=== PATIENT | male | born 1955 | race Caucasian/White ===

== ENCOUNTER 2017-07-18 19:29 | Inpatient (IN) | payer MEDICAID, OTHER ==
[~2017-07-18] VITALS: Ht 175.3 cm; Wt 73.1 kg
--- NOTE | 2017-07-18 20:26 | ERD ---
ER Documentation Chief Complaint Date/Time DATE: 07/18/17 TIME: 20:23 Chief Complaint TIFF from [facility] Living for high WBC 17.6 HPI Patient is a 62-year-old male with quadriplegia and recurrent UTIs sent to the ER from his residential after a white blood cell count was found to be elevated at 17.6 yesterday. The patient denies any fever, weakness, sweating, nausea, abdominal pain, dyspnea or cough. He states that he feels well. He states he last received antibiotics for UTI 3 months ago. Notes from the residential document that the patient had a urine culture performed 1 week ago and resulted 4 days ago that showed evidence of sensitive UTI. There were no significant electrolyte abnormalities, but the patient did have a elevated BUN. ROS All systems reviewed and are negative except as per history of present illness. Medications Home Meds Reported Medications Lactulose* (Lactulose*) 20 Gm/30 Ml Solution, 20 GM GTB TID, ML 07/18/17 Zolpidem Tartrate* (Ambien*) 5 Mg Tablet, 5 MG GTB QHS Y for INSOMNIA, #30 TAB 07/18/17 Tramadol HCl (Tramadol HCl) 50 Mg Tablet, 50 MG GTB TID, #90 TAB 07/18/17 Hydrocodone/Acetaminophen ([place] 10-325 Tablet) 1 Each Tablet, 1 EACH GTB Q6H Y for PRN, TAB AND TAKE 20 MINUTES PRIOR TO WOUND CARE DAILY 07/18/17 Cran/Vitc/Mannose/Inulin/Brom (Uti-Stat Liquid) 3,875 Mg/30 Ml Liquid, 30 ML GTB DAILY 07/18/17 Ferrous Sulfate (Ferrous Sulfate) 300 Mg/5 Ml Liquid, 300 MG GTB BID 07/18/17 Baclofen* (Baclofen*) 10 Mg Tablet, 10 MG GTB TID, TAB 07/18/17 Fluconazole* (Fluconazole*) 200 Mg Tablet, 200 MG GTB DAILY, TAB 07/18/17 Famotidine* (Famotidine*) 20 Mg Tablet, 20 MG GTB Q12H, #60 TAB 07/18/17 Magaldrate/Simethicone* (Mag-Al Plus Suspension*) 30 Ml Oral.susp, 30 ML GTB Q4H Y for GASTROINTESTINAL UPSET, ML 07/18/17 Sucralfate* (Carafate*) 1 Gm Tab, 1 GM GTB Q6, TAB 07/18/17 Dextran/Hypromellose/Glycerin (Artificial Tears Drops) 15 Ml Drops, 1 DROP RIGHT EYE Q4H, EA 07/18/17 Docusate Sodium* (Docusate Sodium* Liq) 50 Mg/5 Ml Liquid, 100 MG GTB BID, ML 07/18/17 Metformin Hcl* (Metformin Hcl*) 500 Mg Tablet, 500 MG GTB WITH BREAKFAST, #30 TAB 07/18/17 Allergies Allergies: Coded Allergies: No Known Allergy (Unverified , 07/18/17) PMhx/Soc Past medical history: Quadriplegia, recurrent UTIs, diabetes mellitus, stage IV sacral decubitus ulcer Past surgical history: Tracheostomy, PEG tube Social history: Lives in residential History of Surgery: Yes Anesthesia Reaction: No Hx Neurological Disorder: No Hx Respiratory Disorders: No Hx Cardiac Disorders: No Hx Psychiatric Problems: No Hx Miscellaneous Medical Probl: Yes (QUADRIPLEGIC, TRACH DEPENDENT) Hx Alcohol Use: No Hx Substance Use: No Hx Tobacco Use: No Smoking Status: Unknown if ever smoked FmHx Family History: No coronary disease, No diabetes Physical Exam Vitals Vital Signs Date Time Temp Pulse Resp B/P Pulse Ox O2 Delivery O2 Flow Rate FiO2 07/18/17 19:40 97.6 63 18 101/57 99 Physical Exam Const: Alert, no acute distress Head: Atraumatic Eyes: Normal Conjunctiva, Mild pallor, no icterus ENT: Normal External Ears, Nose and Mouth.Moist mucous membranes Neck: Full range of motion..~ No meningismus.Tracheostomy Resp: Clear to auscultation bilaterally, No wheezes, no rales Cardio: Regular rate and rhythm, no murmurs Abd: Soft, non tender, non distended. PEG tube Skin: No petechiae or rashes Back: No midline or flank tenderness. Stage IV decubitus ulcer without surrounding erythema, foul smell, or purulent discharge. Ext: No cyanosis, Trace pitting edema bilateral shins.Necrotic, black, dry ulcer to left heel without surrounding erythema. Neur: Awake and alert, Unable to move limbs with contractures. Psych: Normal Mood and Affect Result Diagram: 07/18/17202407/18/172024 Results 24 hrs Laboratory Tests Test 07/18/17 20:25 07/18/17 20:26 White Blood Count 10.010^3/ul Red Blood Count 3.0910^6/ul Hemoglobin 8.2g/dl Hematocrit 26.5% Mean Corpuscular Volume 85.8fl Mean Corpuscular Hemoglobin 26.5pg Mean Corpuscular Hemoglobin Concent 30.9g/dl Red Cell Distribution Width 14.9% Platelet Count 31231^3/UL Mean Platelet Volume 8.9fl Neutrophils % 63.9% Lymphocytes % 21.0% Monocytes % 11.7% Eosinophils % 2.6% Basophils % 0.2% Nucleated Red Blood Cells % 0.0/100WBC Neutrophils # (Manual) 6.410^3/ul Lymphocytes # 2.110^3/ul Monocytes # 1.210^3/ul Eosinophils # 0.310^3/ul Basophils # 0.010^3/ul Nucleated Red Blood Cells # 0.010^3/ul Erythrocyte Sedimentation Rate 132mm/Hr Sodium Level 133mmol/L Potassium Level 4.2mmol/L Chloride Level 99mmol/L Carbon Dioxide Level 30mmol/L Anion Gap 8 Blood Urea Nitrogen 52mg/dl Creatinine 0.70mg/dl Glucose Level 112mg/dl Lactic Acid Level 1.4mmol/L Calcium Level 9.4mg/dl Total Bilirubin 0.1mg/dl Direct Bilirubin 0.00mg/dl Indirect Bilirubin 0.1mg/dl Aspartate Amino Transf (AST/SGOT) 20IU/L Alanine Aminotransferase (ALT/SGPT) 19IU/L Alkaline Phosphatase 105IU/L Total Protein 7.4g/dl Albumin 3.2g/dl Globulin 4.20g/dl Albumin/Globulin Ratio 0.76 Urine Color YELLOW Urine Clarity CLOUDY Urine pH 8.0 Urine Specific [place] 1.015 Urine Ketones NEGATIVEmg/dL Urine Nitrite NEGATIVEmg/dL Urine Bilirubin NEGATIVEmg/dL Urine Urobilinogen NEGATIVEmg/dL Urine Leukocyte Esterase 3+Meaghan/ul Urine Microscopic RBC 26/HPF Urine Microscopic WBC > 182/HPF Urine Amorphous Crystals FEW/HPF Urine Bacteria FEW/HPF Urine Hemoglobin 1+mg/dL Urine Glucose NEGATIVEmg/dL Urine Total Protein 2+mg/dl Procedures/MDM MDM: Patient is a 62-year-old male sent to the ER from a convalescent home for leukocytosis on routine lab test. The patient states that he has not had fever , does not feel weak or dizzy, does not have shortness of breath or chest pain. The patient does have history of recurrent urinary tract infections and has a indwelling urinary catheter. Culture from 1 week ago show sensitivity to ceftriaxone. The patient also has a stage IV decubitus ulcer over the sacrum and has an elevated ESR that is concerning for osteomyelitis. His x-ray shows a small area of airspace disease in the right medial lung. It is unclear I have low suspicion that this represents pneumonia, but cannot exclude that diagnosis. The patient is chronically trached with a trach cap. The patient has an elevated BUN, indicative of dehydration. The patient has chronic anemia with a stable hemoglobin. There is no report of dark stools. I discussed the case with the physician at the convalescent home, and he states that they do not have capacity to provide IV antibiotics or fluids, so I will admit the patient for further workup and treatment. Departure Diagnosis: Primary Impression: Complicated urinary tract infection Additional Impressions: Dehydration Chronic anemia Quadriplegia Stage IV decubitus ulcer Pressure ulcer location: sacral region Qualified Code: L89.154 - Decubitus ulcer of sacral region, stage 4 Condition: GIACOMO Rivas MD Jul 18, 2017 20:26
[2017-07-18 20:40] LABS: BASOPHILS % 0.2 % (0.0-2.0); EOSINOPHILS # 0.3 10^3/ul (0.0-0.5); EOSINOPHILS % 2.6 % (0.0-7.0); HEMATOCRIT 26.5 % (42.0-52.0); HEMOGLOBIN 8.2 g/dl (14.0-18.0); LYMPHOCYTES # 2.1 10^3/ul (0.8-2.9); MEAN CORPUSCULAR HEMOGLOBIN 26.5 pg (29.0-33.0); MEAN CORPUSCULAR HGB CONC 30.9 g/dl (32.0-37.0); MEAN CORPUSCULAR VOLUME 85.8 fl (82.0-101.0); MEAN PLATELET VOLUME 8.9 fl (7.4-10.4); MONOCYTE # 1.2 10^3/ul (0.3-0.9); MONOCYTES % 11.7 % (0.0-11.0); NEUTROPHILS % 63.9 % (39.0-77.0); PLATELET COUNT 391 10^3/UL (140-415); RED BLOOD COUNT 3.09 10^6/ul (4.70-6.10); RED CELL DISTRIBUTION WIDTH 14.9 % (11.5-14.5)
[2017-07-18] MEDS ORDERED: METF500T4 GTB (20:53)
[2017-07-18] MEDS ORDERED: UDCOL GTB (20:54)
[2017-07-18] MEDS ORDERED: SUCR1TAB56 GTB (20:56)
[2017-07-18] MEDS ORDERED: DEXT15DR2 RIGHT EYE (20:56)
[2017-07-18] MEDS ORDERED: UDMYL GTB (20:57)
[2017-07-18] MEDS ORDERED: FAMO20TA18 GTB (20:58)
[2017-07-18] MEDS ORDERED: FLUC200T52 GTB (20:58)
[2017-07-18] MEDS ORDERED: BACL10TA GTB (20:59)
[2017-07-18 21:00] LABS: ALBUMIN 3.2 g/dl (3.3-4.9); ALBUMIN/GLOBULIN RATIO 0.76; BILIRUBIN,INDIRECT 0.1 mg/dl (0-1.1); BILIRUBIN,TOTAL 0.1 mg/dl (0.2-1.3); CALCIUM 9.4 mg/dl (8.4-10.2); CREATININE 0.7 mg/dl (0.61-1.24); POTASSIUM 4.2 mmol/L (3.5-5.1); TOTAL PROTEIN 7.4 g/dl (6.1-8.1)
[2017-07-18] MEDS ORDERED: SOD CHLORIDE 0.9% 1,000 ML IV ONE (21:00)
[2017-07-18] MEDS ORDERED: ACETAMINOPHEN 325 MG TAB PO PRN ×2 (21:00→22:30)
[2017-07-18] MEDS ORDERED: UDFER GTB (21:00)
[2017-07-18] MEDS ORDERED: CEFTRIAXONE 2 GM/50 ML (PMX) 50 ML IVPB ONE (21:00)
[2017-07-18] MEDS ORDERED: ONDANSETRON 4 MG INJ IV PRN (21:00)
[2017-07-18] MEDS ORDERED: CRAN3875 GTB (21:01)
[2017-07-18 21:02] LABS: ADD UMIC YES; UR AMORPHOUS CRYSTAL FEW /HPF (NONE SEEN); UR ASCORBIC ACID 40 mg/dL (NEGATIVE); UR BACTERIA FEW /HPF (NONE SEEN); UR BILIRUBIN (Dip) NEGATIVE (NEGATIVE); UR BLOOD (Dip) 1+ mg/dL (NEGATIVE); UR CLARITY CLOUDY (CLEAR); UR COLOR YELLOW (YELLOW); UR GLUCOSE (Dip) NEGATIVE (NEGATIVE); UR KETONES (Dip) NEGATIVE (NEGATIVE); UR LEUKOCYTE ESTERASE (Dip) 3+ Leu/ul (NEGATIVE); UR NITRITE (Dip) NEGATIVE (NEGATIVE); UR RBC 26 /HPF (0-5); UR SPECIFIC GRAVITY (Dip) 1.015 (1.003-1.030); UR TOTAL PROTEIN (Dip) 2+ mg/dl (NEGATIVE); UR UROBILINOGEN (Dip) NEGATIVE (NEGATIVE)
[2017-07-18] MEDS ORDERED: TRAM50TA2 GTB (21:05)
[2017-07-18] MEDS ORDERED: HYDR-902 GTB (21:05)
[2017-07-18] MEDS ORDERED: ZOLP5TAB GTB (21:06)
[2017-07-18] MEDS ORDERED: LACT20SO2 GTB (21:07)
--- NOTE | 2017-07-18 21:12 | RADRPT ---
PROCEDURE: CHEST RADIOGRAPH CLINICAL INDICATION: Possible sepsis. TECHNIQUE: Single frontal view of the chest were obtained. COMPARISON: None. FINDINGS: Tracheostomy seen. The PICC line tip is in the distal SVC. There is medial right lower lobe air spac e disease. the right lung is clear. There is no pleural effusion or pneumothorax. The cardiomediast inal structures are unremarkable. Cervical spine fixation hardware is partially seen. IMPRESSION: Medial right lower lobe air space disease. PICC line tip in the distal SVC. RPTAT: HMZ .Ramone Downs MD, MD Date Time Electronically viewed and signed by .Ramone Downs MD, on 07/18/2017 21:12 .Z/
[2017-07-18] MEDS ORDERED: SOD CHLORIDE 0.9% 1,000 ML IV SCH (22:25)
[2017-07-18] MEDS ORDERED: morphine 4 MG/ML VIAL IV STA (22:26)
[2017-07-18] MEDS ORDERED: NACL 0.9% 3 ML SYG IV SCH (22:30)
[2017-07-18] MEDS ORDERED: BISACODYL (EC) 5 MG TAB PO PRN (22:30)
[2017-07-18] MEDS ORDERED: DOCUSATE SODIUM 100 MG CAP PO PRN (22:30)
[2017-07-18] MEDS ORDERED: FAMOTIDINE 20 MG TAB PO SCH (22:30)
[2017-07-18] MEDS ORDERED: ONDANSETRON 4 MG INJ IV ONE (22:30)
[2017-07-18 23:41] VITALS: Ht 175.3 cm; Wt 73.1 kg
[2017-07-18 23:42] VITALS: BP 122/59; RESP 18
[2017-07-19] MEDS ORDERED: HYDROCODONE/APAP (10/325) TAB PO PRN (00:30)
[2017-07-19 02:04] VITALS: BP 88/52; RESP 20
[2017-07-19] MEDS: SUCRALFATE 1 GM TAB GTB SCH ×4 (05:52→23:51)
[2017-07-19] MEDS: ARTIFICIAL TEARS 15 ML OPH RIGHT EYE SCH ×6 (05:52→23:51)
--- NOTE | 2017-07-19 05:59 | HP ---
Date/Time of Note Date/Time of Note DATE: 07/19/17 TIME: 05:37 Assessment/Plan VTE Prophylaxis VTE Prophylaxis Intervention: SCD's Lines/Catheters IV [facility]ter Type (from [facility]): PICC Line Central line still needed: No Urinary Cath still in place: Yes Reason Cath still needed: other (indicate) (neurogenic bladder) Assessment/Plan Chief Complaint/Hosp Course This is a 62-year-old male being admitted to the [facility] floor for: #1 catheter induced UTI: Patient has history of recurrent UTIs most recent culture showed sensitivities to ceftriaxone, please see lab work in chart for further details. At the current time we will continue ceftriaxone 2 g every 24 hours, await hospital drawn urine culture results. Patient recently had his catheter changed will consider re-changing the catheter if indicated. #2 tetraplegia status post neck injury from fall: To be supportive care, continue trach care, continue turning in the bed #3 chronic decubitus ulcers: Continue turning in the bed as scheduled, wound care #4 diabetes mellitus: Check hemoglobin A1c, patient is on metformin as an outpatient will hold it for a now. Insulin sliding scale. #5 anemia: Continue ferrous sulfate #6 hypertension: Continue home medications. #7 elevated BUN: No signs of any active bleeding at this time. Will check fecal occult blood. Monitor H&H. Monitor BMP. #8 DVT and GI prophylaxis: SCDs, acid hayede Further treatment strategy will be implemented as per the clinical course Problems: HPI/ROS Admit Date/Time Admit Date/Time Jul 18, 2017 at 20:55 Hx of Present Illness Chief complaint: Urinary tract infection Patient is a 62-year-old male with quadriplegia and recurrent UTIs sent to the ER from his shelter after a white blood cell count was found to be elevated at 17.6 yesterday. The patient denies any fever, weakness, sweating, nausea, abdominal pain, dyspnea or cough. He states that he feels well. He does report that he had noticed approximately 2 days ago that his Mondragon was with dirty urine and he was leaking his catheter was changed approximately 2 days ago. He states he last received antibiotics for UTI 3 months ago. Notes from the shelter document that the patient had a urine culture performed 1 week ago that showed a UTI though susceptible to ceftriaxone with species of Providencia enterococcus. Allergies: Levaquin Medications: See MAR ROS Const: Negative for fever, chills, weight gain or weight loss, fatigue, or diaphoresis Eyes : No pain discharge or redness or change in visual acuity ENT: No pain, sore throat, congestion, congestion, dysphagia or discharge Respiratory: No shortness of breath, cough, sputum, wheezing, or pleuritic pain Cardiovascular: No chest pain, palpitation, PND, or edema GI : no change in appetite, abdominal pain, nausea, vomiting, diarrhea, constipation, or change in the color his stool Genitourinary: As per HPI Musculoskeletal: As per HPI Skin: No rash, bruising or hives Neuro: No headache, dizziness, syncope, seizure, focal weakness Endocrine: No polyuria, polydipsia, temperature intolerance Psych: No hallucination, depression, anxiety or suicidal ideation PMH/Family/Social Past Medical History Neck injury resulting in tetraplegia, diabetes mellitus, hypertension, chronic decubitus ulcer, arthritis, chronic trach, chronic PEG tube Past Surgical History Tracheostomy, neck surgery, PEG tube placement, right knee surgery Family History Significant Family History: no pertinent family hx Social History Alcohol Use: sober Smoking Status: Never smoker Drug Use: none Exam/Review of Systems Vital Signs Vitals Vital Signs Date Time Temp Pulse Resp B/P Pulse Ox O2 Delivery O2 Flow Rate FiO2 07/19/17 02:04 99.0 69 20 88/52 99 07/18/17 21:42 21 Exam Exam General: This is a very pleasant male sitting in bed in no acute distress HEENT: Atraumatic, normocephalic. The pupils are equal, round and reactive. Extraocular motor are intact, trach in place Neck: Supple with full range of motion. No rigidity or meningismus Chest: Nontender Lungs: Clear to auscultation bilaterally no crackles rales or wheezing Heart: Normal S1-S2, Regular rhythm and rate. Abdomen: Soft , nontender, nondistended , bowel sounds are present. No guarding no rebound tenderness , No masses or organomegaly. No costovertebral temporal angle mass Extremities: Multiple inspection, tetraplegic Neurologic: Normal mental status, speech normal, patient is a tetraplegic secondary to traumatic fall resulting in neck injury Additional Comments PROCEDURE: CHEST RADIOGRAPH CLINICAL INDICATION: Possible sepsis. TECHNIQUE: Single frontal view of the chest were obtained. COMPARISON: None. FINDINGS: Tracheostomy seen. The PICC line tip is in the distal SVC. There is medial right lower lobe air space disease. the right lung is clear. There is no pleural effusion or pneumothorax. The cardiomediastinal structures are unremarkable. Cervical spine fixation hardware is partially seen. IMPRESSION: Medial right lower lobe air space disease. PICC line tip in the distal SVC. RPTAT: HMZ .Ramone Downs MD, MD Date Time Electronically viewed and signed by .Ramone Downs MD, MD on 07/18/2017 21:12 .Z/ CC: GIACOMO VIRGEN MD Outside laboratory lab work please see documentation in chart for further information, pertinent labs below; white blood cell count 17.6 hemoglobin 8.3 hematocrit 27.6 platelet count 466 Glucose 128 BUN 52 sodium 130 potassium 4.9 chloride 97 urinalysis leukoesterase 3+ blood 2+ nitrite negative white blood cell greater than 50 urine culture 100,000 colonies organism 1 Providencia rettgeri organism to enterococcus Labs Result Diagram: 07/18/17202407/18/172024 Medications Medications Current Medications Sodium Chloride (NS) 1,000 ml @ 70 mls/hr [id number] IV Last administered on 00:03; Admin Dose 70 MLS/HR; Start 07/18/17 at 22:25 Ondansetron HCl (Zofran Inj) 4 mg Q6H PRN IV NAUSEA AND/OR VOMITING; Start 07/18 at 22:30 Acetaminophen (Tylenol Tab) 650 mg Q6H PRN PO PAIN LEVEL 1-3 OR FEVER; Start at 22:30 Docusate Sodium (Colace) 100 mg Q12H PRN PO CONSTIPATION; Start 07/18/17 at 22: 30 Bisacodyl (Dulcolax) 5 mg DAILY PRN PO CONSTIPATION; Start 07/18/17 at 22:30 Famotidine 20 mg 20 mg Q12 PO Last administered on 07/19/17 01:12; Admin Dose 20 MG; Start 9/6/17 at 22:30 Ceftriaxone Sodium (Rocephin) 50 ml @ 100 mls/hr Q24H IVPB ; Start 07/19/17 at 22:00 Acetaminophen/ Hydrocodone Bitart ([place] (10)) 1 tab Q6H PRN PO PAIN Last administered on 07/19/17 01:13; Admin Dose 1 TAB; Start 07/19/17 at 00:30 ANIVAL GRAHAM Jul 19, 2017 05:47
[2017-07-19] MEDS ORDERED: ZOLPIDEM 5 MG TAB GTB PRN (06:00)
[2017-07-19] MEDS ORDERED: AL HYDROX/MG HYDROX/SIMETH 30 ML CUP GTB PRN (06:00)
[2017-07-19] MEDS ORDERED: OXYCODONE/ACETAMINOPHEN (10/325) TAB PO PRN (06:00)
[2017-07-19] MEDS ORDERED: ACETAMINOPHEN 650MG/20.3ML CUP GTB PRN (06:00)
[2017-07-19 06:43] LABS: ALBUMIN 3.1 g/dl (3.3-4.9); ALBUMIN/GLOBULIN RATIO 0.75; CALCIUM 8.9 mg/dl (8.4-10.2); CHOL/HDL RATIO 4.4 RATIO; CREATININE 0.64 mg/dl (0.61-1.24); MAGNESIUM 1.9 mg/dl (1.7-2.5); POTASSIUM 4.2 mmol/L (3.5-5.1); TOTAL PROTEIN 7.2 g/dl (6.1-8.1)
[2017-07-19 07:37] VITALS: BP 103/57; RESP 18
[2017-07-19 07:41] LABS: THYROID STIMULATING HORMONE 0.363 MIU/L (0.465-4.680)
[2017-07-19] MEDS: LACTULOSE 30ML CUP GTB SCH ×3 (09:00→20:31)
[2017-07-19] MEDS ORDERED: NON-FORMULARY/PATIENT OWN MED (Cran/Vitc/Mannose/Inulin/Brom (Uti-Stat Liquid) 30 ML) GTB SCH (09:00)
[2017-07-19] MEDS: DOCUSATE SODIUM 10 MG/ML (10ML CUP) GTB SCH ×2 (09:00→20:31)
[2017-07-19] MEDS: FERROUS SULFATE 60 MG/ML 5ML CUP GTB SCH ×2 (09:16→20:31)
[2017-07-19] MEDS: traMADol 50 MG TAB GTB SCH ×3 (09:17→20:31)
[2017-07-19] MEDS: BACLOFEN 10 MG TAB GTB SCH ×3 (09:18→20:32)
[2017-07-19 10:30] LABS: IRON 24 ug/dl (35-150)
[2017-07-19 10:40] LABS: TOTAL IRON BINDING CAPACITY 247 ug/dl (241-421)
[2017-07-19] MEDS: OXYCODONE/ACETAMINOPHEN (10/325) TAB GTB PRN ×2 (11:54→20:32)
[2017-07-19 13:19] VITALS: BP 86/48; RESP 20
[2017-07-19 13:27] VITALS: BP 96/54; PULSE 65; RESP 18
[2017-07-19] MEDS ORDERED: COLLAGENASE 30 GM TUBE TOP PRN (14:30)
[2017-07-19] MEDS ORDERED: PENDING SANTYL ORDER FOR WOUND CARE XX PRN (14:30)
[2017-07-19 19:30] VITALS: BP 110/62; RESP 18
[2017-07-19] MEDS ORDERED: CEFTRIAXONE 2 GM/50 ML (PMX) 50 ML IVPB SCH (22:00)
[2017-07-20 02:00] VITALS: BP 127/73; RESP 18
[2017-07-20] MEDS: SUCRALFATE 1 GM TAB GTB SCH ×3 (05:03→18:00)
[2017-07-20] MEDS: ARTIFICIAL TEARS 15 ML OPH RIGHT EYE SCH ×5 (05:03→21:13)
[2017-07-20] MEDS: OXYCODONE/ACETAMINOPHEN (10/325) TAB GTB PRN (05:46)
[2017-07-20 07:26] VITALS: BP 132/67; RESP 20
[2017-07-20] MEDS: DOCUSATE SODIUM 10 MG/ML (10ML CUP) GTB SCH ×2 (09:00→21:15)
[2017-07-20] MEDS: COLLAGENASE 30 GM TUBE TOP SCH (09:00)
[2017-07-20 09:15] VITALS: BP 162/73; RESP 18
[2017-07-20] MEDS: BACLOFEN 10 MG TAB GTB SCH ×3 (10:32→21:11)
[2017-07-20] MEDS: FERROUS SULFATE 60 MG/ML 5ML CUP GTB SCH ×2 (10:32→21:12)
[2017-07-20] MEDS: LACTULOSE 30ML CUP GTB SCH ×3 (10:32→21:13)
[2017-07-20] MEDS: traMADol 50 MG TAB GTB SCH ×3 (10:33→21:12)
[2017-07-20 11:03] LABS: BASOPHILS % 0.3 % (0.0-2.0); EOSINOPHILS # 0.4 10^3/ul (0.0-0.5); EOSINOPHILS % 3.7 % (0.0-7.0); HEMATOCRIT 25.2 % (42.0-52.0); HEMOGLOBIN 7.8 g/dl (14.0-18.0); LYMPHOCYTES # 2.2 10^3/ul (0.8-2.9); LYMPHOCYTES % 23.9 % (15.0-51.0); MEAN CORPUSCULAR HEMOGLOBIN 26.5 pg (29.0-33.0); MEAN CORPUSCULAR VOLUME 85.7 fl (82.0-101.0); MONOCYTE # 1.2 10^3/ul (0.3-0.9); MONOCYTES % 13.2 % (0.0-11.0); NEUTROPHILS % 58.3 % (39.0-77.0); PLATELET COUNT 389 10^3/UL (140-415); RED BLOOD COUNT 2.94 10^6/ul (4.70-6.10); RED CELL DISTRIBUTION WIDTH 14.9 % (11.5-14.5); WHITE BLOOD COUNT 9.4 10^3/ul (4.8-10.8)
[2017-07-20 11:11] LABS: ALBUMIN 2.9 g/dl (3.3-4.9); ALBUMIN/GLOBULIN RATIO 0.74; CALCIUM 8.9 mg/dl (8.4-10.2); CREATININE 0.6 mg/dl (0.61-1.24); POTASSIUM 3.9 mmol/L (3.5-5.1); TOTAL PROTEIN 6.8 g/dl (6.1-8.1)
[2017-07-20] MEDS: ONDANSETRON 4 MG INJ IV PRN ×2 (11:28→21:58)
[2017-07-20 14:00] VITALS: BP 119/56; RESP 20
--- NOTE | 2017-07-20 16:02 | PN ---
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 Repeat cultures - ID consult for guidance - Does have hardware in his spine Dispo to faciliyt Problems: Subjective 24 Hr Interval Summary Free Text/Dictation Patient very eager to go home, can't sleep here he says Agrees to stay another day BC growing bacteroides x 2 MDRO in urine Exam/Review of Systems Vital Signs Vitals Vital Signs Date Time Temp Pulse Resp B/P Pulse Ox O2 Delivery O2 Flow Rate FiO2 07/20/17 14:00 97.3 69 20 119/56 99 07/19/17 13:27 Room Air 07/19/17 10:37 21 Intake and Output 07/19/17 07/19/17 07/20/17 15:00 23:00 07:00 Intake Total 750 ml 290 ml 1170 ml Output Total 800 ml 1000 ml Balance 750 ml -510 ml 170 ml Exam Quadraplegic Trach PEG Appears very comfortable Nontoxic apperaing Pleasant, appropriate Results Result Diagram: 07/20/17 1017 07/20/17 1017 Results 24 hrs Laboratory Tests Test 07/20/17 10:17 White Blood Count 9.4 Red Blood Count 2.94 L Hemoglobin 7.8 L Hematocrit 25.2 L Mean Corpuscular Volume 85.7 Mean Corpuscular Hemoglobin 26.5 L Mean Corpuscular Hemoglobin Concent 31.0 L Red Cell Distribution Width 14.9 H Platelet Count 389 Mean Platelet Volume 9.0 Neutrophils % 58.3 Lymphocytes % 23.9 Monocytes % 13.2 H Eosinophils % 3.7 Basophils % 0.3 Nucleated Red Blood Cells % 0.0 Neutrophils # (Manual) 5.5 Lymphocytes # 2.2 Monocytes # 1.2 H Eosinophils # 0.4 Basophils # 0.0 Nucleated Red Blood Cells # 0.0 Sodium Level 133 L Potassium Level 3.9 Chloride Level 100 Carbon Dioxide Level 28 Anion Gap 9 Blood Urea Nitrogen 23 #H Creatinine 0.60 L Glucose Level 131 Calcium Level 8.9 Total Bilirubin 0.0 L Direct Bilirubin 0.00 Indirect Bilirubin 0.0 Aspartate Amino Transf (AST/SGOT) 22 Alanine Aminotransferase (ALT/SGPT) 31 Alkaline Phosphatase 109 Total Protein 6.8 Albumin 2.9 L Globulin 3.90 H Albumin/Globulin Ratio 0.74 Medications Medications Current Medications Ondansetron HCl (Zofran Inj) 4 mg Q6H PRN IV NAUSEA AND/OR VOMITING Last administered on 07/20/17 11:28; Admin Dose 4 MG; Start 07/18/17 at 22:30 Baclofen (Lioresal) 10 mg TID GTB Last administered on 07/20/17 10:32; Admin Dose 10 MG; Start 07/19/17 at 09:00 Eye Lubricant (Artificial Tears Oph) 1 drop Q4H RIGHT EYE Last administered on 07/20/17 10:34; Admin Dose 1 DROP; Start 07/19/17 at 06:00 Docusate Sodium (Colace Liquid Cup) 100 mg BID GTB Last administered on 20:31; Admin Dose 100 MG; Start 07/19/17 at 09:00 Ferrous Sulfate (Feosol Liquid Cup) 300 mg BID GTB Last administered on 10:32; Admin Dose 300 MG; Start 07/19/17 at 09:00 Lactulose (Enulose) 20 gm TID GTB Last administered on 07/20/17 10:32; Admin Dose 20 GM; Start 07/19/17 at 09:00 Al Hydrox/Mg Hydrox/Simethicone (Mag-Al Plus) 30 ml Q4H PRN GTB GASTROINTESTINAL UPSET; Start 07/19/17 at 06:00 Sucralfate (Carafate) 1 gm Q6 GTB Last administered on 07/19/17 23:51; Admin Dose 1 GM; Start 07/19/17 at 06:00 Tramadol HCl (Ultram) 50 mg TID GTB Last administered on 07/20/17 10:33; Admin Dose 50 MG; Start 07/19/17 at 09:00 Zolpidem Tartrate (Ambien) 5 mg QHS PRN GTB INSOMNIA; Start 07/19/17 at 06:00 Oxycodone/ Acetaminophen (Endocet (10/ 325)) 1 tab Q6H PRN PO PAIN; Start at 06:00 Acetaminophen (Tylenol Liquid) 650 mg Q4H PRN GTB PAIN AND OR ELEVATED TEMP; Start 07/19/17 at 06:00 Oxycodone/ Acetaminophen (Endocet (10/ 325)) 1 tab Q6H PRN GTB PAIN Last administered on 07/20/17t 05:46; Admin Dose 1 TAB; Start 07/19/17 at 06:00 Miscellaneous Information (Pending Santyl Order For Wound Care) This patient martinez... PRN PRN XX WOUND CARE; Start 07/19/17 at 14:30 Collagenase (Santyl) 1 applic DAILY TOP ; Start 07/20/17 at 09:00 Collagenase 1 applic 1 applic PRN PRN TOP PRN; Start 07/19/17 at 14:30 Cefepime HCl (Maxipime 1gm/50 ml (Pmx)) 50 ml @ 100 mls/hr Q12H IVPB ; Start at 17:00 GIACOMO VELIZ MD Jul 20, 2017 16:02
[2017-07-20] MEDS: CEFEPIME 1GM/50 ML (PMX) 50 ML IVPB SCH (16:45)
--- NOTE | 2017-07-20 18:35 | CONS ---
DATE OF ADMISSION: 07/18/2017 DATE OF CONSULTATION: 07/20/2017 REQUESTING PHYSICIAN: Mihir Larose MD Thank you, Mihir, for this consultation. HISTORY OF PRESENT ILLNESS: This is a chronically ill 62-year- old man with a history of quadriplegia, chronic Mondragon catheter, diabetes, hypertension, multiple chronic wounds, arthritis, tracheostomy pack, history of right knee surgery. The patient was admitted from snf facility with elevated white blood cell count and further workup. VITAL SIGNS: He came with vital signs as follows, temperature 97.6, pulse 63, respirations 18, blood pressure 101/57, saturation 99 on room air. LABORATORY DATA: WBC 10, H and H 8.2 and 26.5, platelet count 391, no shift, no bands. Sodium 133, BUN 52, creatinine 0.70, normal LFT, total bili 0.1, alk phos 105. Urine culture growing Proteus mirabilis susceptible to cefotaxime, gentamicin, and tobramycin. A blood culture grew diphtheroids. INDWELLINGS: Patient has trach pack, Mondragon, and right upper extremity PICC line placed approximately a year ago. He was started on ceftriaxone. PAST MEDICAL HISTORY: As per history. REVIEW OF SYSTEMS: The patient feels good and wants to go home. DIAGNOSTICS: Chest x-ray revealed medial right lower lobe airspace disease. ALLERGIES: LEVAQUIN. PHYSICAL EXAMINATION: GENERAL: This is a chronically ill-appearing, quadriplegic, elderly man, who is alert, responsive and in no distress. HEENT: Head atraumatic, normocephalic. Sclerae anicteric. Buccal mucosa dry. NECK: Supple. Tracheostomy present. CHEST: Rise symmetrical. Breath sounds diminished at the bases. HEART: S1, S2. ABDOMEN: Soft, bowel sounds present. EXTREMITIES: Without cyanosis, wasted, and contractured. SKIN: No jaundice. No cyanosis. NEUROMUSCULAR: Patient is quadriplegic. DIAGNOSTIC IMPRESSION: This is a 62-year-old quadriplegic man with numerous medical problems. Admitted with elevated white blood cell count per report from snf facility, however, white blood cell counts while he is here were within normal limits. He does not have any shift to the left. No bandemia. ASR 132 though. Urine culture growing multidrug resistant Proteus mirabilis, which could be colonized given presence of chronic Mondragon catheter. Blood culture growing diphtheroids consistent with contaminant. Chest x-ray showed right medial lower lobe airspace disease, which could be a developing pneumonia. The patient is clinically and hemodynamically stable and had been afebrile with white blood cell count remained 9.4 today and no shift. We are going to change Rocephin to cefepime. We will repeat blood cultures from PICC line, 2 sets, and order chest x-ray in a.m. Further recommendations per patient's clinical course. Discussed with Dr. Casas, who is covering Dr. Fernandez. Dictated By: Ji Oropeza NP /mohinder/fan /Document#: [id number]
[2017-07-20 20:43] VITALS: BP 139/71; RESP 18
[2017-07-21] MEDS: ARTIFICIAL TEARS 15 ML OPH RIGHT EYE SCH ×6 (01:17→21:25)
[2017-07-21] MEDS: CEFEPIME 1GM/50 ML (PMX) 50 ML IVPB SCH ×2 (04:32→19:27)
[2017-07-21] MEDS: OXYCODONE/ACETAMINOPHEN (10/325) TAB GTB PRN (06:28)
[2017-07-21] MEDS: SUCRALFATE 1 GM TAB GTB SCH ×5 (06:29→23:46)
[2017-07-21 07:21] LABS: BASOPHILS % 0.3 % (0.0-2.0); EOSINOPHILS # 0.3 10^3/ul (0.0-0.5); EOSINOPHILS % 2.8 % (0.0-7.0); HEMATOCRIT 25.6 % (42.0-52.0); HEMOGLOBIN 7.7 g/dl (14.0-18.0); LYMPHOCYTES # 2.6 10^3/ul (0.8-2.9); LYMPHOCYTES % 25.1 % (15.0-51.0); MEAN CORPUSCULAR HEMOGLOBIN 25.6 pg (29.0-33.0); MEAN CORPUSCULAR HGB CONC 30.1 g/dl (32.0-37.0); MEAN PLATELET VOLUME 9.1 fl (7.4-10.4); MONOCYTE # 1.3 10^3/ul (0.3-0.9); MONOCYTES % 12.7 % (0.0-11.0); NEUTROPHILS % 58.5 % (39.0-77.0); PLATELET COUNT 390 10^3/UL (140-415); RED BLOOD COUNT 3.01 10^6/ul (4.70-6.10); RED CELL DISTRIBUTION WIDTH 14.7 % (11.5-14.5); WHITE BLOOD COUNT 10.2 10^3/ul (4.8-10.8)
[2017-07-21 07:41] LABS: ALBUMIN 3.2 g/dl (3.3-4.9); ALBUMIN/GLOBULIN RATIO 0.74; CREATININE 0.58 mg/dl (0.61-1.24); TOTAL PROTEIN 7.5 g/dl (6.1-8.1)
[2017-07-21 08:02] VITALS: BP 121/72
[2017-07-21] MEDS: DOCUSATE SODIUM 10 MG/ML (10ML CUP) GTB SCH ×2 (09:00→21:00)
[2017-07-21] MEDS: LACTULOSE 30ML CUP GTB SCH ×3 (09:00→21:00)
[2017-07-21] MEDS: FERROUS SULFATE 60 MG/ML 5ML CUP GTB SCH ×2 (09:27→21:24)
[2017-07-21] MEDS: BACLOFEN 10 MG TAB GTB SCH ×3 (09:27→21:24)
[2017-07-21] MEDS: traMADol 50 MG TAB GTB SCH ×3 (09:28→21:24)
[2017-07-21] MEDS: COLLAGENASE 30 GM TUBE TOP SCH (09:29)
[2017-07-21] MEDS ORDERED: VANCOMYCIN IV PER PHARMACY XX SCH (12:30)
[2017-07-21] MEDS ORDERED: VANCOMYCIN 1.5 GM in SOD CHLORIDE 0.9% 250 ML IVPB SCH (14:00)
[2017-07-21 14:49] VITALS: BP 143/72; RESP 18
--- NOTE | 2017-07-21 17:35 | PN ---
DATE: 07/21/2017 SUBJECTIVE DATA: No acute changes overnight. The patient is alert, wants to go home. Denies pain. No fevers. LABORATORY AND DIAGNOSTIC DATA: WBC 10.2, no shift, no bands. BUN 18, creatinine 0.58. MICROBIOLOGY: Blood culture on admission grew Corynebacterium species. Repeat blood cultures growing gram-positive rods. Urine culture grew Proteus mirabilis. Id Proteus mirabilis, multidrug resistant. ANTIMICROBIALS: 1. Vancomycin. 2. Cefepime. INDWELLINGS: Trach, PEG, Mondragon, right upper extremity PICC line. PHYSICAL EXAMINATION: GENERAL: This is a chronically ill-appearing, elderly man, who is awake, in no distress. HEENT: Head atraumatic, normocephalic. Sclerae anicteric. Buccal mucosa dry. NECK: Supple. CHEST: Rise symmetrical. Breath sounds clear. Diminished at the bases. HEART: S1, S2. ABDOMEN: Soft, bowel sounds present. EXTREMITIES: With right upper extremity. A edema PICC line present. SKIN: No jaundice. No cyanosis. ASSESSMENT: 1. Persistent bacteremia, possibly line sepsis. 2. Multidrug resistant, presence of bacteria in the urine. Possibly colonized given chronic Mondragon catheter. 3. Quadriplegia. 4. Obesity. 5. Dysphagia. PLAN: The patient remains stable. We are going to continue him on current antibiotics. We will order right upper extremity ultrasound to rule out DVT. The patient needs to have PICC line removed and line holiday between new central line placement given persistent bacteremia. Await for chest x-ray. discussed with patient at length. Dictated By: Ji Oropeza NP /mohinder/skylar /Document#: [id number] SHALOM
--- NOTE | 2017-07-21 19:02 | PN ---
Date/Time of Note Date/Time of Note DATE: 07/21/17 TIME: 19:00 Assessment/Plan VTE Prophylaxis VTE Prophylaxis Intervention: LMWH Lines/Catheters IV Catheter Type (from Nrsg): PICC Line Central line still needed: No Urinary Cath still in place: Yes Reason Cath still needed: urinary retention Assessment/Plan Chief Complaint/Hosp Course 62 yo male with paraplegia from cervical spine injury, neurogenic bladder with chronic indwelling shankar presenting with UTI and bacteremia, likely from PICC line infection Bacteroides bacteremia persistent - Clearly real infection given persistence - dc PICC line now then replace when cultures are clear - Abx per ID UTI: - MDRO organisms - May be colonizer - Abx per ID H/o Quadraplegia Neurogenic bladder Dispo to faciliyt Problems: Subjective 24 Hr Interval Summary Free Text/Dictation Very much wants to return home because can't sleep here Feels well otherwise BC still positive Removing PICC today Exam/Review of Systems Vital Signs Vitals Vital Signs Date Time Temp Pulse Resp B/P Pulse Ox O2 Delivery O2 Flow Rate FiO2 07/21/17 14:49 98.1 61 18 143/72 100 07/20/17 21:00 Nasal Cannula 2.0 07/19/17 10:37 21 Intake and Output 07/20/17 07/20/17 07/21/17 15:00 23:00 07:00 Intake Total 800 ml 1030 ml Output Total 1300 ml Balance 800 ml -270 ml Exam Quadraplegia PICC in RUE Appears well, no disterss, nonotoxic Constitutional: alert, oriented, well developed Psych: nl mood/affect, no complaints Head: atraumatic, normocephalic Eyes: EOMI, PERRL, nl conjunctiva, nl lids, nl sclera ENMT: nl external ears & nose, nl lips & teeth, nl nasal mucosa & septum Neck: non-tender, supple Respiratory: clear to auscultation, normal air movement Cardiovascular: nl pulses, regular rate and rhythm Gastrointestinal: nl liver, spleen, non-tender, soft Musculoskeletal: nl extremities to inspection, nl gait and stance Extremities: normal pulses Neurological: [employer] II-XII intact, nl mental status, nl speech, nl strength Skin: nl turgor, No rash or lesions Lymph: nl lymph nodes Results Result Diagram: 9/9/17 0625 9/9/17 0625 Results 24 hrs Laboratory Tests Test 07/21/17 06:25 07/21/17 09:00 White Blood Count 10.2 Red Blood Count 3.01 L Hemoglobin 7.7 L Hematocrit 25.6 L Mean Corpuscular Volume 85.0 Mean Corpuscular Hemoglobin 25.6 L Mean Corpuscular Hemoglobin Concent 30.1 L Red Cell Distribution Width 14.7 H Platelet Count 390 Mean Platelet Volume 9.1 Neutrophils % 58.5 Lymphocytes % 25.1 Monocytes % 12.7 H Eosinophils % 2.8 Basophils % 0.3 Nucleated Red Blood Cells % 0.0 Neutrophils # (Manual) 6.0 Lymphocytes # 2.6 Monocytes # 1.3 H Eosinophils # 0.3 Basophils # 0.0 Nucleated Red Blood Cells # 0.0 Sodium Level 135 Potassium Level 4.0 Chloride Level 101 Carbon Dioxide Level 27 Anion Gap 11 Blood Urea Nitrogen 18 Creatinine 0.58 L Glucose Level 125 Calcium Level 9.0 Total Bilirubin 0.0 L Direct Bilirubin 0.00 Indirect Bilirubin 0.0 Aspartate Amino Transf (AST/SGOT) 21 Alanine Aminotransferase (ALT/SGPT) 32 Alkaline Phosphatase 107 Total Protein 7.5 Albumin 3.2 L Globulin 4.30 H Albumin/Globulin Ratio 0.74 Stool Occult Blood NEGATIVE Medications Medications Current Medications Ondansetron HCl (Zofran Inj) 4 mg Q6H PRN IV NAUSEA AND/OR VOMITING Last administered on 07/20/17 21:58; Admin Dose 4 MG; Start 07/18/17 at 22:30 Baclofen (Lioresal) 10 mg TID GTB Last administered on 07/21/17 13:24; Admin Dose 10 MG; Start 07/19/17 at 09:00 Eye Lubricant (Artificial Tears Oph) 1 drop Q4H RIGHT EYE Last administered on 07/20/17 21:13; Admin Dose 1 DROP; Start 07/19/17 at 06:00 Docusate Sodium (Colace Liquid Cup) 100 mg BID GTB Last administered on 21:15; Admin Dose 100 MG; Start 07/19/17 at 09:00 Ferrous Sulfate (Feosol Liquid Cup) 300 mg BID GTB Last administered on 09:27; Admin Dose 300 MG; Start 07/19/17 at 09:00 Lactulose (Enulose) 20 gm TID GTB Last administered on 07/20/17 21:13; Admin Dose 20 GM; Start 07/19/17 at 09:00 Al Hydrox/Mg Hydrox/Simethicone (Mag-Al Plus) 30 ml Q4H PRN GTB GASTROINTESTINAL UPSET; Start 07/19/17 at 06:00 Sucralfate (Carafate) 1 gm Q6 GTB Last administered on 07/21/17 12:41; Admin Dose 1 GM; Start 07/19/17 at 06:00 Tramadol HCl (Ultram) 50 mg TID GTB Last administered on 07/21/17 13:24; Admin Dose 50 MG; Start 07/19/17 at 09:00 Zolpidem Tartrate (Ambien) 5 mg QHS PRN GTB INSOMNIA; Start 07/19/17 at 06:00 Oxycodone/ Acetaminophen (Endocet (10/ 325)) 1 tab Q6H PRN PO PAIN; Start at 06:00 Acetaminophen (Tylenol Liquid) 650 mg Q4H PRN GTB PAIN AND OR ELEVATED TEMP; Start 07/19/17 at 06:00 Oxycodone/ Acetaminophen (Endocet (10/ 325)) 1 tab Q6H PRN GTB PAIN Last administered on 07/21/17 06:28; Admin Dose 1 TAB; Start 07/19/17 at 06:00 Miscellaneous Information (Pending Santyl Order For Wound Care) This patient martinez... PRN PRN XX WOUND CARE; Start 07/19/17 at 14:30 Collagenase (Santyl) 1 applic DAILY TOP Last administered on 07/21/17 09:29; Admin Dose 1 APPLIC; Start 07/20/17 at 09:00 Collagenase 1 applic 1 applic PRN PRN TOP PRN; Start 07/19/17 at 14:30 Cefepime HCl 50 ml @ 100 mls/hr Q12H IVPB Last administered on 07/21/17 04:32 ; Admin Dose 100 MLS/HR; Start 07/20/17 at 17:00 Vancomycin HCl 1.5 gm/Sodium Chloride 250 ml @ 83.333 mls/ hr ONCE IVPB Last administered on 07/21/17 14:35; Admin Dose 83.333 MLS/HR; Start 07/21/17 at 14:00 ; Stop 07/21/17 at 23:33 Vancomycin HCl (Vancocin) 250 ml @ 125 mls/hr Q12H IVPB ; Start 07/22/17 at 04: 00 GIACOMO VELIZ MD Jul 21, 2017 19:02
--- NOTE | 2017-07-21 19:14 | RADRPT ---
PROCEDURE: XR Chest. CLINICAL INDICATION: Shortness of breath. TECHNIQUE: Single frontal view. COMPARISON: 07/18/2017. FINDINGS: The right arm PICC line, tracheostomy tube, and prior cervical spine surgery with hardware is once a gain noted. There is air space disease at the right lung base medially, slightly improved. The lungs are otherwise clear. The heart size is normal. There is no pleural effusion. There is no pneumothorax. IMPRESSION: 1. Slightly improved appearance of right basilar pneumonia. 2. Otherwise no change from 07/18/2017. RPTAT: QQ .Hung Abel MD, MD Date Time Electronically viewed and signed by .Hung Abel MD, MD on 07/21/2017 19:13 .R/
[2017-07-21 19:17] VITALS: BP 154/76; RESP 20
[2017-07-21] MEDS ORDERED: LORAZEPAM 1 MG TAB PO PRN (19:30)
[2017-07-22] MEDS: ARTIFICIAL TEARS 15 ML OPH RIGHT EYE SCH ×6 (02:00→21:15)
[2017-07-22] MEDS: VANCOMYCIN 1 GM in NS 250 ML IVPB SCH ×2 (03:19→15:17)
[2017-07-22] MEDS: CEFEPIME 1GM/50 ML (PMX) 50 ML IVPB SCH ×2 (05:46→17:43)
[2017-07-22] MEDS: SUCRALFATE 1 GM TAB GTB SCH ×3 (05:47→17:42)
[2017-07-22 07:31] VITALS: BP 165/80; RESP 18
[2017-07-22] MEDS: DOCUSATE SODIUM 10 MG/ML (10ML CUP) GTB SCH ×2 (09:00→21:00)
[2017-07-22] MEDS: LACTULOSE 30ML CUP GTB SCH ×3 (09:00→21:00)
[2017-07-22] MEDS: ZINC SULFATE 220 MG CAP GTB SCH (09:14)
[2017-07-22] MEDS: ASCORBIC ACID 500 MG TAB GTB SCH (09:14)
[2017-07-22] MEDS: FERROUS SULFATE 60 MG/ML 5ML CUP GTB SCH ×2 (09:14→21:15)
[2017-07-22] MEDS: traMADol 50 MG TAB GTB SCH ×3 (09:14→21:15)
[2017-07-22] MEDS: BACLOFEN 10 MG TAB GTB SCH ×3 (09:15→21:15)
[2017-07-22] MEDS: COLLAGENASE 30 GM TUBE TOP SCH (09:16)
--- NOTE | 2017-07-22 11:17 | RADRPT ---
Echocardiogram Report Patient Name: RAJ CORTEZ Gender: Male Date: 1955 Study Date: 22-Jul-2017 Test Manager: Ricco [facility] Location: Formerly named [facility] Ref. Physician: ADI ENNIS Quality: Adequate Procedures: Transthoracic echocardiogram with complete 2D, M-Mode, and doppler examination. Indications: R/O Vegetations. 2D/M Mode Doppler Measurement Value Normal Ranges Measurement Value Normal Ranges LVIDd 2D 4.1 3.5 - 5.6 cm AV Peak Juan 1.4 m/sec LVIDs 2D 3.2 2.1 - 4.1 cm AV Peak PG 8.0 mmHg FS 2D 22.6 % LVOT Peak Juan 1.0 m/sec LVPWd 2D 1.5 0.6 - 1.1 cm LVOT Peak PG 4.0 mmHg IVSd 2D 1.6 0.6 - 1.1 cm MV E Peak Juan 0.8 m/sec IVS/LVPW 2D 1.1 MV A Peak Juan 0.9 m/sec AoR Diam 2D 3.3 2.0 - 3.7 cm MV E/A 0.8 LA/Ao 2D 1 0 - 1 MV Decel Time 194 msec EDV 2D 69.9 cm3 MV E/A 0.8 ESV 2D 32.5 cm3 TR Peak Juan 2.3 m/sec LA Dimen 2D 3.2 2.3 - 4.0 cm TR Peak PG 21.0 mmHg RVSP 24.0 mmHg Findings Left Ventricle: Normal left ventricular systolic function. Normal left ventricular cavity size. Moderate concentric left ventricular hypertrophy. Ejection fraction is visually estimated at 65 %. Tissue Doppler/Mitral Doppler indices are consistent with impaired relaxation (Stage I diastolic dysfunction). Right Ventricle: Normal right ventricular size. Normal right ventricular systolic function. Left Atrium: The left atrium is normal in size. Right Atrium: The right atrium is normal in size. Mitral Valve: Mild mitral leaflet calcification. Mild mitral annular calcification. Aortic Valve: Normal appearance of the aortic valve. No significant aortic stenosis or insufficiency. Tricuspid Valve: Normal appearance of the tricuspid valve. Estimated peak PA systolic pressure 24 mmHg. There is trace tricuspid regurgitation. Pulmonic Valve: Pulmonic valve not well visualized. There is trace pulmonic regurgitation. Pericardium: Normal pericardium with no significant pericardial effusion. Aorta: Normal aortic root. IVC: Normal size and normal respiratory collapse consistent with normal right atrial pressure. Conclusions 1.Normal left ventricular systolic function. Normal left ventricular cavity size. Moderate concentric left ventricular hypertrophy. Ejection fraction is visually estimated at 65 %. Tissue Doppler/Mitral Doppler indices are consistent with impaired relaxation (Stage I diastolic dysfunction). Electronically Signed By: Javon Restrepo 22-Jul-2017 11:17:27 -0700 Patient Name: RAJ CORTEZ Study Date: 22-Jul-2017 [id number]
[2017-07-22 14:39] LABS: BASOPHILS % 0.3 % (0.0-2.0); EOSINOPHILS # 0.4 10^3/ul (0.0-0.5); EOSINOPHILS % 3.3 % (0.0-7.0); HEMATOCRIT 26.3 % (42.0-52.0); HEMOGLOBIN 8.1 g/dl (14.0-18.0); LYMPHOCYTES % 19.1 % (15.0-51.0); MEAN CORPUSCULAR HEMOGLOBIN 25.7 pg (29.0-33.0); MEAN CORPUSCULAR HGB CONC 30.8 g/dl (32.0-37.0); MEAN CORPUSCULAR VOLUME 83.5 fl (82.0-101.0); MEAN PLATELET VOLUME 8.7 fl (7.4-10.4); MONOCYTE # 1.1 10^3/ul (0.3-0.9); MONOCYTES % 10.2 % (0.0-11.0); NEUTROPHILS % 66.3 % (39.0-77.0); PLATELET COUNT 359 10^3/UL (140-415); RED BLOOD COUNT 3.15 10^6/ul (4.70-6.10); RED CELL DISTRIBUTION WIDTH 14.6 % (11.5-14.5); WHITE BLOOD COUNT 10.6 10^3/ul (4.8-10.8)
[2017-07-22 14:57] LABS: ALBUMIN 3.2 g/dl (3.3-4.9); ALBUMIN/GLOBULIN RATIO 0.76; CREATININE 0.54 mg/dl (0.61-1.24); POTASSIUM 4.2 mmol/L (3.5-5.1); TOTAL PROTEIN 7.4 g/dl (6.1-8.1)
[2017-07-22] MEDS: OXYCODONE/ACETAMINOPHEN (10/325) TAB GTB PRN (15:18)
[2017-07-22 15:39] VITALS: BP 142/70; RESP 18
--- NOTE | 2017-07-22 16:28 | CONS ---
Date/Time of Note Date/Time of Note DATE: 07/22/17 TIME: 16:21 Assessment/Plan Assessment/Plan Chief Complaint/Hosp Course SUBJECTIVE DATA: No acute changes overnight. Denies pain. No fevers. MICROBIOLOGY: Blood culture on admission grew Corynebacterium species. Repeat blood cultures growing gram-positive rods. Urine culture grew Proteus mirabilis. Id Proteus mirabilis, multidrug resistant. ANTIMICROBIALS: 1. Vancomycin. 2. Cefepime. INDWELLINGS: Trach, PEG, Mondragon, right upper extremity PICC line. PHYSICAL EXAMINATION: GENERAL: This is a chronically ill-appearing, elderly man, who is awake, in no distress. HEENT: Head atraumatic, normocephalic. Sclerae anicteric. Buccal mucosa dry. NECK: Supple. CHEST: Rise symmetrical. Breath sounds clear. Diminished at the bases. HEART: S1, S2. ABDOMEN: Soft, bowel sounds present. EXTREMITIES: With right upper extremity. A edema PICC line present. SKIN: No jaundice. No cyanosis. ASSESSMENT: 1. Persistent bacteremia, possibly line sepsis. 2. Multidrug resistant, presence of bacteria in the urine. Possibly colonized given chronic Mondragon catheter. 3. Quadriplegia. 4. Obesity. 5. Dysphagia. PLAN: 1. The patient remains stable. 2. We are going to continue him on current antibiotics. 3. Right upper extremity ultrasound to rule out DVT. The patient needs to have PICC line removed and line holiday between new central line placement given persistent bacteremia. 4. Monitor Labs. Problems: Consultation Date/Type/Reason Admit Date/Time Jul 18, 2017 at 20:55 Initial Consult Date Type of Consultation: id Exam/Review of Systems Vital Signs Vitals Vital Signs Date Time Temp Pulse Resp B/P Pulse Ox O2 Delivery O2 Flow Rate FiO2 07/22/17 15:39 98.4 65 18 142/70 100 07/22/17 08:45 Nasal Cannula 2.0 07/19/17 10:37 21 Intake and Output 07/21/17 07/21/17 07/22/17 15:00 23:00 07:00 Intake Total 840 ml 1420 ml Output Total 800 ml Balance 40 ml 1420 ml Results Result Diagram: 07/22/17 1426 07/22/17 1426 Results 24 hrs Laboratory Tests Test 07/22/17 14:26 White Blood Count 10.6 Red Blood Count 3.15 L Hemoglobin 8.1 L Hematocrit 26.3 L Mean Corpuscular Volume 83.5 Mean Corpuscular Hemoglobin 25.7 L Mean Corpuscular Hemoglobin Concent 30.8 L Red Cell Distribution Width 14.6 H Platelet Count 359 Mean Platelet Volume 8.7 Neutrophils % 66.3 Lymphocytes % 19.1 Monocytes % 10.2 Eosinophils % 3.3 Basophils % 0.3 Nucleated Red Blood Cells % 0.0 Neutrophils # (Manual) 7.1 Lymphocytes # 2.0 Monocytes # 1.1 H Eosinophils # 0.4 Basophils # 0.0 Nucleated Red Blood Cells # 0.0 Sodium Level 132 L Potassium Level 4.2 Chloride Level 100 Carbon Dioxide Level 28 Anion Gap 8 Blood Urea Nitrogen 17 Creatinine 0.54 L Glucose Level 135 Calcium Level 9.0 Total Bilirubin 0.0 L Direct Bilirubin 0.00 Indirect Bilirubin 0.0 Aspartate Amino Transf (AST/SGOT) 23 Alanine Aminotransferase (ALT/SGPT) 32 Alkaline Phosphatase 120 Total Protein 7.4 Albumin 3.2 L Globulin 4.20 H Albumin/Globulin Ratio 0.76 Medications Medications Current Medications Ondansetron HCl (Zofran Inj) 4 mg Q6H PRN IV NAUSEA AND/OR VOMITING Last administered on 07/20/17 21:58; Admin Dose 4 MG; Start 07/18/17 at 22:30 Baclofen (Lioresal) 10 mg TID GTB Last administered on 07/22/17 12:37; Admin Dose 10 MG; Start 07/19/17 at 09:00 Eye Lubricant (Artificial Tears Oph) 1 drop Q4H RIGHT EYE Last administered on 07/20/17 21:13; Admin Dose 1 DROP; Start 07/19/17 at 06:00 Docusate Sodium (Colace Liquid Cup) 100 mg BID GTB Last administered on 21:15; Admin Dose 100 MG; Start 07/19/17 at 09:00 Ferrous Sulfate (Feosol Liquid Cup) 300 mg BID GTB Last administered on 09:14; Admin Dose 300 MG; Start 07/19/17 at 09:00 Lactulose (Enulose) 20 gm TID GTB Last administered on 07/20/17 21:13; Admin Dose 20 GM; Start 07/19/17 at 09:00 Al Hydrox/Mg Hydrox/Simethicone (Mag-Al Plus) 30 ml Q4H PRN GTB GASTROINTESTINAL UPSET; Start 07/19/17 at 06:00 Sucralfate (Carafate) 1 gm Q6 GTB Last administered on 07/22/17 12:37; Admin Dose 1 GM; Start 07/19/17 at 06:00 Tramadol HCl (Ultram) 50 mg TID GTB Last administered on 07/22/17 12:37; Admin Dose 50 MG; Start 07/19/17 at 09:00 Zolpidem Tartrate (Ambien) 5 mg QHS PRN GTB INSOMNIA; Start 07/19/17 at 06:00 Oxycodone/ Acetaminophen (Endocet (10/ 325)) 1 tab Q6H PRN PO PAIN; Start at 06:00 Acetaminophen (Tylenol Liquid) 650 mg Q4H PRN GTB PAIN AND OR ELEVATED TEMP; Start 07/19/17 at 06:00 Oxycodone/ Acetaminophen (Endocet (10/ 325)) 1 tab Q6H PRN GTB PAIN Last administered on 07/22/17 15:18; Admin Dose 1 TAB; Start 07/19/17 at 06:00 Miscellaneous Information (Pending Santyl Order For Wound Care) This patient martinez... PRN PRN XX WOUND CARE; Start 07/19/17 at 14:30 Collagenase (Santyl) 1 applic DAILY TOP Last administered on 07/22/17 09:16; Admin Dose 1 APPLIC; Start 07/20/17 at 09:00 Collagenase 1 applic 1 applic PRN PRN TOP PRN; Start 07/19/17 at 14:30 Cefepime HCl 50 ml @ 100 mls/hr Q12H IVPB Last administered on 07/22/17 05:46 ; Admin Dose 100 MLS/HR; Start 07/20/17 at 17:00 Vancomycin HCl (Vancocin) 250 ml @ 125 mls/hr Q12H IVPB Last administered on 15:17; Admin Dose 125 MLS/HR; Start 07/22/17 at 04:00 Lorazepam (Ativan) 1 mg Q6H PRN PO ANXIETY; Start 07/21/17 at 19:30 Ascorbic Acid (Vitamin C) 500 mg DAILY GTB Last administered on 07/22/17 09:14 ; Admin Dose 500 MG; Start 07/22/17 at 09:00 Zinc Sulfate (Zinc Sulfate) 220 mg DAILY GTB Last administered on 07/22/17 09: 14; Admin Dose 220 MG; Start 07/22/17 at 09:00 Miscellaneous Information (*Rx Drug Level Order Reminder*) VANCOMYCIN TROUGH AT 0300 ONCE ONCE XX ; Start 07/23/17 at 03:00; Stop 07/23/17 at 03:01 ADAM GALARZA NP Jul 22, 2017 16:28
[2017-07-22 20:51] VITALS: BP 171/80; RESP 18
[2017-07-22] MEDS ORDERED: morphine 2 MG INJ IV ONE ×2 (22:00→22:31)
[2017-07-22] MEDS ORDERED: hydrALAzine 20 MG INJ IV PRN (22:00)
[2017-07-22 22:03] VITALS: BP 189/82; PULSE 63
[2017-07-22 22:33] VITALS: BP 142/75; PULSE 65; RESP 17
[2017-07-23] MEDS: SUCRALFATE 1 GM TAB GTB SCH ×4 (00:22→18:29)
[2017-07-23] MEDS: ARTIFICIAL TEARS 15 ML OPH RIGHT EYE SCH ×6 (01:56→21:05)
[2017-07-23 03:22] VITALS: BP 157/76; RESP 16
[2017-07-23] MEDS: VANCOMYCIN 1 GM in NS 250 ML IVPB SCH (04:08)
[2017-07-23] MEDS: CEFEPIME 1GM/50 ML (PMX) 50 ML IVPB SCH ×2 (06:06→16:35)
--- NOTE | 2017-07-23 06:53 | RADRPT ---
PROCEDURE: US upper extremity Venous. CLINICAL INDICATION: Right arm edema TECHNIQUE: Multiple sonographic images of the right upper extremity venous system was obtained uti lizing grayscale, color-flow, compressive sonography and doppler imaging with augmentation. The mayra ges were reviewed on a PACS workstation. COMPARISON: None. FINDINGS: There is normal compressibility and flow within the right internal jugular vein, subclavian vein, ax illary vein, brachial, basilic, cephalic, radial and ulnar veins. RPTAT: AA IMPRESSION: No sonographic evidence for venous thrombosis. .Fran Giles MD, MD Date Time Electronically viewed and signed by .Fran Giles MD, MD on 07/23/2017 06:52 .S/
[2017-07-23 08:24] VITALS: BP 126/67; RESP 20
[2017-07-23] MEDS: LACTULOSE 30ML CUP GTB SCH ×3 (09:00→20:44)
[2017-07-23] MEDS: DOCUSATE SODIUM 10 MG/ML (10ML CUP) GTB SCH ×2 (09:00→20:43)
[2017-07-23] MEDS: ASCORBIC ACID 500 MG TAB GTB SCH (09:03)
[2017-07-23] MEDS: BACLOFEN 10 MG TAB GTB SCH ×3 (09:03→20:43)
[2017-07-23] MEDS: FERROUS SULFATE 60 MG/ML 5ML CUP GTB SCH ×2 (09:03→20:43)
[2017-07-23] MEDS: ZINC SULFATE 220 MG CAP GTB SCH (09:03)
[2017-07-23] MEDS: COLLAGENASE 30 GM TUBE TOP SCH (09:05)
[2017-07-23] MEDS: traMADol 50 MG TAB GTB SCH ×3 (09:05→20:43)
[2017-07-23 10:04] LABS: BASOPHILS % 0.2 % (0.0-2.0); EOSINOPHILS # 0.4 10^3/ul (0.0-0.5); EOSINOPHILS % 3.7 % (0.0-7.0); HEMOGLOBIN 7.8 g/dl (14.0-18.0); LYMPHOCYTES # 2.2 10^3/ul (0.8-2.9); MEAN CORPUSCULAR HEMOGLOBIN 25.5 pg (29.0-33.0); MEAN PLATELET VOLUME 9.4 fl (7.4-10.4); MONOCYTE # 1.2 10^3/ul (0.3-0.9); NEUTROPHILS % 64.3 % (39.0-77.0); PLATELET COUNT 344 10^3/UL (140-415); RED BLOOD COUNT 3.06 10^6/ul (4.70-6.10); RED CELL DISTRIBUTION WIDTH 14.8 % (11.5-14.5); WHITE BLOOD COUNT 10.9 10^3/ul (4.8-10.8)
[2017-07-23 10:21] LABS: ALBUMIN 3.2 g/dl (3.3-4.9); ALBUMIN/GLOBULIN RATIO 0.78; CALCIUM 9.1 mg/dl (8.4-10.2); CREATININE 0.53 mg/dl (0.61-1.24); POTASSIUM 4.2 mmol/L (3.5-5.1); TOTAL PROTEIN 7.3 g/dl (6.1-8.1)
[2017-07-23] MEDS: OXYCODONE/ACETAMINOPHEN (10/325) TAB GTB PRN (11:04)
[2017-07-23 15:13] VITALS: BP 137/63; RESP 18
--- NOTE | 2017-07-23 16:46 | PN ---
Date/Time of Note Date/Time of Note DATE: 07/23/17 TIME: 16:42 Assessment/Plan VTE Prophylaxis VTE Prophylaxis Intervention: SCD's Assessment/Plan Chief Complaint/Hosp Course Acute Metabolic Encephalopathy with Resp Failure-now extubated - Improving daily - Continue thiamine for possible Wernicke/Korsoakoff - Supportive care - PT/OT Enterococcus bacteremia: F/U on most recent Cx's, last Cx was positive - TTE w/o vegetation - s/p abx course Debility - PT/OT Etoh use d/o: - Thiamine, folate Dysphagia - failed swallow eval but did ok today with applesauce, ST to advance as able PPx- SCD's Problems: Subjective 24 Hr Interval Summary Constitutional: no complaints Exam/Review of Systems Vital Signs Vitals Vital Signs Date Time Temp Pulse Resp B/P Pulse Ox O2 Delivery O2 Flow Rate FiO2 07/23/17 15:13 97.9 68 18 137/63 100 07/23/17 10:38 Nasal Cannula 2.0 07/19/17 10:37 21 Intake and Output 07/22/17 07/22/17 07/23/17 15:00 23:00 07:00 Intake Total 400 ml 1000 ml 780 ml Output Total 900 ml 1000 ml 1400 ml Balance -500 ml 0 ml -620 ml Exam Constitutional: alert Respiratory: clear to auscultation Cardiovascular: regular rate and rhythm Gastrointestinal: soft, No distended Musculoskeletal: nl extremities to inspection Results Result Diagram: 07/23/17 0934 07/23/17 0929 Results 24 hrs Laboratory Tests Test 07/23/17 09:29 07/23/17 09:34 07/23/17 15:00 Sodium Level 133 L Potassium Level 4.2 Chloride Level 100 Carbon Dioxide Level 27 Anion Gap 10 Blood Urea Nitrogen 18 Creatinine 0.53 L Glucose Level 152 Calcium Level 9.1 Total Bilirubin 0.0 L Direct Bilirubin 0.00 Indirect Bilirubin 0.0 Aspartate Amino Transf (AST/SGOT) 24 Alanine Aminotransferase (ALT/SGPT) 25 Alkaline Phosphatase 132 H Total Protein 7.3 Albumin 3.2 L Globulin 4.10 H Albumin/Globulin Ratio 0.78 White Blood Count 10.9 H Red Blood Count 3.06 L Hemoglobin 7.8 L Hematocrit 26.0 L Mean Corpuscular Volume 85.0 Mean Corpuscular Hemoglobin 25.5 L Mean Corpuscular Hemoglobin Concent 30.0 L Red Cell Distribution Width 14.8 H Platelet Count 344 Mean Platelet Volume 9.4 Neutrophils % 64.3 Lymphocytes % 20.0 Monocytes % 11.0 Eosinophils % 3.7 Basophils % 0.2 Nucleated Red Blood Cells % 0.0 Neutrophils # (Manual) 7.0 Lymphocytes # 2.2 Monocytes # 1.2 H Eosinophils # 0.4 Basophils # 0.0 Nucleated Red Blood Cells # 0.0 Vancomycin Level Trough 21.7 *H Medications Medications Current Medications Ondansetron HCl (Zofran Inj) 4 mg Q6H PRN IV NAUSEA AND/OR VOMITING Last administered on 07/20/17 21:58; Admin Dose 4 MG; Start 07/18/17 at 22:30 Baclofen (Lioresal) 10 mg TID GTB Last administered on 07/23/17 12:59; Admin Dose 10 MG; Start 07/19/17 at 09:00 Eye Lubricant (Artificial Tears Oph) 1 drop Q4H RIGHT EYE Last administered on 07/20/17 21:13; Admin Dose 1 DROP; Start 07/19/17 at 06:00 Docusate Sodium (Colace Liquid Cup) 100 mg BID GTB Last administered on 21:15; Admin Dose 100 MG; Start 07/19/17 at 09:00 Ferrous Sulfate (Feosol Liquid Cup) 300 mg BID GTB Last administered on 09:03; Admin Dose 300 MG; Start 07/19/17 at 09:00 Lactulose (Enulose) 20 gm TID GTB Last administered on 07/20/17 21:13; Admin Dose 20 GM; Start 07/19/17 at 09:00 Al Hydrox/Mg Hydrox/Simethicone (Mag-Al Plus) 30 ml Q4H PRN GTB GASTROINTESTINAL UPSET; Start 07/19/17 at 06:00 Sucralfate (Carafate) 1 gm Q6 GTB Last administered on 07/23/17 13:00; Admin Dose 1 GM; Start 07/19/17 at 06:00 Tramadol HCl (Ultram) 50 mg TID GTB Last administered on 07/23/17 12:59; Admin Dose 50 MG; Start 07/19/17 at 09:00 Zolpidem Tartrate (Ambien) 5 mg QHS PRN GTB INSOMNIA; Start 07/19/17 at 06:00 Oxycodone/ Acetaminophen (Endocet (10/ 325)) 1 tab Q6H PRN PO PAIN; Start at 06:00 Acetaminophen (Tylenol Liquid) 650 mg Q4H PRN GTB PAIN AND OR ELEVATED TEMP; Start 07/19/17 at 06:00 Oxycodone/ Acetaminophen (Endocet (10/ 325)) 1 tab Q6H PRN GTB PAIN Last administered on 07/23/17 11:04; Admin Dose 1 TAB; Start 07/19/17 at 06:00 Miscellaneous Information (Pending Santyl Order For Wound Care) This patient martinez... PRN PRN XX WOUND CARE; Start 07/19/17 at 14:30 Collagenase (Santyl) 1 applic DAILY TOP Last administered on 07/23/17 09:05; Admin Dose 1 APPLIC; Start 07/20/17 at 09:00 Collagenase 1 applic 1 applic PRN PRN TOP PRN; Start 07/19/17 at 14:30 Cefepime HCl (Maxipime 1gm/50 ml (Pmx)) 50 ml @ 100 mls/hr Q12H IVPB Last administered on 07/23/17 16:35; Admin Dose 100 MLS/HR; Start 07/20/17 at 17:00 Lorazepam (Ativan) 1 mg Q6H PRN PO ANXIETY; Start 07/21/17 at 19:30 Ascorbic Acid (Vitamin C) 500 mg DAILY GTB Last administered on 07/23/17 09:03 ; Admin Dose 500 MG; Start 07/22/17 at 09:00 Zinc Sulfate (Zinc Sulfate) 220 mg DAILY GTB Last administered on 07/23/17 09: 03; Admin Dose 220 MG; Start 07/22/17 at 09:00 Hydralazine HCl 10 mg 10 mg Q4H PRN IV ELEVATED BLOOD PRESSURE; Start 07/22/17 at 22:00 Vancomycin HCl/ Sodium Chloride (Vancocin/NS) 250 ml @ 83.333 mls/ hr Q24H IVPB ; Start 07/24/17 at 09:00 VANCE JOHNSON Jul 23, 2017 16:46
[2017-07-23 20:04] VITALS: BP 168/81; RESP 18
--- NOTE | 2017-07-23 21:03 | PN ---
DATE: 07/23/2017 SUBJECTIVE DATA: No acute events. Patient is alert, feels better, looks comfortable. PICC line was discontinued. He has now peripheral IV. VITAL SIGNS: Temperature 98.5, pulse 72, respirations 20, blood pressure 126/67, saturation 100 on 2 L. LABORATORY AND DIAGNOSTIC DATA: WBC 10.9. H and H 7.8 and 26, platelets 344. BUN 18, creatinine 0.53. MICROBIOLOGY: Blood cultures since admission grew Corynebacterium species. Urine culture grew Proteus mirabilis. ANTIMICROBIALS: Patient is on IV vancomycin and cefepime. DIAGNOSTICS: Chest x-ray revealed slightly improved appearance of right basilar pneumonia. Ultrasound of right upper extremity revealed no DVT. OBJECTIVE DATA: GENERAL: Chronically ill-appearing, elderly man, who is alert, in no distress. HEENT: Head atraumatic, normocephalic. Sclerae anicteric. NECK: Supple. CHEST: Rise symmetrical. Breath sounds diminished at the bases. HEART: S1, S2. ABDOMEN: Soft, bowel sounds present. EXTREMITIES: Without cyanosis. Right upper extremity edema. SKIN: With unstageable wounds. Patient has unstageable sacral wound. ASSESSMENT: 1. Persistent Corynebacterium bacteremia, possibly secondary to peripherally inserted central catheter line that was placed 8 months ago. Peripherally inserted central catheter line was discontinued. 2. Unstageable sacral decub. 3. Healthcare-associated pneumonia. 4. Quadriplegia. 5. Dysphagia. 6. Urinary tract infection, possibly colonized, given chronic Mondragon catheter. PLAN: Patient remains clinically stable. We are going to repeat blood cultures today. Continue him on current antimicrobials. Continue local wound care. Consider Surgical evaluation for possible debridement. Dictated By: Ji Oropeza NP /mohinder/humza /Document#: [id number]
[2017-07-24] MEDS: SUCRALFATE 1 GM TAB GTB SCH ×4 (00:38→18:01)
[2017-07-24] MEDS: OXYCODONE/ACETAMINOPHEN (10/325) TAB GTB PRN ×3 (00:43→22:24)
[2017-07-24] MEDS: ARTIFICIAL TEARS 15 ML OPH RIGHT EYE SCH ×6 (02:00→20:54)
[2017-07-24] MEDS: CEFEPIME 1GM/50 ML (PMX) 50 ML IVPB SCH ×2 (06:24→16:10)
[2017-07-24 08:07] VITALS: BP 178/84; RESP 22
[2017-07-24] MEDS: FERROUS SULFATE 60 MG/ML 5ML CUP GTB SCH ×2 (08:58→20:53)
[2017-07-24] MEDS: VANCOMYCIN 1.25 GM in SOD CHLORIDE 0.9% 250 ML IVPB SCH (08:58)
[2017-07-24] MEDS: ZINC SULFATE 220 MG CAP GTB SCH (08:58)
[2017-07-24] MEDS: BACLOFEN 10 MG TAB GTB SCH ×3 (08:58→20:52)
[2017-07-24] MEDS: ASCORBIC ACID 500 MG TAB GTB SCH (08:58)
[2017-07-24] MEDS: traMADol 50 MG TAB GTB SCH ×3 (08:59→20:52)
[2017-07-24] MEDS: COLLAGENASE 30 GM TUBE TOP SCH (08:59)
[2017-07-24] MEDS: DOCUSATE SODIUM 10 MG/ML (10ML CUP) GTB SCH ×2 (09:00→20:53)
[2017-07-24] MEDS ORDERED: VANCOMYCIN 1 GM in NS 250 ML IVPB SCH (09:00)
[2017-07-24] MEDS: LACTULOSE 30ML CUP GTB SCH ×3 (09:00→20:53)
--- NOTE | 2017-07-24 10:33 | CONS ---
Date/Time of Note Date/Time of Note DATE: 07/24/17 TIME: 10:28 Assessment/Plan Assessment/Plan Chief Complaint/Hosp Course 1. Multiple wounds: sacral ulcer: offered patient debridement-patient refused as he states that a wound nurse does weekly debridement for the wound at home -local care -frequent turning and offloading -low air loss mattress -nutrition optimization -vitamin c/short term zinc 2. UTI: -continue abx per sensitivity -shankar cath care 3. Bacteremia: cultures noted -abx per sensitivity 4. Respiratory failure s/p trach; PNA: capped -pulmonary toilet -supportive 5. Quadriplegia: -supportive -frequent turning and repositioning to prevent further wounds 6. Dysphagia with peg -cont tf with aspiration precautions Patient seen and examined in collaboration with Dr. Anton Lancaster. Thank you. Problems: Consultation Date/Type/Reason Admit Date/Time Jul 18, 2017 at 20:55 Date of Consultation: Jul 24, 2017 Type of Consultation: Surgical Reason for Consultation wounds Referring Provider: ADI ENNIS NP Hx of Present Illness Bernardo Urias is a 62 yo man with multiple comorbidities, most notably quadriplegia and recurrent UTI. He was sent to the ED from his assisted after a white blood cell count was found to be elevated and with reports of confusion. He denie fever, weakness, sweating, nausea, abdominal pain, dyspnea or cough. Reportedly his catheter was changed approximately 2 days piror. He was also noted to have a sacral ulcer. General surgery consult was obtained for further evaluation. Constitutional: no complaints, No chills, No febrile Eyes: No visual change ENT: No congestion Respiratory: No cough, No shortness of breath Cardiovascular: No chest pain, No edema Gastrointestinal: No diarrhea, No nausea, No vomiting Genitourinary: other (as above), No dysuria, No hematuria Musculoskeletal: No back pain Skin: No bruising, No erythema Neurologic: confusion Psychological: nl mood/affect, no complaints Past Medical History Neck injury with tetraplegia diabetes mellitus hypertension decubitus ulcer arthritis trach PEG tube Past Surgical History tracheostomy neck surgery PEG tube placement right knee surgery Family History Significant Family History: no pertinent family hx Social History Alcohol Use: sober Smoking Status: Never smoker Drug Use: none Exam/Review of Systems Vital Signs Vitals Vital Signs Date Time Temp Pulse Resp B/P Pulse Ox O2 Delivery O2 Flow Rate FiO2 07/24/17 08:07 98.5 68 22 178/84 100 07/23/17 20:00 Nasal Cannula 2.0 Intake and Output 07/23/17 07/23/17 07/24/17 15:00 23:00 07:00 Intake Total 50 ml 1255 ml Output Total 3300 ml Balance 50 ml -2045 ml Exam Constitutional: alert, oriented Psych: other (irritable) Head: atraumatic, normocephalic Eyes: nl lids, nl sclera ENMT: mucosa pink and moist, nl nasal mucosa & septum, other (trach-capped) Neck: non-tender, supple Cardiovascular: nl pulses, regular rate and rhythm Gastrointestinal: non-tender, soft Musculoskeletal: other (tetraplegia) Extremities: edema, normal pulses Neurological: nl mental status, nl speech, No nl strength Skin: other (multiple wounds: sacral wound packed with min drainage) Results Result Diagram: 07/23/17 0934 07/23/17 0929 Results 24 hrs Laboratory Tests Test 07/23/17 15:00 Vancomycin Level Trough 21.7 *H Medications Medications Current Medications Ondansetron HCl (Zofran Inj) 4 mg Q6H PRN IV NAUSEA AND/OR VOMITING Last administered on 07/20/17 21:58; Admin Dose 4 MG; Start 07/18/17 at 22:30 Baclofen (Lioresal) 10 mg TID GTB Last administered on 07/24/17 08:58; Admin Dose 10 MG; Start 07/19/17 at 09:00 Eye Lubricant (Artificial Tears Oph) 1 drop Q4H RIGHT EYE Last administered on 07/20/17 21:13; Admin Dose 1 DROP; Start 07/19/17 at 06:00 Docusate Sodium (Colace Liquid Cup) 100 mg BID GTB Last administered on 21:15; Admin Dose 100 MG; Start 07/19/17 at 09:00 Ferrous Sulfate (Feosol Liquid Cup) 300 mg BID GTB Last administered on 08:58; Admin Dose 300 MG; Start 07/19/17 at 09:00 Lactulose (Enulose) 20 gm TID GTB Last administered on 07/20/17 21:13; Admin Dose 20 GM; Start 07/19/17 at 09:00 Al Hydrox/Mg Hydrox/Simethicone (Mag-Al Plus) 30 ml Q4H PRN GTB GASTROINTESTINAL UPSET Last administered on 07/24/17 10:04; Admin Dose 30 ML; Start 07/19/17 at 06:00 Sucralfate (Carafate) 1 gm Q6 GTB Last administered on 07/24/17 06:24; Admin Dose 1 GM; Start 07/19/17 at 06:00 Tramadol HCl (Ultram) 50 mg TID GTB Last administered on 07/24/17 08:59; Admin Dose 50 MG; Start 07/19/17 at 09:00 Zolpidem Tartrate (Ambien) 5 mg QHS PRN GTB INSOMNIA; Start 07/19/17 at 06:00 Oxycodone/ Acetaminophen (Endocet (10/ 325)) 1 tab Q6H PRN PO PAIN; Start at 06:00 Acetaminophen (Tylenol Liquid) 650 mg Q4H PRN GTB PAIN AND OR ELEVATED TEMP; Start 07/19/17 at 06:00 Oxycodone/ Acetaminophen (Endocet (10/ 325)) 1 tab Q6H PRN GTB PAIN Last administered on 07/24/17 00:43; Admin Dose 1 TAB; Start 07/19/17 at 06:00 Miscellaneous Information (Pending Santyl Order For Wound Care) This patient martinez... PRN PRN XX WOUND CARE; Start 07/19/17 at 14:30 Collagenase (Santyl) 1 applic DAILY TOP Last administered on 07/24/17 08:59; Admin Dose 1 APPLIC; Start 07/20/17 at 09:00 Collagenase 1 applic 1 applic PRN PRN TOP PRN; Start 07/19/17 at 14:30 Cefepime HCl (Maxipime 1gm/50 ml (Pmx)) 50 ml @ 100 mls/hr Q12H IVPB Last administered on 07/24/17 06:24; Admin Dose 100 MLS/HR; Start 07/20/17 at 17:00 Lorazepam (Ativan) 1 mg Q6H PRN PO ANXIETY; Start 07/21/17 at 19:30 Ascorbic Acid (Vitamin C) 500 mg DAILY GTB Last administered on 07/24/17 08:58 ; Admin Dose 500 MG; Start 07/22/17 at 09:00 Zinc Sulfate (Zinc Sulfate) 220 mg DAILY GTB Last administered on 07/24/17 08: 58; Admin Dose 220 MG; Start 07/22/17 at 09:00 Hydralazine HCl 10 mg 10 mg Q4H PRN IV ELEVATED BLOOD PRESSURE; Start 07/22/17 at 22:00 Vancomycin HCl/ Sodium Chloride (Vancocin/NS) 250 ml @ 83.333 mls/ hr Q24H IVPB Last administered on 07/24/17 08:58; Admin Dose 83.333 MLS/HR; Start 10/28 at 09:00 CANDELARIA GEE NP Jul 24, 2017 10:33
[2017-07-24 10:56] LABS: BASOPHILS % 0.3 % (0.0-2.0); EOSINOPHILS # 0.5 10^3/ul (0.0-0.5); HEMATOCRIT 26.9 % (42.0-52.0); HEMOGLOBIN 8.1 g/dl (14.0-18.0); LYMPHOCYTES # 2.5 10^3/ul (0.8-2.9); MEAN CORPUSCULAR HEMOGLOBIN 25.2 pg (29.0-33.0); MEAN CORPUSCULAR HGB CONC 30.1 g/dl (32.0-37.0); MEAN CORPUSCULAR VOLUME 83.8 fl (82.0-101.0); MEAN PLATELET VOLUME 9.2 fl (7.4-10.4); MONOCYTE # 1.3 10^3/ul (0.3-0.9); MONOCYTES % 11.2 % (0.0-11.0); NEUTROPHILS % 61.8 % (39.0-77.0); PLATELET COUNT 368 10^3/UL (140-415); RED BLOOD COUNT 3.21 10^6/ul (4.70-6.10); RED CELL DISTRIBUTION WIDTH 14.8 % (11.5-14.5); WHITE BLOOD COUNT 11.6 10^3/ul (4.8-10.8)
[2017-07-24 11:20] LABS: BILIRUBIN,INDIRECT 0.1 mg/dl (0-1.1); BILIRUBIN,TOTAL 0.1 mg/dl (0.2-1.3); CREATININE 0.54 mg/dl (0.61-1.24); POTASSIUM 4.2 mmol/L (3.5-5.1); TOTAL PROTEIN 6.9 g/dl (6.1-8.1)
[2017-07-24 11:21] LABS: ALBUMIN/GLOBULIN RATIO 0.76
[2017-07-24 13:45] VITALS: BP 116/64; RESP 22
--- NOTE | 2017-07-24 15:11 | DS ---
Date/Time of Note Date/Time of Note DATE: 07/24/17 TIME: 14:58 Discharge Summary Admission/Discharge Info Admit Date/Time Jul 18, 2017 at 20:55 Discharge Date/Time July 24, 2017 Discharge Diagnosis Acute Metabolic Encephalopathy secondary to bacteremia-resolved Bacteremia secondary to Corynebacterium: Most recent cultures now negative - TTE w/o vegetation -DC back to skilled nursing with 2 weeks of vancomycin and 1 week of cefepime Debility with multiple wounds -Surgical evaluation appreciated, patient does not want any debridement at this time and would like to continue with wound care at the nursing facility UTI secondary to Proteus Status post antibiotics in-house, patient will be continued on cefepime for one more week for the bacteremia Etoh use d/o: - Thiamine, folate Dysphagia -improved, continue diet Patient Condition: Good Hospital Course Patient is a 62-year-old male with quadriplegia and recurrent UTIs sent to the ER from his skilled nursing for leukocytosis. Patient did have evidence of a UTI and urine culture did show Proteus. Patient did have multiple blood cultures positive for Corynebacterium patient was seen by ID who started patient on vancomycin and cefepime. Patient's last blood culture was negative and patient' s mentation did stabilize. Patient was noted to have multiple decubitus ulcers and a surgical evaluation was placed, patient did not want any surgical debridement and wanted to just continue wound care at the skilled nursing. Patient 's PICC line was removed as it was thought that it had become infected and may have caused the bacteremia, patient did not want another PICC line placed. It was felt that patient was stable to return back to nursing facility plan to continue vancomycin for 2 weeks and cefepime for 1 more week. On the day of discharge patient's vitals, labs and physical exam stable in no acute complaints and questions are answered. Home Meds Reported Medications Lactulose* (Lactulose*) 20 Gm/30 Ml Solution, 20 GM GTB TID, ML 07/18/17 Zolpidem Tartrate* (Ambien*) 5 Mg Tablet, 5 MG GTB QHS Y for INSOMNIA, #30 TAB 07/18/17 Tramadol HCl (Tramadol HCl) 50 Mg Tablet, 50 MG GTB TID, #90 TAB 07/18/17 Hydrocodone/Acetaminophen ([place] 10-325 Tablet) 1 Each Tablet, 1 EACH GTB Q6H Y for PRN, TAB AND TAKE 20 MINUTES PRIOR TO WOUND CARE DAILY 07/18/17 Cran/Vitc/Mannose/Inulin/Brom (Uti-Stat Liquid) 3,875 Mg/30 Ml Liquid, 30 ML GTB DAILY 07/18/17 Ferrous Sulfate (Ferrous Sulfate) 300 Mg/5 Ml Liquid, 300 MG GTB BID 07/18/17 Baclofen* (Baclofen*) 10 Mg Tablet, 10 MG GTB TID, TAB 07/18/17 Fluconazole* (Fluconazole*) 200 Mg Tablet, 200 MG GTB DAILY, TAB 07/18/17 Famotidine* (Famotidine*) 20 Mg Tablet, 20 MG GTB Q12H, #60 TAB 07/18/17 Magaldrate/Simethicone* (Mag-Al Plus Suspension*) 30 Ml Oral.susp, 30 ML GTB Q4H Y for GASTROINTESTINAL UPSET, ML 07/18/17 Sucralfate* (Carafate*) 1 Gm Tab, 1 GM GTB Q6, TAB 07/18/17 Dextran/Hypromellose/Glycerin (Artificial Tears Drops) 15 Ml Drops, 1 DROP RIGHT EYE Q4H, EA 07/18/17 Docusate Sodium* (Docusate Sodium* Liq) 50 Mg/5 Ml Liquid, 100 MG GTB BID, ML 07/18/17 Metformin Hcl* (Metformin Hcl*) 500 Mg Tablet, 500 MG GTB WITH BREAKFAST, #30 TAB 07/18/17 Follow-up Plan Follow-up with physicians at the senior care facility Primary Care Provider Nathan Saxena MD Time spent on discharge: > 30 minutes VANCE JOHNSON Jul 24, 2017 15:09
--- NOTE | 2017-07-24 18:36 | CONS ---
Date/Time of Note Date/Time of Note DATE: 07/24/17 TIME: 18:34 Assessment/Plan Assessment/Plan Chief Complaint/Hosp Course SUBJECTIVE DATA: No acute events. Patient is alert, feels good, asking to be dc, refused wound debridement, no fevers PICC line was discontinued. He has now peripheral IV. MICROBIOLOGY: Blood cultures since admission grew Corynebacterium species. Urine culture grew Proteus mirabilis. Repeat bld cx negative ANTIMICROBIALS: Patient is on IV vancomycin and cefepime. DIAGNOSTICS: Chest x-ray revealed slightly improved appearance of right basilar pneumonia. Ultrasound of right upper extremity revealed no DVT. OBJECTIVE DATA: GENERAL: Chronically ill-appearing, elderly man, who is alert, in no distress. HEENT: Head atraumatic, normocephalic. Sclerae anicteric. NECK: Supple. CHEST: Rise symmetrical. Breath sounds diminished at the bases. HEART: S1, S2. ABDOMEN: Soft, bowel sounds present. EXTREMITIES: Without cyanosis. Right upper extremity edema. SKIN: With unstageable wounds. Patient has unstageable sacral wound. ASSESSMENT: 1. Persistent Corynebacterium bacteremia, possibly secondary to peripherally inserted central catheter line that was placed 8 months ago. Peripherally inserted central catheter line was discontinued. 2. Unstageable sacral decub. 3. Healthcare-associated pneumonia. 4. Quadriplegia. 5. Dysphagia. 6. Urinary tract infection, possibly colonized, given chronic Mondragon catheter. PLAN: Patient remains clinically stable, repeat bld cx negative, anticipate complete 2 weeks IV Vanco, Cefepime for 7 more days. Local wound care per surgical and podiatry rec-s [facility] staff/pt Problems: Consultation Date/Type/Reason Admit Date/Time Jul 18, 2017 at 20:55 Initial Consult Date 07/24/17 Type of Consultation: ID Referring Provider: ADI ENNIS TYRE BUILDER Exam/Review of Systems Vital Signs Vitals Vital Signs Date Time Temp Pulse Resp B/P Pulse Ox O2 Delivery O2 Flow Rate FiO2 07/24/17 13:45 97.8 68 22 116/64 99 07/24/17 08:30 Nasal Cannula 2.0 Intake and Output 07/23/17 07/23/17 07/24/17 15:00 23:00 07:00 Intake Total 50 ml 1255 ml Output Total 3300 ml Balance 50 ml -2045 ml Results Result Diagram: 07/24/17 1027 07/24/17 1027 Results 24 hrs Laboratory Tests Test 07/24/17 10:27 White Blood Count 11.6 H Red Blood Count 3.21 L Hemoglobin 8.1 L Hematocrit 26.9 L Mean Corpuscular Volume 83.8 Mean Corpuscular Hemoglobin 25.2 L Mean Corpuscular Hemoglobin Concent 30.1 L Red Cell Distribution Width 14.8 H Platelet Count 368 Mean Platelet Volume 9.2 Neutrophils % 61.8 Lymphocytes % 22.0 Monocytes % 11.2 H Eosinophils % 4.0 Basophils % 0.3 Nucleated Red Blood Cells % 0.0 Neutrophils # (Manual) 7.2 Lymphocytes # 2.5 Monocytes # 1.3 H Eosinophils # 0.5 Basophils # 0.0 Nucleated Red Blood Cells # 0.0 Sodium Level 132 L Potassium Level 4.2 Chloride Level 98 Carbon Dioxide Level 30 Anion Gap 8 Blood Urea Nitrogen 19 Creatinine 0.54 L Glucose Level 140 Calcium Level 9.0 Total Bilirubin 0.1 L Direct Bilirubin 0.00 Indirect Bilirubin 0.1 Aspartate Amino Transf (AST/SGOT) 22 Alanine Aminotransferase (ALT/SGPT) 31 Alkaline Phosphatase 124 H Total Protein 6.9 Albumin 3.0 L Globulin 3.90 H Albumin/Globulin Ratio 0.76 Medications Medications Current Medications Ondansetron HCl (Zofran Inj) 4 mg Q6H PRN IV NAUSEA AND/OR VOMITING Last administered on 07/20/17 21:58; Admin Dose 4 MG; Start 07/18/17 at 22:30 Baclofen (Lioresal) 10 mg TID GTB Last administered on 07/24/17 12:34; Admin Dose 10 MG; Start 07/19/17 at 09:00 Eye Lubricant (Artificial Tears Oph) 1 drop Q4H RIGHT EYE Last administered on 07/20/17 21:13; Admin Dose 1 DROP; Start 07/19/17 at 06:00 Docusate Sodium (Colace Liquid Cup) 100 mg BID GTB Last administered on 21:15; Admin Dose 100 MG; Start 07/19/17 at 09:00 Ferrous Sulfate (Feosol Liquid Cup) 300 mg BID GTB Last administered on 08:58; Admin Dose 300 MG; Start 07/19/17 at 09:00 Lactulose (Enulose) 20 gm TID GTB Last administered on 07/20/17 21:13; Admin Dose 20 GM; Start 07/19/17 at 09:00 Al Hydrox/Mg Hydrox/Simethicone (Mag-Al Plus) 30 ml Q4H PRN GTB GASTROINTESTINAL UPSET Last administered on 07/24/17 10:04; Admin Dose 30 ML; Start 07/19/17 at 06:00 Sucralfate (Carafate) 1 gm Q6 GTB Last administered on 07/24/17 18:01; Admin Dose 1 GM; Start 07/19/17 at 06:00 Tramadol HCl (Ultram) 50 mg TID GTB Last administered on 07/24/17 12:34; Admin Dose 50 MG; Start 07/19/17 at 09:00 Zolpidem Tartrate (Ambien) 5 mg QHS PRN GTB INSOMNIA; Start 07/19/17 at 06:00 Oxycodone/ Acetaminophen (Endocet (10/ 325)) 1 tab Q6H PRN PO PAIN; Start at 06:00 Acetaminophen (Tylenol Liquid) 650 mg Q4H PRN GTB PAIN AND OR ELEVATED TEMP; Start 07/19/17 at 06:00 Oxycodone/ Acetaminophen (Endocet (10/ 325)) 1 tab Q6H PRN GTB PAIN Last administered on 07/24/17 14:00; Admin Dose 1 TAB; Start 07/19/17 at 06:00 Miscellaneous Information (Pending Santyl Order For Wound Care) This patient martinez... PRN PRN XX WOUND CARE; Start 07/19/17 at 14:30 Collagenase (Santyl) 1 applic DAILY TOP Last administered on 07/24/17 08:59; Admin Dose 1 APPLIC; Start 07/20/17 at 09:00 Collagenase 1 applic 1 applic PRN PRN TOP PRN; Start 07/19/17 at 14:30 Cefepime HCl (Maxipime 1gm/50 ml (Pmx)) 50 ml @ 100 mls/hr Q12H IVPB Last administered on 07/24/17 16:10; Admin Dose 100 MLS/HR; Start 07/20/17 at 17:00 Lorazepam (Ativan) 1 mg Q6H PRN PO ANXIETY; Start 07/21/17 at 19:30 Ascorbic Acid (Vitamin C) 500 mg DAILY GTB Last administered on 07/24/17 08:58 ; Admin Dose 500 MG; Start 07/22/17 at 09:00 Zinc Sulfate (Zinc Sulfate) 220 mg DAILY GTB Last administered on 07/24/17 08: 58; Admin Dose 220 MG; Start 07/22/17 at 09:00 Hydralazine HCl 10 mg 10 mg Q4H PRN IV ELEVATED BLOOD PRESSURE Last administered on 07/24/17 14:00; Admin Dose 10 MG; Start 07/22/17 at 22:00 Vancomycin HCl/ Sodium Chloride (Vancocin/NS) 250 ml @ 83.333 mls/ hr Q24H IVPB Last administered on 07/24/17 08:58; Admin Dose 83.333 MLS/HR; Start 10/28 at 09:00 ADI ENNIS NP Jul 24, 2017 18:36
[2017-07-24 19:32] VITALS: BP 131/56; RESP 18
[2017-07-25] MEDS: SUCRALFATE 1 GM TAB GTB SCH ×3 (00:11→12:34)
[2017-07-25] MEDS: ARTIFICIAL TEARS 15 ML OPH RIGHT EYE SCH ×4 (02:00→14:00)
[2017-07-25] MEDS: CEFEPIME 1GM/50 ML (PMX) 50 ML IVPB SCH ×2 (05:25→17:31)
[2017-07-25 07:33] VITALS: BP 121/66; RESP 18
[2017-07-25 08:32] LABS: CREATININE 0.55 mg/dl (0.61-1.24)
[2017-07-25] MEDS: FERROUS SULFATE 60 MG/ML 5ML CUP GTB SCH (08:43)
[2017-07-25] MEDS: ZINC SULFATE 220 MG CAP GTB SCH (08:43)
[2017-07-25] MEDS: ASCORBIC ACID 500 MG TAB GTB SCH (08:43)
[2017-07-25] MEDS: BACLOFEN 10 MG TAB GTB SCH ×2 (08:43→12:34)
[2017-07-25] MEDS: OXYCODONE/ACETAMINOPHEN (10/325) TAB GTB PRN ×2 (08:48→17:22)
[2017-07-25] MEDS: traMADol 50 MG TAB GTB SCH ×2 (09:00→12:35)
[2017-07-25] MEDS: COLLAGENASE 30 GM TUBE TOP SCH (09:00)
[2017-07-25] MEDS: DOCUSATE SODIUM 10 MG/ML (10ML CUP) GTB SCH (09:00)
[2017-07-25] MEDS: LACTULOSE 30ML CUP GTB SCH ×2 (09:00→13:00)
[2017-07-25] MEDS: VANCOMYCIN 1.25 GM in SOD CHLORIDE 0.9% 250 ML IVPB SCH (09:15)
--- NOTE | 2017-07-25 13:31 | CONS ---
Date/Time of Note Date/Time of Note DATE: 07/25/17 TIME: 13:31 Assessment/Plan Assessment/Plan Chief Complaint/Hosp Course SUBJECTIVE DATA: No acute events. Patient is alert, feels good, asking to be dc, refused wound debridement, no fevers PICC line was discontinued. He has now peripheral IV. MICROBIOLOGY: Blood cultures since admission grew Corynebacterium species. Urine culture grew Proteus mirabilis. Repeat bld cx negative ANTIMICROBIALS: Patient is on IV vancomycin and cefepime. DIAGNOSTICS: Chest x-ray revealed slightly improved appearance of right basilar pneumonia. Ultrasound of right upper extremity revealed no DVT. OBJECTIVE DATA: GENERAL: Chronically ill-appearing, elderly man, who is alert, in no distress. HEENT: Head atraumatic, normocephalic. Sclerae anicteric. NECK: Supple. CHEST: Rise symmetrical. Breath sounds diminished at the bases. HEART: S1, S2. ABDOMEN: Soft, bowel sounds present. EXTREMITIES: Without cyanosis. Right upper extremity edema. SKIN: With unstageable wounds. Patient has unstageable sacral wound. ASSESSMENT: 1. Persistent Corynebacterium bacteremia, possibly secondary to peripherally inserted central catheter line that was placed 8 months ago. Peripherally inserted central catheter line was discontinued. 2. Unstageable sacral decub. 3. Healthcare-associated pneumonia. 4. Quadriplegia. 5. Dysphagia. 6. Urinary tract infection, possibly colonized, given chronic Mondragon catheter. PLAN: Patient remains clinically stable, repeat bld cx negative, anticipate complete 2 weeks IV Vanco, Cefepime for 6 more days. Local wound care per surgical and podiatry rec-s, pending dc [facility] staff/pt Problems: Consultation Date/Type/Reason Admit Date/Time Jul 18, 2017 at 20:55 Initial Consult Date 07/24/17 Type of Consultation: ID Referring Provider: ADI ENNIS CHILD WELFARE COUNSELOR Exam/Review of Systems Vital Signs Vitals Vital Signs Date Time Temp Pulse Resp B/P Pulse Ox O2 Delivery O2 Flow Rate FiO2 07/25/17 08:00 Nasal Cannula 2.0 07/25/17 07:33 98.2 70 18 121/66 98 Intake and Output 07/24/17 07/24/17 07/25/17 15:00 23:00 07:00 Intake Total 1760 ml 50 ml Output Total 1000 ml 1300 ml Balance 760 ml -1250 ml Results Result Diagram: 07/24/17 1027 07/25/17 0756 Results 24 hrs Laboratory Tests Test 07/25/17 07:56 Blood Urea Nitrogen 21 H Creatinine 0.55 L Medications Medications Current Medications Ondansetron HCl (Zofran Inj) 4 mg Q6H PRN IV NAUSEA AND/OR VOMITING Last administered on 07/20/17 21:58; Admin Dose 4 MG; Start 07/18/17 at 22:30 Baclofen (Lioresal) 10 mg TID GTB Last administered on 07/25/17 12:34; Admin Dose 10 MG; Start 07/19/17 at 09:00 Eye Lubricant (Artificial Tears Oph) 1 drop Q4H RIGHT EYE Last administered on 07/20/17 21:13; Admin Dose 1 DROP; Start 07/19/17 at 06:00 Docusate Sodium (Colace Liquid Cup) 100 mg BID GTB Last administered on 21:15; Admin Dose 100 MG; Start 07/19/17 at 09:00 Ferrous Sulfate (Feosol Liquid Cup) 300 mg BID GTB Last administered on 08:43; Admin Dose 300 MG; Start 07/19/17 at 09:00 Lactulose (Enulose) 20 gm TID GTB Last administered on 07/20/17 21:13; Admin Dose 20 GM; Start 07/19/17 at 09:00 Al Hydrox/Mg Hydrox/Simethicone (Mag-Al Plus) 30 ml Q4H PRN GTB GASTROINTESTINAL UPSET Last administered on 07/24/17 10:04; Admin Dose 30 ML; Start 07/19/17 at 06:00 Sucralfate (Carafate) 1 gm Q6 GTB Last administered on 07/25/17 12:34; Admin Dose 1 GM; Start 07/19/17 at 06:00 Tramadol HCl (Ultram) 50 mg TID GTB Last administered on 07/25/17 12:35; Admin Dose 50 MG; Start 07/19/17 at 09:00 Zolpidem Tartrate (Ambien) 5 mg QHS PRN GTB INSOMNIA; Start 07/19/17 at 06:00 Oxycodone/ Acetaminophen (Endocet (10/ 325)) 1 tab Q6H PRN PO PAIN; Start at 06:00 Acetaminophen (Tylenol Liquid) 650 mg Q4H PRN GTB PAIN AND OR ELEVATED TEMP; Start 07/19/17 at 06:00 Oxycodone/ Acetaminophen (Endocet (10/ 325)) 1 tab Q6H PRN GTB PAIN Last administered on 07/25/17 08:48; Admin Dose 1 TAB; Start 07/19/17 at 06:00 Miscellaneous Information (Pending Santyl Order For Wound Care) This patient martinez... PRN PRN XX WOUND CARE; Start 07/19/17 at 14:30 Collagenase (Santyl) 1 applic DAILY TOP Last administered on 07/24/17 08:59; Admin Dose 1 APPLIC; Start 07/20/17 at 09:00 Collagenase 1 applic 1 applic PRN PRN TOP PRN; Start 07/19/17 at 14:30 Cefepime HCl (Maxipime 1gm/50 ml (Pmx)) 50 ml @ 100 mls/hr Q12H IVPB Last administered on 07/25/17 05:25; Admin Dose 100 MLS/HR; Start 07/20/17 at 17:00 Lorazepam (Ativan) 1 mg Q6H PRN PO ANXIETY; Start 07/21/17 at 19:30 Ascorbic Acid (Vitamin C) 500 mg DAILY GTB Last administered on 07/25/17 08:43 ; Admin Dose 500 MG; Start 07/22/17 at 09:00 Zinc Sulfate (Zinc Sulfate) 220 mg DAILY GTB Last administered on 07/25/17 08: 43; Admin Dose 220 MG; Start 07/22/17 at 09:00 Hydralazine HCl 10 mg 10 mg Q4H PRN IV ELEVATED BLOOD PRESSURE Last administered on 07/24/17 14:00; Admin Dose 10 MG; Start 07/22/17 at 22:00 Vancomycin HCl/ Sodium Chloride (Vancocin/NS) 250 ml @ 83.333 mls/ hr Q24H IVPB Last administered on 07/25/17 09:15; Admin Dose 83.333 MLS/HR; Start 10/28 at 09:00 ADI ENNIS NP Jul 25, 2017 13:31
[2017-07-25 13:50] VITALS: BP 130/73; RESP 16
--- NOTE | 2017-07-25 16:28 | PN ---
Date/Time of Note Date/Time of Note DATE: 07/25/17 TIME: 16:25 Assessment/Plan Lines/Catheters IV Catheter Type (from [facility]): Saline Lock Shankar in Place (from [facility]): Yes Assessment/Plan Chief Complaint/Hosp Course 1. Multiple wounds: sacral ulcer: offered patient debridement-patient refused as he states that a wound nurse does weekly debridement for the wound at home -local care -frequent turning and offloading -low air loss mattress -nutrition optimization -vitamin c/short term zinc 2. UTI: -continue abx per sensitivity -shankar cath care 3. Bacteremia: cultures noted -abx per sensitivity 4. Respiratory failure s/p trach; PNA: capped -pulmonary toilet -supportive 5. Quadriplegia: -supportive -frequent turning and repositioning to prevent further wounds 6. Dysphagia with peg -cont tf with aspiration precautions Patient seen and examined in collaboration with Dr. Anton Lancaster. Thank you. Problems: Subjective 24 Hr Interval Summary Feels well. Wounds without drainage/discomfort. No fevers, chills, sob, congested cough, n/v/d/dsyuria, new wounds, sz, rash. Exam/Review of Systems Vital Signs Vitals Vital Signs Date Time Temp Pulse Resp B/P Pulse Ox O2 Delivery O2 Flow Rate FiO2 07/25/17 13:50 98.6 67 16 130/73 99 07/25/17 08:00 Nasal Cannula 2.0 Intake and Output 07/24/17 07/24/17 07/25/17 15:00 23:00 07:00 Intake Total 1760 ml 50 ml Output Total 1000 ml 1300 ml Balance 760 ml -1250 ml Exam Free Text/Dictation Constitutional: alert, oriented Psych: pleasant Head: atraumatic, normocephalic Eyes: nl lids, nl sclera ENMT: mucosa pink and moist, nl nasal mucosa & septum, other (trach-capped) Neck: non-tender, supple Cardiovascular: nl pulses, regular rate and rhythm Gastrointestinal: non-tender, soft Musculoskeletal: other (quadriplegia) Extremities: edema, normal pulses Neurological: nl mental status, nl speech, No nl strength Skin: other (multiple wounds: sacral wound packed with min drainage) Results Result Diagram: 07/24/17 1027 07/25/17 0756 CANDELARIA GEE NP Jul 25, 2017 16:28
== END 2017-07-25 18:20 | DRG 314 ==
LOC: E/R 19:29 → MS2 20:55
PROVIDERS: ADMIT Family Medicine; ATTEND Family Medicine
DX: T80.211A Bloodstream infection due to central venous catheter, initial encounter (principal); G82.50 Quadriplegia, unspecified; G93.41 Metabolic encephalopathy; L89.154 Pressure ulcer of sacral region, stage 4; J18.9 Pneumonia, unspecified organism; L89.013 Pressure ulcer of right elbow, stage 3; T83.511A Infection and inflammatory reaction due to indwelling urethral catheter, initial encounter; N39.0 Urinary tract infection, site not specified; Z93.0 Tracheostomy status; E86.0 Dehydration; B96.89 Other specified bacterial agents as the cause of diseases classified elsewhere; Z66 Do not resuscitate; D64.9 Anemia, unspecified; E11.9 Type 2 diabetes mellitus without complications; I10 Essential (primary) hypertension; L89.620 Pressure ulcer of left heel, unstageable; Z93.1 Gastrostomy status; N31.9 Neuromuscular dysfunction of bladder, unspecified; B96.4 Proteus (mirabilis) (morganii) as the cause of diseases classified elsewhere; Z16.24 Resistance to multiple antibiotics; R13.10 Dysphagia, unspecified
CPT/HCPCS: 36415; 71010; 80053; 80061; 80202; 81001; 82270; 82565; 82728; 83036; 83540; 83605; 83735; 84443; 84520; 85025; 85651; 87040; 87081; 87086; 93306; 93971; 96374; 96375; J0360; J0692; J2270; J2405; J3370; J7030; J7050

== ENCOUNTER 2017-10-15 14:16 | Inpatient (IN) | payer MEDICAID, OTHER ==
[~2017-10-15] VITALS: Ht 177.8 cm; Wt 76.6 kg
[2017-10-15] VITALS (8 sets, daily range): BP systolic 85–107; BP diastolic 59–67; PULSE 90–101; RESP 18–24; TEMP 97.8
[~2017-10-15 14:16] MED LIST: BACL10TA GTB; CRAN3875 GTB; DEXT15DR2 RIGHT EYE; DOCU50LI23 GTB; FAMO20TA18 GTB; FLUC200T52 GTB; HYDR-902 GTB; LACT20SO2 GTB; METF500T4 GTB; SUCR1TAB56 GTB; TRAM50TA2 GTB; UDFER GTB; UDMYL GTB; ZOLP5TAB GTB
--- NOTE | 2017-10-15 14:43 | ERD ---
ER Documentation Chief Complaint Chief Complaint Abnormal lab HPI The patient is a 62-year-old male, was sent to the ER because of abnormal lab of high WBC 14.46 days ago. He complains of vomiting for 1 day, denies fever, cough, neck pain, chest pain, abdominal pain, dysuria, diarrhea. He does not smoke nor drink, bedbound. Past medical history: Debility, diabetes mellitus, chronic respiratory failure and dysphagia Surgical History: Tracheostomy, gastrostomy tube ROS All systems reviewed and are negative except as per history of present illness. Medications Home Meds Reported Medications Lactulose* (Lactulose*) 20 Gm/30 Ml Solution, 20 GM GTB TID, ML 07/18/17 Zolpidem Tartrate* (Ambien*) 5 Mg Tablet, 5 MG GTB QHS Y for INSOMNIA, #30 TAB 07/18/17 Tramadol HCl (Tramadol HCl) 50 Mg Tablet, 50 MG GTB TID, #90 TAB 07/18/17 Hydrocodone/Acetaminophen ([place] 10-325 Tablet) 1 Each Tablet, 1 EACH GTB Q6H Y for PRN, TAB AND TAKE 20 MINUTES PRIOR TO WOUND CARE DAILY 07/18/17 Cran/Vitc/Mannose/Inulin/Brom (Uti-Stat Liquid) 3,875 Mg/30 Ml Liquid, 30 ML GTB DAILY 07/18/17 Ferrous Sulfate (Ferrous Sulfate) 300 Mg/5 Ml Liquid, 300 MG GTB BID 07/18/17 Baclofen* (Baclofen*) 10 Mg Tablet, 10 MG GTB TID, TAB 07/18/17 Fluconazole* (Fluconazole*) 200 Mg Tablet, 200 MG GTB DAILY, TAB 07/18/17 Famotidine* (Famotidine*) 20 Mg Tablet, 20 MG GTB Q12H, #60 TAB 07/18/17 Magaldrate/Simethicone* (Mag-Al Plus Suspension*) 30 Ml Oral.susp, 30 ML GTB Q4H Y for GASTROINTESTINAL UPSET, ML 07/18/17 Sucralfate* (Carafate*) 1 Gm Tab, 1 GM GTB Q6, TAB 07/18/17 Dextran/Hypromellose/Glycerin (Artificial Tears Drops) 15 Ml Drops, 1 DROP RIGHT EYE Q4H, EA 07/18/17 Docusate Sodium* (Docusate Sodium* Liq) 50 Mg/5 Ml Liquid, 100 MG GTB BID, ML 07/18/17 Metformin Hcl* (Metformin Hcl*) 500 Mg Tablet, 500 MG GTB WITH BREAKFAST, #30 TAB 07/18/17 Allergies Allergies: Coded Allergies: levofloxacin (Verified Allergy, Unknown, 10/15/17) PMhx/Soc History of Surgery: Yes Anesthesia Reaction: No Hx Neurological Disorder: No Hx Respiratory Disorders: Yes (TRACH) Hx Cardiac Disorders: No Hx Psychiatric Problems: No Hx Miscellaneous Medical Probl: Yes (QUADRIPLEGIC/TRACH DEPENDENT) Hx Alcohol Use: No Hx Substance Use: No Hx Tobacco Use: No Physical Exam Vitals Vital Signs Date Time Temp Pulse Resp B/P Pulse Ox O2 Delivery O2 Flow Rate FiO2 10/15/17 19:31 89 22 96 21 10/15/17 17:19 90 20 76/48 99 Room Air 10/15/17 15:18 97.8 103 22 105/60 97 Physical Exam Const: No acute distress. Dehydrated Head: Atraumatic. Eyes: Normal Conjunctiva. ENT: Normal External Ears, Nose and Mouth. Neck: Full range of motion. No meningismus.Trach Resp: Clear to auscultation bilaterally. Cardio: Regular rate and rhythm. Abd: Soft, distended, normal bowel sounds, non tender. Skin: No petechiae or rashes. Back: No midline or flank tenderness. Ext: No cyanosis, or edema. Neur: Awake and alert. No focal deficit. Limited due to his condition Psych: Depressed. Result Diagram: 10/15/17 1547 10/15/17 1547 Results 24 hrs Laboratory Tests Test 10/15/17 15:47 10/15/17 15:56 10/15/17 18:00 10/15/17 19:40 White Blood Count 24.210^3/ul Red Blood Count 3.8710^6/ul Hemoglobin 9.2g/dl Hematocrit 28.8% Mean Corpuscular Volume 74.4fl Mean Corpuscular Hemoglobin 23.8pg Mean Corpuscular Hemoglobin Concent 31.9g/dl Red Cell Distribution Width 18.2% Platelet Count 21560^3/UL Mean Platelet Volume 9.3fl Neutrophils % 86.3% Lymphocytes % 9.1% Monocytes % 3.9% Eosinophils % 0.0% Basophils % 0.1% Nucleated Red Blood Cells % 0.0/100WBC Neutrophils # 20.910^3/ul Lymphocytes # 2.210^3/ul Monocytes # 0.910^3/ul Eosinophils # 0.010^3/ul Basophils # 0.010^3/ul Nucleated Red Blood Cells # 0.010^3/ul Sodium Level 121mmol/L Potassium Level 6.0mmol/L Chloride Level 84mmol/L Carbon Dioxide Level 24mmol/L Anion Gap 19 Blood Urea Nitrogen 82mg/dl Creatinine 1.85mg/dl Glucose Level 436mg/dl Lactic Acid Level 4.4mmol/L 4.6mmol/L Calcium Level 8.3mg/dl Total Bilirubin 0.2mg/dl Direct Bilirubin 0.00mg/dl Indirect Bilirubin 0.2mg/dl Aspartate Amino Transf (AST/SGOT) 28IU/L Alanine Aminotransferase (ALT/SGPT) 23IU/L Alkaline Phosphatase 110IU/L Troponin I < 0.012ng/ml Total Protein 7.8g/dl Albumin 3.4g/dl Globulin 4.40g/dl Albumin/Globulin Ratio 0.77 Prothrombin Time 14.4Sec Prothrombin Time Ratio 1.1 INR International Normalized Ratio 1.10 Activated Partial Thromboplast Time 47.0Sec Bedside Glucose 359mg/dL Current Medications Medications (Trade) Dose Ordered Sig/Sandra Route PRN Reason Start Time Stop Time Status Last Admin Dose Admin Sodium Chloride 2,510 ml @ 2,510 mls/hr BOLUS X1 ONCE IV 10/15/17 15:30 10/15/17 16:29 DC 10/15/17 17:25 Vancomycin HCl 250 ml @ 125 mls/hr ONCE IVPB 10/15/17 16:00 10/15/17 17:59 Cancel Cefepime HCl (Maxipime 1gm/50 ml (Pmx)) 50 ml @ 100 mls/hr ONCE ONCE IVPB 10/15/17 16:00 10/15/17 16:29 DC 10/15/17 17:00 Ondansetron HCl (Zofran Inj) 4 mg STK-MED ONCE .ROUTE 10/15/17 18:18 10/15/17 18:19 DC Sodium Polystyrene Sulfonate (Kayexalate) 30 gm ONCE STAT GTB 10/15/17 19:13 10/15/17 19:21 DC Albuterol (Proventil 0.5% (Neb)) 15 mg ONCE STAT INH 10/15/17 19:13 10/15/17 19:21 DC 10/15/17 19:31 Insulin Human Regular (Humulin R) 10 unit ONCE STAT IV 10/15/17 19:13 10/15/17 19:21 DC Albuterol 15 mg 15 mg ONCE INH 10/15/17 19:30 10/15/17 22:00 Sodium Chloride (NS) 1,000 ml @ 125 mls/hr Q8H IV 10/15/17 19:38 IV Flush (NS 3 ml) 3 ml PER PROTOCOL IV 10/15/17 20:00 Ondansetron HCl (Zofran Inj) 4 mg Q6H PRN IV NAUSEA AND/OR VOMITING 10/15/17 20:00 10/15/17 19:52 Morphine Sulfate (morphine) 2 mg Q4H PRN IV SEVERE PAIN LEVEL 7-10 10/15/17 20:00 Pantoprazole (Protonix Iv) 40 mg DAILY@06 IV 10/16/17 06:00 Miscellaneous Information (* Miscellaneous Pharmacy Order) Discontinue all previ... PROTOCOL ONCE XX 10/15/17 20:00 10/15/17 20:00 DC Diagnostic Test (Pha) 1 ea 1 ea Q1H XX 10/15/17 20:00 Insulin Human Regular/Sodium Chloride (Novolin-R/NS) 100 ml @ 0 mls/hr PER PROTOCOL IV 10/15/17 20:00 Miscellaneous Information (* Miscellaneous Pharmacy Order) Treatment of Hypoglycemia: 1.BG 51... Per protocol XX 10/15/17 20:00 Dextrose (D50w Syringe) 25 ml Q15M PRN IV Till BS 80 mg/dL or above x2 10/15/17 20:00 Dextrose (D50w Syringe) 50 ml Q15M PRN IV Till BS 80 mg/dL or above x2 10/15/17 20:00 Vancomycin HCl (Vanco Iv Per Pharmacy) VANCOMYCIN PER PHARMACY PER PROTOCOL XX 10/15/17 20:00 Ondansetron HCl 4 mg 4 mg STK-MED ONCE .ROUTE 10/15/17 19:43 10/15/17 19:44 DC Piperacillin Sod/ Tazobactam Sod 50 ml @ 100 mls/hr Q6 IVPB 10/16/17 00:00 Vancomycin HCl/ Sodium Chloride (Vancocin/NS) 250 ml @ 83.333 mls/ hr NOW IVPB 10/15/17 20:30 10/15/17 23:59 Procedures/MDM UA pending [place] [id number] Radiology Main Line: [phone] DIAGNOSTIC IMAGING REPORT Patient: RAJ CORTEZ : 1955 Age: 62 Sex: M MR #: [id number] DOS: 10/15/17 1504 Ordering MD: YAMILETH VELA MD Location: E/R Room/Bed: PROCEDURE: XR Chest. CLINICAL INDICATION: Dyspnea. TECHNIQUE: XR CHEST AP PORTABLE COMPARISON: 07/21/2017 FINDINGS: The right arm PICC line has been removed. The tracheostomy tube, and prior cervical spine surgery with hardware is once again noted. There is air space disease at the right lung base medially, slightly improved. The lungs are otherwise clear. The heart size is normal. There is no pleural effusion. There is no pneumothorax. IMPRESSION: 1. Continued slightimproved appearance of right basilar pneumonia. 2. Interval removal of right PICC Otherwise no change from 07/18/2017. RPTAT: JJ .Jimmie Owen MD, MD Date Time Electronically viewed and signed by .Jimmie Owen MD, MD on 10/15/2017 15:30 .A/ CC: YAMILETH VELA MD EKG: Read by emergency physician Rate/Rhythm: Normal Sinus Rhythm 93 beats/min QRS, ST, T-waves: No ST elevation, no T inversion Impression: Normal EKG MEDICAL MAKING DECISION: The patient is a 62-year-old male, resenting with acute septic shock, acute pneumonia, acute hyperkalemia, acute hyponatremia, acute diabetic hyperglycemia, acute kidney injury. He was treated with normosaline 30 mL/kg IV, vancomycin IV, cefepime IV for acute septic shock, 10 units of regular insulin IV, Kayexalate 30 g via G-tube and albuterol milligrams nebulizer over one hour for acute hyperkalemia. The differential diagnoses considered include but are not limited to pneumonia, empyema, UTI, pyelonephritis Admit MDM: Patient's infectious symptoms have not stabilized and the patient is at risk of rapid decompensation. The patient will be admitted for careful hydration, antibiotic therapy, and infectious source control. Severe Sepsis criteria: Infectious source: pna End organ damage indicated by: Lactate > 2.0 mmol/L Sepsis Management: Time of recognition of severe sepsis/septic shock:17:00 Within 3 hours of recognition: Blood cultures x 2 before broad-spectrum antibiotics: Yes 30 ml/kg NS bolus completed Initial lactate 4.4 Repeat lactate pending Septic Shock Assessment: Any lactic acid > 4.0 yes Persistent hypotension (SBP < 90 or 40 mmHg drop, MAP < 65) despite 30 mL/kg IV fluid bolusno Volume Re-assessment for Septic Shock (post 30 ml/kg bolus): Temp97.8, BP76/48, HR89, RR22, Pox96% Heart regular rate & rhythm Lungs no crackles Skin Warm & dry Cap Refill less than 2 seconds Peripheral pulses radially present Persistent Hypotension Treatment: Comfort care no Central line Left femoral vein Vasopressor started Norepinehrine I considered further perfusion assessment with CVP measurement, SCVO2, bedside ultrasound volume assessment, passive leg raise, trial of further fluid bolus. And proceeded withivf Critical Care: Critical care time 35 minutes excluding billable procedures Emergent fluid management while maintaining close respiratory support. Provision of immediate and broad-spectrum antibiotic therapy. Simultaneous assessment for possible sources in order to direct targeted therapy. Consideration for invasive and chemical support to prevent cardiopulmonary collapse. Central Line Placement by me: Patient consented, sterilely draped, full prep, gown, glove, mask, time out performed. Anesthesia: 1% lidocaine locally Location: Left femoral vein Device: Multiple lumen Technique: Seldinger technique. Secured with suture. Results: Venous return from all ports with easy saline flush. No complications. Guide wire retrieved and disposed of. [ED Ultrasound: Central line placed by me using concurrent ultrasound guidance. Real time image archived in the medical record confirms vascular anatomy. Departure Diagnosis: Primary Impression: Septic shock Additional Impressions: Pneumonia Hyperkalemia Hyponatremia Hyperglycemia due to type 2 diabetes mellitus Acute kidney injury Condition: Critical Comments I discussed the findings with the patient. I discussed the patient with on-call hospitalist Dr. Banks at 705pm Who was made aware of the lab, the treatment, the patient condition. The patient is admitted to ICU Disclaimer: Inadvertent spelling and grammatical errors are likely due to EHR/ dictation software use and do not reflect on the overall quality of patient care. Also, please note that the electronic time recorded on this note does not necessarily reflect the actual time of the patient encounter. YAMILETH VELA MD Oct 15, 2017 14:43
[2017-10-15] MEDS ORDERED: SOD CHLORIDE 0.9% IV ONE (15:30)
--- NOTE | 2017-10-15 15:31 | RADRPT ---
PROCEDURE: XR Chest. CLINICAL INDICATION: Dyspnea. TECHNIQUE: XR CHEST AP PORTABLE COMPARISON: 07/21/2017 FINDINGS: The right arm PICC line has been removed. The tracheostomy tube, and prior cervical spine surgery w ith hardware is once again noted. There is air space disease at the right lung base medially, slight ly improved. The lungs are otherwise clear. The heart size is normal. There is no pleural effusion . There is no pneumothorax. IMPRESSION: 1. Continued slightimproved appearance of right basilar pneumonia. 2. Interval removal of right PICC Otherwise no change from 07/18/2017. RPTAT: JJ .Jimmie Owen MD, MD Date Time Electronically viewed and signed by .Jimmie Owen MD, on 10/15/2017 15:30 .A/
[2017-10-15] MEDS ORDERED: VANCOMYCIN 1 GM (PMX) 250 ML IVPB SCH (16:00)
[2017-10-15] MEDS ORDERED: CEFEPIME 1GM/50 ML (PMX) 50 ML IVPB ONE (16:00)
[2017-10-15 16:05] LABS: ABNORMAL IP MESSAGE 1; BASOPHILS % 0.1 % (0.0-2.0); HEMATOCRIT 28.8 % (42.0-52.0); HEMOGLOBIN 9.2 g/dl (14.0-18.0); LYMPHOCYTES # 2.2 10^3/ul (0.8-2.9); LYMPHOCYTES % 9.1 % (15.0-51.0); MEAN CORPUSCULAR HEMOGLOBIN 23.8 pg (29.0-33.0); MEAN CORPUSCULAR HGB CONC 31.9 g/dl (32.0-37.0); MEAN CORPUSCULAR VOLUME 74.4 fl (82.0-101.0); MEAN PLATELET VOLUME 9.3 fl (7.4-10.4); MONOCYTE # 0.9 10^3/ul (0.3-0.9); MONOCYTES % 3.9 % (0.0-11.0); NEUTROPHIL # 20.9 10^3/ul (1.6-7.5); NEUTROPHILS % 86.3 % (39.0-77.0); PLATELET COUNT 409 10^3/UL (140-415); POSITIVE DIFF @See below; RED BLOOD COUNT 3.87 10^6/ul (4.70-6.10); RED CELL DISTRIBUTION WIDTH 18.2 % (11.5-14.5); WHITE BLOOD COUNT 24.2 10^3/ul (4.8-10.8)
[2017-10-15 16:25] LABS: INR 1.1; PROTIME 14.4 Sec (11.9-14.9); PT RATIO 1.1
[2017-10-15 16:39] LABS: ALANINE AMINOTRANSFERASE 23 IU/L (13-69); ALBUMIN 3.4 g/dl (3.3-4.9); ALBUMIN/GLOBULIN RATIO 0.77; ALKALINE PHOSPHATASE 110 IU/L (42-121); ANION GAP 19 (8-16); ASPARTATE AMINO TRANSFERASE 28 IU/L (15-46); BILIRUBIN,INDIRECT 0.2 mg/dl (0-1.1); BILIRUBIN,TOTAL 0.2 mg/dl (0.2-1.3); BLOOD UREA NITROGEN 82 mg/dl (7-20); CALCIUM 8.3 mg/dl (8.4-10.2); CARBON DIOXIDE 24 mmol/L (21-31); CHLORIDE 84 mmol/L (97-110); CREATININE 1.85 mg/dl (0.61-1.24); SODIUM 121 mmol/L (135-144); TOTAL PROTEIN 7.8 g/dl (6.1-8.1)
[2017-10-15 16:53] LABS: TROPONIN-I < 0.012 ng/ml (0.00-0.12)
[2017-10-15 16:55] LABS: GLUCOSE 436 mg/dl (70-220)
[2017-10-15] MEDS ORDERED: ONDANSETRON 4 MG INJ ONE ×2 (18:18→19:43)
[2017-10-15] MEDS ORDERED: NA POLYST SULFON 15 GM/60 ML BTL GTB STA (19:13)
[2017-10-15] MEDS ORDERED: ALBUTEROL 0.5% (NEB) 2.5 MG/0.5 ML AMP INH STA (19:13)
[2017-10-15] MEDS ORDERED: INSULIN REGULAR, HUMAN 100 UNIT/1 ML 3ML VIAL IV STA (19:13)
[2017-10-15] MEDS ORDERED: ALBUTEROL 0.5% (NEB) 2.5 MG/0.5 ML AMP INH SCH (19:30)
[2017-10-15] MEDS: SOD CHLORIDE 0.9% 1,000 ML IV SCH (19:38)
[2017-10-15] MEDS: ONDANSETRON 4 MG INJ IV PRN (19:52)
[2017-10-15] MEDS ORDERED: INSULIN HUMAN REGULAR 100 UNIT in SOD CHLORIDE 0.9% 99 ML IV SCH (20:00)
[2017-10-15] MEDS ORDERED: VANCOMYCIN IV PER PHARMACY XX SCH (20:00)
[2017-10-15] MEDS ORDERED: DEXTROSE 50% 50 ML SYRINGE IV PRN ×2 (20:00)
[2017-10-15] MEDS ORDERED: NACL 0.9% 3 ML SYG IV SCH (20:00)
[2017-10-15] MEDS ORDERED: VANCOMYCIN 1.5 GM in SOD CHLORIDE 0.9% 250 ML IVPB SCH (20:30)
[2017-10-15] MEDS: ACCU-CHEK XX SCH ×4 (20:32→23:00)
[2017-10-15 21:32] LABS: ADD UMIC YES; UR ASCORBIC ACID NEGATIVE (NEGATIVE); UR BACTERIA MANY /HPF (NONE SEEN); UR BILIRUBIN (Dip) NEGATIVE (NEGATIVE); UR BLOOD (Dip) 2+ mg/dL (NEGATIVE); UR CLARITY CLOUDY (CLEAR); UR COLOR YELLOW (YELLOW); UR GLUCOSE (Dip) 1+ mg/dL (NEGATIVE); UR KETONES (Dip) NEGATIVE (NEGATIVE); UR LEUKOCYTE ESTERASE (Dip) 3+ Leu/ul (NEGATIVE); UR NITRITE (Dip) NEGATIVE (NEGATIVE); UR RBC 45 /HPF (0-5); UR SPECIFIC GRAVITY (Dip) 1.012 (1.003-1.030); UR TOTAL PROTEIN (Dip) 2+ mg/dl (NEGATIVE); UR UROBILINOGEN (Dip) NEGATIVE (NEGATIVE)
[2017-10-16] VITALS (37 sets, daily range): BP systolic 87–120; BP diastolic 47–85; PULSE 61–120; RESP 12–26
[2017-10-16] MEDS ORDERED: AL HYDROX/MG HYDROX/SIMETH 30 ML CUP GTB PRN
[2017-10-16] MEDS: ACCU-CHEK XX SCH ×21 (01:00→22:12)
[2017-10-16] MEDS: PIPER-TAZO 3.375 GM IV (PMX) 50 ML IVPB SCH ×4 (01:40→17:05)
[2017-10-16] MEDS: SUCRALFATE 1 GM TAB GTB SCH ×4 (01:40→17:05)
[2017-10-16 05:13] LABS: BASOPHILS % 0.1 % (0.0-2.0); HEMATOCRIT 22.8 % (42.0-52.0); HEMOGLOBIN 7.4 g/dl (14.0-18.0); LYMPHOCYTES # 1.5 10^3/ul (0.8-2.9); LYMPHOCYTES % 9.5 % (15.0-51.0); MEAN CORPUSCULAR HGB CONC 32.5 g/dl (32.0-37.0); MEAN PLATELET VOLUME 9.5 fl (7.4-10.4); MONOCYTE # 0.8 10^3/ul (0.3-0.9); MONOCYTES % 5.1 % (0.0-11.0); NEUTROPHIL # 13.3 10^3/ul (1.6-7.5); NEUTROPHILS % 84.7 % (39.0-77.0); PLATELET COUNT 368 10^3/UL (140-415); POSITIVE DIFF @See below; RED BLOOD COUNT 3.08 10^6/ul (4.70-6.10); RED CELL DISTRIBUTION WIDTH 17.9 % (11.5-14.5); WHITE BLOOD COUNT 15.7 10^3/ul (4.8-10.8)
[2017-10-16 05:54] LABS: ALBUMIN 2.7 g/dl (3.3-4.9); ALBUMIN/GLOBULIN RATIO 0.64; BILIRUBIN,INDIRECT 0.3 mg/dl (0-1.1); BILIRUBIN,TOTAL 0.3 mg/dl (0.2-1.3); CALCIUM 8.3 mg/dl (8.4-10.2); CREATININE 1.93 mg/dl (0.61-1.24); MAGNESIUM 2.7 mg/dl (1.7-2.5); PHOSPHORUS 3.7 mg/dl (2.5-4.9); POTASSIUM 4.8 mmol/L (3.5-5.1); TOTAL PROTEIN 6.9 g/dl (6.1-8.1)
[2017-10-16] MEDS ORDERED: PANTOPRAZOLE 40 MG INJ IV SCH (06:00)
--- NOTE | 2017-10-16 06:45 | HP ---
Date/Time of Note Date/Time of Note DATE: 10/16/17 TIME: 06:31 Assessment/Plan VTE Prophylaxis VTE Prophylaxis Intervention: heparin Lines/Catheters IV Catheter Type (from Nrs): Peripheral IV Urinary Cath still in place: Yes Reason Cath still needed: terminal illness/intractable pain Assessment/Plan Assessment/Plan 1. Septic shock, secondary to UTI. -Patient also has chronic multiple decubitus ulcers which can be a contributing factor to sepsis. Chest x-ray with improved right basilar pneumonia. -Continue ICU monitoring -Broad-spectrum antibiotics -Follow-up culture results -ID consult 2. Acute kidney injury, caused by hypovolemic/septic shock -Continue IV fluid -Nephrology consult in a.m. 3. Hyperkalemia, secondary to above: Resolved 4. Hyponatremia -Improving with NS IVF 5. Chronic trach dependent respiratory failure -Continue supportive care -Pulmonary consult 6. Dysphagia, status post PEG tube -We will start tube feeding in a.m. 7. Quadriplegia -Continue supportive care 8. Type 2 diabetes, with hyperglycemia -Insulin gtt HPI/ROS Admit Date/Time Admit Date/Time Oct 15, 2017 at 19:43 Hx of Present Illness This is a 62-year-old male with a history of quadriplegia, respiratory failure status post trach, dysphagia with PEG for feeding, multiple decubitus ulcers, recurrent UTIs, diabetes, pneumonia who was sent for nausea/vomiting as well as elevated white count. A few days ago he was noted to have a WBC of 14,000 and was started on antibiotic. Because of nausea and vomiting patient was since to hospital for evaluation. Patient was sent from alf facility in July for leukocytosis. At that time he was treated for UTI secondary to Proteus and was bacteremic with corynebacterium. He is PICC line was also removed at that time. Patient will also noted to have multiple decubitus ulcers but declined debridement [facility] When he presented to the ER this time, his white count was 24,000, he has elevated creatinine of 1.8, which is new. Initial potassium was 6 and also was hyponatremic with a sodium of 121. Also presented with blood glucose of around 450. UA consistent with UTI and a chest x-ray showed improved right basilar pneumonia. His blood pressure was as low as 76/48 when he was in the ER but improved with IV fluids. PMH/Family/Social Social History Smoking Status: Never smoker Exam/Review of Systems Vital Signs Vitals Vital Signs Date Time Temp Pulse Resp B/P Pulse Ox O2 Delivery O2 Flow Rate FiO2 10/16/17 04:00 87 10/15/17 23:15 20 99/66 10/15/17 22:00 99.0 10/15/17 21:37 96 Room Air 10/15/17 19:31 21 Intake and Output 10/15/17 10/15/17 10/16/17 14:59 22:59 06:59 Intake Total 125 ml 985 ml Balance 125 ml 985 ml Exam Constitutional: other (Quadriplegic, trached. Sleepy but arousable) Head: atraumatic, normocephalic Eyes: PERRL Respiratory: diminished breath sounds Cardiovascular: nl pulses, regular rate and rhythm Gastrointestinal: other (PEG tube in place), soft Extremities: normal pulses Labs Result Diagram: 10/16/1743610/16/177 Medications Medications Current Medications Sodium Chloride (NS) 1,000 ml @ 125 mls/hr Q8H IV Last administered on 19:38; Admin Dose 125 MLS/HR; Start 10/15/17 at 19:38 Ondansetron HCl (Zofran Inj) 4 mg Q6H PRN IV NAUSEA AND/OR VOMITING Last administered on 10/15/17 19:52; Admin Dose 4 MG; Start 10/15/17 at 20:00 Morphine Sulfate (morphine) 2 mg Q4H PRN IV SEVERE PAIN LEVEL 7-10; Start 10/15 at 20:00 Pantoprazole (Protonix Iv) 40 mg DAILY@06 IV Last administered on 10/16/17 05: 34; Admin Dose 40 MG; Start 10/16/17 at 06:00 Diagnostic Test (Pha) (Accu-Chek) 1 ea Q1H XX Last administered on 10/15/17 20 :32; Admin Dose 1 EA; Start 10/15/17 at 20:00 Dextrose (D50w Syringe) 25 ml Q15M PRN IV Till BS 80 mg/dL or above x2; Start 10/15/17 at 20:00 Dextrose 50 ml 50 ml Q15M PRN IV Till BS 80 mg/dL or above x2; Start 10/15/17 at 20:00 Piperacillin Sod/ Tazobactam Sod 50 ml @ 100 mls/hr Q6 IVPB Last administered on 10/16/17 05:34; Admin Dose 100 MLS/HR; Start 10/16/17 at 00:00 Vancomycin HCl/ Sodium Chloride (Vancocin/NS) 250 ml @ 83.333 mls/ hr Q24H IVPB ; Start 10/16/17 at 21:00 Baclofen (Lioresal) 10 mg TID GTB ; Start 10/16/17 at 09:00 Ferrous Sulfate (Feosol Liquid Cup) 300 mg BID GTB ; Start 10/16/17 at 09:00 Al Hydrox/Mg Hydrox/Simethicone (Mag-Al Plus) 30 ml Q4H PRN GTB GASTROINTESTINAL UPSET; Start 10/16/17 at 00:00 Sucralfate (Carafate) 1 gm Q6 GTB Last administered on 10/16/17 05:34; Admin Dose 1 GM; Start 10/16/17 at 00:00 Tramadol HCl (Ultram) 50 mg TID GTB ; Start 10/16/17 at 09:00 Zolpidem Tartrate (Ambien) 5 mg QHS PRN GTB INSOMNIA; Start 10/16/17 at 00:00 MAR VARNER MD Oct 16, 2017 06:44
[2017-10-16] MEDS: BACLOFEN 10 MG TAB GTB SCH ×3 (08:45→20:28)
[2017-10-16] MEDS: traMADol 50 MG TAB GTB SCH ×4 (08:45→22:20)
[2017-10-16] MEDS: FERROUS SULFATE 60 MG/ML 5ML CUP GTB SCH ×2 (08:45→20:28)
--- NOTE | 2017-10-16 10:22 | CONS ---
Date/Time of Note Date/Time of Note DATE: 10/16/17 TIME: :17 Assessment/Plan Assessment/Plan Additional Assessment/Plan Chest x-ray was reviewed from yesterday which is showing minimal right lower lobe infiltrative changes. Urine analysis is grossly positive for UTI. Assessment and recommendations; 1. Patient admitted with UTI with sepsis with clinical improvement. Currently on appropriate antibiotic regimen. 2. History of quadriplegia, patient doing well on [place] valve via tracheostomy. 3. Improving right lower lobe infiltrate. 4. Mild hyponatremia. 5. Hyperglycemia on admission possibly contributing to low sodium level. 6. Chronic renal insufficiency. 7. Anemia and thrombocytopenia. 8. Sacral decubitus ulcer. Patient however has recently refused any wound debridement. Continue current supportive care. Consultation Date/Type/Reason Admit Date/Time Oct 15, 2017 at 19:43 Date of Consultation: Oct 16, 2017 Type of Consultation: Pulmonary/critical care Reason for Consultation Pulmonary consultation requested for evaluation of sepsis and right lower lobe pneumonia. History of presenting illness; patient is a pleasant 62-year-old male who was admitted yesterday transferred from intermediate with persistent leukocytosis as well as episode of nausea and vomiting. Upon evaluation further workup was done including a UA which is grossly positive for UTI also chest x-ray was done which is showing right lower lobe infiltrate however improved from prior imaging study. By the time I saw the patient the patient is completely awake and alert and did not appear to be in any distress whatsoever. The patient was able to talk through [place] valve. Past medical history; 1. Patient with history of quadriplegia. 2. Status post tracheostomy and PEG tube placement. 3. Diabetes. 4. History of decubitus ulcers. Medications; reviewed. Allergies; quinolone antibiotics. Family history; noncontributory. Occupational history; patient is on disability. Review systems; denies any headache, seizures, chest pain, shortness of breath. Any nausea or vomiting. Any abdominal pain. Any fever or chills. General exam; elderly male, on [place] valve via tracheostomy, awake and alert. Currently in no distress. Social History Smoking Status: Never smoker Exam/Review of Systems Vital Signs Vitals Vital Signs Date Time Temp Pulse Resp B/P Pulse Ox O2 Delivery O2 Flow Rate FiO2 10/16/17 08:00 98.6 85 26 114/65 95 Trach Collar 10/15/17 19:31 21 Intake and Output 10/15/17 10/15/17 10/16/17 14:59 22:59 06:59 Intake Total 125 ml 1110 ml Balance 125 ml 1110 ml Exam HEENT exam; supple neck, no JVD. No lymphadenopathy. Midline trachea. No thyromegaly. Pupils are midsize and reactive to light. Patient has a multiple carious teeth. Tracheostomy placed with clean insertion site. Chest exam; clear to auscultation. S1-S2 audible, no murmurs. Regular rhythm. Abdomen exam; soft, nontender. G-tube in place. Bowel sounds audible. Back examination; dressing applied over sacrum. Extremity exam; no peripheral edema. There is severe muscle loss involving all 4 extremities. PROSTHETIC LAB TECHNICIAN exam; patient has intact cranial nerves and has stable quadriplegia. Results Result Diagram: 10/16/17 0437 10/16/17 0437 Results 24 hrs Laboratory Tests Test 10/15/17 15:47 10/15/17 15:56 10/15/17 18:00 10/15/17 19:40 White Blood Count 24.2 #H Red Blood Count 3.87 #L Hemoglobin 9.2 L Hematocrit 28.8 L Mean Corpuscular Volume 74.4 L Mean Corpuscular Hemoglobin 23.8 L Mean Corpuscular Hemoglobin Concent 31.9 L Red Cell Distribution Width 18.2 #H Platelet Count 409 Mean Platelet Volume 9.3 Neutrophils % 86.3 H Lymphocytes % 9.1 L Monocytes % 3.9 Eosinophils % 0.0 Basophils % 0.1 Nucleated Red Blood Cells % 0.0 Neutrophils # 20.9 H Lymphocytes # 2.2 Monocytes # 0.9 Eosinophils # 0.0 Basophils # 0.0 Nucleated Red Blood Cells # 0.0 Sodium Level 121 L Potassium Level 6.0 H Chloride Level 84 L Carbon Dioxide Level 24 Anion Gap 19 H Blood Urea Nitrogen 82 H Creatinine 1.85 H Glucose Level 436 *H Lactic Acid Level 4.4 *H 4.6 *H Calcium Level 8.3 L Total Bilirubin 0.2 Direct Bilirubin 0.00 Indirect Bilirubin 0.2 Aspartate Amino Transf (AST/SGOT) 28 Alanine Aminotransferase (ALT/SGPT) 23 Alkaline Phosphatase 110 Troponin I < 0.012 Total Protein 7.8 Albumin 3.4 Globulin 4.40 H Albumin/Globulin Ratio 0.77 Prothrombin Time 14.4 Prothrombin Time Ratio 1.1 INR International Normalized Ratio 1.10 Activated Partial Thromboplast Time 47.0 H Bedside Glucose 359 H Test 10/15/17 21:15 10/15/17 21:57 10/15/17 23:33 10/16/17 01:11 Urine Color YELLOW Urine Clarity CLOUDY A Urine pH 9.0 Urine Specific [place] 1.012 Urine Ketones NEGATIVE Urine Nitrite NEGATIVE Urine Bilirubin NEGATIVE Urine Urobilinogen NEGATIVE Urine Leukocyte Esterase 3+ H Urine Microscopic RBC 45 H Urine Microscopic WBC 130 H Urine Bacteria MANY A Urine Hemoglobin 2+ H Urine Glucose 1+ H Urine Total Protein 2+ H Lactic Acid Level 5.5 *H Bedside Glucose 293 H 263 H 230 H Test 10/16/17 02:09 10/16/17 03:15 10/16/17 04:25 10/16/17 04:37 Bedside Glucose 179 153 129 White Blood Count 15.7 #H Red Blood Count 3.08 #L Hemoglobin 7.4 L Hematocrit 22.8 #L Mean Corpuscular Volume 74.0 L Mean Corpuscular Hemoglobin 24.0 L Mean Corpuscular Hemoglobin Concent 32.5 Red Cell Distribution Width 17.9 H Platelet Count 368 Mean Platelet Volume 9.5 Neutrophils % 84.7 H Lymphocytes % 9.5 L Monocytes % 5.1 Eosinophils % 0.0 Basophils % 0.1 Nucleated Red Blood Cells % 0.0 Neutrophils # 13.3 H Lymphocytes # 1.5 Monocytes # 0.8 Eosinophils # 0.0 Basophils # 0.0 Nucleated Red Blood Cells # 0.0 Sodium Level 128 L Potassium Level 4.8 Chloride Level 92 L Carbon Dioxide Level 26 Anion Gap 15 Blood Urea Nitrogen 75 H Creatinine 1.93 H Glucose Level 104 # Hemoglobin A1c 6.6 H Calcium Level 8.3 L Phosphorus Level 3.7 Magnesium Level 2.7 H Total Bilirubin 0.3 Direct Bilirubin 0.00 Indirect Bilirubin 0.3 Aspartate Amino Transf (AST/SGOT) 23 Alanine Aminotransferase (ALT/SGPT) 24 Alkaline Phosphatase 70 Total Protein 6.9 Albumin 2.7 L Globulin 4.20 H Albumin/Globulin Ratio 0.64 Test 10/16/17 05:45 10/16/17 07:51 10/16/17 09:16 10/16/17 10:04 Bedside Glucose 104 94 124 119 Medications Medications Current Medications Sodium Chloride (NS) 1,000 ml @ 125 mls/hr Q8H IV Last administered on 19:38; Admin Dose 125 MLS/HR; Start 10/15/17 at 19:38 Ondansetron HCl (Zofran Inj) 4 mg Q6H PRN IV NAUSEA AND/OR VOMITING Last administered on 10/15/17 19:52; Admin Dose 4 MG; Start 10/15/17 at 20:00 Morphine Sulfate (morphine) 2 mg Q4H PRN IV SEVERE PAIN LEVEL 7-10; Start 10/15 at 20:00 Pantoprazole (Protonix Iv) 40 mg DAILY@06 IV Last administered on 10/16/17 05: 34; Admin Dose 40 MG; Start 10/16/17 at 06:00 Diagnostic Test (Pha) (Accu-Chek) 1 ea Q1H XX Last administered on 10/16/17 07 :55; Admin Dose 1 EA; Start 10/15/17 at 20:00 Dextrose (D50w Syringe) 25 ml Q15M PRN IV Till BS 80 mg/dL or above x2; Start 10/15/17 at 20:00 Dextrose 50 ml 50 ml Q15M PRN IV Till BS 80 mg/dL or above x2; Start 10/15/17 at 20:00 Piperacillin Sod/ Tazobactam Sod (Zosyn 3.375gm/ 50 ml (Pmx)) 50 ml @ 100 mls/ hr Q6 IVPB Last administered on 10/16/17 05:34; Admin Dose 100 MLS/HR; Start 10/16/17 at 00:00 Baclofen (Lioresal) 10 mg TID GTB Last administered on 10/16/17 08:45; Admin Dose 10 MG; Start 10/16/17 at 09:00 Ferrous Sulfate (Feosol Liquid Cup) 300 mg BID GTB Last administered on 08:45; Admin Dose 300 MG; Start 10/16/17 at 09:00 Al Hydrox/Mg Hydrox/Simethicone (Mag-Al Plus) 30 ml Q4H PRN GTB GASTROINTESTINAL UPSET; Start 10/16/17 at 00:00 Sucralfate (Carafate) 1 gm Q6 GTB Last administered on 10/16/17 05:34; Admin Dose 1 GM; Start 10/16/17 at 00:00 Tramadol HCl (Ultram) 50 mg TID GTB Last administered on 10/16/17 08:45; Admin Dose 50 MG; Start 10/16/17 at 09:00 Zolpidem Tartrate 5 mg 5 mg QHS PRN GTB INSOMNIA; Start 10/16/17 at 00:00 Vancomycin HCl (Vancocin) 250 ml @ 125 mls/hr Q24H IVPB ; Start 10/16/17 at 22: 00 ANYA FLOREZ Oct 16, 2017 10:22
[2017-10-16] MEDS: SOD CHLORIDE 0.9% 1,000 ML IV SCH ×3 (11:41→20:00)
--- NOTE | 2017-10-16 13:49 | CONS ---
DATE OF ADMISSION: 10/15/2017 DATE OF CONSULTATION: 10/16/2017 INFECTIOUS DISEASE CONSULTATION REASON FOR CONSULTATION: Antibiotic management. HISTORY OF PRESENT ILLNESS: Bernardo Urias is a 62-year-old male with numerous problems who comes in in septic shock and is being seen for antibiotic management. Past problems include: 1. Quadriplegia. 2. Respiratory failure, status post tracheostomy. 3. Dysphagia, status post G-tube for feeding. 4. Multiple decubitus ulcers. 5. Recurrent urinary tract infections. 6. Diabetes. 7. Pneumonia. The patient was sent to the ER because of nausea, vomiting and an elevated white count. On admissio n, his white count was 15.7, H and H of 7.4 and 22.8, platelet count 368,000. BUN and creatinine 75 /1.93. The patient was started on vancomycin and Zosyn. The patient was also sent from [facility] in July for leukocytosis. At that time, he had a UTI and bacteremia. He also martinez d a PICC line that was removed. Initially, the patient had a white count of 24,000 on admission, no w 15.7. His potassium was 6, now it is 4.8. PAST MEDICAL HISTORY: Operations as outlined. FAMILY HISTORY: Noncontributory. SOCIAL HISTORY: He does not smoke, drink or abuse drugs. ALLERGIES: NONE TO PENICILLIN, SULFA OR FOODS. MEDICATIONS: Per chart. REVIEW OF SYSTEMS: As per HPI. PHYSICAL EXAMINATION: GENERAL: The patient is a chronically ill-appearing male who is sleepy, but arousable. VITAL SIGNS: Stable. He is afebrile. His blood pressure is borderline. He is currently not on pr essors. SKIN: Without generalized rash. HEENT: Within normal limits. NECK: He has a tracheostomy, which is clean. CHEST: Decreased breath sounds at the bases. HEART: Without murmur or gallop. ABDOMEN: Soft, nontender without organosplenomegaly or masses. G-tube in place. EXTREMITIES: Without cyanosis, clubbing, or edema. RECTAL AND GENITAL: Deferred. NEUROLOGIC: The patient is quadriplegic. IMPRESSION AND PLAN: The patient comes in now with sepsis. He has improvement in the appearance of right basilar pneumonia that he had previously and his urine shows 3+ leukocyte esterase, 130 white cells per high powered field. The patient comes in now with urinary tract infection with sepsis an d shock when he initially presented. We will continue him on vancomycin and Zosyn and await further cultures. I will dictate my findings to the hospitalist. Dictated By: DAVID KEMP MD, JD/LILY Conf#: [id number] DID#: [id number] CC: VANCE JOHNSON MD;*EndCC*
[2017-10-16 15:42] LABS: CALCIUM 8.1 mg/dl (8.4-10.2); CREATININE 1.56 mg/dl (0.61-1.24); POTASSIUM 3.6 mmol/L (3.5-5.1)
[2017-10-16 16:52] LABS: ADD UMIC YES; UR ASCORBIC ACID NEGATIVE (NEGATIVE); UR BACTERIA MANY /HPF (NONE SEEN); UR BILIRUBIN (Dip) NEGATIVE (NEGATIVE); UR BLOOD (Dip) 1+ mg/dL (NEGATIVE); UR CLARITY TURBID (CLEAR); UR COLOR AMBER (YELLOW); UR GLUCOSE (Dip) NEGATIVE (NEGATIVE); UR KETONES (Dip) NEGATIVE (NEGATIVE); UR LEUKOCYTE ESTERASE (Dip) 3+ Leu/ul (NEGATIVE); UR NITRITE (Dip) NEGATIVE (NEGATIVE); UR RBC 137 /HPF (0-5); UR SPECIFIC GRAVITY (Dip) 1.014 (1.003-1.030); UR SQUAMOUS EPITHELIAL CELL FEW /HPF (FEW); UR TOTAL PROTEIN (Dip) 3+ mg/dl (NEGATIVE); UR UROBILINOGEN (Dip) NEGATIVE (NEGATIVE)
--- NOTE | 2017-10-16 20:32 | CONS ---
DATE OF ADMISSION: 10/15/2017 DATE OF CONSULTATION: 10/16/2017 TYPE OF CONSULTATION: Nephrology. REASON FOR CONSULTATION: Acute kidney injury, hyponatremia. PHYSICIAN REQUESTING CONSULT: Dr. Banks. HISTORY OF PRESENT ILLNESS: This is a 62-year-old male with a past medical history of chronic respi ratory failure status post tracheostomy, history of dysphagia status post PEG, history of quadripleg ia, history of multiple decubitus wounds, history of recurrent UTI, history of diabetes and pneumoni a who presented to [facility] from a assisted facility due to elevated whit e count. The patient, at the assisted facility, was noted to have nausea and vomiting. He c melvin to the emergency room. Upon arrival, the patient had a white count of 14,000. He had a urinaly sis that showed bacteria. The patient, in the emergency room, was noted to be hypotensive. He was started on IV fluids and on antibiotics and admitted to the intensive care unit for evaluation. Whi le in the ICU, the patient has been stable. There have been no reports of hemoptysis, hematemesis o r hematochezia. In terms of the patient's renal history, the patient's previous baseline creatinine was 0.5 mg/dL; h owever, on admission, the patient had a creatinine of 1.85 mg/dL. The patient also on admission not ed to be hyponatremic with a sodium of 121 mEq per liter, that has increased to 131 mEq in a 24-hour period. PAST MEDICAL HISTORY: As stated above, history of chronic respiratory failure, history of dysphagia , history of quadriplegia, history of diabetes, pneumonia, history of decubitus ulcer, history of UT I. PAST SURGICAL HISTORY: Status post trach, status post PEG. FAMILY HISTORY: Noncontributory. SOCIAL HISTORY: Lives at a skilled nurse facility. MEDICATIONS: The patient's medications have been reviewed. REVIEW OF SYSTEMS: Unable to do an adequate review of systems as the patient is altered. Pertinent positives as obtained by reviewing medical records and speaking to hospital staff stated in HPI, ot herwise negative. PHYSICAL EXAMINATION: VITAL SIGNS: Blood pressure is 106/60, respirations 24, pulse 85, temperature 98.3. HEENT: Head is normocephalic. NECK: Supple. HEART: Regular rate. LUNGS: Show diminished breath sounds at the base. ABDOMEN: Soft, nontender to palpation without rebound or guarding. EXTREMITIES: Negative for clubbing, cyanosis, edema. DERMATOLOGIC: No rashes. MUSCULOSKELETAL: Positive decubitus wound. NEUROLOGIC: The patient is quadriplegic. LABORATORY DATA: Shows urinalysis with pyuria, hematuria, proteinuria. The patient has a sodium of 131, BUN 67, creatinine 1.56. White count 15.7, hemoglobin 7.4, hematocrit 22.2, platelet count 36 8. IMAGING STUDIES: As stated in HPI and reviewed. ASSESSMENT AND PLAN: This is a 62-year-old male who presents with: 1. Nonoliguric acute kidney injury with previous baseline creatinine of 0.5 mg/dL. Etiology of acu te kidney injury is secondary to hemodynamics, septic acute kidney injury, questionable tubular inju ry. The patient's urinalysis does show evidence of pyuria, hematuria likely due to underlying urina ry tract infection and possible [place] trauma. Lower suspicion for acute glomerulonephritis vasculit is given the patient's clinical presentation. Interstitial nephritis is a consideration. Plan at t his point is to continue current treatment plan, continue intravenous fluids, continue intravenous a ntibiotics, maintain mean arterial pressure above 65. Would otherwise continue supportive care, karlene ally dose all medications, avoid nephrotoxins. 2. Hyponatremia, etiology secondary to acute kidney injury causing decreased free water urinary exc retion. The patient is currently receiving intravenous fluids with improvement in sodium level. Th e patient's sodium level appropriately corrected approximately 10 mEq in 24-hour period. At this po int, continue to monitor. 3. Anemia. Monitor hemoglobin and hematocrit levels. Transfuse as needed. 4. Mineral bone disorder. Monitor calcium and phosphorus levels. 5. Septic shock secondary to urinary tract infection. Continue current antibiotic regimen. Contin ue pressor support, intravenous fluids and antibiotics. 6. Chronic respiratory failure, status post tracheostomy. Continue current treatment plan. Follow up with pulmonary. 7. Dysphagia. Status post percutaneous endoscopic gastrostomy. Continue tube feeding. 8. Quadriplegia. Continue supportive care. 9. Diabetes. Continue Accu-Cheks, insulin sliding scale. Thank you, Dr. Banks, for this interesting consult. It will be a pleasure to follow the patient w ith you throughout the hospital course. Please note I spent over 35 minutes of critical care time with this patient. Dictated By: REY SALDANA/LILY Conf#: [id number] DID#: [id number] CC: VANCE BANKS MD;*EndCC*
[2017-10-16] MEDS ORDERED: VANCOMYCIN 1.25 GM in SOD CHLORIDE 0.9% 250 ML IVPB SCH (21:00)
[2017-10-16] MEDS ORDERED: VANCOMYCIN 1 GM in NS 250 ML IVPB SCH (22:00)
[2017-10-16] MEDS: ZOLPIDEM 5 MG TAB GTB PRN (22:21)
[2017-10-17] VITALS (23 sets, daily range): BP systolic 92–143; BP diastolic 53–86; PULSE 57–68; RESP 11–31
[2017-10-17] MEDS: ACCU-CHEK XX SCH ×8 (00:02→10:00)
[2017-10-17] MEDS: SUCRALFATE 1 GM TAB GTB SCH ×4 (00:03→17:55)
[2017-10-17] MEDS: PIPER-TAZO 3.375 GM IV (PMX) 50 ML IVPB SCH ×4 (00:03→17:56)
[2017-10-17] MEDS: SOD CHLORIDE 0.9% 1,000 ML IV SCH ×2 (04:16→13:42)
[2017-10-17 06:33] LABS: CALCIUM 8.1 mg/dl (8.4-10.2); CREATININE 1.16 mg/dl (0.61-1.24); MAGNESIUM 2.6 mg/dl (1.7-2.5); PHOSPHORUS 3.3 mg/dl (2.5-4.9)
[2017-10-17 06:40] LABS: POTASSIUM 2.9 mmol/L (3.5-5.1)
[2017-10-17 07:17] LABS: ABNORMAL IP MESSAGE 1; HEMATOCRIT 20.7 % (42.0-52.0); MEAN CORPUSCULAR HEMOGLOBIN 23.6 pg (29.0-33.0); MEAN CORPUSCULAR HGB CONC 31.4 g/dl (32.0-37.0); MEAN CORPUSCULAR VOLUME 75.3 fl (82.0-101.0); MEAN PLATELET VOLUME 9.2 fl (7.4-10.4); PLATELET COUNT 320 10^3/UL (140-415); POSITIVE DIFF @See below; RED BLOOD COUNT 2.75 10^6/ul (4.70-6.10); RED CELL DISTRIBUTION WIDTH 18.3 % (11.5-14.5); WHITE BLOOD COUNT 14.8 10^3/ul (4.8-10.8)
[2017-10-17 07:27] LABS: HEMOGLOBIN 6.5 g/dl (14.0-18.0)
[2017-10-17] MEDS: POTASSIUM CHLORIDE 50 ML IVPB SCH ×3 (07:57→12:51)
[2017-10-17] MEDS: FERROUS SULFATE 60 MG/ML 5ML CUP GTB SCH ×2 (09:07→21:04)
[2017-10-17] MEDS: FAMOTIDINE 20 MG INJ IV SCH ×2 (09:07→21:04)
[2017-10-17] MEDS: BACLOFEN 10 MG TAB GTB SCH ×3 (09:07→21:05)
[2017-10-17] MEDS ORDERED: SOD CHLORIDE 0.9% 250 ML IV* ONE (09:21)
[2017-10-17 09:55] LABS: IRON 15 ug/dl (35-150)
[2017-10-17 10:00] LABS: ANISOCYTOSIS 1+ (0-0); HYPOCHROMASIA 1+ (0-0); MICROCYTOSIS 1+ (0-0); MONOCYTES % (M) 4 % (0-11); PLATELET ESTIMATE NORMAL; POIKILOCYTOSIS 1+ (0-0); POLYCHROMASIA 3+ (0-0)
[2017-10-17 10:05] LABS: PATH REVIEW? YES
[2017-10-17 10:05] LABS: TOTAL IRON BINDING CAPACITY 222 ug/dl (241-421)
[2017-10-17] MEDS: VANCOMYCIN 750 MG in DEXTROSE 5% 150 ML IVPB SCH ×2 (10:17→21:51)
--- NOTE | 2017-10-17 10:50 | PN ---
DATE: 10/17/2017 SUBJECTIVE: The patient remains in serious but stable condition. No other events noted. OBJECTIVE: VITAL SIGNS: Blood pressure is 94/53, respirations 12, pulse 63, temperature 98.6. HEENT: Head is normocephalic. NECK: Supple. HEART: Regular rate. LUNGS: Show diminished breath sounds at base. ABDOMEN: Soft, nontender to palpation without rebound or guarding. EXTREMITIES: Negative for clubbing, cyanosis, no edema. DERMATOLOGIC: No rashes. MUSCULOSKELETAL: Positive decubitus wound. NEUROLOGIC: No change in exam. MEDICATIONS: The patient's medications have been reviewed. LABORATORY DATA: Shows white count 14.8, hemoglobin 6.5, hematocrit 20.7, platelet count is 320. S odium 135, potassium 2.9, chloride 103, BUN 53, creatinine 1.6, magnesium 2.6. ASSESSMENT AND PLAN: 1. Nonoliguric acute kidney injury with a previous baseline creatinine of 0.5 mg/dL. Etiology of a cute kidney injury is secondary to hemodynamics, sepsis. The patient's renal function has improved with IV fluids. At this point, continue current treatment plan. Continue IV hydration. Will decre ase rate of normal saline to 75 mL an hour. Will continue supportive care, renally dose all meds, a void nephrotoxins. 2. Hyponatremia, etiology secondary to acute kidney injury, resolved. The patient's sodium levels have normalized with an appropriate grade of correction. Will continue to monitor. 3. Hypokalemia. Replete potassium chloride. 4. Anemia. Continue to monitor hemoglobin and hematocrit levels. Recommend blood transfusion. 5. Mineral bone disorder. Monitor calcium and phosphorus levels. 6. Sepsis, etiology secondary to urinary tract infection. Continue current antibiotic regimen on I V fluids. 7. Chronic respiratory failure, status post trach. Continue current treatment plan. 8. Dysphagia status post percutaneous endoscopic gastrostomy. Continue tube feeding. 9. Quadriplegia. Continue supportive care. 10. Diabetes. Continue Accu-Cheks, insulin sliding scale. Dictated By: REY SALDANA/NTS Conf#: [id number] DID#: [id number] CC: VANCE JOHNSON MD;*End*
--- NOTE | 2017-10-17 11:35 | CONS ---
Date/Time of Note Date/Time of Note DATE: 10/17/17 TIME: 11:33 Assessment/Plan Assessment/Plan Additional Assessment/Plan Assessment and recommendations; 1. Patient admitted with sepsis from UTI as well as sacral decubitus ulcers with a small right lower lobe infiltrate. Clinically improving. 2. History of quadriplegia. 3. Anemia. 4. Diabetes. 5. Acute renal insufficiency with normalization of renal function. Continue current supportive care. Consider transfer to medical floor. Consultation Date/Type/Reason Admit Date/Time Oct 15, 2017 at 19:43 Initial Consult Date 10/16/17 Type of Consultation: Pulmonary/critical care 24 HR Interval Summary Free Text/Dictation Patient's condition is stable. Has remained hemodynamically stable. No untoward events reported. General exam; elderly male, on [place] valve via tracheostomy. Awake and alert. Currently in no distress. Exam/Review of Systems Vital Signs Vitals Vital Signs Date Time Temp Pulse Resp B/P Pulse Ox O2 Delivery O2 Flow Rate FiO2 10/17/17 09:00 59 12 101/58 100 Trach Collar 10/17/17 07:30 21 10/17/17 00:00 98.0 Intake and Output 10/16/17 10/16/17 10/17/17 15:00 23:00 07:00 Intake Total 1069 ml 431 ml 1250 ml Output Total 925 ml 950 ml 460 ml Balance 144 ml -519 ml 790 ml Exam HEENT exam; supple neck, no JVD. No lymphadenopathy. Midline trachea. No thyromegaly. Tracheostomy placed with clean insertion site. Chest exam; clear to auscultation. S1-S2 audible, no murmurs. Regular rhythm. Abdomen exam; soft, no organomegaly. G-tube in place. Bowel sounds audible. Extremity exam; no edema. Patient does have severe muscle loss involving all 4 extremities. With flexion contractions. INJECTION MOLDING TECHNICIAN exam; patient is stable quadriplegia. Results Result Diagram: 10/17/17 0707 10/17/17 0707 Results 24 hrs Laboratory Tests Test 10/16/17 11:45 10/16/17 14:05 10/16/17 15:10 10/16/17 16:01 Bedside Glucose 143 146 131 Sodium Level 131 L Potassium Level 3.6 Chloride Level 97 Carbon Dioxide Level 26 Anion Gap 12 Blood Urea Nitrogen 67 H Creatinine 1.56 H Glucose Level 119 Calcium Level 8.1 L Test 10/16/17 18:24 10/16/17 20:20 10/16/17 22:12 10/17/17 00:02 Bedside Glucose 86 94 111 100 Test 10/17/17 02:04 10/17/17 04:15 10/17/17 05:30 10/17/17 05:33 Bedside Glucose 109 130 127 Iron Level 15 L Total Iron Binding Capacity 222 L Percent Iron Saturation 7 L Test 10/17/17 07:07 10/17/17 08:00 White Blood Count 14.8 H Red Blood Count 2.75 L Hemoglobin 6.5 *L Hematocrit 20.7 L Mean Corpuscular Volume 75.3 L Mean Corpuscular Hemoglobin 23.6 L Mean Corpuscular Hemoglobin Concent 31.4 L Red Cell Distribution Width 18.3 H Platelet Count 320 Mean Platelet Volume 9.2 Neutrophils % Segmented Neutrophils % (Manual) 83 H Band Neutrophils % (Manual) 4 Lymphocytes % Lymphocytes % (Manual) 9 L Monocytes % Monocytes % (Manual) 4 Eosinophils % Basophils % Nucleated Red Blood Cells % 0.0 Neutrophils # Neutrophils # (Manual) 12.4 H Band Neutrophils # 0.5 Absolute Lymphocytes (Manual) 1.3 Lymphocytes # Monocytes # Absolute Monocytes (Manual) 0.5 Eosinophils # Basophils # Nucleated Red Blood Cells # Pathologist Review (Hematology) YES Platelet Estimate NORMAL Polychromasia 3+ Hypochromasia 1+ Poikilocytosis 1+ Anisocytosis 1+ Microcytosis 1+ Sodium Level 135 Potassium Level 2.9 *L Chloride Level 103 Carbon Dioxide Level 24 Anion Gap 11 Blood Urea Nitrogen 53 H Creatinine 1.16 Glucose Level 106 Calcium Level 8.1 L Phosphorus Level 3.3 Magnesium Level 2.6 H Bedside Glucose 107 Medications Medications Current Medications Sodium Chloride (NS) 1,000 ml @ 75 mls/hr [id number] IV Last administered on 10/17 04:16; Admin Dose 125 MLS/HR; Start 10/15/17 at 19:38 Ondansetron HCl (Zofran Inj) 4 mg Q6H PRN IV NAUSEA AND/OR VOMITING Last administered on 10/15/17 19:52; Admin Dose 4 MG; Start 10/15/17 at 20:00 Morphine Sulfate 2 mg 2 mg Q4H PRN IV SEVERE PAIN LEVEL 7-10; Start 12/4/17 at 20:00 Piperacillin Sod/ Tazobactam Sod (Zosyn 3.375gm/ 50 ml (Pmx)) 50 ml @ 100 mls/ hr Q6 IVPB Last administered on 10/17/17 05:27; Admin Dose 100 MLS/HR; Start 10/16/17 at 00:00 Baclofen (Lioresal) 10 mg TID GTB Last administered on 10/17/17 09:07; Admin Dose 10 MG; Start 10/16/17 at 09:00 Ferrous Sulfate (Feosol Liquid Cup) 300 mg BID GTB Last administered on 09:07; Admin Dose 300 MG; Start 10/16/17 at 09:00 Al Hydrox/Mg Hydrox/Simethicone (Mag-Al Plus) 30 ml Q4H PRN GTB GASTROINTESTINAL UPSET; Start 10/16/17 at 00:00 Sucralfate (Carafate) 1 gm Q6 GTB Last administered on 10/17/17 05:27; Admin Dose 1 GM; Start 10/16/17 at 00:00 Tramadol HCl (Ultram) 50 mg TID GTB Last administered on 10/16/17 20:28; Admin Dose 50 MG; Start 10/16/17 at 09:00 Zolpidem Tartrate (Ambien) 5 mg QHS PRN GTB INSOMNIA Last administered on 22:21; Admin Dose 5 MG; Start 10/16/17 at 00:00 Famotidine 20 mg 20 mg Q12 IV Last administered on 10/17/17 09:07; Admin Dose 20 MG; Start 10/17/17 at 09:00 Potassium Chloride 50 ml @ 25 mls/hr Q2H IVPB Last administered on 10/17/17 10 :17; Admin Dose 25 MLS/HR; Start 10/17/17 at 07:00; Stop 10/17/17 at 12:59 Vancomycin HCl/ Dextrose/Water (Vancocin/D5W) 150 ml @ 75 mls/hr Q12H IVPB Last administered on 10/17/17 10:17; Admin Dose 75 MLS/HR; Start 10/17/17 at 10 :00 Diagnostic Test (Pha) (Accu-Chek) 1 ea 02 XX ; Start 10/18/17 at 02:00 Insulin Glargine (Lantus) 15 unit DAILY@20 SC ; Start 10/17/17 at 20:00 Insulin Aspart (Novolog Insulin Pen) NOVOLOG *MILD* ALGORITHM Q4 SC ; Start 10/17/17 at 13:00 ANYA FLOREZ Oct 17, 2017 11:35
[2017-10-17] MEDS ORDERED: INSULIN ASPART [NOVOLOG] 3 ML PEN SC SCH ×2 (12:00→13:00)
--- NOTE | 2017-10-17 12:44 | PN ---
DATE: 10/17/2017 INFECTIOUS DISEASE PROGRESS NOTE SUBJECTIVE: Patient is awake, looks comfortable, asking for ice chips. He is not on pressors. He is in no distress. VITAL SIGNS: Temperature 98, pulse 60, respirations 12, blood pressure 107/63, saturation 100 on tr ach collar. WBC 14.8, H and H 6.5 and 20.7, platelets 320, neutrophils 83, bands 4, lymphs 9. BUN 53, creatinin e 1.16. MICROBIOLOGY: Blood cultures negative. Urine culture growing gram-negative rods. INDWELLINGS: Trach, PEG, Mondragon, right femoral triple-lumen catheter. DIAGNOSTICS: Chest x-ray on admission revealed slight improvement in the right basilar pneumonia. ANTIMICROBIALS: The patient is on: 1. Vancomycin. 2. Zosyn. ALLERGIES: LEVAQUIN, reaction unknown. PHYSICAL EXAMINATION: GENERAL: Chronically ill-appearing, elderly man who is in no distress. HEENT: Head atraumatic, normocephalic. Sclerae anicteric. Buccal mucosa dry. NECK: Supple. CHEST: Rise symmetrical. Breath sounds diminished to bases. HEART: S1, S2. ABDOMEN: Soft, bowel tones present. EXTREMITIES: Contractured without cyanosis. ASSESSMENT: 1. Sepsis, status post shock. 2. Urinary tract infection with urine culture growing gram-negative rods. 3. Unstageable sacral decubitus. 4. Quadriplegia. 5. Chronic respiratory failure and dysphagia. 6. Diabetes. 7. Acute on chronic anemia. PLAN: Remains hemodynamically stable, covered with broad-spectrum antibiotics. Final cultures pend ing. Continue present care. Follow recommendations of specialists. Dictated By: ADI ENNIS IT ACCOUNT MANAGER for DAVID BARRAZA/LILY Conf#: [id number] DID#: [id number]
[2017-10-17] MEDS: traMADol 50 MG TAB GTB SCH ×2 (12:51→21:05)
[2017-10-17] MEDS ORDERED: GLUCAGON 1 MG INJ IM PRN (14:00)
[2017-10-17] MEDS ORDERED: DEXTROSE 50% 50 ML SYRINGE IV PRN ×2 (14:00)
[2017-10-17] MEDS ORDERED: GLUCOSE GEL 15 GRAM TUBE BUCCAL PRN (14:00)
[2017-10-17] MEDS ORDERED: GLUCOSE GEL 15 GRAM TUBE PO PRN ×2 (14:00)
[2017-10-17] MEDS: INSULIN ASPART [NOVOLOG] 3 ML PEN SC SCH ×3 (14:00→21:04)
--- NOTE | 2017-10-17 14:16 | PN ---
Date/Time of Note Date/Time of Note DATE: 10/17/17 TIME: 14:16 Assessment/Plan VTE Prophylaxis VTE Prophylaxis Intervention: SCD's Lines/Catheters IV Catheter Type (from Nrsg): Central Line Central line still needed: Yes Urinary Cath still in place: Yes Reason Cath still needed: urinary retention Assessment/Plan Chief Complaint/Hosp Course Subjective 12.6 patient alert and complains of wanting ice chips. Objective Physical exam General: Patient is laying in bed and answers questions appropriately. quadraplegic, peg/trach(passy imani valve) Mentation: Patient is alert and oriented 4, Head: Normocephalic atraumatic Eyes: EOMI, pupils reactive to light Neck: Supple, nontender, midline Respiratory: diminished to auscultation bilaterally Cardiovascular: regular rate, no obvious murmurs Gastrointestinal: non-tender to palpation, bowel sounds heard. peg tube Neurological: no sensation or motor in extremities Skin: No new skin lesions, chronic sacral decubitus Assessment and plan Severe sepsis versus septic shock -Patient's blood pressure stable -Pneumonia and UTI source -Broad-spectrum antibiotics, ID recommendations appreciated -Fluids Anemia, microcytic -Likely component of volume resuscitation, and partially secondary to anemia of chronic disease -No signs of bleed -Iron levels extremely low -Blood transfusion for now, start iron after Acute kidney injury -Resolved -Nephrology consult appreciated Electrolyte derangement -Replete as needed Chronic trach dependent respiratory failure -Secondary to quadriplegic nature status post fall -[place] valve, pulmonary Anthony appreciated Dysphasia -Has peg tube -Speech therapy says okay for pure, will order video swallow Quadriplegia -Status post fall Sacral decubitus ulcer -Chronic, infectious disease recommended is appreciated -Wound care Type 2 diabetes -Insulin sliding scale and Lantus Problems: Exam/Review of Systems Vital Signs Vitals Vital Signs Date Time Temp Pulse Resp B/P Pulse Ox O2 Delivery O2 Flow Rate FiO2 10/17/17 13:00 65 14 116/70 100 Trach Collar 10/17/17 12:00 97.0 10/17/17 07:30 21 Intake and Output 10/16/17 10/16/17 10/17/17 15:00 23:00 07:00 Intake Total 1069 ml 431 ml 1250 ml Output Total 925 ml 950 ml 460 ml Balance 144 ml -519 ml 790 ml Results Result Diagram: 10/17/17 0707 10/17/17 0707 Results 24 hrs Laboratory Tests Test 10/16/17 15:10 10/16/17 16:01 10/16/17 18:24 10/16/17 20:20 Sodium Level 131 L Potassium Level 3.6 Chloride Level 97 Carbon Dioxide Level 26 Anion Gap 12 Blood Urea Nitrogen 67 H Creatinine 1.56 H Glucose Level 119 Calcium Level 8.1 L Bedside Glucose 131 86 94 Test 10/16/17 22:12 10/17/17 00:02 10/17/17 02:04 10/17/17 04:15 Bedside Glucose 111 100 109 130 Test 10/17/17 05:30 10/17/17 05:33 10/17/17 07:07 10/17/17 08:00 Iron Level 15 L Total Iron Binding Capacity 222 L Percent Iron Saturation 7 L Bedside Glucose 127 107 White Blood Count 14.8 H Red Blood Count 2.75 L Hemoglobin 6.5 *L Hematocrit 20.7 L Mean Corpuscular Volume 75.3 L Mean Corpuscular Hemoglobin 23.6 L Mean Corpuscular Hemoglobin Concent 31.4 L Red Cell Distribution Width 18.3 H Platelet Count 320 Mean Platelet Volume 9.2 Neutrophils % Segmented Neutrophils % (Manual) 83 H Band Neutrophils % (Manual) 4 Lymphocytes % Lymphocytes % (Manual) 9 L Monocytes % Monocytes % (Manual) 4 Eosinophils % Basophils % Nucleated Red Blood Cells % 0.0 Neutrophils # Neutrophils # (Manual) 12.4 H Band Neutrophils # 0.5 Absolute Lymphocytes (Manual) 1.3 Lymphocytes # Monocytes # Absolute Monocytes (Manual) 0.5 Eosinophils # Basophils # Nucleated Red Blood Cells # Pathologist Review (Hematology) YES Platelet Estimate NORMAL Polychromasia 3+ Hypochromasia 1+ Poikilocytosis 1+ Anisocytosis 1+ Microcytosis 1+ Sodium Level 135 Potassium Level 2.9 *L Chloride Level 103 Carbon Dioxide Level 24 Anion Gap 11 Blood Urea Nitrogen 53 H Creatinine 1.16 Glucose Level 106 Calcium Level 8.1 L Phosphorus Level 3.3 Magnesium Level 2.6 H Test 10/17/17 13:56 Bedside Glucose 163 Medications Medications Current Medications Sodium Chloride (NS) 1,000 ml @ 75 mls/hr [id number] IV Last administered on 10/17t 04:16; Admin Dose 125 MLS/HR; Start 10/15/17 at 19:38 Ondansetron HCl (Zofran Inj) 4 mg Q6H PRN IV NAUSEA AND/OR VOMITING Last administered on 10/15/17 19:52; Admin Dose 4 MG; Start 10/15/17 at 20:00 Morphine Sulfate 2 mg 2 mg Q4H PRN IV SEVERE PAIN LEVEL 7-10; Start 10/15/17 at 20:00 Piperacillin Sod/ Tazobactam Sod (Zosyn 3.375gm/ 50 ml (Pmx)) 50 ml @ 100 mls/ hr Q6 IVPB Last administered on 10/17/17 12:51; Admin Dose 100 MLS/HR; Start 10/16/17 at 00:00 Baclofen (Lioresal) 10 mg TID GTB Last administered on 10/17/17 12:50; Admin Dose 10 MG; Start 10/16/17 at 09:00 Ferrous Sulfate (Feosol Liquid Cup) 300 mg BID GTB Last administered on 09:07; Admin Dose 300 MG; Start 10/16/17 at 09:00 Al Hydrox/Mg Hydrox/Simethicone (Mag-Al Plus) 30 ml Q4H PRN GTB GASTROINTESTINAL UPSET; Start 10/16/17 at 00:00 Sucralfate (Carafate) 1 gm Q6 GTB Last administered on 10/17/17 12:50; Admin Dose 1 GM; Start 10/16/17 at 00:00 Tramadol HCl (Ultram) 50 mg TID GTB Last administered on 10/17/17 12:51; Admin Dose 50 MG; Start 10/16/17 at 09:00 Zolpidem Tartrate (Ambien) 5 mg QHS PRN GTB INSOMNIA Last administered on 22:21; Admin Dose 5 MG; Start 10/16/17 at 00:00 Famotidine 20 mg 20 mg Q12 IV Last administered on 10/17/17 09:07; Admin Dose 20 MG; Start 10/17/17 at 09:00 Vancomycin HCl/ Dextrose/Water (Vancocin/D5W) 150 ml @ 75 mls/hr Q12H IVPB Last administered on 10/17/17 10:17; Admin Dose 75 MLS/HR; Start 10/17/17 at 10 :00 Diagnostic Test (Pha) (Accu-Chek) 1 ea 02 XX ; Start 10/18/17 at 02:00 Insulin Glargine (Lantus) 15 unit DAILY@20 SC ; Start 10/17/17 at 20:00 Insulin Aspart (Novolog Insulin Pen) NOVOLOG *MILD* ALGORI... Q4 SC Last administered on 10/17/17t 14:00; Admin Dose 1 UNIT; Start 10/17/17 at 13:00 Miscellaneous Information 1 ea NOTE XX ; Start 10/17/17 at 14:00 Glucose (Glutose) 15 gm Q15M PRN PO DECREASED GLUCOSE; Start 10/17/17 at 14:00 Glucose (Glutose) 22.5 gm Q15M PRN PO DECREASED GLUCOSE; Start 10/17/17 at 14: 00 Dextrose (D50w Syringe) 25 ml Q15M PRN IV DECREASED GLUCOSE; Start 10/17/17 at 14:00 Dextrose (D50w Syringe) 50 ml Q15M PRN IV DECREASED GLUCOSE; Start 10/17/17 at 14:00 Glucagon (Glucagen) 1 mg Q15M PRN IM DECREASED GLUCOSE; Start 10/17/17 at 14:00 Glucose (Glutose) 15 gm Q15M PRN BUCCAL DECREASED GLUCOSE; Start 10/17/17 at 14 :00 Miscellaneous Information (*Rx Drug Level Order Reminder*) VANCO TROUGH @ 0, 900 ON ... ONCE ONCE XX ; Start 10/18/17 at 09:00; Stop 10/18/17 at 09:01 SRAA WILEY Oct 17, 2017 14:16
[2017-10-17 17:12] LABS: PATH REVIEW CH
[2017-10-17 18:54] LABS: BASOPHILS % 0.2 % (0.0-2.0); HEMATOCRIT 27.9 % (42.0-52.0); HEMOGLOBIN 9.1 g/dl (14.0-18.0); LYMPHOCYTES # 1.3 10^3/ul (0.8-2.9); LYMPHOCYTES % 8.1 % (15.0-51.0); MEAN CORPUSCULAR HEMOGLOBIN 25.3 pg (29.0-33.0); MEAN CORPUSCULAR HGB CONC 32.6 g/dl (32.0-37.0); MEAN CORPUSCULAR VOLUME 77.7 fl (82.0-101.0); MEAN PLATELET VOLUME 9.4 fl (7.4-10.4); MONOCYTES % 5.8 % (0.0-11.0); NEUTROPHIL # 14.1 10^3/ul (1.6-7.5); NEUTROPHILS % 84.9 % (39.0-77.0); PLATELET COUNT 312 10^3/UL (140-415); RED BLOOD COUNT 3.59 10^6/ul (4.70-6.10); RED CELL DISTRIBUTION WIDTH 17.2 % (11.5-14.5); WHITE BLOOD COUNT 16.6 10^3/ul (4.8-10.8)
[2017-10-17] MEDS: INSULIN GLARGINE [LANtus] 3 ML PEN SC SCH (21:03)
[2017-10-18] VITALS (19 sets, daily range): BP systolic 113–160; BP diastolic 64–86; PULSE 54–68; RESP 13–33
[2017-10-18] MEDS: SUCRALFATE 1 GM TAB GTB SCH ×5 (00:15→23:55)
[2017-10-18] MEDS: PIPER-TAZO 3.375 GM IV (PMX) 50 ML IVPB SCH ×5 (00:15→23:55)
[2017-10-18] MEDS: INSULIN ASPART [NOVOLOG] 3 ML PEN SC SCH ×6 (00:26→21:50)
[2017-10-18] MEDS: ACCU-CHEK XX SCH ×2 (01:38→07:28)
[2017-10-18] MEDS ORDERED: ACCU-CHEK XX SCH (02:00)
[2017-10-18] MEDS: SOD CHLORIDE 0.9% 1,000 ML IV SCH ×2 (02:00→03:02)
[2017-10-18 05:13] LABS: BASOPHILS % 0.2 % (0.0-2.0); EOSINOPHILS % 0.2 % (0.0-7.0); HEMATOCRIT 27.3 % (42.0-52.0); HEMOGLOBIN 8.8 g/dl (14.0-18.0); LYMPHOCYTES # 1.6 10^3/ul (0.8-2.9); MEAN CORPUSCULAR HEMOGLOBIN 24.9 pg (29.0-33.0); MEAN CORPUSCULAR HGB CONC 32.2 g/dl (32.0-37.0); MEAN CORPUSCULAR VOLUME 77.1 fl (82.0-101.0); MEAN PLATELET VOLUME 9.5 fl (7.4-10.4); MONOCYTES % 7.5 % (0.0-11.0); NEUTROPHIL # 10.5 10^3/ul (1.6-7.5); PLATELET COUNT 342 10^3/UL (140-415); RED BLOOD COUNT 3.54 10^6/ul (4.70-6.10); RED CELL DISTRIBUTION WIDTH 17.4 % (11.5-14.5); WHITE BLOOD COUNT 13.2 10^3/ul (4.8-10.8)
[2017-10-18 05:31] LABS: CALCIUM 8.3 mg/dl (8.4-10.2); CREATININE 0.77 mg/dl (0.61-1.24); MAGNESIUM 2.3 mg/dl (1.7-2.5); PHOSPHORUS 2.2 mg/dl (2.5-4.9); POTASSIUM 3.2 mmol/L (3.5-5.1)
[2017-10-18] MEDS ORDERED: POTASSIUM CHLORIDE 250 ML IVPB ONE (07:00)
[2017-10-18] MEDS: traMADol 50 MG TAB GTB SCH ×3 (09:45→21:49)
[2017-10-18] MEDS: FERROUS SULFATE 60 MG/ML 5ML CUP GTB SCH ×2 (09:45→21:48)
[2017-10-18] MEDS: BACLOFEN 10 MG TAB GTB SCH ×3 (09:45→21:49)
[2017-10-18] MEDS: ASCORBIC ACID 500 MG TAB NGT SCH (09:45)
[2017-10-18] MEDS: ZINC SULFATE 220 MG CAP NGT SCH (09:45)
[2017-10-18] MEDS: FAMOTIDINE 20 MG INJ IV SCH (09:46)
--- NOTE | 2017-10-18 09:52 | CONS ---
Date/Time of Note Date/Time of Note DATE: 10/18/17 TIME: 09:50 Consult Date/Type/Reason Admit Date/Time Oct 15, 2017 at 19:43 Initial Consult Date 10/16/17 Type of Consultation: Pulmonary/critical care Subjective Patient comfortable this morning. No acute distress. Objective Vital Signs Date Time Temp Pulse Resp B/P Pulse Ox O2 Delivery O2 Flow Rate FiO2 10/18/17 08:00 96.9 63 25 119/73 100 Room Air 10/17/17 07:30 21 Intake and Output 10/17/17 10/17/17 10/18/17 15:00 23:00 07:00 Intake Total 325 ml 445 ml 1440 ml Output Total 800 ml 700 ml 350 ml Balance -475 ml -255 ml 1090 ml Exam GENERAL: Chronically ill-appearing gentleman comfortable at rest tracheostomy in place. VITAL SIGNS: per chart NECK: Supple. No JVD or lymphadenopathy. CARDIAC EXAM: S1, S2. No added sounds or murmurs. CHEST: clear bilaterally, No added sounds, rales or wheezes ABDOMEN: Soft, nontender. No guarding or rebound. EXTREMITIES: No cyanosis, clubbing or edema. NEUROLOGIC: Ge generalized weakness Results/Medications Result Diagram: 10/18/17 0400 10/18/17 0400 Results 24 hrs Laboratory Tests Test 10/17/17 13:56 10/17/17 17:42 10/17/17 18:32 10/17/17 21:00 Bedside Glucose 163 171 191 White Blood Count 16.6 H Red Blood Count 3.59 #L Hemoglobin 9.1 #L Hematocrit 27.9 #L Mean Corpuscular Volume 77.7 L Mean Corpuscular Hemoglobin 25.3 L Mean Corpuscular Hemoglobin Concent 32.6 Red Cell Distribution Width 17.2 H Platelet Count 312 Mean Platelet Volume 9.4 Neutrophils % 84.9 H Lymphocytes % 8.1 L Monocytes % 5.8 Eosinophils % 0.0 Basophils % 0.2 Nucleated Red Blood Cells % 0.0 Neutrophils # 14.1 H Lymphocytes # 1.3 Monocytes # 1.0 H Eosinophils # 0.0 Basophils # 0.0 Nucleated Red Blood Cells # 0.0 Test 10/18/17 00:20 10/18/17 04:00 10/18/17 05:04 10/18/17 05:12 Bedside Glucose 212 161 White Blood Count 13.2 #H Red Blood Count 3.54 L Hemoglobin 8.8 L Hematocrit 27.3 L Mean Corpuscular Volume 77.1 L Mean Corpuscular Hemoglobin 24.9 L Mean Corpuscular Hemoglobin Concent 32.2 Red Cell Distribution Width 17.4 H Platelet Count 342 Mean Platelet Volume 9.5 Neutrophils % 79.0 H Lymphocytes % 12.0 L Monocytes % 7.5 Eosinophils % 0.2 Basophils % 0.2 Nucleated Red Blood Cells % 0.0 Neutrophils # 10.5 H Lymphocytes # 1.6 Monocytes # 1.0 H Eosinophils # 0.0 Basophils # 0.0 Nucleated Red Blood Cells # 0.0 Sodium Level 140 Potassium Level 3.2 L Chloride Level 108 Carbon Dioxide Level 24 Anion Gap 11 Blood Urea Nitrogen 34 #H Creatinine 0.77 Glucose Level 144 Calcium Level 8.3 L Phosphorus Level 2.2 #L Magnesium Level 2.3 Lab Scanned Report BLOOD TRANSFUSION Test 10/18/17 09:03 10/18/17 09:44 Vancomycin Level Trough 22.6 *H Bedside Glucose 213 Medications Current Medications Ondansetron HCl (Zofran Inj) 4 mg Q6H PRN IV NAUSEA AND/OR VOMITING Last administered on 10/15/17 19:52; Admin Dose 4 MG; Start 10/15/17 at 20:00 Morphine Sulfate 2 mg 2 mg Q4H PRN IV SEVERE PAIN LEVEL 7-10; Start 10/15/17 at 20:00 Piperacillin Sod/ Tazobactam Sod (Zosyn 3.375gm/ 50 ml (Pmx)) 50 ml @ 100 mls/ hr Q6 IVPB Last administered on 10/18/17 05:16; Admin Dose 100 MLS/HR; Start 10/16/17 at 00:00 Baclofen (Lioresal) 10 mg TID GTB Last administered on 10/17/17 21:05; Admin Dose 10 MG; Start 10/16/17 at 09:00 Ferrous Sulfate (Feosol Liquid Cup) 300 mg BID GTB Last administered on 21:04; Admin Dose 300 MG; Start 10/16/17 at 09:00 Al Hydrox/Mg Hydrox/Simethicone (Mag-Al Plus) 30 ml Q4H PRN GTB GASTROINTESTINAL UPSET; Start 10/16/17 at 00:00 Sucralfate (Carafate) 1 gm Q6 GTB Last administered on 10/18/17 05:16; Admin Dose 1 GM; Start 10/16/17 at 00:00 Tramadol HCl (Ultram) 50 mg TID GTB Last administered on 10/17/17 21:05; Admin Dose 50 MG; Start 10/16/17 at 09:00 Zolpidem Tartrate (Ambien) 5 mg QHS PRN GTB INSOMNIA Last administered on 22:21; Admin Dose 5 MG; Start 10/16/17 at 00:00 Famotidine (Pepcid Iv) 20 mg Q12 IV Last administered on 10/17/17 21:04; Admin Dose 20 MG; Start 10/17/17 at 09:00 Diagnostic Test (Pha) (Accu-Chek) 1 ea 02 XX ; Start 10/18/17 at 02:00 Insulin Glargine (Lantus) 15 unit DAILY@20 SC Last administered on 10/17/17 21 :03; Admin Dose 15 UNIT; Start 10/17/17 at 20:00 Insulin Aspart (Novolog Insulin Pen) NOVOLOG *MILD* ALGORI... Q4 SC Last administered on 10/18/17 05:15; Admin Dose 1 UNIT; Start 10/17/17 at 13:00 Miscellaneous Information 1 ea NOTE XX ; Start 10/17/17 at 14:00 Glucose (Glutose) 15 gm Q15M PRN PO DECREASED GLUCOSE; Start 10/17/17 at 14:00 Glucose (Glutose) 22.5 gm Q15M PRN PO DECREASED GLUCOSE; Start 10/17/17 at 14: 00 Dextrose (D50w Syringe) 25 ml Q15M PRN IV DECREASED GLUCOSE; Start 10/17/17 at 14:00 Dextrose (D50w Syringe) 50 ml Q15M PRN IV DECREASED GLUCOSE; Start 10/17/17 at 14:00 Glucagon (Glucagen) 1 mg Q15M PRN IM DECREASED GLUCOSE; Start 10/17/17 at 14:00 Glucose 15 gm 15 gm Q15M PRN BUCCAL DECREASED GLUCOSE; Start 10/17/17 at 14:00 Potassium Chloride 250 ml @ 62.5 mls/hr ONCE ONCE IVPB ; Start 10/18/17 at 07: 00; Stop 10/18/17 at 10:59 Potassium Phosphate/Sodium Chloride (K Phos (Meq)/NS) 254.5455 ml @ 63.636 m... ONCE ONCE IVPB ; Start 10/18/17 at 11:00; Stop 10/18/17 at 14:59 Zinc Sulfate (Zinc Sulfate) 220 mg DAILY NGT ; Start 10/18/17 at 09:30 Ascorbic Acid (Vitamin C) 500 mg DAILY NGT ; Start 10/18/17 at 09:30 Assessment/Plan Chief Complaint/Hosp Course Assessment 1. Patient admitted with sepsis from UTI as well as sacral decubitus ulcers with a small right lower lobe infiltrate. Clinically improving. 2. History of quadriplegia. 3. Anemia. 4. Diabetes. 5. Acute renal insufficiency with normalization of renal function. Plan 1. Transfer back to long term facility or telemetry. 2. Complete antibiotics 3. Replace potassium Problems: RUSSEL DE LA CRUZ [facility] Oct 18, 2017 09:52
--- NOTE | 2017-10-18 10:25 | PN ---
DATE: 10/18/2017 SUBJECTIVE: The patient is in serious been stable condition. No other acute events noted. OBJECTIVE: VITAL SIGNS: Blood pressure 117/69, respirations 23, pulse 56, temperature 98.1. HEENT: Head is normocephalic. NECK: Supple. HEART: Regular rate. LUNGS: Show diminished breath sounds at the base. ABDOMEN: Soft, nontender to palpation. No rebound or guarding. EXTREMITIES: Negative for clubbing, cyanosis, no edema. DERMATOLOGIC: No rashes. MUSCULOSKELETAL: No joint effusions. NEUROLOGIC: No change in exam. MEDICATIONS: The patient's medications have been reviewed. LABORATORY DATA: Showed sodium 140, potassium 3.2, BUN 34, creatinine 0.77, calcium 8.3, phosphorus 2.2. White count is 13.2, hemoglobin 8.8, hematocrit 27.3, platelet count is 342. ASSESSMENT AND PLAN: 1. Nonoliguric acute kidney injury with previous baseline creatinine of 0.5 mg/dL. Etiology of acu te kidney injury is secondary to hemodynamics, sepsis. The patient's renal function has improved wi th IV fluids. At this point, continue current treatment plan. We will discontinue IV fluids, peg nue supportive care, renally dose all medications, avoid nephrotoxins. 2. Hyponatremia, resolved. 3. Hyperkalemia. We will continue to monitor and replete with potassium chloride. 4. Anemia. Monitor hemoglobin and hematocrit levels. Transfuse blood as needed. 5. Mineral bone disorder. The patient is hypophosphatemic. We will replace with potassium phospha te. 6. Sepsis secondary to urinary tract infection. Continue current antibiotic regimen. 7. Chronic respiratory failure, status post tracheostomy. Continue current treatment plan. 8. Dysphagia, status post percutaneous endoscopic gastrostomy. Continue tube feeds. 9. Quadriplegia. Continue supportive care. 10. Diabetes. Continue Accu-Cheks and insulin sliding scale. Dictated By: REY HOFFMANN DO NR/NTS Conf#: [id number] DID#: [id number] CC: VANCE JOHNSON MD;*EndCC*
[2017-10-18] MEDS ORDERED: POTASSIUM PHOSPHATE 20 MEQ in SOD CHLORIDE 0.9% 250 ML IVPB ONE (11:00)
--- NOTE | 2017-10-18 13:30 | CONS ---
Date/Time of Note Date/Time of Note DATE: 10/18/17 TIME: 13:26 Assessment/Plan Assessment/Plan Chief Complaint/Hosp Course SUBJECTIVE: Tx to tele, copious secretions per report, awake, looks comfortable MICROBIOLOGY: Blood cultures negative. Urine culture growing MDR Proteus INDWELLINGS: Trach, PEG, Mondragon, right femoral triple-lumen catheter. DIAGNOSTICS: Chest x-ray on admission revealed slight improvement in the right basilar pneumonia. ANTIMICROBIALS: 1. Vancomycin. 2. Zosyn. ALLERGIES: LEVAQUIN, reaction unknown. PHYSICAL EXAMINATION: GENERAL: Chronically ill-appearing, elderly man who is in no distress. HEENT: Head atraumatic, normocephalic. Sclerae anicteric. Buccal mucosa dry. NECK: Supple. CHEST: Rise symmetrical. Breath sounds diminished to bases. HEART: S1, S2. ABDOMEN: Soft, bowel tones present. EXTREMITIES: Contractured without cyanosis. ASSESSMENT: 1. Sepsis, status post shock. 2. Urinary tract infection with urine culture growing gram-negative rods. 3. Unstageable sacral decubitus. 4. Quadriplegia. 5. Chronic respiratory failure and dysphagia. 6. Diabetes. 7. Acute on chronic anemia. PLAN: Remains hemodynamically stable, wbc decreasing, continue antibiotics, pulmonary toilet, will check with micro if Proteus sensitive to Zosyn or Cefepime. Follow recommendations of specialists. [facility] staff Problems: Consultation Date/Type/Reason Admit Date/Time Oct 15, 2017 at 19:43 Initial Consult Date 10/16/17 Type of Consultation: ID Exam/Review of Systems Vital Signs Vitals Vital Signs Date Time Temp Pulse Resp B/P Pulse Ox O2 Delivery O2 Flow Rate FiO2 10/18/17 11:30 98.2 66 24 144/80 90 10/18/17 11:00 Room Air 10/17/17 07:30 21 Intake and Output 10/17/17 10/17/17 10/18/17 15:00 23:00 07:00 Intake Total 325 ml 445 ml 1595 ml Output Total 800 ml 700 ml 350 ml Balance -475 ml -255 ml 1245 ml Results Result Diagram: 10/18/17 0400 10/18/17 0400 Results 24 hrs Laboratory Tests Test 10/17/17 13:56 10/17/17 17:42 10/17/17 18:32 10/17/17 21:00 Bedside Glucose 163 171 191 White Blood Count 16.6 H Red Blood Count 3.59 #L Hemoglobin 9.1 #L Hematocrit 27.9 #L Mean Corpuscular Volume 77.7 L Mean Corpuscular Hemoglobin 25.3 L Mean Corpuscular Hemoglobin Concent 32.6 Red Cell Distribution Width 17.2 H Platelet Count 312 Mean Platelet Volume 9.4 Neutrophils % 84.9 H Lymphocytes % 8.1 L Monocytes % 5.8 Eosinophils % 0.0 Basophils % 0.2 Nucleated Red Blood Cells % 0.0 Neutrophils # 14.1 H Lymphocytes # 1.3 Monocytes # 1.0 H Eosinophils # 0.0 Basophils # 0.0 Nucleated Red Blood Cells # 0.0 Test 10/18/17 00:20 10/18/17 04:00 10/18/17 05:04 10/18/17 05:12 Bedside Glucose 212 161 White Blood Count 13.2 #H Red Blood Count 3.54 L Hemoglobin 8.8 L Hematocrit 27.3 L Mean Corpuscular Volume 77.1 L Mean Corpuscular Hemoglobin 24.9 L Mean Corpuscular Hemoglobin Concent 32.2 Red Cell Distribution Width 17.4 H Platelet Count 342 Mean Platelet Volume 9.5 Neutrophils % 79.0 H Lymphocytes % 12.0 L Monocytes % 7.5 Eosinophils % 0.2 Basophils % 0.2 Nucleated Red Blood Cells % 0.0 Neutrophils # 10.5 H Lymphocytes # 1.6 Monocytes # 1.0 H Eosinophils # 0.0 Basophils # 0.0 Nucleated Red Blood Cells # 0.0 Sodium Level 140 Potassium Level 3.2 L Chloride Level 108 Carbon Dioxide Level 24 Anion Gap 11 Blood Urea Nitrogen 34 #H Creatinine 0.77 Glucose Level 144 Calcium Level 8.3 L Phosphorus Level 2.2 #L Magnesium Level 2.3 Lab Scanned Report BLOOD TRANSFUSION Test 10/18/17 09:03 10/18/17 09:44 Vancomycin Level Trough 22.6 *H Bedside Glucose 213 Medications Medications Current Medications Ondansetron HCl (Zofran Inj) 4 mg Q6H PRN IV NAUSEA AND/OR VOMITING Last administered on 10/15/17t 19:52; Admin Dose 4 MG; Start 10/15/17 at 20:00 Morphine Sulfate 2 mg 2 mg Q4H PRN IV SEVERE PAIN LEVEL 7-10; Start 10/15/17 at 20:00 Piperacillin Sod/ Tazobactam Sod (Zosyn 3.375gm/ 50 ml (Pmx)) 50 ml @ 100 mls/ hr Q6 IVPB Last administered on 10/18/17 05:16; Admin Dose 100 MLS/HR; Start 10/16/17 at 00:00 Baclofen (Lioresal) 10 mg TID GTB Last administered on 10/18/17 13:22; Admin Dose 10 MG; Start 10/16/17 at 09:00 Ferrous Sulfate (Feosol Liquid Cup) 300 mg BID GTB Last administered on 09:45; Admin Dose 300 MG; Start 10/16/17 at 09:00 Al Hydrox/Mg Hydrox/Simethicone (Mag-Al Plus) 30 ml Q4H PRN GTB GASTROINTESTINAL UPSET; Start 10/16/17 at 00:00 Sucralfate (Carafate) 1 gm Q6 GTB Last administered on 10/18/17 13:23; Admin Dose 1 GM; Start 10/16/17 at 00:00 Tramadol HCl (Ultram) 50 mg TID GTB Last administered on 10/18/17 13:23; Admin Dose 50 MG; Start 10/16/17 at 09:00 Zolpidem Tartrate (Ambien) 5 mg QHS PRN GTB INSOMNIA Last administered on 22:21; Admin Dose 5 MG; Start 10/16/17 at 00:00 Diagnostic Test (Pha) (Accu-Chek) 1 ea 02 XX ; Start 10/18/17 at 02:00 Insulin Glargine (Lantus) 15 unit DAILY@20 SC Last administered on 10/17/17 21 :03; Admin Dose 15 UNIT; Start 10/17/17 at 20:00 Insulin Aspart (Novolog Insulin Pen) NOVOLOG *MILD* ALGORI... Q4 SC Last administered on 10/18/17 09:56; Admin Dose 2 UNIT; Start 10/17/17 at 13:00 Miscellaneous Information 1 ea NOTE XX ; Start 10/17/17 at 14:00 Glucose (Glutose) 15 gm Q15M PRN PO DECREASED GLUCOSE; Start 10/17/17 at 14:00 Glucose (Glutose) 22.5 gm Q15M PRN PO DECREASED GLUCOSE; Start 10/17/17 at 14: 00 Dextrose (D50w Syringe) 25 ml Q15M PRN IV DECREASED GLUCOSE; Start 10/17/17 at 14:00 Dextrose (D50w Syringe) 50 ml Q15M PRN IV DECREASED GLUCOSE; Start 10/17/17 at 14:00 Glucagon (Glucagen) 1 mg Q15M PRN IM DECREASED GLUCOSE; Start 10/17/17 at 14:00 Glucose 15 gm 15 gm Q15M PRN BUCCAL DECREASED GLUCOSE; Start 10/17/17 at 14:00 Potassium Phosphate/Sodium Chloride (K Phos (Meq)/NS) 254.5455 ml @ 63.636 m... ONCE ONCE IVPB Last administered on 10/18/17 10:54; Admin Dose 63.636 MLS/HR; Start 10/18/17 at 11:00; Stop 10/18/17 at 14:59 Zinc Sulfate (Zinc Sulfate) 220 mg DAILY NGT Last administered on 10/18/17 09: 45; Admin Dose 220 MG; Start 10/18/17 at 09:30 Ascorbic Acid 500 mg 500 mg DAILY NGT Last administered on 10/18/17 09:45; Admin Dose 500 MG; Start 10/18/17 at 09:30 Vancomycin HCl (Vancocin) 250 ml @ 125 mls/hr Q24H IVPB ; Start 10/19/17 at 01: 00 Lansoprazole (Prevacid) 30 mg DAILY@06 GTB ; Start 10/19/17 at 06:00 ADI ENNIS NP Oct 18, 2017 13:30
--- NOTE | 2017-10-18 14:20 | PN ---
Date/Time of Note Date/Time of Note DATE: 10/18/17 TIME: 14:18 Assessment/Plan VTE Prophylaxis VTE Prophylaxis Intervention: ambulation, SCD's Lines/Catheters IV Catheter Type (from Nrsg): Central Line Central line still needed: Yes Urinary Cath still in place: Yes Reason Cath still needed: terminal illness/intractable pain Assessment/Plan Chief Complaint/Hosp Course Subjective 12.6 patient alert and complains of wanting ice chips. 12.7 patient feeling much better today Objective Physical exam General: Patient is laying in bed and answers questions appropriately. quadraplegic, peg/trach(passy yuni valve) Mentation: Patient is alert and oriented 4, Head: Normocephalic atraumatic Eyes: EOMI, pupils reactive to light Neck: Supple, nontender, midline Respiratory: diminished to auscultation bilaterally Cardiovascular: regular rate, no obvious murmurs Gastrointestinal: non-tender to palpation, bowel sounds heard. peg tube Neurological: no sensation or motor in extremities Skin: No new skin lesions, chronic sacral decubitus Assessment and plan Severe sepsis versus septic shock -Patient's blood pressure stable -Pneumonia and UTI source -Broad-spectrum antibiotics, ID recommendations appreciated -Fluids Anemia, microcytic -Likely component of volume resuscitation, and partially secondary to anemia of chronic disease -No signs of bleed -Iron levels extremely low -Blood transfusion for now, start iron after Acute kidney injury -Resolved -Nephrology consult appreciated Electrolyte derangement -Replete as needed Chronic trach dependent respiratory failure -Secondary to quadriplegic nature status post fall -Passy-Yuni valve, pulmonary Anthony appreciated Dysphasia -Has peg tube -Speech therapy says okay for pure, will order video swallow Quadriplegia -Status post fall Sacral decubitus ulcer -Chronic, infectious disease recommended is appreciated -Wound care -patient refused wound care per wound nurse on sacral decubitus -other wound bandaged and cleaned Type 2 diabetes -Insulin sliding scale and Lantus DISPO -patient awaiting ID input on abx length -hopeful transfer back to SNF tomorrow Problems: Exam/Review of Systems Vital Signs Vitals Vital Signs Date Time Temp Pulse Resp B/P Pulse Ox O2 Delivery O2 Flow Rate FiO2 10/18/17 12:00 68 10/18/17 11:30 98.2 24 144/80 90 10/18/17 11:00 Room Air 10/17/17 07:30 21 Intake and Output 10/17/17 10/17/17 10/18/17 15:00 23:00 07:00 Intake Total 325 ml 445 ml 1595 ml Output Total 800 ml 700 ml 350 ml Balance -475 ml -255 ml 1245 ml Results Result Diagram: 10/18/17 0400 10/18/17 0400 Results 24 hrs Laboratory Tests Test 10/17/17 17:42 10/17/17 18:32 10/17/17 21:00 10/18/17 00:20 Bedside Glucose 171 191 212 White Blood Count 16.6 H Red Blood Count 3.59 #L Hemoglobin 9.1 #L Hematocrit 27.9 #L Mean Corpuscular Volume 77.7 L Mean Corpuscular Hemoglobin 25.3 L Mean Corpuscular Hemoglobin Concent 32.6 Red Cell Distribution Width 17.2 H Platelet Count 312 Mean Platelet Volume 9.4 Neutrophils % 84.9 H Lymphocytes % 8.1 L Monocytes % 5.8 Eosinophils % 0.0 Basophils % 0.2 Nucleated Red Blood Cells % 0.0 Neutrophils # 14.1 H Lymphocytes # 1.3 Monocytes # 1.0 H Eosinophils # 0.0 Basophils # 0.0 Nucleated Red Blood Cells # 0.0 Test 10/18/17 04:00 10/18/17 05:04 10/18/17 05:12 10/18/17 09:03 White Blood Count 13.2 #H Red Blood Count 3.54 L Hemoglobin 8.8 L Hematocrit 27.3 L Mean Corpuscular Volume 77.1 L Mean Corpuscular Hemoglobin 24.9 L Mean Corpuscular Hemoglobin Concent 32.2 Red Cell Distribution Width 17.4 H Platelet Count 342 Mean Platelet Volume 9.5 Neutrophils % 79.0 H Lymphocytes % 12.0 L Monocytes % 7.5 Eosinophils % 0.2 Basophils % 0.2 Nucleated Red Blood Cells % 0.0 Neutrophils # 10.5 H Lymphocytes # 1.6 Monocytes # 1.0 H Eosinophils # 0.0 Basophils # 0.0 Nucleated Red Blood Cells # 0.0 Sodium Level 140 Potassium Level 3.2 L Chloride Level 108 Carbon Dioxide Level 24 Anion Gap 11 Blood Urea Nitrogen 34 #H Creatinine 0.77 Glucose Level 144 Calcium Level 8.3 L Phosphorus Level 2.2 #L Magnesium Level 2.3 Lab Scanned Report BLOOD TRANSFUSION Bedside Glucose 161 Vancomycin Level Trough 22.6 *H Test 10/18/17 09:44 10/18/17 13:50 Bedside Glucose 213 255 H Medications Medications Current Medications Ondansetron HCl (Zofran Inj) 4 mg Q6H PRN IV NAUSEA AND/OR VOMITING Last administered on 10/15/17 19:52; Admin Dose 4 MG; Start 10/15/17 at 20:00 Morphine Sulfate 2 mg 2 mg Q4H PRN IV SEVERE PAIN LEVEL 7-10; Start 10/15/17 at 20:00 Piperacillin Sod/ Tazobactam Sod (Zosyn 3.375gm/ 50 ml (Pmx)) 50 ml @ 100 mls/ hr Q6 IVPB Last administered on 10/18/17 05:16; Admin Dose 100 MLS/HR; Start 10/16/17 at 00:00 Baclofen (Lioresal) 10 mg TID GTB Last administered on 10/18/17 13:22; Admin Dose 10 MG; Start 10/16/17 at 09:00 Ferrous Sulfate (Feosol Liquid Cup) 300 mg BID GTB Last administered on 09:45; Admin Dose 300 MG; Start 10/16/17 at 09:00 Al Hydrox/Mg Hydrox/Simethicone (Mag-Al Plus) 30 ml Q4H PRN GTB GASTROINTESTINAL UPSET; Start 10/16/17 at 00:00 Sucralfate (Carafate) 1 gm Q6 GTB Last administered on 10/18/17 13:23; Admin Dose 1 GM; Start 10/16/17 at 00:00 Tramadol HCl (Ultram) 50 mg TID GTB Last administered on 10/18/17 13:23; Admin Dose 50 MG; Start 10/16/17 at 09:00 Zolpidem Tartrate (Ambien) 5 mg QHS PRN GTB INSOMNIA Last administered on 22:21; Admin Dose 5 MG; Start 10/16/17 at 00:00 Diagnostic Test (Pha) (Accu-Chek) 1 ea 02 XX ; Start 10/18/17 at 02:00 Insulin Glargine (Lantus) 15 unit DAILY@20 SC Last administered on 10/17/17 21 :03; Admin Dose 15 UNIT; Start 10/17/17 at 20:00 Insulin Aspart (Novolog Insulin Pen) NOVOLOG *MILD* ALGORI... Q4 SC Last administered on 10/18/17 13:53; Admin Dose 3 UNIT; Start 10/17/17 at 13:00 Miscellaneous Information 1 ea NOTE XX ; Start 10/17/17 at 14:00 Glucose (Glutose) 15 gm Q15M PRN PO DECREASED GLUCOSE; Start 10/17/17 at 14:00 Glucose (Glutose) 22.5 gm Q15M PRN PO DECREASED GLUCOSE; Start 10/17/17 at 14: 00 Dextrose (D50w Syringe) 25 ml Q15M PRN IV DECREASED GLUCOSE; Start 10/17/17 at 14:00 Dextrose (D50w Syringe) 50 ml Q15M PRN IV DECREASED GLUCOSE; Start 10/17/17 at 14:00 Glucagon (Glucagen) 1 mg Q15M PRN IM DECREASED GLUCOSE; Start 10/17/17 at 14:00 Glucose 15 gm 15 gm Q15M PRN BUCCAL DECREASED GLUCOSE; Start 10/17/17 at 14:00 Potassium Phosphate/Sodium Chloride (K Phos (Meq)/NS) 254.5455 ml @ 63.636 m... ONCE ONCE IVPB Last administered on 10/18/17 10:54; Admin Dose 63.636 MLS/HR; Start 10/18/17 at 11:00; Stop 10/18/17 at 14:59 Zinc Sulfate (Zinc Sulfate) 220 mg DAILY NGT Last administered on 10/18/17 09: 45; Admin Dose 220 MG; Start 10/18/17 at 09:30 Ascorbic Acid 500 mg 500 mg DAILY NGT Last administered on 10/18/17 09:45; Admin Dose 500 MG; Start 10/18/17 at 09:30 Vancomycin HCl (Vancocin) 250 ml @ 125 mls/hr Q24H IVPB ; Start 10/19/17 at 01: 00 Lansoprazole (Prevacid) 30 mg DAILY@06 GTB ; Start 10/19/17 at 06:00 SARA WILEY Oct 18, 2017 14:20
[2017-10-18 15:36] LABS: MICROALBUMIN 50.9 mg/dL
[2017-10-18] MEDS: INSULIN GLARGINE [LANtus] 3 ML PEN SC SCH (21:51)
[2017-10-19] VITALS (12 sets, daily range): BP systolic 141–161; BP diastolic 77–104; PULSE 59–94; RESP 18–20
[2017-10-19] MEDS: INSULIN ASPART [NOVOLOG] 3 ML PEN SC SCH ×6 (00:31→21:44)
[2017-10-19] MEDS: VANCOMYCIN 1 GM in NS 250 ML IVPB SCH (00:37)
[2017-10-19] MEDS: ACCU-CHEK XX SCH (02:00)
[2017-10-19] MEDS: SUCRALFATE 1 GM TAB GTB SCH ×3 (05:03→19:15)
[2017-10-19] MEDS: PIPER-TAZO 3.375 GM IV (PMX) 50 ML IVPB SCH ×4 (05:03→23:52)
[2017-10-19] MEDS: LANSOPRAZOLE 30 MG CAP GTB SCH (05:34)
[2017-10-19] MEDS: morphine 2 MG INJ IV PRN (05:35)
[2017-10-19 07:51] LABS: CALCIUM 8.3 mg/dl (8.4-10.2); CREATININE 0.61 mg/dl (0.61-1.24); MAGNESIUM 2.1 mg/dl (1.7-2.5); PHOSPHORUS 1.9 mg/dl (2.5-4.9); POTASSIUM 3.4 mmol/L (3.5-5.1)
[2017-10-19] MEDS ORDERED: POTASSIUM CHLORIDE 20 MEQ POWDER FOR ORAL SOLN GTB ONE (08:30)
[2017-10-19] MEDS: BACLOFEN 10 MG TAB GTB SCH ×3 (09:04→21:42)
[2017-10-19] MEDS: ASCORBIC ACID 500 MG TAB NGT SCH (09:04)
[2017-10-19] MEDS: traMADol 50 MG TAB GTB SCH ×3 (09:04→21:42)
[2017-10-19] MEDS: ZINC SULFATE 220 MG CAP NGT SCH (09:04)
[2017-10-19] MEDS: FERROUS SULFATE 60 MG/ML 5ML CUP GTB SCH ×2 (09:04→21:42)
--- NOTE | 2017-10-19 09:34 | PN ---
DATE: 10/19/2017 SUBJECTIVE: The patient is stable. No events overnight. The patient was transferred from intensiv e care unit to telemetry. OBJECTIVE: VITAL SIGNS: Blood pressure is 159/79, respiratory rate 20, pulse 68, temperature 98.3. HEENT: Head is normocephalic. NECK: Supple. HEART: Regular rate. LUNGS: Show diminished breath sounds at base. ABDOMEN: Soft, nontender to palpation. No rebound or guarding. EXTREMITIES: Negative for clubbing, cyanosis. Trace edema. DERMATOLOGIC: No rashes. MUSCULOSKELETAL: Positive decubitus wound. NEUROLOGIC: No change in exam. MEDICATIONS: Have been reviewed. LABORATORY DATA: From 10/19 shows sodium 143, potassium 3.4, BUN 23, creatinine 0.61, phosphorus 1.9 . ASSESSMENT AND PLAN: 1. Nonoliguric acute kidney injury. Previous baseline creatinine of 0.5 mg/dL. Etiology of acute kidney injury was secondary to hemodynamics and sepsis. The patient's renal function is returning b ack to baseline. Continue current treatment plan, supportive care, renally dose all meds. 2. Hyponatremia, resolved. 3. Hypokalemia. Will replete with potassium chloride. 4. Mineral bone disorder. The patient remains hypophosphatemic. We will replete potassium phospha te. 5. Anemia. Monitor hemoglobin and hematocrit levels. 6. Sepsis secondary to urinary tract infection. Continue current antibiotic regimen. 7. Chronic respiratory failure, status post trach. Continue current treatment plan. 8. Dysphagia status post PEG, continue tube feeding. 9. Quadriplegia. Continue supportive care. 10. Decubitus wound. Continue wound care. 11. Diabetes. Continue current insulin regimen. Dictated By: REY SALDANA/LILY Conf#: [id number] DID#: [id number]
[2017-10-19] MEDS ORDERED: POTASSIUM PHOSPHATE 20 MEQ in SOD CHLORIDE 0.9% 250 ML IVPB ONE (10:00)
--- NOTE | 2017-10-19 14:16 | CONS ---
Date/Time of Note Date/Time of Note DATE: 10/19/17 TIME: 14:14 Assessment/Plan Assessment/Plan Chief Complaint/Hosp Course SUBJECTIVE: No acute changes, awake, looks comfortable, afebrile MICROBIOLOGY: Blood cultures negative. Urine culture growing MDR Proteus INDWELLINGS: Trach, PEG, Mondragon, right femoral triple-lumen catheter. DIAGNOSTICS: Chest x-ray on admission revealed slight improvement in the right basilar pneumonia. ANTIMICROBIALS: 1. Vancomycin. 2. Zosyn. ALLERGIES: LEVAQUIN, reaction unknown. PHYSICAL EXAMINATION: GENERAL: Chronically ill-appearing, elderly man who is in no distress. HEENT: Head atraumatic, normocephalic. Sclerae anicteric. Buccal mucosa dry. NECK: Supple. CHEST: Rise symmetrical. Breath sounds diminished to bases. HEART: S1, S2. ABDOMEN: Soft, bowel tones present. EXTREMITIES: Contractured without cyanosis. ASSESSMENT: 1. Resolving sepsis, status post shock. 2. Urinary tract infection. 3. Unstageable sacral decubitus. 4. Quadriplegia. 5. Chronic respiratory failure and dysphagia. 6. Diabetes. 7. Acute on chronic anemia. PLAN: Remains stable, wbc decreasing, continue antibiotics for 7 more days, continue pulmonary toilet and local wound care. Follow recommendations of specialists. [facility] staff Problems: Consultation Date/Type/Reason Admit Date/Time Oct 15, 2017 at 19:43 Initial Consult Date 10/16/17 Type of Consultation: ID Exam/Review of Systems Vital Signs Vitals Vital Signs Date Time Temp Pulse Resp B/P Pulse Ox O2 Delivery O2 Flow Rate FiO2 10/19/17 13:18 93 10/19/17 13:00 96 5.0 28 10/19/17 12:00 100.4 18 155/85 10/18/17 11:00 Room Air Intake and Output 10/18/17 10/18/17 10/19/17 14:59 22:59 06:59 Intake Total 855 ml 770 ml 1570 ml Output Total 500 ml 500 ml 1200 ml Balance 355 ml 270 ml 370 ml Results Result Diagram: 10/18/17 0400 10/19/17 0639 Results 24 hrs Laboratory Tests Test 10/18/17 17:44 10/18/17 21:46 10/19/17 00:27 10/19/17 05:01 Bedside Glucose 226 H 222 H 242 H 221 H Test 10/19/17 06:39 10/19/17 09:16 Sodium Level 143 Potassium Level 3.4 L Chloride Level 109 Carbon Dioxide Level 26 Anion Gap 11 Blood Urea Nitrogen 23 #H Creatinine 0.61 Glucose Level 209 Calcium Level 8.3 L Phosphorus Level 1.9 L Magnesium Level 2.1 Bedside Glucose 263 H Medications Medications Current Medications Ondansetron HCl (Zofran Inj) 4 mg Q6H PRN IV NAUSEA AND/OR VOMITING Last administered on 10/15/17 19:52; Admin Dose 4 MG; Start 10/15/17 at 20:00 Morphine Sulfate 2 mg 2 mg Q4H PRN IV SEVERE PAIN LEVEL 7-10 Last administered on 10/19/17 05:35; Admin Dose 2 MG; Start 10/15/17 at 20:00 Piperacillin Sod/ Tazobactam Sod (Zosyn 3.375gm/ 50 ml (Pmx)) 50 ml @ 100 mls/ hr Q6 IVPB Last administered on 10/19/17 05:03; Admin Dose 100 MLS/HR; Start 10/16/17 at 00:00 Baclofen (Lioresal) 10 mg TID GTB Last administered on 10/19/17 09:04; Admin Dose 10 MG; Start 10/16/17 at 09:00 Ferrous Sulfate (Feosol Liquid Cup) 300 mg BID GTB Last administered on 09:04; Admin Dose 300 MG; Start 10/16/17 at 09:00 Al Hydrox/Mg Hydrox/Simethicone (Mag-Al Plus) 30 ml Q4H PRN GTB GASTROINTESTINAL UPSET; Start 10/16/17 at 00:00 Sucralfate (Carafate) 1 gm Q6 GTB Last administered on 10/19/17 05:03; Admin Dose 1 GM; Start 10/16/17 at 00:00 Tramadol HCl (Ultram) 50 mg TID GTB Last administered on 10/19/17 09:04; Admin Dose 50 MG; Start 10/16/17 at 09:00 Zolpidem Tartrate (Ambien) 5 mg QHS PRN GTB INSOMNIA Last administered on 22:21; Admin Dose 5 MG; Start 10/16/17 at 00:00 Diagnostic Test (Pha) (Accu-Chek) 1 ea 02 XX ; Start 10/18/17 at 02:00 Insulin Aspart (Novolog Insulin Pen) NOVOLOG *MILD* ALGORI... Q4 SC Last administered on 10/19/17 09:19; Admin Dose 4 UNIT; Start 10/17/17 at 13:00 Miscellaneous Information 1 ea NOTE XX ; Start 10/17/17 at 14:00 Glucose (Glutose) 15 gm Q15M PRN PO DECREASED GLUCOSE; Start 10/17/17 at 14:00 Glucose (Glutose) 22.5 gm Q15M PRN PO DECREASED GLUCOSE; Start 10/17/17 at 14: 00 Dextrose (D50w Syringe) 25 ml Q15M PRN IV DECREASED GLUCOSE; Start 10/17/17 at 14:00 Dextrose (D50w Syringe) 50 ml Q15M PRN IV DECREASED GLUCOSE; Start 10/17/17 at 14:00 Glucagon (Glucagen) 1 mg Q15M PRN IM DECREASED GLUCOSE; Start 10/17/17 at 14:00 Glucose (Glutose) 15 gm Q15M PRN BUCCAL DECREASED GLUCOSE; Start 10/17/17 at 14 :00 Zinc Sulfate (Zinc Sulfate) 220 mg DAILY NGT Last administered on 10/19/17 09: 04; Admin Dose 220 MG; Start 10/18/17 at 09:30 Ascorbic Acid 500 mg 500 mg DAILY NGT Last administered on 10/19/17 09:04; Admin Dose 500 MG; Start 10/18/17 at 09:30 Vancomycin HCl (Vancocin) 250 ml @ 125 mls/hr Q24H IVPB Last administered on 10/19/17 00:37; Admin Dose 125 MLS/HR; Start 10/19/17 at 01:00 Lansoprazole (Prevacid) 30 mg DAILY@06 GTB Last administered on 10/19/17 05:34 ; Admin Dose 30 MG; Start 10/19/17 at 06:00 Insulin Glargine (Lantus) 20 unit DAILY@20 SC ; Start 10/19/17 at 20:00 ADI ENNIS NP Oct 19, 2017 14:16
--- NOTE | 2017-10-19 15:11 | CONS ---
Date/Time of Note Date/Time of Note DATE: 10/19/17 TIME: 15:10 Consult Date/Type/Reason Admit Date/Time Oct 15, 2017 at 19:43 Initial Consult Date 10/16/17 Type of Consultation: Pulmonary Subjective Status post video swallow. Remains stable. Objective Vital Signs Date Time Temp Pulse Resp B/P Pulse Ox O2 Delivery O2 Flow Rate FiO2 10/19/17 13:18 93 10/19/17 13:00 96 5.0 28 10/19/17 12:00 100.4 18 155/85 10/18/17 11:00 Room Air Intake and Output 10/18/17 10/18/17 10/19/17 14:59 22:59 06:59 Intake Total 855 ml 770 ml 1570 ml Output Total 500 ml 500 ml 1200 ml Balance 355 ml 270 ml 370 ml Exam GENERAL: Chronically ill-appearing gentleman comfortable at rest continues supplemental oxygen and tracheostomy. VITAL SIGNS: per chart NECK: Supple. No JVD or lymphadenopathy. CARDIAC EXAM: S1, S2. No added sounds or murmurs. CHEST: clear bilaterally, No added sounds, rales or wheezes ABDOMEN: Soft, nontender. No guarding or rebound. EXTREMITIES: No cyanosis, clubbing or edema. NEUROLOGIC: Generalized weakness. No focal deficits. Results/Medications Result Diagram: 10/18/17 0400 10/19/17 0639 Results 24 hrs Laboratory Tests Test 10/18/17 17:44 10/18/17 21:46 10/19/17 00:27 10/19/17 05:01 Bedside Glucose 226 H 222 H 242 H 221 H Test 10/19/17 06:39 10/19/17 09:16 10/19/17 14:34 Sodium Level 143 Potassium Level 3.4 L Chloride Level 109 Carbon Dioxide Level 26 Anion Gap 11 Blood Urea Nitrogen 23 #H Creatinine 0.61 Glucose Level 209 Calcium Level 8.3 L Phosphorus Level 1.9 L Magnesium Level 2.1 Bedside Glucose 263 H 246 H Medications Current Medications Ondansetron HCl (Zofran Inj) 4 mg Q6H PRN IV NAUSEA AND/OR VOMITING Last administered on 10/15/17 19:52; Admin Dose 4 MG; Start 10/15/17 at 20:00 Morphine Sulfate 2 mg 2 mg Q4H PRN IV SEVERE PAIN LEVEL 7-10 Last administered on 10/19/17 05:35; Admin Dose 2 MG; Start 10/15/17 at 20:00 Piperacillin Sod/ Tazobactam Sod (Zosyn 3.375gm/ 50 ml (Pmx)) 50 ml @ 100 mls/ hr Q6 IVPB Last administered on 10/19/17 14:19; Admin Dose 100 MLS/HR; Start 10/16/17 at 00:00 Baclofen (Lioresal) 10 mg TID GTB Last administered on 10/19/17 14:24; Admin Dose 10 MG; Start 10/16/17 at 09:00 Ferrous Sulfate (Feosol Liquid Cup) 300 mg BID GTB Last administered on 09:04; Admin Dose 300 MG; Start 10/16/17 at 09:00 Al Hydrox/Mg Hydrox/Simethicone (Mag-Al Plus) 30 ml Q4H PRN GTB GASTROINTESTINAL UPSET; Start 10/16/17 at 00:00 Sucralfate (Carafate) 1 gm Q6 GTB Last administered on 10/19/17 14:19; Admin Dose 1 GM; Start 10/16/17 at 00:00 Tramadol HCl (Ultram) 50 mg TID GTB Last administered on 10/19/17 09:04; Admin Dose 50 MG; Start 10/16/17 at 09:00 Zolpidem Tartrate (Ambien) 5 mg QHS PRN GTB INSOMNIA Last administered on 22:21; Admin Dose 5 MG; Start 10/16/17 at 00:00 Diagnostic Test (Pha) (Accu-Chek) 1 ea 02 XX ; Start 10/18/17 at 02:00 Insulin Aspart (Novolog Insulin Pen) NOVOLOG *MILD* ALGORI... Q4 SC Last administered on 10/19/17 14:37; Admin Dose 3 UNIT; Start 10/17/17 at 13:00 Miscellaneous Information 1 ea NOTE XX ; Start 10/17/17 at 14:00 Glucose (Glutose) 15 gm Q15M PRN PO DECREASED GLUCOSE; Start 10/17/17 at 14:00 Glucose (Glutose) 22.5 gm Q15M PRN PO DECREASED GLUCOSE; Start 10/17/17 at 14: 00 Dextrose (D50w Syringe) 25 ml Q15M PRN IV DECREASED GLUCOSE; Start 10/17/17 at 14:00 Dextrose (D50w Syringe) 50 ml Q15M PRN IV DECREASED GLUCOSE; Start 10/17/17 at 14:00 Glucagon (Glucagen) 1 mg Q15M PRN IM DECREASED GLUCOSE; Start 10/17/17 at 14:00 Glucose (Glutose) 15 gm Q15M PRN BUCCAL DECREASED GLUCOSE; Start 10/17/17 at 14 :00 Zinc Sulfate (Zinc Sulfate) 220 mg DAILY NGT Last administered on 10/19/17 09: 04; Admin Dose 220 MG; Start 10/18/17 at 09:30 Ascorbic Acid 500 mg 500 mg DAILY NGT Last administered on 10/19/17 09:04; Admin Dose 500 MG; Start 10/18/17 at 09:30 Vancomycin HCl (Vancocin) 250 ml @ 125 mls/hr Q24H IVPB Last administered on 10/19/17 00:37; Admin Dose 125 MLS/HR; Start 10/19/17 at 01:00 Lansoprazole (Prevacid) 30 mg DAILY@06 GTB Last administered on 10/19/17 05:34 ; Admin Dose 30 MG; Start 10/19/17 at 06:00 Insulin Glargine (Lantus) 20 unit DAILY@20 SC ; Start 10/19/17 at 20:00 Assessment/Plan Chief Complaint/Hosp Course Assessment 1. Patient admitted with sepsis from UTI as well as sacral decubitus ulcers with a small right lower lobe infiltrate. Clinically improving. 2. History of quadriplegia. 3. Anemia. 4. Diabetes. 5. Acute renal insufficiency with normalization of renal function. 6. Dysphagia status post video swallow evaluation. Plan 1. Consider Roa evaluation as patient may be candidate for decannulation 2. Complete antibiotics 3. Replace potassium Problems: RUSSEL DE LA CRUZ MD, [facility] Oct 19, 2017 15:11
--- NOTE | 2017-10-19 15:18 | PN ---
Date/Time of Note Date/Time of Note DATE: 10/19/17 TIME: 15:16 Assessment/Plan VTE Prophylaxis VTE Prophylaxis Intervention: SCD's Lines/Catheters IV Catheter Type (from Nrs): Saline Lock Urinary Cath still in place: Yes Reason Cath still needed: urinary retention Assessment/Plan Chief Complaint/Hosp Course Subjective 12.6 patient alert and complains of wanting ice chips. 12.7 patient feeling much better today 12.8 no acute complaints Objective Physical exam General: Patient is laying in bed and answers questions appropriately. quadraplegic, peg/trach(passy yuni valve) Mentation: Patient is alert and oriented 4, Head: Normocephalic atraumatic Eyes: EOMI, pupils reactive to light Neck: Supple, nontender, midline Respiratory: diminished to auscultation bilaterally Cardiovascular: regular rate, no obvious murmurs Gastrointestinal: non-tender to palpation, bowel sounds heard. peg tube Neurological: no sensation or motor in extremities Skin: No new skin lesions, chronic sacral decubitus Assessment and plan Severe sepsis versus septic shock -Patient's blood pressure stable -Pneumonia and UTI source -Broad-spectrum antibiotics, ID recommendations appreciated, zosyn 7 more days -Fluids Anemia, microcytic -Likely component of volume resuscitation, and partially secondary to anemia of chronic disease -No signs of bleed -Iron levels extremely low -Blood transfusion for now, start iron after Acute kidney injury -Resolved -Nephrology consult appreciated Electrolyte derangement -Replete as needed Chronic trach dependent respiratory failure -Secondary to quadriplegic nature status post fall -Passy-Yuni valve, pulmonary Anthony appreciated Dysphasia -Has peg tube -Speech therapy performed video swallow today, ice chips okay Quadriplegia -Status post fall Sacral decubitus ulcer -Chronic, infectious disease recommended is appreciated -Wound care -patient refused wound care per wound nurse on sacral decubitus -other wound bandaged and cleaned Type 2 diabetes -Insulin sliding scale and Lantus DISPO -7 days more zosyn -fitzgerald eval Problems: Exam/Review of Systems Vital Signs Vitals Vital Signs Date Time Temp Pulse Resp B/P Pulse Ox O2 Delivery O2 Flow Rate FiO2 10/19/17 13:18 93 10/19/17 13:00 96 5.0 28 10/19/17 12:00 100.4 18 155/85 10/18/17 11:00 Room Air Intake and Output 10/18/17 10/18/17 10/19/17 15:00 23:00 07:00 Intake Total 700 ml 770 ml 1570 ml Output Total 500 ml 500 ml 1200 ml Balance 200 ml 270 ml 370 ml Results Result Diagram: 10/18/17 0400 10/19/17 0639 Results 24 hrs Laboratory Tests Test 10/18/17 17:44 10/18/17 21:46 10/19/17 00:27 10/19/17 05:01 Bedside Glucose 226 H 222 H 242 H 221 H Test 10/19/17 06:39 10/19/17 09:16 10/19/17 14:34 Sodium Level 143 Potassium Level 3.4 L Chloride Level 109 Carbon Dioxide Level 26 Anion Gap 11 Blood Urea Nitrogen 23 #H Creatinine 0.61 Glucose Level 209 Calcium Level 8.3 L Phosphorus Level 1.9 L Magnesium Level 2.1 Bedside Glucose 263 H 246 H Medications Medications Current Medications Ondansetron HCl (Zofran Inj) 4 mg Q6H PRN IV NAUSEA AND/OR VOMITING Last administered on 10/15/17 19:52; Admin Dose 4 MG; Start 10/15/17 at 20:00 Morphine Sulfate 2 mg 2 mg Q4H PRN IV SEVERE PAIN LEVEL 7-10 Last administered on 10/19/17 05:35; Admin Dose 2 MG; Start 10/15/17 at 20:00 Piperacillin Sod/ Tazobactam Sod (Zosyn 3.375gm/ 50 ml (Pmx)) 50 ml @ 100 mls/ hr Q6 IVPB Last administered on 10/19/17 14:19; Admin Dose 100 MLS/HR; Start 10/16/17 at 00:00 Baclofen (Lioresal) 10 mg TID GTB Last administered on 10/19/17 14:24; Admin Dose 10 MG; Start 10/16/17 at 09:00 Ferrous Sulfate (Feosol Liquid Cup) 300 mg BID GTB Last administered on 09:04; Admin Dose 300 MG; Start 10/16/17 at 09:00 Al Hydrox/Mg Hydrox/Simethicone (Mag-Al Plus) 30 ml Q4H PRN GTB GASTROINTESTINAL UPSET; Start 10/16/17 at 00:00 Sucralfate (Carafate) 1 gm Q6 GTB Last administered on 10/19/17 14:19; Admin Dose 1 GM; Start 10/16/17 at 00:00 Tramadol HCl (Ultram) 50 mg TID GTB Last administered on 10/19/17 15:09; Admin Dose 50 MG; Start 10/16/17 at 09:00 Zolpidem Tartrate (Ambien) 5 mg QHS PRN GTB INSOMNIA Last administered on 22:21; Admin Dose 5 MG; Start 10/16/17 at 00:00 Diagnostic Test (Pha) (Accu-Chek) 1 ea 02 XX ; Start 10/18/17 at 02:00 Insulin Aspart (Novolog Insulin Pen) NOVOLOG *MILD* ALGORI... Q4 SC Last administered on 10/19/17 14:37; Admin Dose 3 UNIT; Start 10/17/17 at 13:00 Miscellaneous Information 1 ea NOTE XX ; Start 10/17/17 at 14:00 Glucose (Glutose) 15 gm Q15M PRN PO DECREASED GLUCOSE; Start 10/17/17 at 14:00 Glucose (Glutose) 22.5 gm Q15M PRN PO DECREASED GLUCOSE; Start 10/17/17 at 14: 00 Dextrose (D50w Syringe) 25 ml Q15M PRN IV DECREASED GLUCOSE; Start 10/17/17 at 14:00 Dextrose (D50w Syringe) 50 ml Q15M PRN IV DECREASED GLUCOSE; Start 10/17/17 at 14:00 Glucagon (Glucagen) 1 mg Q15M PRN IM DECREASED GLUCOSE; Start 10/17/17 at 14:00 Glucose (Glutose) 15 gm Q15M PRN BUCCAL DECREASED GLUCOSE; Start 10/17/17 at 14 :00 Zinc Sulfate (Zinc Sulfate) 220 mg DAILY NGT Last administered on 10/19/17 09: 04; Admin Dose 220 MG; Start 10/18/17 at 09:30 Ascorbic Acid 500 mg 500 mg DAILY NGT Last administered on 10/19/17 09:04; Admin Dose 500 MG; Start 10/18/17 at 09:30 Vancomycin HCl (Vancocin) 250 ml @ 125 mls/hr Q24H IVPB Last administered on 10/19/17 00:37; Admin Dose 125 MLS/HR; Start 10/19/17 at 01:00 Lansoprazole (Prevacid) 30 mg DAILY@06 GTB Last administered on 10/19/17t 05:34 ; Admin Dose 30 MG; Start 10/19/17 at 06:00 Insulin Glargine (Lantus) 20 unit DAILY@20 SC ; Start 10/19/17 at 20:00 SARA WILEY Oct 19, 2017 15:18
--- NOTE | 2017-10-19 15:48 | RADRPT ---
PROCEDURE: Video-fluoroscopy swallowing study. CLINICAL INDICATION: Dysphagia. TECHNIQUE: Fluoroscopic guided video swallowing study was done in conjunction with the speech ther apist. The study was confined to the oral, pharyngeal, and cervical phases of the swallowing mechani sm. 1.4 minutes of fluoroscopy time was used. 7 series of images were obtained. COMPARISON: No prior study is available for comparison. FINDINGS: There is silent aspiration during swallowing. IMPRESSION: 1. Abnormal study with silent aspiration during swallowing. 2. Please refer to the speech therapist's recommendations for future feedings. RPTAT: QQ .Hung Abel MD, MD Date Time Electronically viewed and signed by .Hung Abel MD, on 10/19/2017 15:48 .R/
[2017-10-19] MEDS ORDERED: INSULIN GLARGINE [LANtus] 3 ML PEN SC SCH (20:00)
[2017-10-19] MEDS: ALBUTEROL/IPRATROPIUM (NEB) 3 ML AMP HHN PRN (23:25)
[2017-10-20] VITALS (13 sets, daily range): BP systolic 132–154; BP diastolic 75–95; PULSE 75–85; RESP 19–20
[2017-10-20] MEDS: INSULIN ASPART [NOVOLOG] 3 ML PEN SC SCH ×6 (00:43→20:58)
[2017-10-20] MEDS: VANCOMYCIN 1 GM in NS 250 ML IVPB SCH (00:47)
[2017-10-20] MEDS: ACCU-CHEK XX SCH (02:00)
[2017-10-20] MEDS: SUCRALFATE 1 GM TAB GTB SCH ×4 (05:40→17:08)
[2017-10-20] MEDS: LANSOPRAZOLE 30 MG CAP GTB SCH (05:40)
[2017-10-20] MEDS: PIPER-TAZO 3.375 GM IV (PMX) 50 ML IVPB SCH ×3 (05:40→17:08)
[2017-10-20 07:29] LABS: CALCIUM 8.2 mg/dl (8.4-10.2); CREATININE 0.55 mg/dl (0.61-1.24); PHOSPHORUS 2.1 mg/dl (2.5-4.9); POTASSIUM 3.4 mmol/L (3.5-5.1)
[2017-10-20] MEDS: FERROUS SULFATE 60 MG/ML 5ML CUP GTB SCH ×2 (08:19→20:49)
[2017-10-20] MEDS: BACLOFEN 10 MG TAB GTB SCH ×3 (08:20→20:50)
[2017-10-20] MEDS: traMADol 50 MG TAB GTB SCH ×3 (08:20→20:50)
[2017-10-20] MEDS: ZINC SULFATE 220 MG CAP NGT SCH (08:20)
[2017-10-20] MEDS: ASCORBIC ACID 500 MG TAB NGT SCH (08:20)
--- NOTE | 2017-10-20 09:35 | CONS ---
Date/Time of Note Date/Time of Note DATE: 10/20/17 TIME: 09:34 Consult Date/Type/Reason Admit Date/Time Oct 15, 2017 at 19:43 Initial Consult Date 10/16/17 Type of Consultation: nephrology Subjective pt. seen and examined pe: HEENT: Head is normocephalic. NECK: Supple. HEART: Regular rate. LUNGS: Show diminished breath sounds at base. ABDOMEN: Soft, nontender to palpation. No rebound or guarding. EXTREMITIES: Negative for clubbing, cyanosis. Trace edema. DERMATOLOGIC: No rashes. MUSCULOSKELETAL: Positive decubitus wound. NEUROLOGIC: No change in exam. Objective Vital Signs Date Time Temp Pulse Resp B/P Pulse Ox O2 Delivery O2 Flow Rate FiO2 10/20/17 08:32 75 10/20/17 07:40 20 97 28 10/20/17 07:39 5.0 10/20/17 07:05 97.9 150/84 10/18/17 11:00 Room Air Intake and Output 10/19/17 10/19/17 10/20/17 15:00 23:00 07:00 Intake Total 50 ml 1240 ml 1490 ml Output Total 3000 ml 1100 ml Balance 50 ml -1760 ml 390 ml Results/Medications Result Diagram: 10/18/17 0400 10/20/17 0622 Results 24 hrs Laboratory Tests Test 10/19/17 14:34 10/19/17 19:11 10/19/17 21:40 10/20/17 00:39 Bedside Glucose 246 H 213 237 H 273 H Test 10/20/17 05:38 10/20/17 06:22 10/20/17 08:30 Bedside Glucose 245 H 244 H Sodium Level 141 Potassium Level 3.4 L Chloride Level 107 Carbon Dioxide Level 26 Anion Gap 11 Blood Urea Nitrogen 18 Creatinine 0.55 L Glucose Level 237 H Calcium Level 8.2 L Phosphorus Level 2.1 L Magnesium Level 2.0 Medications Current Medications Ondansetron HCl (Zofran Inj) 4 mg Q6H PRN IV NAUSEA AND/OR VOMITING Last administered on 10/15/17 19:52; Admin Dose 4 MG; Start 10/15/17 at 20:00 Morphine Sulfate 2 mg 2 mg Q4H PRN IV SEVERE PAIN LEVEL 7-10 Last administered on 10/19/17 05:35; Admin Dose 2 MG; Start 10/15/17 at 20:00 Piperacillin Sod/ Tazobactam Sod (Zosyn 3.375gm/ 50 ml (Pmx)) 50 ml @ 100 mls/ hr Q6 IVPB Last administered on 10/20/17 05:40; Admin Dose 100 MLS/HR; Start 10/16/17 at 00:00 Baclofen (Lioresal) 10 mg TID GTB Last administered on 10/20/17 08:20; Admin Dose 10 MG; Start 10/16/17 at 09:00 Ferrous Sulfate (Feosol Liquid Cup) 300 mg BID GTB Last administered on 08:19; Admin Dose 300 MG; Start 10/16/17 at 09:00 Al Hydrox/Mg Hydrox/Simethicone (Mag-Al Plus) 30 ml Q4H PRN GTB GASTROINTESTINAL UPSET; Start 10/16/17 at 00:00 Sucralfate (Carafate) 1 gm Q6 GTB Last administered on 10/20/17 05:40; Admin Dose 1 GM; Start 10/16/17 at 00:00 Tramadol HCl (Ultram) 50 mg TID GTB Last administered on 10/20/17 08:20; Admin Dose 50 MG; Start 10/16/17 at 09:00 Zolpidem Tartrate (Ambien) 5 mg QHS PRN GTB INSOMNIA Last administered on 22:21; Admin Dose 5 MG; Start 10/16/17 at 00:00 Diagnostic Test (Pha) (Accu-Chek) 1 ea 02 XX ; Start 10/18/17 at 02:00 Insulin Aspart (Novolog Insulin Pen) NOVOLOG *MILD* ALGORI... Q4 SC Last administered on 10/20/17 08:33; Admin Dose 3 UNIT; Start 10/17/17 at 13:00 Miscellaneous Information 1 ea NOTE XX ; Start 10/17/17 at 14:00 Glucose (Glutose) 15 gm Q15M PRN PO DECREASED GLUCOSE; Start 10/17/17 at 14:00 Glucose (Glutose) 22.5 gm Q15M PRN PO DECREASED GLUCOSE; Start 10/17/17 at 14: 00 Dextrose (D50w Syringe) 25 ml Q15M PRN IV DECREASED GLUCOSE; Start 10/17/17 at 14:00 Dextrose (D50w Syringe) 50 ml Q15M PRN IV DECREASED GLUCOSE; Start 10/17/17 at 14:00 Glucagon (Glucagen) 1 mg Q15M PRN IM DECREASED GLUCOSE; Start 10/17/17 at 14:00 Glucose (Glutose) 15 gm Q15M PRN BUCCAL DECREASED GLUCOSE; Start 10/17/17 at 14 :00 Zinc Sulfate (Zinc Sulfate) 220 mg DAILY NGT Last administered on 10/20/17 08: 20; Admin Dose 220 MG; Start 10/18/17 at 09:30 Ascorbic Acid 500 mg 500 mg DAILY NGT Last administered on 10/20/17 08:20; Admin Dose 500 MG; Start 10/18/17 at 09:30 Vancomycin HCl (Vancocin) 250 ml @ 125 mls/hr Q24H IVPB Last administered on 10/20/17 00:47; Admin Dose 125 MLS/HR; Start 10/19/17 at 01:00 Lansoprazole (Prevacid) 30 mg DAILY@06 GTB Last administered on 10/20/17 05:40 ; Admin Dose 30 MG; Start 10/19/17 at 06:00 Insulin Glargine 20 unit 20 unit DAILY@20 SC Last administered on 10/19/17 21: 45; Admin Dose 20 UNIT; Start 10/19/17 at 20:00 Potassium Phosphate/Sodium Chloride (K Phos (Meq)/NS) 254.5455 ml @ 63.636 m... ONCE ONCE IVPB ; Start 10/20/17 at 10:00; Stop 10/20/17 at 13:59; Status UNV Assessment/Plan Chief Complaint/Hosp Course 1. Nonoliguric acute kidney injury. Previous baseline creatinine of 0.5 mg/ dL. Etiology of acute kidney injury was secondary to hemodynamics and sepsis. The patient's renal function is returning back to baseline. Continue current treatment plan, supportive care, renally dose all meds. 2. Hyponatremia, resolved. 3. Hypokalemia. Will replete with potassium chloride. 4. Mineral bone disorder. The patient remains hypophosphatemic. We will replete potassium phosphate. 5. Anemia. Monitor hemoglobin and hematocrit levels. 6. Sepsis secondary to urinary tract infection. Continue current antibiotic regimen. 7. Chronic respiratory failure, status post trach. Continue current treatment plan. 8. Dysphagia status post PEG, continue tube feeding. 9. Quadriplegia. Continue supportive care. 10. Decubitus wound. Continue wound care. 11. Diabetes. Continue current insulin regimen. Problems: MARYCRUZ STEVEN MD Oct 20, 2017 09:35
[2017-10-20] MEDS ORDERED: POTASSIUM PHOSPHATE IVPB ONE (11:00)
[2017-10-20] MEDS ORDERED: SOD CHLORIDE 0.9% IVPB ONE (11:00)
--- NOTE | 2017-10-20 14:41 | PN ---
Date/Time of Note Date/Time of Note DATE: 10/20/17 TIME: 14:40 Assessment/Plan VTE Prophylaxis VTE Prophylaxis Intervention: SCD's Lines/Catheters IV Catheter Type (from Nrsg): Central Line Central line still needed: Yes Urinary Cath still in place: Yes Reason Cath still needed: urinary retention Assessment/Plan Chief Complaint/Hosp Course Subjective 12.6 patient alert and complains of wanting ice chips. 12.7 patient feeling much better today 12.8 no acute complaints 12.9 no acute complaints Objective Physical exam General: Patient is laying in bed and answers questions appropriately. quadraplegic, peg/trach(passy yuni valve) Mentation: Patient is alert and oriented 4, Head: Normocephalic atraumatic Eyes: EOMI, pupils reactive to light Neck: Supple, nontender, midline Respiratory: diminished to auscultation bilaterally Cardiovascular: regular rate, no obvious murmurs Gastrointestinal: non-tender to palpation, bowel sounds heard. peg tube Neurological: no sensation or motor in extremities Skin: No new skin lesions, chronic sacral decubitus Assessment and plan Severe sepsis versus septic shock -Patient's blood pressure stable -Pneumonia and UTI source -Broad-spectrum antibiotics, ID recommendations appreciated, zosyn 7 more days -Fluids Anemia, microcytic -Likely component of volume resuscitation, and partially secondary to anemia of chronic disease -No signs of bleed -Iron levels extremely low -Blood transfusion for now, start iron after Acute kidney injury -Resolved -Nephrology consult appreciated Electrolyte derangement -Replete as needed Chronic trach dependent respiratory failure -Secondary to quadriplegic nature status post fall -Passy-Yuni valve, pulmonary Anthony appreciated Dysphasia -Has peg tube -Speech therapy performed video swallow today, ice chips okay Quadriplegia -Status post fall Sacral decubitus ulcer -Chronic, infectious disease recommended is appreciated -Wound care -patient refused wound care per wound nurse on sacral decubitus -other wound bandaged and cleaned Type 2 diabetes -Insulin sliding scale and Lantus DISPO -6 days more zosyn -fitzgerald eval Problems: Exam/Review of Systems Vital Signs Vitals Vital Signs Date Time Temp Pulse Resp B/P Pulse Ox O2 Delivery O2 Flow Rate FiO2 10/20/17 12:22 78 10/20/17 11:25 99.2 20 151/86 98 10/20/17 07:40 28 10/20/17 07:39 5.0 10/18/17 11:00 Room Air Intake and Output 10/19/17 10/19/17 10/20/17 14:59 22:59 06:59 Intake Total 1290 ml 1490 ml Output Total 3000 ml 1100 ml Balance -1710 ml 390 ml Results Result Diagram: 10/18/17 0400 10/20/17 0622 Results 24 hrs Laboratory Tests Test 10/19/17 19:11 10/19/17 21:40 10/20/17 00:39 10/20/17 05:38 Bedside Glucose 213 237 H 273 H 245 H Test 10/20/17 06:22 10/20/17 08:30 10/20/17 12:45 Sodium Level 141 Potassium Level 3.4 L Chloride Level 107 Carbon Dioxide Level 26 Anion Gap 11 Blood Urea Nitrogen 18 Creatinine 0.55 L Glucose Level 237 H Calcium Level 8.2 L Phosphorus Level 2.1 L Magnesium Level 2.0 Bedside Glucose 244 H 257 H Medications Medications Current Medications Ondansetron HCl (Zofran Inj) 4 mg Q6H PRN IV NAUSEA AND/OR VOMITING Last administered on 10/15/17 19:52; Admin Dose 4 MG; Start 10/15/17 at 20:00 Morphine Sulfate 2 mg 2 mg Q4H PRN IV SEVERE PAIN LEVEL 7-10 Last administered on 10/19/17 05:35; Admin Dose 2 MG; Start 10/15/17 at 20:00 Piperacillin Sod/ Tazobactam Sod (Zosyn 3.375gm/ 50 ml (Pmx)) 50 ml @ 100 mls/ hr Q6 IVPB Last administered on 10/20/17 12:19; Admin Dose 100 MLS/HR; Start 10/16/17 at 00:00 Baclofen (Lioresal) 10 mg TID GTB Last administered on 10/20/17 12:19; Admin Dose 10 MG; Start 10/16/17 at 09:00 Ferrous Sulfate (Feosol Liquid Cup) 300 mg BID GTB Last administered on 08:19; Admin Dose 300 MG; Start 10/16/17 at 09:00 Al Hydrox/Mg Hydrox/Simethicone (Mag-Al Plus) 30 ml Q4H PRN GTB GASTROINTESTINAL UPSET; Start 10/16/17 at 00:00 Sucralfate (Carafate) 1 gm Q6 GTB Last administered on 10/20/17 12:19; Admin Dose 1 GM; Start 10/16/17 at 00:00 Tramadol HCl (Ultram) 50 mg TID GTB Last administered on 10/20/17 12:19; Admin Dose 50 MG; Start 10/16/17 at 09:00 Zolpidem Tartrate (Ambien) 5 mg QHS PRN GTB INSOMNIA Last administered on 22:21; Admin Dose 5 MG; Start 10/16/17 at 00:00 Diagnostic Test (Pha) (Accu-Chek) 1 ea 02 XX ; Start 10/18/17 at 02:00 Insulin Aspart (Novolog Insulin Pen) NOVOLOG *MILD* ALGORI... Q4 SC Last administered on 10/20/17 12:52; Admin Dose 3 UNIT; Start 10/17/17 at 13:00 Miscellaneous Information 1 ea NOTE XX ; Start 10/17/17 at 14:00 Glucose (Glutose) 15 gm Q15M PRN PO DECREASED GLUCOSE; Start 10/17/17 at 14:00 Glucose (Glutose) 22.5 gm Q15M PRN PO DECREASED GLUCOSE; Start 10/17/17 at 14: 00 Dextrose (D50w Syringe) 25 ml Q15M PRN IV DECREASED GLUCOSE; Start 10/17/17 at 14:00 Dextrose (D50w Syringe) 50 ml Q15M PRN IV DECREASED GLUCOSE; Start 10/17/17 at 14:00 Glucagon (Glucagen) 1 mg Q15M PRN IM DECREASED GLUCOSE; Start 10/17/17 at 14:00 Glucose (Glutose) 15 gm Q15M PRN BUCCAL DECREASED GLUCOSE; Start 10/17/17 at 14 :00 Zinc Sulfate (Zinc Sulfate) 220 mg DAILY NGT Last administered on 10/20/17 08: 20; Admin Dose 220 MG; Start 10/18/17 at 09:30 Ascorbic Acid 500 mg 500 mg DAILY NGT Last administered on 10/20/17 08:20; Admin Dose 500 MG; Start 10/18/17 at 09:30 Vancomycin HCl (Vancocin) 250 ml @ 125 mls/hr Q24H IVPB Last administered on 10/20/17 00:47; Admin Dose 125 MLS/HR; Start 10/19/17 at 01:00 Lansoprazole (Prevacid) 30 mg DAILY@06 GTB Last administered on 10/20/17 05:40 ; Admin Dose 30 MG; Start 10/19/17 at 06:00 Insulin Glargine 20 unit 20 unit DAILY@20 SC Last administered on 10/19/17 21: 45; Admin Dose 20 UNIT; Start 10/19/17 at 20:00 Potassium Phosphate/Sodium Chloride (K Phos (Meq)/NS) 250 ml @ 63.636 mls/ hr ONCE ONCE IVPB Last administered on 10/20/17 11:09; Admin Dose 63.636 MLS/HR ; Start 10/20/17 at 11:00; Stop 10/20/17 at 14:55 SARA WILEY Oct 20, 2017 14:41
--- NOTE | 2017-10-20 16:38 | CONS ---
Date/Time of Note Date/Time of Note DATE: 10/20/17 TIME: 16:34 Consultation Date/Type/Reason Admit Date/Time Oct 15, 2017 at 19:43 Initial Consult Date SUBJECTIVE: 62 y/o male being treated for sepsis, UTI. No acute events over night. Feeling better.Awake, looks comfortable, afebrile. VS: 145/87 P:84 R:20 T: 99.7 SO2: 96% Low-grade fever yesterday at 100.7 LABS: reviewed. BMP-WNL MICROBIOLOGY: Blood cultures negative. Urine culture growing MDR Proteus INDWELLINGS: Trach, PEG, Mondragon, right femoral triple-lumen catheter. DIAGNOSTICS: Chest x-ray on admission revealed slight improvement in the right basilar pneumonia. ANTIMICROBIALS: 1. Vancomycin. 2. Zosyn. ALLERGIES: LEVAQUIN, reaction unknown. PHYSICAL EXAMINATION: GENERAL: Chronically ill-appearing, elderly man who is in no distress. HEENT: Head atraumatic, normocephalic. Sclerae anicteric. Buccal mucosa dry. NECK: Supple. CHEST: Rise symmetrical. Breath sounds diminished to bases. HEART: S1, S2. ABDOMEN: Soft, bowel tones present. EXTREMITIES: Contractured without cyanosis. ASSESSMENT: 1. Resolving sepsis, status post shock. 2. Urinary tract infection. 3. Unstageable sacral decubitus. 4. Quadriplegia. 5. Chronic respiratory failure and dysphagia. 6. Diabetes. 7. Acute on chronic anemia. PLAN: Pt is stable. Continue current antibiotics. Local wound care. Follow recommendations of specialists. Type of Consultation: ID Exam/Review of Systems Vital Signs Vitals Vital Signs Date Time Temp Pulse Resp B/P Pulse Ox O2 Delivery O2 Flow Rate FiO2 10/20/17 16:17 84 10/20/17 15:27 99.1 20 145/87 96 10/20/17 07:40 28 10/20/17 07:39 5.0 10/18/17 11:00 Room Air Intake and Output 10/19/17 10/19/17 10/20/17 15:00 23:00 07:00 Intake Total 50 ml 1240 ml 1490 ml Output Total 3000 ml 1100 ml Balance 50 ml -1760 ml 390 ml Results Result Diagram: 10/18/17 0400 10/20/17 0622 Results 24 hrs Laboratory Tests Test 10/19/17 19:11 10/19/17 21:40 10/20/17 00:39 10/20/17 05:38 Bedside Glucose 213 237 H 273 H 245 H Test 10/20/17 06:22 10/20/17 08:30 10/20/17 12:45 Sodium Level 141 Potassium Level 3.4 L Chloride Level 107 Carbon Dioxide Level 26 Anion Gap 11 Blood Urea Nitrogen 18 Creatinine 0.55 L Glucose Level 237 H Calcium Level 8.2 L Phosphorus Level 2.1 L Magnesium Level 2.0 Bedside Glucose 244 H 257 H Medications Medications Current Medications Ondansetron HCl (Zofran Inj) 4 mg Q6H PRN IV NAUSEA AND/OR VOMITING Last administered on 10/15/17 19:52; Admin Dose 4 MG; Start 10/15/17 at 20:00 Morphine Sulfate 2 mg 2 mg Q4H PRN IV SEVERE PAIN LEVEL 7-10 Last administered on 10/19/17 05:35; Admin Dose 2 MG; Start 10/15/17 at 20:00 Piperacillin Sod/ Tazobactam Sod (Zosyn 3.375gm/ 50 ml (Pmx)) 50 ml @ 100 mls/ hr Q6 IVPB Last administered on 10/20/17 12:19; Admin Dose 100 MLS/HR; Start 10/16/17 at 00:00 Baclofen (Lioresal) 10 mg TID GTB Last administered on 10/20/17 12:19; Admin Dose 10 MG; Start 10/16/17 at 09:00 Ferrous Sulfate (Feosol Liquid Cup) 300 mg BID GTB Last administered on 08:19; Admin Dose 300 MG; Start 10/16/17 at 09:00 Al Hydrox/Mg Hydrox/Simethicone (Mag-Al Plus) 30 ml Q4H PRN GTB GASTROINTESTINAL UPSET; Start 10/16/17 at 00:00 Sucralfate (Carafate) 1 gm Q6 GTB Last administered on 10/20/17 12:19; Admin Dose 1 GM; Start 10/16/17 at 00:00 Tramadol HCl (Ultram) 50 mg TID GTB Last administered on 10/20/17 12:19; Admin Dose 50 MG; Start 10/16/17 at 09:00 Zolpidem Tartrate (Ambien) 5 mg QHS PRN GTB INSOMNIA Last administered on 22:21; Admin Dose 5 MG; Start 10/16/17 at 00:00 Diagnostic Test (Pha) (Accu-Chek) 1 ea 02 XX ; Start 10/18/17 at 02:00 Insulin Aspart (Novolog Insulin Pen) NOVOLOG *MILD* ALGORI... Q4 SC Last administered on 10/20/17 12:52; Admin Dose 3 UNIT; Start 10/17/17 at 13:00 Miscellaneous Information 1 ea NOTE XX ; Start 10/17/17 at 14:00 Glucose (Glutose) 15 gm Q15M PRN PO DECREASED GLUCOSE; Start 10/17/17 at 14:00 Glucose (Glutose) 22.5 gm Q15M PRN PO DECREASED GLUCOSE; Start 10/17/17 at 14: 00 Dextrose (D50w Syringe) 25 ml Q15M PRN IV DECREASED GLUCOSE; Start 10/17/17 at 14:00 Dextrose (D50w Syringe) 50 ml Q15M PRN IV DECREASED GLUCOSE; Start 10/17/17 at 14:00 Glucagon (Glucagen) 1 mg Q15M PRN IM DECREASED GLUCOSE; Start 10/17/17 at 14:00 Glucose (Glutose) 15 gm Q15M PRN BUCCAL DECREASED GLUCOSE; Start 10/17/17 at 14 :00 Zinc Sulfate (Zinc Sulfate) 220 mg DAILY NGT Last administered on 10/20/17 08: 20; Admin Dose 220 MG; Start 10/18/17 at 09:30 Ascorbic Acid 500 mg 500 mg DAILY NGT Last administered on 10/20/17 08:20; Admin Dose 500 MG; Start 10/18/17 at 09:30 Vancomycin HCl (Vancocin) 250 ml @ 125 mls/hr Q24H IVPB Last administered on 10/20/17 00:47; Admin Dose 125 MLS/HR; Start 10/19/17 at 01:00 Lansoprazole (Prevacid) 30 mg DAILY@06 GTB Last administered on 10/20/17 05:40 ; Admin Dose 30 MG; Start 10/19/17 at 06:00 Insulin Glargine (Lantus) 25 unit DAILY@20 SC ; Start 10/20/17 at 20:00 TODD RUEDA Oct 20, 2017 16:38
[2017-10-20] MEDS: metFORMIN 500 MG TAB GTB SCH (17:08)
--- NOTE | 2017-10-20 17:12 | CONS ---
Date/Time of Note Date/Time of Note DATE: 10/20/17 TIME: 17:11 Consult Date/Type/Reason Admit Date/Time Oct 15, 2017 at 19:43 Initial Consult Date 10/16/17 Type of Consultation: Pulm Subjective No events overnight. Objective Vital Signs Date Time Temp Pulse Resp B/P Pulse Ox O2 Delivery O2 Flow Rate FiO2 10/20/17 16:49 85 20 93 28 10/20/17 15:27 99.1 145/87 10/20/17 07:39 5.0 10/18/17 11:00 Room Air Intake and Output 10/19/17 10/19/17 10/20/17 15:00 23:00 07:00 Intake Total 50 ml 1240 ml 1490 ml Output Total 3000 ml 1100 ml Balance 50 ml -1760 ml 390 ml Exam HEENT: Neck supple; no JVD; no LAD; + trach CVS: RRR, S1 and S2 CHEST: Clear ABD: Soft, NT, + BS EXT: No c/c/e Results/Medications Result Diagram: 10/18/17 0400 10/20/17 0622 Results 24 hrs Laboratory Tests Test 10/19/17 19:11 10/19/17 21:40 10/20/17 00:39 10/20/17 05:38 Bedside Glucose 213 237 H 273 H 245 H Test 10/20/17 06:22 10/20/17 08:30 10/20/17 12:45 10/20/17 16:39 Sodium Level 141 Potassium Level 3.4 L Chloride Level 107 Carbon Dioxide Level 26 Anion Gap 11 Blood Urea Nitrogen 18 Creatinine 0.55 L Glucose Level 237 H Calcium Level 8.2 L Phosphorus Level 2.1 L Magnesium Level 2.0 Bedside Glucose 244 H 257 H 242 H Medications Current Medications Ondansetron HCl (Zofran Inj) 4 mg Q6H PRN IV NAUSEA AND/OR VOMITING Last administered on 10/15/17 19:52; Admin Dose 4 MG; Start 10/15/17 at 20:00 Morphine Sulfate 2 mg 2 mg Q4H PRN IV SEVERE PAIN LEVEL 7-10 Last administered on 10/19/17 05:35; Admin Dose 2 MG; Start 10/15/17 at 20:00 Piperacillin Sod/ Tazobactam Sod (Zosyn 3.375gm/ 50 ml (Pmx)) 50 ml @ 100 mls/ hr Q6 IVPB Last administered on 10/20/17 12:19; Admin Dose 100 MLS/HR; Start 10/16/17 at 00:00 Baclofen (Lioresal) 10 mg TID GTB Last administered on 10/20/17 12:19; Admin Dose 10 MG; Start 10/16/17 at 09:00 Ferrous Sulfate (Feosol Liquid Cup) 300 mg BID GTB Last administered on 08:19; Admin Dose 300 MG; Start 10/16/17 at 09:00 Al Hydrox/Mg Hydrox/Simethicone (Mag-Al Plus) 30 ml Q4H PRN GTB GASTROINTESTINAL UPSET; Start 10/16/17 at 00:00 Sucralfate (Carafate) 1 gm Q6 GTB Last administered on 10/20/17 12:19; Admin Dose 1 GM; Start 10/16/17 at 00:00 Tramadol HCl (Ultram) 50 mg TID GTB Last administered on 10/20/17 12:19; Admin Dose 50 MG; Start 10/16/17 at 09:00 Zolpidem Tartrate (Ambien) 5 mg QHS PRN GTB INSOMNIA Last administered on 22:21; Admin Dose 5 MG; Start 10/16/17 at 00:00 Diagnostic Test (Pha) (Accu-Chek) 1 ea 02 XX ; Start 10/18/17 at 02:00 Insulin Aspart (Novolog Insulin Pen) NOVOLOG *MILD* ALGORI... Q4 SC Last administered on 10/20/17 12:52; Admin Dose 3 UNIT; Start 10/17/17 at 13:00 Miscellaneous Information 1 ea NOTE XX ; Start 10/17/17 at 14:00 Glucose (Glutose) 15 gm Q15M PRN PO DECREASED GLUCOSE; Start 10/17/17 at 14:00 Glucose (Glutose) 22.5 gm Q15M PRN PO DECREASED GLUCOSE; Start 10/17/17 at 14: 00 Dextrose (D50w Syringe) 25 ml Q15M PRN IV DECREASED GLUCOSE; Start 10/17/17 at 14:00 Dextrose (D50w Syringe) 50 ml Q15M PRN IV DECREASED GLUCOSE; Start 10/17/17 at 14:00 Glucagon (Glucagen) 1 mg Q15M PRN IM DECREASED GLUCOSE; Start 10/17/17 at 14:00 Glucose (Glutose) 15 gm Q15M PRN BUCCAL DECREASED GLUCOSE; Start 10/17/17 at 14 :00 Zinc Sulfate (Zinc Sulfate) 220 mg DAILY NGT Last administered on 10/20/17 08: 20; Admin Dose 220 MG; Start 10/18/17 at 09:30 Ascorbic Acid 500 mg 500 mg DAILY NGT Last administered on 10/20/17 08:20; Admin Dose 500 MG; Start 10/18/17 at 09:30 Vancomycin HCl (Vancocin) 250 ml @ 125 mls/hr Q24H IVPB Last administered on 10/20/17 00:47; Admin Dose 125 MLS/HR; Start 10/19/17 at 01:00 Lansoprazole (Prevacid) 30 mg DAILY@06 GTB Last administered on 10/20/17 05:40 ; Admin Dose 30 MG; Start 10/19/17 at 06:00 Insulin Glargine (Lantus) 25 unit DAILY@20 SC ; Start 10/20/17 at 20:00 Assessment/Plan Additional Assessment/Plan IMP: 1. Sepsis from UTI 2. History of quadriplegia. 3. Anemia. 4. Diabetes. 5. Acute renal insufficiency with normalization of renal function. 6. Dysphagia status post video swallow evaluation. RECS: 1. Consider Roa evaluation as patient may be candidate for decannulation 2. Complete antibiotics 3. Replace potassium ZELDA ORR MD Oct 20, 2017 17:12
[2017-10-20] MEDS ORDERED: INSULIN GLARGINE [LANtus] 3 ML PEN SC SCH (20:00)
[2017-10-21] VITALS (11 sets, daily range): BP systolic 145–161; BP diastolic 75–96; PULSE 75–88; RESP 18–20
[2017-10-21] MEDS: PIPER-TAZO 3.375 GM IV (PMX) 50 ML IVPB SCH ×4 (01:15→17:36)
[2017-10-21] MEDS: SUCRALFATE 1 GM TAB GTB SCH ×4 (01:15→17:35)
[2017-10-21] MEDS: VANCOMYCIN 1 GM in NS 250 ML IVPB SCH (01:16)
[2017-10-21] MEDS: INSULIN ASPART [NOVOLOG] 3 ML PEN SC SCH ×6 (01:58→20:49)
[2017-10-21] MEDS: ACCU-CHEK XX SCH (01:59)
[2017-10-21] MEDS: LANSOPRAZOLE 30 MG CAP GTB SCH (05:21)
[2017-10-21 06:41] LABS: BASOPHILS % 0.1 % (0.0-2.0); EOSINOPHILS # 0.1 10^3/ul (0.0-0.5); EOSINOPHILS % 0.6 % (0.0-7.0); HEMATOCRIT 26.6 % (42.0-52.0); HEMOGLOBIN 8.2 g/dl (14.0-18.0); LYMPHOCYTES # 2.4 10^3/ul (0.8-2.9); LYMPHOCYTES % 17.2 % (15.0-51.0); MEAN CORPUSCULAR HEMOGLOBIN 24.8 pg (29.0-33.0); MEAN CORPUSCULAR HGB CONC 30.8 g/dl (32.0-37.0); MEAN CORPUSCULAR VOLUME 80.6 fl (82.0-101.0); MEAN PLATELET VOLUME 9.3 fl (7.4-10.4); MONOCYTE # 1.4 10^3/ul (0.3-0.9); MONOCYTES % 10.2 % (0.0-11.0); NEUTROPHIL # 9.8 10^3/ul (1.6-7.5); NEUTROPHILS % 69.8 % (39.0-77.0); PLATELET COUNT 362 10^3/UL (140-415); RED CELL DISTRIBUTION WIDTH 19.2 % (11.5-14.5); WHITE BLOOD COUNT 14.1 10^3/ul (4.8-10.8)
[2017-10-21 07:12] LABS: CALCIUM 7.9 mg/dl (8.4-10.2); CREATININE 0.55 mg/dl (0.61-1.24); MAGNESIUM 1.9 mg/dl (1.7-2.5); PHOSPHORUS 2.4 mg/dl (2.5-4.9); POTASSIUM 3.5 mmol/L (3.5-5.1)
[2017-10-21] MEDS: ALBUTEROL/IPRATROPIUM (NEB) 3 ML AMP HHN PRN (08:42)
[2017-10-21] MEDS ORDERED: VITAMIN A & D 5 GM OINT PACKET TOP ONE (09:07)
--- NOTE | 2017-10-21 09:09 | CONS ---
Date/Time of Note Date/Time of Note DATE: 10/21/17 TIME: 09:09 Consult Date/Type/Reason Admit Date/Time Oct 15, 2017 at 19:43 Initial Consult Date 10/16/17 Type of Consultation: nephrology Subjective no new c/o good uop Objective Vital Signs Date Time Temp Pulse Resp B/P Pulse Ox O2 Delivery O2 Flow Rate FiO2 10/21/17 08:45 6.0 35 10/21/17 08:43 85 22 96 10/21/17 08:18 98.6 149/94 10/18/17 11:00 Room Air Intake and Output 10/20/17 10/20/17 10/21/17 15:00 23:00 07:00 Intake Total 1490 ml 1800 ml Output Total 1500 ml 850 ml Balance -10 ml 950 ml Exam General: Patient is laying in bed and answers questions appropriately Mentation: Patient is alert and oriented 4, Head: Normocephalic atraumatic Eyes: EOMI, pupils reactive to light Neck: Supple, nontender, midline Respiratory: Clear to auscultation bilaterally Cardiovascular: regular rate, no obvious murmurs Gastrointestinal: non-tender to palpation, bowel sounds heard. Neurological: Moves all extremities spontaneously Skin: No new skin lesions Results/Medications Result Diagram: 10/21/17 0601 10/21/17 0601 Results 24 hrs Laboratory Tests Test 10/20/17 12:45 10/20/17 16:39 10/20/17 20:53 10/21/17 01:13 Bedside Glucose 257 H 242 H 256 H 213 Test 10/21/17 05:12 10/21/17 06:01 10/21/17 06:29 Bedside Glucose 156 White Blood Count 14.1 H Red Blood Count 3.30 L Hemoglobin 8.2 L Hematocrit 26.6 L Mean Corpuscular Volume 80.6 L Mean Corpuscular Hemoglobin 24.8 L Mean Corpuscular Hemoglobin Concent 30.8 L Red Cell Distribution Width 19.2 H Platelet Count 362 Mean Platelet Volume 9.3 Neutrophils % 69.8 Lymphocytes % 17.2 Monocytes % 10.2 Eosinophils % 0.6 Basophils % 0.1 Nucleated Red Blood Cells % 0.0 Neutrophils # 9.8 H Lymphocytes # 2.4 Monocytes # 1.4 H Eosinophils # 0.1 Basophils # 0.0 Nucleated Red Blood Cells # 0.0 Sodium Level 142 Potassium Level 3.5 Chloride Level 109 Carbon Dioxide Level 26 Anion Gap 11 Blood Urea Nitrogen 17 Creatinine 0.55 L Glucose Level 166 Calcium Level 7.9 L Phosphorus Level 2.4 L Magnesium Level 1.9 Lab Scanned Report BLOOD TRANSFUSION Medications Current Medications Ondansetron HCl (Zofran Inj) 4 mg Q6H PRN IV NAUSEA AND/OR VOMITING Last administered on 10/15/17 19:52; Admin Dose 4 MG; Start 10/15/17 at 20:00 Morphine Sulfate 2 mg 2 mg Q4H PRN IV SEVERE PAIN LEVEL 7-10 Last administered on 10/19/17 05:35; Admin Dose 2 MG; Start 10/15/17 at 20:00 Piperacillin Sod/ Tazobactam Sod (Zosyn 3.375gm/ 50 ml (Pmx)) 50 ml @ 100 mls/ hr Q6 IVPB Last administered on 10/21/17 05:21; Admin Dose 100 MLS/HR; Start 10/16/17 at 00:00 Baclofen (Lioresal) 10 mg TID GTB Last administered on 10/20/17 20:50; Admin Dose 10 MG; Start 10/16/17 at 09:00 Ferrous Sulfate (Feosol Liquid Cup) 300 mg BID GTB Last administered on 20:49; Admin Dose 300 MG; Start 10/16/17 at 09:00 Al Hydrox/Mg Hydrox/Simethicone (Mag-Al Plus) 30 ml Q4H PRN GTB GASTROINTESTINAL UPSET; Start 10/16/17 at 00:00 Sucralfate (Carafate) 1 gm Q6 GTB Last administered on 10/21/17 05:21; Admin Dose 1 GM; Start 10/16/17 at 00:00 Tramadol HCl (Ultram) 50 mg TID GTB Last administered on 10/20/17 20:50; Admin Dose 50 MG; Start 10/16/17 at 09:00 Zolpidem Tartrate (Ambien) 5 mg QHS PRN GTB INSOMNIA Last administered on 22:21; Admin Dose 5 MG; Start 10/16/17 at 00:00 Diagnostic Test (Pha) (Accu-Chek) 1 ea 02 XX ; Start 10/18/17 at 02:00 Insulin Aspart (Novolog Insulin Pen) NOVOLOG *MILD* ALGORI... Q4 SC Last administered on 10/21/17 05:33; Admin Dose 1 UNIT; Start 10/17/17 at 13:00 Miscellaneous Information 1 ea NOTE XX ; Start 10/17/17 at 14:00 Glucose (Glutose) 15 gm Q15M PRN PO DECREASED GLUCOSE; Start 10/17/17 at 14:00 Glucose (Glutose) 22.5 gm Q15M PRN PO DECREASED GLUCOSE; Start 10/17/17 at 14: 00 Dextrose (D50w Syringe) 25 ml Q15M PRN IV DECREASED GLUCOSE; Start 10/17/17 at 14:00 Dextrose (D50w Syringe) 50 ml Q15M PRN IV DECREASED GLUCOSE; Start 10/17/17 at 14:00 Glucagon (Glucagen) 1 mg Q15M PRN IM DECREASED GLUCOSE; Start 10/17/17 at 14:00 Glucose (Glutose) 15 gm Q15M PRN BUCCAL DECREASED GLUCOSE; Start 10/17/17 at 14 :00 Zinc Sulfate (Zinc Sulfate) 220 mg DAILY NGT Last administered on 10/20/17 08: 20; Admin Dose 220 MG; Start 10/18/17 at 09:30 Ascorbic Acid 500 mg 500 mg DAILY NGT Last administered on 10/20/17 08:20; Admin Dose 500 MG; Start 10/18/17 at 09:30 Vancomycin HCl (Vancocin) 250 ml @ 125 mls/hr Q24H IVPB Last administered on 10/21/17 01:16; Admin Dose 125 MLS/HR; Start 10/19/17 at 01:00 Lansoprazole (Prevacid) 30 mg DAILY@06 GTB Last administered on 10/21/17 05: 21; Admin Dose 30 MG; Start 10/19/17 at 06:00 Insulin Glargine (Lantus) 25 unit DAILY@20 SC Last administered on 10/20/17 20 :56; Admin Dose 25 UNIT; Start 10/20/17 at 20:00 Assessment/Plan Chief Complaint/Hosp Course 1. Nonoliguric acute kidney injury. Previous baseline creatinine of 0.5 mg/ dL. Etiology of acute kidney injury was secondary to hemodynamics and sepsis. The patient's renal function is returning back to baseline. Continue current treatment plan, supportive care, renally dose all meds. 2. Hyponatremia, resolved. 3. Hypokalemia. Will replete with potassium chloride. 4. Mineral bone disorder. The patient remains hypophosphatemic. We will replete potassium phosphate. 5. Anemia. Monitor hemoglobin and hematocrit levels. 6. Sepsis secondary to urinary tract infection. Continue current antibiotic regimen. 7. Chronic respiratory failure, status post trach. Continue current treatment plan. 8. Dysphagia status post PEG, continue tube feeding. 9. Quadriplegia. Continue supportive care. 10. Decubitus wound. Continue wound care. 11. Diabetes. Continue current insulin regimen. Problems: MARYCRUZ STEVEN MD Oct 21, 2017 09:09
[2017-10-21] MEDS: FERROUS SULFATE 60 MG/ML 5ML CUP GTB SCH ×2 (09:15→20:42)
[2017-10-21] MEDS: traMADol 50 MG TAB GTB SCH ×3 (09:16→20:43)
[2017-10-21] MEDS: BACLOFEN 10 MG TAB GTB SCH ×3 (09:16→20:42)
[2017-10-21] MEDS: ASCORBIC ACID 500 MG TAB NGT SCH (09:16)
[2017-10-21] MEDS: ZINC SULFATE 220 MG CAP NGT SCH (09:16)
--- NOTE | 2017-10-21 12:49 | PN ---
Date/Time of Note Date/Time of Note DATE: 10/21/17 TIME: 12:48 Assessment/Plan VTE Prophylaxis VTE Prophylaxis Intervention: SCD's Lines/Catheters IV Catheter Type (from Nrsg): Central Line Central line still needed: Yes Urinary Cath still in place: Yes Reason Cath still needed: urinary retention Assessment/Plan Chief Complaint/Hosp Course Subjective 12.6 patient alert and complains of wanting ice chips. 12.7 patient feeling much better today 12.8 no acute complaints 12.9 no acute complaints 12.10 no acute complaints Objective Physical exam General: Patient is laying in bed and answers questions appropriately. quadraplegic, peg/trach([place] valve) Mentation: Patient is alert and oriented 4, Head: Normocephalic atraumatic Eyes: EOMI, pupils reactive to light Neck: Supple, nontender, midline Respiratory: diminished to auscultation bilaterally Cardiovascular: regular rate, no obvious murmurs Gastrointestinal: non-tender to palpation, bowel sounds heard. peg tube Neurological: no sensation or motor in extremities Skin: No new skin lesions, chronic sacral decubitus Assessment and plan Severe sepsis versus septic shock -Patient's blood pressure stable -Pneumonia and UTI source -Broad-spectrum antibiotics, ID recommendations appreciated, zosyn 7 more days -Fluids Anemia, microcytic -Likely component of volume resuscitation, and partially secondary to anemia of chronic disease -No signs of bleed -Iron levels extremely low -Blood transfusion for now, start iron after Acute kidney injury -Resolved -Nephrology consult appreciated Electrolyte derangement -Replete as needed Chronic trach dependent respiratory failure -Secondary to quadriplegic nature status post fall -Pass[place] valve, pulmonary Anthony appreciated Dysphasia -Has peg tube -Speech therapy performed video swallow today, ice chips okay Quadriplegia -Status post fall Sacral decubitus ulcer -Chronic, infectious disease recommended is appreciated -Wound care -patient refused wound care per wound nurse on sacral decubitus -other wound bandaged and cleaned Type 2 diabetes -Insulin sliding scale and Lantus, adjust as needed, increased today DISPO -5 days more zosyn -fitzgerald eval as quality of life is likely the most important thing for this patient. If decannulation could be done, it should be pursued. Problems: Exam/Review of Systems Vital Signs Vitals Vital Signs Date Time Temp Pulse Resp B/P Pulse Ox O2 Delivery O2 Flow Rate FiO2 10/21/17 12:27 83 10/21/17 11:56 99.6 20 158/96 98 10/21/17 08:45 6.0 35 10/18/17 11:00 Room Air Intake and Output 10/20/17 10/20/17 10/21/17 14:59 22:59 06:59 Intake Total 1490 ml 350 ml Output Total 1500 ml Balance -10 ml 350 ml Results Result Diagram: 10/21/17 0601 10/21/17 06 Results 24 hrs Laboratory Tests Test 10/20/17 16:39 10/20/17 20:53 10/21/17 01:13 10/21/17 05:12 Bedside Glucose 242 H 256 H 213 156 Test 10/21/17 06:01 10/21/17 06:29 10/21/17 09:14 10/21/17 12:26 White Blood Count 14.1 H Red Blood Count 3.30 L Hemoglobin 8.2 L Hematocrit 26.6 L Mean Corpuscular Volume 80.6 L Mean Corpuscular Hemoglobin 24.8 L Mean Corpuscular Hemoglobin Concent 30.8 L Red Cell Distribution Width 19.2 H Platelet Count 362 Mean Platelet Volume 9.3 Neutrophils % 69.8 Lymphocytes % 17.2 Monocytes % 10.2 Eosinophils % 0.6 Basophils % 0.1 Nucleated Red Blood Cells % 0.0 Neutrophils # 9.8 H Lymphocytes # 2.4 Monocytes # 1.4 H Eosinophils # 0.1 Basophils # 0.0 Nucleated Red Blood Cells # 0.0 Sodium Level 142 Potassium Level 3.5 Chloride Level 109 Carbon Dioxide Level 26 Anion Gap 11 Blood Urea Nitrogen 17 Creatinine 0.55 L Glucose Level 166 Calcium Level 7.9 L Phosphorus Level 2.4 L Magnesium Level 1.9 Lab Scanned Report BLOOD TRANSFUSION Bedside Glucose 228 H 225 H Medications Medications Current Medications Ondansetron HCl (Zofran Inj) 4 mg Q6H PRN IV NAUSEA AND/OR VOMITING Last administered on 10/15/17 19:52; Admin Dose 4 MG; Start 10/15/17 at 20:00 Morphine Sulfate 2 mg 2 mg Q4H PRN IV SEVERE PAIN LEVEL 7-10 Last administered on 10/19/17 05:35; Admin Dose 2 MG; Start 10/15/17 at 20:00 Piperacillin Sod/ Tazobactam Sod (Zosyn 3.375gm/ 50 ml (Pmx)) 50 ml @ 100 mls/ hr Q6 IVPB Last administered on 10/21/17 12:41; Admin Dose 100 MLS/HR; Start 10/16/17 at 00:00 Baclofen (Lioresal) 10 mg TID GTB Last administered on 10/21/17 12:42; Admin Dose 10 MG; Start 10/16/17 at 09:00 Ferrous Sulfate (Feosol Liquid Cup) 300 mg BID GTB Last administered on 09:15; Admin Dose 300 MG; Start 10/16/17 at 09:00 Al Hydrox/Mg Hydrox/Simethicone (Mag-Al Plus) 30 ml Q4H PRN GTB GASTROINTESTINAL UPSET; Start 10/16/17 at 00:00 Sucralfate (Carafate) 1 gm Q6 GTB Last administered on 10/21/17 12:41; Admin Dose 1 GM; Start 10/16/17 at 00:00 Tramadol HCl (Ultram) 50 mg TID GTB Last administered on 10/21/17 12:41; Admin Dose 50 MG; Start 10/16/17 at 09:00 Zolpidem Tartrate (Ambien) 5 mg QHS PRN GTB INSOMNIA Last administered on 22:21; Admin Dose 5 MG; Start 10/16/17 at 00:00 Diagnostic Test (Pha) (Accu-Chek) 1 ea 02 XX ; Start 10/18/17 at 02:00 Insulin Aspart (Novolog Insulin Pen) NOVOLOG *MILD* ALGORI... Q4 SC Last administered on 10/21/17 12:41; Admin Dose 3 UNIT; Start 10/17/17 at 13:00 Miscellaneous Information 1 ea NOTE XX ; Start 10/17/17 at 14:00 Glucose (Glutose) 15 gm Q15M PRN PO DECREASED GLUCOSE; Start 10/17/17 at 14:00 Glucose (Glutose) 22.5 gm Q15M PRN PO DECREASED GLUCOSE; Start 10/17/17 at 14: 00 Dextrose (D50w Syringe) 25 ml Q15M PRN IV DECREASED GLUCOSE; Start 10/17/17 at 14:00 Dextrose (D50w Syringe) 50 ml Q15M PRN IV DECREASED GLUCOSE; Start 10/17/17 at 14:00 Glucagon (Glucagen) 1 mg Q15M PRN IM DECREASED GLUCOSE; Start 10/17/17 at 14:00 Glucose (Glutose) 15 gm Q15M PRN BUCCAL DECREASED GLUCOSE; Start 10/17/17 at 14 :00 Zinc Sulfate (Zinc Sulfate) 220 mg DAILY NGT Last administered on 10/21/17 09 :16; Admin Dose 220 MG; Start 10/18/17 at 09:30 Ascorbic Acid 500 mg 500 mg DAILY NGT Last administered on 10/21/17 09:16; Admin Dose 500 MG; Start 10/18/17 at 09:30 Vancomycin HCl (Vancocin) 250 ml @ 125 mls/hr Q24H IVPB Last administered on 10/21/17 01:16; Admin Dose 125 MLS/HR; Start 10/19/17 at 01:00 Lansoprazole (Prevacid) 30 mg DAILY@06 GTB Last administered on 10/21/17 05: 21; Admin Dose 30 MG; Start 10/19/17 at 06:00 Insulin Glargine (Lantus) 28 unit DAILY@20 SC ; Start 10/21/17 at 20:00 Miscellaneous Information (*Rx Drug Level Order Reminder*) VANCO TROUGH @ 0, 000 ON ... ONCE ONCE XX ; Start 10/22/17 at 00:00; Stop 10/22/17 at 00:01 SARA WILEY Oct 21, 2017 12:49
--- NOTE | 2017-10-21 15:35 | CONS ---
Date/Time of Note Date/Time of Note DATE: 10/21/17 TIME: 15:18 Assessment/Plan Assessment/Plan Chief Complaint/Hosp Course ID PROGRESS NOTE CURRENT ABX=>Vanco IV + Zosyn TOTAL ABX DAY # 6.5 S/P CEFEPIME 10/21/17 0601 10/21/17 0601 24H INTERVAL SUMMARY * Awake, alert, taking ice chips, vss, NAD, Trach w/[place] Valve, feels better * Tmax 99.6, WBC down from high of 24.+ on admission * 10/17/17 URINE CULTURE Final Organism 1 PROTEUS MIRABILIS COLONY COUNT >100,000 CFU/ml P. MIRAB M.I.C. RX --------- --- AMPICILLIN >=32 R CEFOTAXIME S CIPROFLOXACIN >=4 R GENTAMICIN <=1 S LEVOFLOXACIN 4 I NITROFURANTOIN 128 R TOBRAMYCIN <=1 S TRIMETHOPRIM/SULFAMETHOXAZOLE >=320 R PIPERACILLIN/TAZOBACTAM <=4 S EXAM GENERAL: Awake, alert, taking po ice chips, VSS, NAD HEENT: Unremarkable NECK: Supple, Trach w/[place] valve CHEST: Rise symmetrical, without dyspnea on observation ABDOMEN: Soft, peg EXTREMITIES: Warm, SKIN: No diaphoresis, no rash ->stage IV decub sacral, multiple decubs ID ASSESSMENT: 62 yo M w/Quadriplegia 2/2 SCI from traumatic fall + autonomic dysreflexia admit with: 1. Resolving sepsis, status post shock. 2. Complicated Urinary tract infection. 3. Chronic indwelling FC 2/2 neurogenic bladder w/retention 4. Unstageable sacral decubitus-> Looks like STG IV * Multiple smaller decubs unstable w/eschar 5. Chronic respiratory failure w/Trach - Passy-Yuni valve 6. Dysphagia 7. HCAP @ [facility] on admission CXR 10/17/17 => Continued slightimproved appearance of right basilar pneumonia. 8. Diabetes. 9. Acute renal insufficiency with normalization of renal function. 10. Acute on chronic anemia. INVASIVES: PIV, R-FEMORAL ABX ALLERGY: LEVAQUIN CURRENT ABX=>Vanco IV + Zosyn TOTAL ABX DAY # 6.5 S/P CEFEPIME ID PLAN 1. Continue ABX x 5 more days 2. MCGOVERN EVAL 3. Wound care topical . . Problems: Consultation Date/Type/Reason Admit Date/Time Oct 15, 2017 at 19:43 Initial Consult Date 10/16/17 Type of Consultation: ID Exam/Review of Systems Vital Signs Vitals Vital Signs Date Time Temp Pulse Resp B/P Pulse Ox O2 Delivery O2 Flow Rate FiO2 10/21/17 12:27 83 10/21/17 11:56 99.6 20 158/96 98 10/21/17 08:45 6.0 35 10/18/17 11:00 Room Air Intake and Output 10/20/17 10/20/17 10/21/17 15:00 23:00 07:00 Intake Total 1490 ml 1800 ml Output Total 1500 ml 850 ml Balance -10 ml 950 ml Results Result Diagram: 10/21/17 0601 10/21/17 0601 Results 24 hrs Laboratory Tests Test 10/20/17 16:39 10/20/17 20:53 10/21/17 01:13 10/21/17 05:12 Bedside Glucose 242 H 256 H 213 156 Test 10/21/17 06:01 10/21/17 06:29 10/21/17 09:14 10/21/17 12:26 White Blood Count 14.1 H Red Blood Count 3.30 L Hemoglobin 8.2 L Hematocrit 26.6 L Mean Corpuscular Volume 80.6 L Mean Corpuscular Hemoglobin 24.8 L Mean Corpuscular Hemoglobin Concent 30.8 L Red Cell Distribution Width 19.2 H Platelet Count 362 Mean Platelet Volume 9.3 Neutrophils % 69.8 Lymphocytes % 17.2 Monocytes % 10.2 Eosinophils % 0.6 Basophils % 0.1 Nucleated Red Blood Cells % 0.0 Neutrophils # 9.8 H Lymphocytes # 2.4 Monocytes # 1.4 H Eosinophils # 0.1 Basophils # 0.0 Nucleated Red Blood Cells # 0.0 Sodium Level 142 Potassium Level 3.5 Chloride Level 109 Carbon Dioxide Level 26 Anion Gap 11 Blood Urea Nitrogen 17 Creatinine 0.55 L Glucose Level 166 Calcium Level 7.9 L Phosphorus Level 2.4 L Magnesium Level 1.9 Lab Scanned Report BLOOD TRANSFUSION Bedside Glucose 228 H 225 H Medications Medications Current Medications Ondansetron HCl (Zofran Inj) 4 mg Q6H PRN IV NAUSEA AND/OR VOMITING Last administered on 10/15/17 19:52; Admin Dose 4 MG; Start 10/15/17 at 20:00 Morphine Sulfate 2 mg 2 mg Q4H PRN IV SEVERE PAIN LEVEL 7-10 Last administered on 10/19/17 05:35; Admin Dose 2 MG; Start 10/15/17 at 20:00 Piperacillin Sod/ Tazobactam Sod (Zosyn 3.375gm/ 50 ml (Pmx)) 50 ml @ 100 mls/ hr Q6 IVPB Last administered on 10/21/17 12:41; Admin Dose 100 MLS/HR; Start 10/16/17 at 00:00 Baclofen (Lioresal) 10 mg TID GTB Last administered on 10/21/17 12:42; Admin Dose 10 MG; Start 10/16/17 at 09:00 Ferrous Sulfate (Feosol Liquid Cup) 300 mg BID GTB Last administered on 09:15; Admin Dose 300 MG; Start 10/16/17 at 09:00 Al Hydrox/Mg Hydrox/Simethicone (Mag-Al Plus) 30 ml Q4H PRN GTB GASTROINTESTINAL UPSET; Start 10/16/17 at 00:00 Sucralfate (Carafate) 1 gm Q6 GTB Last administered on 10/21/17 12:41; Admin Dose 1 GM; Start 10/16/17 at 00:00 Tramadol HCl (Ultram) 50 mg TID GTB Last administered on 10/21/17 12:41; Admin Dose 50 MG; Start 10/16/17 at 09:00 Zolpidem Tartrate (Ambien) 5 mg QHS PRN GTB INSOMNIA Last administered on 22:21; Admin Dose 5 MG; Start 10/16/17 at 00:00 Diagnostic Test (Pha) (Accu-Chek) 1 ea 02 XX ; Start 10/18/17 at 02:00 Insulin Aspart (Novolog Insulin Pen) NOVOLOG *MILD* ALGORI... Q4 SC Last administered on 10/21/17 12:41; Admin Dose 3 UNIT; Start 10/17/17 at 13:00 Miscellaneous Information 1 ea NOTE XX ; Start 10/17/17 at 14:00 Glucose (Glutose) 15 gm Q15M PRN PO DECREASED GLUCOSE; Start 10/17/17 at 14:00 Glucose (Glutose) 22.5 gm Q15M PRN PO DECREASED GLUCOSE; Start 10/17/17 at 14: 00 Dextrose (D50w Syringe) 25 ml Q15M PRN IV DECREASED GLUCOSE; Start 10/17/17 at 14:00 Dextrose (D50w Syringe) 50 ml Q15M PRN IV DECREASED GLUCOSE; Start 10/17/17 at 14:00 Glucagon (Glucagen) 1 mg Q15M PRN IM DECREASED GLUCOSE; Start 10/17/17 at 14:00 Glucose (Glutose) 15 gm Q15M PRN BUCCAL DECREASED GLUCOSE; Start 10/17/17 at 14 :00 Zinc Sulfate (Zinc Sulfate) 220 mg DAILY NGT Last administered on 10/21/17 09 :16; Admin Dose 220 MG; Start 10/18/17 at 09:30 Ascorbic Acid 500 mg 500 mg DAILY NGT Last administered on 10/21/17 09:16; Admin Dose 500 MG; Start 10/18/17 at 09:30 Vancomycin HCl (Vancocin) 250 ml @ 125 mls/hr Q24H IVPB Last administered on 10/21/17 01:16; Admin Dose 125 MLS/HR; Start 10/19/17 at 01:00 Lansoprazole (Prevacid) 30 mg DAILY@06 GTB Last administered on 10/21/17 05: 21; Admin Dose 30 MG; Start 10/19/17 at 06:00 Insulin Glargine (Lantus) 28 unit DAILY@20 SC ; Start 10/21/17 at 20:00 Miscellaneous Information (*Rx Drug Level Order Reminder*) VANCO TROUGH @ 0, 000 ON ... ONCE ONCE XX ; Start 10/22/17 at 00:00; Stop 10/22/17 at 00:01 NEHEMIAH HURST NP Oct 21, 2017 15:32
[2017-10-21] MEDS: metFORMIN 500 MG TAB GTB SCH (17:35)
--- NOTE | 2017-10-21 18:01 | CONS ---
Date/Time of Note Date/Time of Note DATE: 10/21/17 TIME: 17:59 Consult Date/Type/Reason Admit Date/Time Oct 15, 2017 at 19:43 Initial Consult Date 10/16/17 Type of Consultation: Pulm Subjective No overnight events. Objective Vital Signs Date Time Temp Pulse Resp B/P Pulse Ox O2 Delivery O2 Flow Rate FiO2 10/21/17 15:33 99.6 92 20 147/81 99 10/21/17 08:45 6.0 35 10/18/17 11:00 Room Air Intake and Output 10/20/17 10/20/17 10/21/17 15:00 23:00 07:00 Intake Total 1490 ml 1800 ml Output Total 1500 ml 850 ml Balance -10 ml 950 ml Exam HEENT: Neck supple; no JVD; no LAD; + trach CVS: RRR, S1 and S2 CHEST: Clear ABD: Soft, NT, + BS EXT: No c/c/e Results/Medications Result Diagram: 10/21/17 0610/21/17 06 Results 24 hrs Laboratory Tests Test 10/20/17 20:53 10/21/17 01:13 10/21/17 05:12 10/21/17 06:01 Bedside Glucose 256 H 213 156 White Blood Count 14.1 H Red Blood Count 3.30 L Hemoglobin 8.2 L Hematocrit 26.6 L Mean Corpuscular Volume 80.6 L Mean Corpuscular Hemoglobin 24.8 L Mean Corpuscular Hemoglobin Concent 30.8 L Red Cell Distribution Width 19.2 H Platelet Count 362 Mean Platelet Volume 9.3 Neutrophils % 69.8 Lymphocytes % 17.2 Monocytes % 10.2 Eosinophils % 0.6 Basophils % 0.1 Nucleated Red Blood Cells % 0.0 Neutrophils # 9.8 H Lymphocytes # 2.4 Monocytes # 1.4 H Eosinophils # 0.1 Basophils # 0.0 Nucleated Red Blood Cells # 0.0 Sodium Level 142 Potassium Level 3.5 Chloride Level 109 Carbon Dioxide Level 26 Anion Gap 11 Blood Urea Nitrogen 17 Creatinine 0.55 L Glucose Level 166 Calcium Level 7.9 L Phosphorus Level 2.4 L Magnesium Level 1.9 Test 10/21/17 06:29 10/21/17 09:14 10/21/17 12:26 10/21/17 17:32 Lab Scanned Report BLOOD TRANSFUSION Bedside Glucose 228 H 225 H 239 H Medications Current Medications Ondansetron HCl (Zofran Inj) 4 mg Q6H PRN IV NAUSEA AND/OR VOMITING Last administered on 10/15/17 19:52; Admin Dose 4 MG; Start 10/15/17 at 20:00 Morphine Sulfate 2 mg 2 mg Q4H PRN IV SEVERE PAIN LEVEL 7-10 Last administered on 10/19/17 05:35; Admin Dose 2 MG; Start 10/15/17 at 20:00 Piperacillin Sod/ Tazobactam Sod (Zosyn 3.375gm/ 50 ml (Pmx)) 50 ml @ 100 mls/ hr Q6 IVPB Last administered on 10/21/17 17:36; Admin Dose 100 MLS/HR; Start 10/16/17 at 00:00 Baclofen (Lioresal) 10 mg TID GTB Last administered on 10/21/17 12:42; Admin Dose 10 MG; Start 10/16/17 at 09:00 Ferrous Sulfate (Feosol Liquid Cup) 300 mg BID GTB Last administered on 09:15; Admin Dose 300 MG; Start 10/16/17 at 09:00 Al Hydrox/Mg Hydrox/Simethicone (Mag-Al Plus) 30 ml Q4H PRN GTB GASTROINTESTINAL UPSET; Start 10/16/17 at 00:00 Sucralfate (Carafate) 1 gm Q6 GTB Last administered on 10/21/17 17:35; Admin Dose 1 GM; Start 10/16/17 at 00:00 Tramadol HCl (Ultram) 50 mg TID GTB Last administered on 10/21/17 12:41; Admin Dose 50 MG; Start 10/16/17 at 09:00 Zolpidem Tartrate (Ambien) 5 mg QHS PRN GTB INSOMNIA Last administered on 22:21; Admin Dose 5 MG; Start 10/16/17 at 00:00 Diagnostic Test (Pha) (Accu-Chek) 1 ea 02 XX ; Start 10/18/17 at 02:00 Insulin Aspart (Novolog Insulin Pen) NOVOLOG *MILD* ALGORI... Q4 SC Last administered on 10/21/17 17:47; Admin Dose 3 UNIT; Start 10/17/17 at 13:00 Miscellaneous Information 1 ea NOTE XX ; Start 10/17/17 at 14:00 Glucose (Glutose) 15 gm Q15M PRN PO DECREASED GLUCOSE; Start 10/17/17 at 14:00 Glucose (Glutose) 22.5 gm Q15M PRN PO DECREASED GLUCOSE; Start 10/17/17 at 14: 00 Dextrose (D50w Syringe) 25 ml Q15M PRN IV DECREASED GLUCOSE; Start 10/17/17 at 14:00 Dextrose (D50w Syringe) 50 ml Q15M PRN IV DECREASED GLUCOSE; Start 10/17/17 at 14:00 Glucagon (Glucagen) 1 mg Q15M PRN IM DECREASED GLUCOSE; Start 10/17/17 at 14:00 Glucose (Glutose) 15 gm Q15M PRN BUCCAL DECREASED GLUCOSE; Start 10/17/17 at 14 :00 Zinc Sulfate (Zinc Sulfate) 220 mg DAILY NGT Last administered on 10/21/17 09 :16; Admin Dose 220 MG; Start 10/18/17 at 09:30 Ascorbic Acid 500 mg 500 mg DAILY NGT Last administered on 10/21/17 09:16; Admin Dose 500 MG; Start 10/18/17 at 09:30 Vancomycin HCl (Vancocin) 250 ml @ 125 mls/hr Q24H IVPB Last administered on 10/21/17 01:16; Admin Dose 125 MLS/HR; Start 10/19/17 at 01:00 Lansoprazole (Prevacid) 30 mg DAILY@06 GTB Last administered on 10/21/17 05: 21; Admin Dose 30 MG; Start 10/19/17 at 06:00 Insulin Glargine (Lantus) 28 unit DAILY@20 SC ; Start 10/21/17 at 20:00 Miscellaneous Information (*Rx Drug Level Order Reminder*) VANCO TROUGH @ 0, 000 ON ... ONCE ONCE XX ; Start 10/22/17 at 00:00; Stop 10/22/17 at 00:01 Assessment/Plan Additional Assessment/Plan IMP: 1. Sepsis from UTI 2. History of quadriplegia--s/p trach 3. Anemia. 4. Diabetes. 5. Acute renal insufficiency with normalization of renal function. 6. Dysphagia status post video swallow evaluation. RECS: 1. Consider Roa evaluation as patient may be candidate for decannulation as tolerating TC well ZELDA ORR MD Oct 21, 2017 18:01
[2017-10-21] MEDS ORDERED: INSULIN GLARGINE [LANtus] 3 ML PEN SC SCH (20:00)
[2017-10-22] VITALS (13 sets, daily range): BP systolic 113–178; BP diastolic 60–107; PULSE 67–80; RESP 16–20
[2017-10-22] MEDS: SUCRALFATE 1 GM TAB GTB SCH ×4 (01:25→18:15)
[2017-10-22] MEDS: PIPER-TAZO 3.375 GM IV (PMX) 50 ML IVPB SCH ×4 (01:26→18:16)
[2017-10-22] MEDS: INSULIN ASPART [NOVOLOG] 3 ML PEN SC SCH ×6 (01:43→21:47)
[2017-10-22] MEDS: VANCOMYCIN 1 GM in NS 250 ML IVPB SCH (01:56)
[2017-10-22] MEDS: ACCU-CHEK XX SCH (02:00)
[2017-10-22] MEDS: LANSOPRAZOLE 30 MG CAP GTB SCH (05:13)
[2017-10-22] MEDS: FERROUS SULFATE 60 MG/ML 5ML CUP GTB SCH ×2 (10:45→21:25)
[2017-10-22] MEDS: ZINC SULFATE 220 MG CAP NGT SCH (10:46)
[2017-10-22] MEDS: BACLOFEN 10 MG TAB GTB SCH ×3 (10:46→21:29)
[2017-10-22] MEDS: ASCORBIC ACID 500 MG TAB NGT SCH (10:46)
--- NOTE | 2017-10-22 11:11 | PN ---
DATE: 10/22/2017 SUBJECTIVE: The patient is stable. No events overnight. OBJECTIVE: VITAL SIGNS: Blood pressure is 150/90, temperature 98.1, respiration is 18, pulse 68. HEENT: Head is normocephalic. NECK: Supple. HEART: Regular rate. LUNGS: Show diminished breath sounds at base. ABDOMEN: Soft, nontender to palpation without rebound or guarding. EXTREMITIES: Negative for clubbing, cyanosis, no edema. DERMATOLOGIC: No rashes. MUSCULOSKELETAL: No joint effusions. NEUROLOGIC: No change in exam. MEDICATIONS: The patient's medications have been reviewed. LABORATORY DATA: Has been reviewed. ASSESSMENT AND PLAN: 1. Nonoliguric acute kidney injury with previous baseline creatinine of 0.5 mg/dL. Etiology of acu te kidney injury was secondary to hemodynamics and sepsis. The patient's renal function has returne d back to baseline. Continue current treatment plan, supportive care, renally dose all meds. 2. Mineral bone disorder. Monitor calcium and phosphorus levels closely. Will replete phosphate i f needed. 3. Anemia. Monitor hemoglobin and hematocrit levels. 4. Sepsis secondary to urinary tract infection. Continue current antibiotic regimen. 5. Chronic respiratory failure, status post trach. Continue current treatment plan. 6. Dysphagia. Status post PEG. Continue tube feeding. 7. Quadriplegia. Continue supportive care. 8. Decubitus wound. Continue wound care. 9. Diabetes. Continue current insulin regimen. Dictated By: REY HOFFMANN DO NR/NTS Conf#: [id number] DID#: [id number] CC: VANCE JOHNSON MD;*EndCC*
[2017-10-22] MEDS: traMADol 50 MG TAB GTB SCH ×3 (11:18→21:25)
--- NOTE | 2017-10-22 11:35 | CONS ---
Date/Time of Note Date/Time of Note DATE: 10/22/17 TIME: 11:34 Consult Date/Type/Reason Admit Date/Time Oct 15, 2017 at 19:43 Initial Consult Date 10/16/17 Type of Consultation: Pulm Subjective Patient remains stable on cool aerosol. Objective Vital Signs Date Time Temp Pulse Resp B/P Pulse Ox O2 Delivery O2 Flow Rate FiO2 10/22/17 11:30 98.0 80 18 178/107 97 10/22/17 02:47 6.0 35 10/18/17 11:00 Room Air Intake and Output 10/21/17 10/21/17 10/22/17 15:00 23:00 07:00 Intake Total 50 ml 1190 ml Output Total 1000 ml Balance 50 ml 190 ml Exam PHYSICAL EXAMINATION GENERAL: Elderly gentleman, on cool aerosol. VITAL SIGNS: see below. HEENT: Pupils equal, round, and reactive to light. Tracheostomy site clean and intact. CARDIAC: S1, S2, 1/6 systolic ejection murmur CHEST: Diminished air entry bilaterally. ABDOMEN: Mildly distended. Bowel sounds present no guarding or rebound EXTREMITIES: No cyanosis, clubbing edema +1 NEUROLOGIC: Generalized weakness Results/Medications Result Diagram: 10/21/17 0601 10/21/17 0601 Results 24 hrs Laboratory Tests Test 10/21/17 12:26 10/21/17 17:32 10/21/17 20:40 10/22/17 00:27 Bedside Glucose 225 H 239 H 174 Vancomycin Level Trough 10.6 Test 10/22/17 01:30 10/22/17 05:17 10/22/17 10:44 Bedside Glucose 180 182 193 Medications Current Medications Ondansetron HCl (Zofran Inj) 4 mg Q6H PRN IV NAUSEA AND/OR VOMITING Last administered on 10/15/17 19:52; Admin Dose 4 MG; Start 10/15/17 at 20:00 Morphine Sulfate 2 mg 2 mg Q4H PRN IV SEVERE PAIN LEVEL 7-10 Last administered on 10/19/17 05:35; Admin Dose 2 MG; Start 10/15/17 at 20:00 Piperacillin Sod/ Tazobactam Sod (Zosyn 3.375gm/ 50 ml (Pmx)) 50 ml @ 100 mls/ hr Q6 IVPB Last administered on 10/22/17 05:14; Admin Dose 100 MLS/HR; Start 10/16/17 at 00:00 Baclofen (Lioresal) 10 mg TID GTB Last administered on 10/22/17 10:46; Admin Dose 10 MG; Start 10/16/17 at 09:00 Ferrous Sulfate (Feosol Liquid Cup) 300 mg BID GTB Last administered on 10:45; Admin Dose 300 MG; Start 10/16/17 at 09:00 Al Hydrox/Mg Hydrox/Simethicone (Mag-Al Plus) 30 ml Q4H PRN GTB GASTROINTESTINAL UPSET; Start 10/16/17 at 00:00 Sucralfate (Carafate) 1 gm Q6 GTB Last administered on 10/22/17 06:38; Admin Dose 1 GM; Start 10/16/17 at 00:00 Tramadol HCl (Ultram) 50 mg TID GTB Last administered on 10/21/17 20:43; Admin Dose 50 MG; Start 10/16/17 at 09:00 Zolpidem Tartrate (Ambien) 5 mg QHS PRN GTB INSOMNIA Last administered on 22:21; Admin Dose 5 MG; Start 10/16/17 at 00:00 Diagnostic Test (Pha) (Accu-Chek) 1 ea 02 XX ; Start 10/18/17 at 02:00 Insulin Aspart (Novolog Insulin Pen) NOVOLOG *MILD* ALGORI... Q4 SC Last administered on 10/22/17 05:22; Admin Dose 1 UNIT; Start 10/17/17 at 13:00 Miscellaneous Information 1 ea NOTE XX ; Start 10/17/17 at 14:00 Glucose (Glutose) 15 gm Q15M PRN PO DECREASED GLUCOSE; Start 10/17/17 at 14:00 Glucose (Glutose) 22.5 gm Q15M PRN PO DECREASED GLUCOSE; Start 10/17/17 at 14: 00 Dextrose (D50w Syringe) 25 ml Q15M PRN IV DECREASED GLUCOSE; Start 10/17/17 at 14:00 Dextrose (D50w Syringe) 50 ml Q15M PRN IV DECREASED GLUCOSE; Start 10/17/17 at 14:00 Glucagon (Glucagen) 1 mg Q15M PRN IM DECREASED GLUCOSE; Start 10/17/17 at 14:00 Glucose (Glutose) 15 gm Q15M PRN BUCCAL DECREASED GLUCOSE; Start 10/17/17 at 14 :00 Zinc Sulfate (Zinc Sulfate) 220 mg DAILY NGT Last administered on 10/22/17 10 :46; Admin Dose 220 MG; Start 10/18/17 at 09:30 Ascorbic Acid (Vitamin C) 500 mg DAILY NGT Last administered on 10/22/17 10: 46; Admin Dose 500 MG; Start 10/18/17 at 09:30 Lansoprazole (Prevacid) 30 mg DAILY@06 GTB Last administered on 10/22/17 05: 13; Admin Dose 30 MG; Start 10/19/17 at 06:00 Insulin Glargine 28 unit 28 unit DAILY@20 SC Last administered on 10/21/17 20 :49; Admin Dose 28 UNIT; Start 10/21/17 at 20:00 Vancomycin HCl/ Sodium Chloride (Vancocin/NS) 250 ml @ 83.333 mls/ hr Q24H IVPB ; Start 10/23/17 at 02:00 Assessment/Plan Chief Complaint/Hosp Course IMP: 1. Sepsis from UTI 2. History of quadriplegia--s/p trach 3. Anemia. 4. Diabetes. 5. Acute renal insufficiency with normalization of renal function. 6. Dysphagia status post video swallow evaluation. RECS: 1. Consider Roa evaluation as patient may be candidate for decannulation as tolerating TC well DC planning. Problems: RUSSEL DE LA CRUZ MD, [facility] Oct 22, 2017 11:35
--- NOTE | 2017-10-22 13:47 | CONS ---
Date/Time of Note Date/Time of Note DATE: 10/22/17 TIME: 13:46 Assessment/Plan Assessment/Plan Chief Complaint/Hosp Course SUBJECTIVE: Alert, feels good, no fevers MICROBIOLOGY: Blood cultures negative. Urine culture grew MDR Proteus INDWELLINGS: Trach, PEG, Mondragon, right femoral triple-lumen catheter. DIAGNOSTICS: Chest x-ray on admission revealed slight improvement in the right basilar pneumonia. ANTIMICROBIALS: 1. Vancomycin. 2. Zosyn. ALLERGIES: LEVAQUIN, reaction unknown. PHYSICAL EXAMINATION: GENERAL: Chronically ill-appearing, elderly man who is in no distress. HEENT: Head atraumatic, normocephalic. Sclerae anicteric. Buccal mucosa dry. NECK: Supple. CHEST: Rise symmetrical. Breath sounds diminished to bases. HEART: S1, S2. ABDOMEN: Soft, bowel tones present. EXTREMITIES: Contractured without cyanosis. ASSESSMENT: 1. Resolving sepsis, status post shock. 2. Urinary tract infection. 3. Unstageable sacral decubitus. 4. Quadriplegia. 5. Chronic respiratory failure and dysphagia. 6. Diabetes. 7. Acute on chronic anemia. PLAN: Remains stable, continue antibiotics for 5 more days, continue pulmonary toilet and local wound care. Follow recommendations of specialists. [facility] staff Problems: Consultation Date/Type/Reason Admit Date/Time Oct 15, 2017 at 19:43 Initial Consult Date 10/16/17 Type of Consultation: id Exam/Review of Systems Vital Signs Vitals Vital Signs Date Time Temp Pulse Resp B/P Pulse Ox O2 Delivery O2 Flow Rate FiO2 10/22/17 12:16 78 10/22/17 11:30 98.0 18 178/107 97 10/22/17 02:47 6.0 35 10/18/17 11:00 Room Air Intake and Output 10/21/17 10/21/17 10/22/17 15:00 23:00 07:00 Intake Total 50 ml 1190 ml Output Total 1000 ml Balance 50 ml 190 ml Results Result Diagram: 10/21/17 0601 10/21/17 0601 Results 24 hrs Laboratory Tests Test 10/21/17 17:32 10/21/17 20:40 10/22/17 00:27 10/22/17 01:30 Bedside Glucose 239 H 174 180 Vancomycin Level Trough 10.6 Test 10/22/17 05:17 10/22/17 10:44 Bedside Glucose 182 193 Medications Medications Current Medications Ondansetron HCl (Zofran Inj) 4 mg Q6H PRN IV NAUSEA AND/OR VOMITING Last administered on 10/15/17 19:52; Admin Dose 4 MG; Start 10/15/17 at 20:00 Morphine Sulfate 2 mg 2 mg Q4H PRN IV SEVERE PAIN LEVEL 7-10 Last administered on 10/19/17 05:35; Admin Dose 2 MG; Start 10/15/17 at 20:00 Piperacillin Sod/ Tazobactam Sod (Zosyn 3.375gm/ 50 ml (Pmx)) 50 ml @ 100 mls/ hr Q6 IVPB Last administered on 10/22/17 11:18; Admin Dose 100 MLS/HR; Start 10/16/17 at 00:00 Baclofen (Lioresal) 10 mg TID GTB Last administered on 10/22/17 13:40; Admin Dose 10 MG; Start 10/16/17 at 09:00 Ferrous Sulfate (Feosol Liquid Cup) 300 mg BID GTB Last administered on 10:45; Admin Dose 300 MG; Start 10/16/17 at 09:00 Al Hydrox/Mg Hydrox/Simethicone (Mag-Al Plus) 30 ml Q4H PRN GTB GASTROINTESTINAL UPSET; Start 10/16/17 at 00:00 Sucralfate (Carafate) 1 gm Q6 GTB Last administered on 10/22/17 13:40; Admin Dose 1 GM; Start 10/16/17 at 00:00 Tramadol HCl (Ultram) 50 mg TID GTB Last administered on 10/22/17 11:18; Admin Dose 50 MG; Start 10/16/17 at 09:00 Zolpidem Tartrate (Ambien) 5 mg QHS PRN GTB INSOMNIA Last administered on 22:21; Admin Dose 5 MG; Start 10/16/17 at 00:00 Diagnostic Test (Pha) (Accu-Chek) 1 ea 02 XX ; Start 10/18/17 at 02:00 Insulin Aspart (Novolog Insulin Pen) NOVOLOG *MILD* ALGORI... Q4 SC Last administered on 10/22/17 12:02; Admin Dose 2 UNIT; Start 10/17/17 at 13:00 Miscellaneous Information 1 ea NOTE XX ; Start 10/17/17 at 14:00 Glucose (Glutose) 15 gm Q15M PRN PO DECREASED GLUCOSE; Start 10/17/17 at 14:00 Glucose (Glutose) 22.5 gm Q15M PRN PO DECREASED GLUCOSE; Start 10/17/17 at 14: 00 Dextrose (D50w Syringe) 25 ml Q15M PRN IV DECREASED GLUCOSE; Start 10/17/17 at 14:00 Dextrose (D50w Syringe) 50 ml Q15M PRN IV DECREASED GLUCOSE; Start 10/17/17 at 14:00 Glucagon (Glucagen) 1 mg Q15M PRN IM DECREASED GLUCOSE; Start 10/17/17 at 14:00 Glucose (Glutose) 15 gm Q15M PRN BUCCAL DECREASED GLUCOSE; Start 10/17/17 at 14 :00 Zinc Sulfate (Zinc Sulfate) 220 mg DAILY NGT Last administered on 10/22/17 10 :46; Admin Dose 220 MG; Start 10/18/17 at 09:30 Ascorbic Acid (Vitamin C) 500 mg DAILY NGT Last administered on 10/22/17 10: 46; Admin Dose 500 MG; Start 10/18/17 at 09:30 Lansoprazole (Prevacid) 30 mg DAILY@06 GTB Last administered on 10/22/17 05: 13; Admin Dose 30 MG; Start 10/19/17 at 06:00 Insulin Glargine 28 unit 28 unit DAILY@20 SC Last administered on 10/21/17 20 :49; Admin Dose 28 UNIT; Start 10/21/17 at 20:00 Vancomycin HCl/ Sodium Chloride (Vancocin/NS) 250 ml @ 83.333 mls/ hr Q24H IVPB ; Start 10/23/17 at 02:00 ADI ENNIS NP Oct 22, 2017 13:47
--- NOTE | 2017-10-22 16:03 | PN ---
Date/Time of Note Date/Time of Note DATE: 10/22/17 TIME: 16:03 Assessment/Plan VTE Prophylaxis VTE Prophylaxis Intervention: SCD's Lines/Catheters IV Catheter Type (from Nrsg): Central Line Central line still needed: Yes Urinary Cath still in place: Yes Reason Cath still needed: skin wounds contaminated by urine Assessment/Plan Assessment/Plan 1. Severe sepsis versus septic shock- resolving - Patients condition has improved and BP stable - Pneumonia and UTI source - ID on board and recommendations appreciated. Plans for Zosyn for 5 more days 2. Anemia, microcytic - Currently on iron per GTB and H/H stable - Will continue monitoring - No signs of active bleeding - Likely component of volume resuscitation, and partially secondary to anemia of chronic disease 3. Acute kidney injury- Resolved - Nephrology consult appreciated 4. Electrolyte derangement - Replete as needed 5. Chronic trach dependent respiratory failure - Secondary to quadriplegic nature status post fall - Passy-Coldwater valve - Pulmonary on board and recommendations appreciated - Pending placement for decannulation 6. Dysphasia - PEG in place - Per Speech therapy, risk of aspiration with thin or pureed diet. Okay for ice chips and small amount of nectar for oral gratification 7. Quadriplegia - Status post fall 8. Sacral decubitus ulcer - Chronic, infectious disease recommended is appreciated - Wound care - patient refused wound care per wound nurse on sacral decubitus - other wound bandaged and cleaned 9. Type 2 diabetes - Lantus increased to 30 units today for better control -Insulin sliding scale and accucheck. will continue adjusting as needed 10. Disposition - 4 more days for Zosyn - CM on board for placement for decannulation Subjective 24 Hr Interval Summary Free Text/Dictation Patient doing well and has no complaints at this time. Agreeable with current plan to find him placement for decannulation. No acute overnight events Exam/Review of Systems Vital Signs Vitals Vital Signs Date Time Temp Pulse Resp B/P Pulse Ox O2 Delivery O2 Flow Rate FiO2 10/22/17 15:49 98.2 76 16 128/84 97 10/22/17 02:47 6.0 35 10/18/17 11:00 Room Air Intake and Output 10/21/17 10/21/17 10/22/17 15:00 23:00 07:00 Intake Total 50 ml 1190 ml Output Total 1000 ml Balance 50 ml 190 ml Exam General: Patient is laying in bed and answers questions appropriately. quadraplegic, peg/trach(passy imani valve) Mentation: Patient is alert and oriented 4, Head: Normocephalic atraumatic Eyes: EOMI, pupils reactive to light Neck: Supple, nontender, midline Respiratory: diminished to auscultation bilaterally. no wheezing Cardiovascular: regular rate, no obvious murmurs Gastrointestinal: non-tender to palpation, bowel sounds heard. peg tube Neurological: no sensation or motor in extremities Skin: No new skin lesions, chronic sacral decubitus Results Result Diagram: 10/21/17 0610/21/17 06 Results 24 hrs Laboratory Tests Test 10/21/17 17:32 10/21/17 20:40 10/22/17 00:27 10/22/17 01:30 Bedside Glucose 239 H 174 180 Vancomycin Level Trough 10.6 Test 10/22/17 05:17 10/22/17 10:44 10/22/17 13:49 Bedside Glucose 182 193 161 Medications Medications Current Medications Ondansetron HCl (Zofran Inj) 4 mg Q6H PRN IV NAUSEA AND/OR VOMITING Last administered on 10/15/17 19:52; Admin Dose 4 MG; Start 10/15/17 at 20:00 Morphine Sulfate 2 mg 2 mg Q4H PRN IV SEVERE PAIN LEVEL 7-10 Last administered on 10/19/17 05:35; Admin Dose 2 MG; Start 10/15/17 at 20:00 Piperacillin Sod/ Tazobactam Sod (Zosyn 3.375gm/ 50 ml (Pmx)) 50 ml @ 100 mls/ hr Q6 IVPB Last administered on 10/22/17 11:18; Admin Dose 100 MLS/HR; Start 10/16/17 at 00:00 Baclofen (Lioresal) 10 mg TID GTB Last administered on 10/22/17 13:40; Admin Dose 10 MG; Start 10/16/17 at 09:00 Ferrous Sulfate (Feosol Liquid Cup) 300 mg BID GTB Last administered on 10:45; Admin Dose 300 MG; Start 10/16/17 at 09:00 Al Hydrox/Mg Hydrox/Simethicone (Mag-Al Plus) 30 ml Q4H PRN GTB GASTROINTESTINAL UPSET; Start 10/16/17 at 00:00 Sucralfate (Carafate) 1 gm Q6 GTB Last administered on 10/22/17 13:40; Admin Dose 1 GM; Start 10/16/17 at 00:00 Tramadol HCl (Ultram) 50 mg TID GTB Last administered on 10/22/17 13:59; Admin Dose 50 MG; Start 10/16/17 at 09:00 Zolpidem Tartrate (Ambien) 5 mg QHS PRN GTB INSOMNIA Last administered on 22:21; Admin Dose 5 MG; Start 10/16/17 at 00:00 Diagnostic Test (Pha) (Accu-Chek) 1 ea 02 XX ; Start 10/18/17 at 02:00 Insulin Aspart (Novolog Insulin Pen) NOVOLOG *MILD* ALGORI... Q4 SC Last administered on 10/22/17 13:57; Admin Dose 1 UNIT; Start 10/17/17 at 13:00 Miscellaneous Information 1 ea NOTE XX ; Start 10/17/17 at 14:00 Glucose (Glutose) 15 gm Q15M PRN PO DECREASED GLUCOSE; Start 10/17/17 at 14:00 Glucose (Glutose) 22.5 gm Q15M PRN PO DECREASED GLUCOSE; Start 10/17/17 at 14: 00 Dextrose (D50w Syringe) 25 ml Q15M PRN IV DECREASED GLUCOSE; Start 10/17/17 at 14:00 Dextrose (D50w Syringe) 50 ml Q15M PRN IV DECREASED GLUCOSE; Start 10/17/17 at 14:00 Glucagon (Glucagen) 1 mg Q15M PRN IM DECREASED GLUCOSE; Start 10/17/17 at 14:00 Glucose (Glutose) 15 gm Q15M PRN BUCCAL DECREASED GLUCOSE; Start 10/17/17 at 14 :00 Zinc Sulfate (Zinc Sulfate) 220 mg DAILY NGT Last administered on 10/22/17 10 :46; Admin Dose 220 MG; Start 10/18/17 at 09:30 Ascorbic Acid (Vitamin C) 500 mg DAILY NGT Last administered on 10/22/17 10: 46; Admin Dose 500 MG; Start 10/18/17 at 09:30 Lansoprazole (Prevacid) 30 mg DAILY@06 GTB Last administered on 10/22/17 05: 13; Admin Dose 30 MG; Start 10/19/17 at 06:00 Insulin Glargine 28 unit 28 unit DAILY@20 SC Last administered on 10/21/17 20 :49; Admin Dose 28 UNIT; Start 10/21/17 at 20:00 Vancomycin HCl/ Sodium Chloride (Vancocin/NS) 250 ml @ 83.333 mls/ hr Q24H IVPB ; Start 10/23/17 at 02:00 FLORIDA CATES MD Oct 22, 2017 16:03
[2017-10-22] MEDS: metFORMIN 500 MG TAB GTB SCH (18:16)
[2017-10-22] MEDS: INSULIN GLARGINE [LANtus] 3 ML PEN SC SCH (21:47)
[2017-10-23] VITALS (12 sets, daily range): BP systolic 111–163; BP diastolic 60–87; PULSE 66–78; RESP 18–20
[2017-10-23] MEDS: PIPER-TAZO 3.375 GM IV (PMX) 50 ML IVPB SCH ×4 (00:35→17:39)
[2017-10-23] MEDS: SUCRALFATE 1 GM TAB GTB SCH ×4 (00:38→17:42)
[2017-10-23] MEDS: INSULIN ASPART [NOVOLOG] 3 ML PEN SC SCH ×6 (00:43→20:37)
[2017-10-23] MEDS: ACCU-CHEK XX SCH (01:37)
[2017-10-23] MEDS: VANCOMYCIN 1.25 GM in SOD CHLORIDE 0.9% 250 ML IVPB SCH (01:37)
[2017-10-23] MEDS: LANSOPRAZOLE 30 MG CAP GTB SCH (05:12)
[2017-10-23 07:09] LABS: BASOPHILS % 0.3 % (0.0-2.0); EOSINOPHILS # 0.4 10^3/ul (0.0-0.5); EOSINOPHILS % 2.8 % (0.0-7.0); HEMATOCRIT 31.8 % (42.0-52.0); HEMOGLOBIN 9.8 g/dl (14.0-18.0); MEAN CORPUSCULAR HEMOGLOBIN 24.5 pg (29.0-33.0); MEAN CORPUSCULAR HGB CONC 30.8 g/dl (32.0-37.0); MEAN CORPUSCULAR VOLUME 79.5 fl (82.0-101.0); MEAN PLATELET VOLUME 9.2 fl (7.4-10.4); MONOCYTE # 1.3 10^3/ul (0.3-0.9); MONOCYTES % 8.5 % (0.0-11.0); NEUTROPHIL # 10.5 10^3/ul (1.6-7.5); NEUTROPHILS % 67.9 % (39.0-77.0); PLATELET COUNT 394 10^3/UL (140-415); WHITE BLOOD COUNT 15.5 10^3/ul (4.8-10.8)
[2017-10-23 07:41] LABS: ALBUMIN 2.5 g/dl (3.3-4.9); CALCIUM 8.2 mg/dl (8.4-10.2); CREATININE 0.57 mg/dl (0.61-1.24); MAGNESIUM 1.8 mg/dl (1.7-2.5); POTASSIUM 3.9 mmol/L (3.5-5.1)
[2017-10-23] MEDS: ASCORBIC ACID 500 MG TAB NGT SCH (09:40)
[2017-10-23] MEDS: ZINC SULFATE 220 MG CAP NGT SCH (09:40)
[2017-10-23] MEDS: BACLOFEN 10 MG TAB GTB SCH ×3 (09:40→20:23)
[2017-10-23] MEDS: FERROUS SULFATE 60 MG/ML 5ML CUP GTB SCH ×2 (09:40→20:38)
[2017-10-23] MEDS: traMADol 50 MG TAB GTB SCH ×3 (09:42→20:23)
--- NOTE | 2017-10-23 11:03 | PN ---
DATE: 10/23/2017 SUBJECTIVE: The patient is stable. No events overnight. No fevers, chills, nausea, vomiting. OBJECTIVE: VITAL SIGNS: Blood pressure is 124/79, respiration 18, pulse 63, temperature 98.8. HEENT: Head is normocephalic. NECK: Supple. HEART: Regular rate. LUNGS: Show diminished breath sounds at base. ABDOMEN: Soft, nontender to palpation. No rebound or guarding. EXTREMITIES: Negative for clubbing, cyanosis, no edema. DERMATOLOGIC: No rashes. MUSCULOSKELETAL: No joint effusions. NEUROLOGIC: No change in exam. MEDICATIONS: The patient's medications have been reviewed. LABORATORY DATA: Shows white count 15.5, hemoglobin 9.8, hematocrit 31.8, platelet count is 394. S odium 136, BUN 21, creatinine 0.57. ASSESSMENT AND PLAN: 1. Nonoliguric acute kidney injury with previous baseline creatinine of 0.5 mg/dL. Etiology is sec ondary to hemodynamics, sepsis. Renal function has returned back to baseline. Continue current nina atment plan. 2. Mineral bone disorder. Continue to monitor calcium and phosphorus levels. 3. Anemia. Monitor hemoglobin and hematocrit levels. 4. Sepsis secondary to urinary tract infection. Continue current antibiotic regimen. 5. Chronic respiratory failure, status post trach. Continue current treatment plan. 6. Dysphagia, status post percutaneous endoscopic gastrostomy. Continue tube feeds. 7. Quadriplegia. 8. Decubitus wound. Continue wound care. 9. Diabetes. Continue current insulin regimen. Dictated By: REY SALDANA/NTS Conf#: [id number] DID#: [id number] CC: VANCE JOHNSON MD;*EndCC*
--- NOTE | 2017-10-23 11:21 | CONS ---
Date/Time of Note Date/Time of Note DATE: 10/23/17 TIME: 11:19 Consult Date/Type/Reason Admit Date/Time Oct 15, 2017 at 19:43 Initial Consult Date 10/16/17 Type of Consultation: Pulm Subjective Comfortable, not able to phonate with current trach. Objective Vital Signs Date Time Temp Pulse Resp B/P Pulse Ox O2 Delivery O2 Flow Rate FiO2 10/23/17 08:40 98.2 67 20 128/78 94 10/23/17 03:08 5.0 28 Intake and Output 10/22/17 10/22/17 10/23/17 15:00 23:00 07:00 Intake Total 960 ml 1300 ml 1790 ml Output Total 500 ml 1275 ml 1800 ml Balance 460 ml 25 ml -10 ml Exam PHYSICAL EXAMINATION GENERAL: Elderly gentleman, on cool aerosol. VITAL SIGNS: see below. HEENT: Pupils equal, round, and reactive to light. Tracheostomy site clean and intact. CARDIAC: S1, S2, 1/6 systolic ejection murmur CHEST: Diminished air entry bilaterally. ABDOMEN: Mildly distended. Bowel sounds present no guarding or rebound EXTREMITIES: No cyanosis, clubbing edema +1 NEUROLOGIC: Generalized weakness Results/Medications Result Diagram: 10/23/17 0634 10/23/17 0634 Results 24 hrs Laboratory Tests Test 10/22/17 13:49 10/22/17 18:14 10/22/17 21:28 10/23/17 00:42 Bedside Glucose 161 159 154 133 Test 10/23/17 05:17 10/23/17 06:34 10/23/17 08:20 Bedside Glucose 130 167 White Blood Count 15.5 H Red Blood Count 4.00 #L Hemoglobin 9.8 L Hematocrit 31.8 L Mean Corpuscular Volume 79.5 L Mean Corpuscular Hemoglobin 24.5 L Mean Corpuscular Hemoglobin Concent 30.8 L Red Cell Distribution Width 19.0 H Platelet Count 394 Mean Platelet Volume 9.2 Neutrophils % 67.9 Lymphocytes % 19.0 Monocytes % 8.5 Eosinophils % 2.8 Basophils % 0.3 Nucleated Red Blood Cells % 0.0 Neutrophils # 10.5 H Lymphocytes # 3.0 H Monocytes # 1.3 H Eosinophils # 0.4 Basophils # 0.0 Nucleated Red Blood Cells # 0.0 Sodium Level 136 Potassium Level 3.9 Chloride Level 103 Carbon Dioxide Level 26 Anion Gap 11 Blood Urea Nitrogen 21 H Creatinine 0.57 L Glucose Level 120 Calcium Level 8.2 L Phosphorus Level 3.0 Magnesium Level 1.8 Albumin 2.5 L Medications Current Medications Ondansetron HCl (Zofran Inj) 4 mg Q6H PRN IV NAUSEA AND/OR VOMITING Last administered on 10/15/17 19:52; Admin Dose 4 MG; Start 10/15/17 at 20:00 Morphine Sulfate 2 mg 2 mg Q4H PRN IV SEVERE PAIN LEVEL 7-10 Last administered on 10/19/17 05:35; Admin Dose 2 MG; Start 10/15/17 at 20:00 Piperacillin Sod/ Tazobactam Sod (Zosyn 3.375gm/ 50 ml (Pmx)) 50 ml @ 100 mls/ hr Q6 IVPB Last administered on 10/23/17 05:10; Admin Dose 100 MLS/HR; Start 10/16/17 at 00:00 Baclofen (Lioresal) 10 mg TID GTB Last administered on 10/23/17 09:40; Admin Dose 10 MG; Start 10/16/17 at 09:00 Ferrous Sulfate (Feosol Liquid Cup) 300 mg BID GTB Last administered on 09:40; Admin Dose 300 MG; Start 10/16/17 at 09:00 Al Hydrox/Mg Hydrox/Simethicone (Mag-Al Plus) 30 ml Q4H PRN GTB GASTROINTESTINAL UPSET; Start 10/16/17 at 00:00 Sucralfate (Carafate) 1 gm Q6 GTB Last administered on 10/23/17 05:12; Admin Dose 1 GM; Start 10/16/17 at 00:00 Tramadol HCl (Ultram) 50 mg TID GTB Last administered on 10/23/17 09:42; Admin Dose 50 MG; Start 10/16/17 at 09:00 Zolpidem Tartrate (Ambien) 5 mg QHS PRN GTB INSOMNIA Last administered on 22:21; Admin Dose 5 MG; Start 10/16/17 at 00:00 Diagnostic Test (Pha) (Accu-Chek) 1 ea 02 XX ; Start 10/18/17 at 02:00 Insulin Aspart (Novolog Insulin Pen) NOVOLOG *MILD* ALGORI... Q4 SC Last administered on 10/23/17 08:24; Admin Dose 1 UNIT; Start 10/17/17 at 13:00 Miscellaneous Information 1 ea NOTE XX ; Start 10/17/17 at 14:00 Glucose (Glutose) 15 gm Q15M PRN PO DECREASED GLUCOSE; Start 10/17/17 at 14:00 Glucose (Glutose) 22.5 gm Q15M PRN PO DECREASED GLUCOSE; Start 10/17/17 at 14: 00 Dextrose (D50w Syringe) 25 ml Q15M PRN IV DECREASED GLUCOSE; Start 10/17/17 at 14:00 Dextrose (D50w Syringe) 50 ml Q15M PRN IV DECREASED GLUCOSE; Start 10/17/17 at 14:00 Glucagon (Glucagen) 1 mg Q15M PRN IM DECREASED GLUCOSE; Start 10/17/17 at 14:00 Glucose (Glutose) 15 gm Q15M PRN BUCCAL DECREASED GLUCOSE; Start 10/17/17 at 14 :00 Zinc Sulfate (Zinc Sulfate) 220 mg DAILY NGT Last administered on 10/23/17 09 :40; Admin Dose 220 MG; Start 10/18/17 at 09:30 Ascorbic Acid (Vitamin C) 500 mg DAILY NGT Last administered on 10/23/17 09: 40; Admin Dose 500 MG; Start 10/18/17 at 09:30 Lansoprazole 30 mg 30 mg DAILY@06 GTB Last administered on 10/23/17 05:12; Admin Dose 30 MG; Start 10/19/17 at 06:00 Vancomycin HCl/ Sodium Chloride (Vancocin/NS) 250 ml @ 83.333 mls/ hr Q24H IVPB Last administered on 10/23/17 01:37; Admin Dose 83.333 MLS/HR; Start at 02:00 Insulin Glargine (Lantus) 30 unit DAILY@20 SC Last administered on 10/22/17 21:47; Admin Dose 30 UNIT; Start 10/22/17 at 20:00 Assessment/Plan Chief Complaint/Hosp Course IMP: 1. Sepsis from UTI 2. History of quadriplegia--s/p trach 3. Anemia. 4. Diabetes. 5. Acute renal insufficiency with normalization of renal function. 6. Dysphagia status post video swallow evaluation. RECS: 1. Consider Roa evaluation as patient may be candidate for decannulation as tolerating TC well dc ST change trach to bandarley 6 uncuffed and PMV trials. Problems: RUSSEL DE LA CRUZ MD, [facility] Oct 23, 2017 11:21
--- NOTE | 2017-10-23 14:05 | PN ---
Date/Time of Note Date/Time of Note DATE: 10/23/17 TIME: 13:59 Assessment/Plan VTE Prophylaxis VTE Prophylaxis Intervention: SCD's Lines/Catheters IV Catheter Type (from Nrsg): Central Line Central line still needed: Yes Urinary Cath still in place: Yes Reason Cath still needed: terminal illness/intractable pain Assessment/Plan Assessment/Plan 1. Severe sepsis versus septic shock- resolving - Patients condition has stabilized - Pneumonia and UTI source - ID on board and recommendations appreciated. Plans for Zosyn for 4 more days 2. Anemia, microcytic - Currently on iron per GTB and H/H improving - Will continue monitoring - No signs of active bleeding - Likely component of volume resuscitation, and partially secondary to anemia of chronic disease 3. Acute kidney injury- Resolved - Nephrology consult appreciated 4. Electrolyte derangement - Replete as needed 5. Chronic trach dependent respiratory failure - Secondary to quadriplegic nature status post fall - Passy-Tigrett valve - Pulmonary on board and recommendations appreciated 6. Dysphasia - PEG in place - Per Speech therapy, risk of aspiration with thin or pureed diet. Okay for ice chips and small amount of nectar for oral gratification 7. Quadriplegia - Status post fall 8. Sacral decubitus ulcer - Chronic, infectious disease recommended is appreciated - Wound care - patient refused wound care per wound nurse on sacral decubitus - other wound bandaged and cleaned 9. Type 2 diabetes - Glucose well controlled on Lantus 30 - Insulin sliding scale and accucheck. will continue adjusting as needed 10. Disposition - 4 more days for Zosyn - CM on board for placement to subacute. Medically stable for discharge once accepted to facility Subjective 24 Hr Interval Summary Free Text/Dictation Patient has no new complaints and in no acute distress. Denies any respiratory distress. Plans for trach change today Exam/Review of Systems Vital Signs Vitals Vital Signs Date Time Temp Pulse Resp B/P Pulse Ox O2 Delivery O2 Flow Rate FiO2 10/23/17 12:13 67 10/23/17 11:59 98.0 20 163/87 98 10/23/17 10:35 Aerosol 28 10/23/17 03:08 5.0 Intake and Output 10/22/17 10/22/17 10/23/17 15:00 23:00 07:00 Intake Total 960 ml 1300 ml 1790 ml Output Total 500 ml 1275 ml 1800 ml Balance 460 ml 25 ml -10 ml Exam General: Patient is laying in bed and answers questions appropriately. no acute distress. quadraplegic, peg/trach (passy imani valve) Mentation: Patient is alert and oriented 4, Head: Normocephalic atraumatic Eyes: EOMI, pupils reactive to light Neck: Supple, nontender, midline Respiratory: diminished to auscultation bilaterally. no wheezing Cardiovascular: regular rate, no obvious murmurs Gastrointestinal: non-tender to palpation, bowel sounds heard. peg tube Neurological: no sensation or motor in extremities Skin: No new skin lesions, chronic sacral decubitus Results Result Diagram: 10/23/17 0634 10/23/17 0634 Results 24 hrs Laboratory Tests Test 10/22/17 18:14 10/22/17 21:28 10/23/17 00:42 10/23/17 05:17 Bedside Glucose 159 154 133 130 Test 10/23/17 06:34 10/23/17 08:20 White Blood Count 15.5 H Red Blood Count 4.00 #L Hemoglobin 9.8 L Hematocrit 31.8 L Mean Corpuscular Volume 79.5 L Mean Corpuscular Hemoglobin 24.5 L Mean Corpuscular Hemoglobin Concent 30.8 L Red Cell Distribution Width 19.0 H Platelet Count 394 Mean Platelet Volume 9.2 Neutrophils % 67.9 Lymphocytes % 19.0 Monocytes % 8.5 Eosinophils % 2.8 Basophils % 0.3 Nucleated Red Blood Cells % 0.0 Neutrophils # 10.5 H Lymphocytes # 3.0 H Monocytes # 1.3 H Eosinophils # 0.4 Basophils # 0.0 Nucleated Red Blood Cells # 0.0 Sodium Level 136 Potassium Level 3.9 Chloride Level 103 Carbon Dioxide Level 26 Anion Gap 11 Blood Urea Nitrogen 21 H Creatinine 0.57 L Glucose Level 120 Calcium Level 8.2 L Phosphorus Level 3.0 Magnesium Level 1.8 Albumin 2.5 L Bedside Glucose 167 Medications Medications Current Medications Ondansetron HCl (Zofran Inj) 4 mg Q6H PRN IV NAUSEA AND/OR VOMITING Last administered on 10/15/17 19:52; Admin Dose 4 MG; Start 10/15/17 at 20:00 Morphine Sulfate 2 mg 2 mg Q4H PRN IV SEVERE PAIN LEVEL 7-10 Last administered on 10/19/17 05:35; Admin Dose 2 MG; Start 10/15/17 at 20:00 Piperacillin Sod/ Tazobactam Sod (Zosyn 3.375gm/ 50 ml (Pmx)) 50 ml @ 100 mls/ hr Q6 IVPB Last administered on 10/23/17 11:35; Admin Dose 100 MLS/HR; Start 10/16/17 at 00:00 Baclofen (Lioresal) 10 mg TID GTB Last administered on 10/23/17 09:40; Admin Dose 10 MG; Start 10/16/17 at 09:00 Ferrous Sulfate (Feosol Liquid Cup) 300 mg BID GTB Last administered on 09:40; Admin Dose 300 MG; Start 10/16/17 at 09:00 Al Hydrox/Mg Hydrox/Simethicone (Mag-Al Plus) 30 ml Q4H PRN GTB GASTROINTESTINAL UPSET; Start 10/16/17 at 00:00 Sucralfate (Carafate) 1 gm Q6 GTB Last administered on 10/23/17 11:35; Admin Dose 1 GM; Start 10/16/17 at 00:00 Tramadol HCl (Ultram) 50 mg TID GTB Last administered on 10/23/17 09:42; Admin Dose 50 MG; Start 10/16/17 at 09:00 Zolpidem Tartrate (Ambien) 5 mg QHS PRN GTB INSOMNIA Last administered on 22:21; Admin Dose 5 MG; Start 10/16/17 at 00:00 Diagnostic Test (Pha) (Accu-Chek) 1 ea 02 XX ; Start 10/18/17 at 02:00 Insulin Aspart (Novolog Insulin Pen) NOVOLOG *MILD* ALGORI... Q4 SC Last administered on 10/23/17 08:24; Admin Dose 1 UNIT; Start 10/17/17 at 13:00 Miscellaneous Information 1 ea NOTE XX ; Start 10/17/17 at 14:00 Glucose (Glutose) 15 gm Q15M PRN PO DECREASED GLUCOSE; Start 10/17/17 at 14:00 Glucose (Glutose) 22.5 gm Q15M PRN PO DECREASED GLUCOSE; Start 10/17/17 at 14: 00 Dextrose (D50w Syringe) 25 ml Q15M PRN IV DECREASED GLUCOSE; Start 10/17/17 at 14:00 Dextrose (D50w Syringe) 50 ml Q15M PRN IV DECREASED GLUCOSE; Start 10/17/17 at 14:00 Glucagon (Glucagen) 1 mg Q15M PRN IM DECREASED GLUCOSE; Start 10/17/17 at 14:00 Glucose (Glutose) 15 gm Q15M PRN BUCCAL DECREASED GLUCOSE; Start 10/17/17 at 14 :00 Zinc Sulfate (Zinc Sulfate) 220 mg DAILY NGT Last administered on 10/23/17 09 :40; Admin Dose 220 MG; Start 10/18/17 at 09:30 Ascorbic Acid (Vitamin C) 500 mg DAILY NGT Last administered on 10/23/17 09: 40; Admin Dose 500 MG; Start 10/18/17 at 09:30 Lansoprazole 30 mg 30 mg DAILY@06 GTB Last administered on 10/23/17 05:12; Admin Dose 30 MG; Start 10/19/17 at 06:00 Vancomycin HCl/ Sodium Chloride (Vancocin/NS) 250 ml @ 83.333 mls/ hr Q24H IVPB Last administered on 10/23/17 01:37; Admin Dose 83.333 MLS/HR; Start at 02:00 Insulin Glargine (Lantus) 30 unit DAILY@20 SC Last administered on 10/22/17 21:47; Admin Dose 30 UNIT; Start 10/22/17 at 20:00 FLORIDA CATES MD Oct 23, 2017 14:05
[2017-10-23] MEDS: ONDANSETRON 4 MG INJ IV PRN (15:54)
--- NOTE | 2017-10-23 15:54 | CONS ---
Date/Time of Note Date/Time of Note DATE: 10/23/17 TIME: 15:53 Assessment/Plan Assessment/Plan Chief Complaint/Hosp Course SUBJECTIVE: Alert, feels good, no fevers, no n/v/d MICROBIOLOGY: Blood cultures negative. Urine culture grew MDR Proteus INDWELLINGS: Trach, PEG, Mondragon, right femoral triple-lumen catheter. DIAGNOSTICS: Chest x-ray on admission revealed slight improvement in the right basilar pneumonia. ANTIMICROBIALS: 1. Vancomycin. 2. Zosyn. ALLERGIES: LEVAQUIN, reaction unknown. PHYSICAL EXAMINATION: GENERAL: Chronically ill-appearing, elderly man who is in no distress. HEENT: Head atraumatic, normocephalic. Sclerae anicteric. Buccal mucosa dry. NECK: Supple. CHEST: Rise symmetrical. Breath sounds diminished to bases. HEART: S1, S2. ABDOMEN: Soft, bowel tones present. EXTREMITIES: Contractured without cyanosis. ASSESSMENT: 1. Resolving sepsis, status post shock. 2. Urinary tract infection. 3. Unstageable sacral decubitus. 4. Quadriplegia. 5. Chronic respiratory failure and dysphagia. 6. Diabetes. 7. Acute on chronic anemia. PLAN: Remains stable, continue antibiotics for 4 more days, continue pulmonary toilet and local wound care. Follow recommendations of specialists. [facility] staff Problems: Consultation Date/Type/Reason Admit Date/Time Oct 15, 2017 at 19:43 Initial Consult Date 10/16/17 Type of Consultation: id Exam/Review of Systems Vital Signs Vitals Vital Signs Date Time Temp Pulse Resp B/P Pulse Ox O2 Delivery O2 Flow Rate FiO2 10/23/17 15:51 98.0 74 18 157/83 97 10/23/17 10:35 Aerosol 28 10/23/17 03:08 5.0 Intake and Output 10/22/17 10/22/17 10/23/17 15:00 23:00 07:00 Intake Total 960 ml 1300 ml 1790 ml Output Total 500 ml 1275 ml 1800 ml Balance 460 ml 25 ml -10 ml Results Result Diagram: 10/23/17 0634 10/23/17 0634 Results 24 hrs Laboratory Tests Test 10/22/17 18:14 10/22/17 21:28 10/23/17 00:42 10/23/17 05:17 Bedside Glucose 159 154 133 130 Test 10/23/17 06:34 10/23/17 08:20 10/23/17 14:09 White Blood Count 15.5 H Red Blood Count 4.00 #L Hemoglobin 9.8 L Hematocrit 31.8 L Mean Corpuscular Volume 79.5 L Mean Corpuscular Hemoglobin 24.5 L Mean Corpuscular Hemoglobin Concent 30.8 L Red Cell Distribution Width 19.0 H Platelet Count 394 Mean Platelet Volume 9.2 Neutrophils % 67.9 Lymphocytes % 19.0 Monocytes % 8.5 Eosinophils % 2.8 Basophils % 0.3 Nucleated Red Blood Cells % 0.0 Neutrophils # 10.5 H Lymphocytes # 3.0 H Monocytes # 1.3 H Eosinophils # 0.4 Basophils # 0.0 Nucleated Red Blood Cells # 0.0 Sodium Level 136 Potassium Level 3.9 Chloride Level 103 Carbon Dioxide Level 26 Anion Gap 11 Blood Urea Nitrogen 21 H Creatinine 0.57 L Glucose Level 120 Calcium Level 8.2 L Phosphorus Level 3.0 Magnesium Level 1.8 Albumin 2.5 L Bedside Glucose 167 181 Medications Medications Current Medications Ondansetron HCl (Zofran Inj) 4 mg Q6H PRN IV NAUSEA AND/OR VOMITING Last administered on 10/15/17 19:52; Admin Dose 4 MG; Start 10/15/17 at 20:00 Morphine Sulfate 2 mg 2 mg Q4H PRN IV SEVERE PAIN LEVEL 7-10 Last administered on 10/19/17 05:35; Admin Dose 2 MG; Start 10/15/17 at 20:00 Piperacillin Sod/ Tazobactam Sod (Zosyn 3.375gm/ 50 ml (Pmx)) 50 ml @ 100 mls/ hr Q6 IVPB Last administered on 10/23/17 11:35; Admin Dose 100 MLS/HR; Start 10/16/17 at 00:00 Baclofen (Lioresal) 10 mg TID GTB Last administered on 10/23/17 14:08; Admin Dose 10 MG; Start 10/16/17 at 09:00 Ferrous Sulfate (Feosol Liquid Cup) 300 mg BID GTB Last administered on 09:40; Admin Dose 300 MG; Start 10/16/17 at 09:00 Al Hydrox/Mg Hydrox/Simethicone (Mag-Al Plus) 30 ml Q4H PRN GTB GASTROINTESTINAL UPSET; Start 10/16/17 at 00:00 Sucralfate (Carafate) 1 gm Q6 GTB Last administered on 10/23/17 11:35; Admin Dose 1 GM; Start 10/16/17 at 00:00 Tramadol HCl (Ultram) 50 mg TID GTB Last administered on 10/23/17 14:08; Admin Dose 50 MG; Start 10/16/17 at 09:00 Zolpidem Tartrate (Ambien) 5 mg QHS PRN GTB INSOMNIA Last administered on 22:21; Admin Dose 5 MG; Start 10/16/17 at 00:00 Diagnostic Test (Pha) (Accu-Chek) 1 ea 02 XX ; Start 10/18/17 at 02:00 Insulin Aspart (Novolog Insulin Pen) NOVOLOG *MILD* ALGORI... Q4 SC Last administered on 10/23/17 14:12; Admin Dose 2 UNIT; Start 10/17/17 at 13:00 Miscellaneous Information 1 ea NOTE XX ; Start 10/17/17 at 14:00 Glucose (Glutose) 15 gm Q15M PRN PO DECREASED GLUCOSE; Start 10/17/17 at 14:00 Glucose (Glutose) 22.5 gm Q15M PRN PO DECREASED GLUCOSE; Start 10/17/17 at 14: 00 Dextrose (D50w Syringe) 25 ml Q15M PRN IV DECREASED GLUCOSE; Start 10/17/17 at 14:00 Dextrose (D50w Syringe) 50 ml Q15M PRN IV DECREASED GLUCOSE; Start 10/17/17 at 14:00 Glucagon (Glucagen) 1 mg Q15M PRN IM DECREASED GLUCOSE; Start 10/17/17 at 14:00 Glucose (Glutose) 15 gm Q15M PRN BUCCAL DECREASED GLUCOSE; Start 10/17/17 at 14 :00 Zinc Sulfate (Zinc Sulfate) 220 mg DAILY NGT Last administered on 10/23/17 09 :40; Admin Dose 220 MG; Start 10/18/17 at 09:30 Ascorbic Acid (Vitamin C) 500 mg DAILY NGT Last administered on 10/23/17 09: 40; Admin Dose 500 MG; Start 10/18/17 at 09:30 Lansoprazole 30 mg 30 mg DAILY@06 GTB Last administered on 10/23/17 05:12; Admin Dose 30 MG; Start 10/19/17 at 06:00 Vancomycin HCl/ Sodium Chloride (Vancocin/NS) 250 ml @ 83.333 mls/ hr Q24H IVPB Last administered on 10/23/17 01:37; Admin Dose 83.333 MLS/HR; Start at 02:00 Insulin Glargine (Lantus) 30 unit DAILY@20 SC Last administered on 10/22/17 21:47; Admin Dose 30 UNIT; Start 10/22/17 at 20:00 ADI ENNIS NP Oct 23, 2017 15:54
[2017-10-23] MEDS: metFORMIN 500 MG TAB GTB SCH (17:40)
[2017-10-23] MEDS: INSULIN GLARGINE [LANtus] 3 ML PEN SC SCH (20:36)
[2017-10-24] VITALS (11 sets, daily range): BP systolic 124–147; BP diastolic 71–80; PULSE 59–67; RESP 16–18
[2017-10-24] MEDS: PIPER-TAZO 3.375 GM IV (PMX) 50 ML IVPB SCH ×5 (00:17→23:38)
[2017-10-24] MEDS: SUCRALFATE 1 GM TAB GTB SCH ×5 (00:17→23:38)
[2017-10-24] MEDS: INSULIN ASPART [NOVOLOG] 3 ML PEN SC SCH ×6 (00:29→21:00)
[2017-10-24] MEDS: ACCU-CHEK XX SCH (01:03)
[2017-10-24] MEDS: VANCOMYCIN 1.25 GM in SOD CHLORIDE 0.9% 250 ML IVPB SCH (01:07)
[2017-10-24] MEDS: LANSOPRAZOLE 30 MG CAP GTB SCH (05:02)
[2017-10-24 08:53] LABS: BASOPHILS % 0.3 % (0.0-2.0); EOSINOPHILS # 0.5 10^3/ul (0.0-0.5); EOSINOPHILS % 3.3 % (0.0-7.0); HEMATOCRIT 30.7 % (42.0-52.0); HEMOGLOBIN 9.3 g/dl (14.0-18.0); LYMPHOCYTES # 2.4 10^3/ul (0.8-2.9); LYMPHOCYTES % 17.6 % (15.0-51.0); MEAN CORPUSCULAR HEMOGLOBIN 24.3 pg (29.0-33.0); MEAN CORPUSCULAR HGB CONC 30.3 g/dl (32.0-37.0); MEAN CORPUSCULAR VOLUME 80.2 fl (82.0-101.0); MEAN PLATELET VOLUME 9.4 fl (7.4-10.4); MONOCYTE # 1.2 10^3/ul (0.3-0.9); MONOCYTES % 8.6 % (0.0-11.0); NEUTROPHIL # 9.4 10^3/ul (1.6-7.5); NEUTROPHILS % 68.6 % (39.0-77.0); PLATELET COUNT 380 10^3/UL (140-415); RED BLOOD COUNT 3.83 10^6/ul (4.70-6.10); RED CELL DISTRIBUTION WIDTH 18.6 % (11.5-14.5); WHITE BLOOD COUNT 13.6 10^3/ul (4.8-10.8)
[2017-10-24 09:10] LABS: ALBUMIN 2.6 g/dl (3.3-4.9); CALCIUM 8.4 mg/dl (8.4-10.2); CREATININE 0.53 mg/dl (0.61-1.24); MAGNESIUM 1.9 mg/dl (1.7-2.5); PHOSPHORUS 3.2 mg/dl (2.5-4.9); POTASSIUM 3.9 mmol/L (3.5-5.1)
[2017-10-24] MEDS: BACLOFEN 10 MG TAB GTB SCH ×3 (10:26→21:10)
[2017-10-24] MEDS: FERROUS SULFATE 60 MG/ML 5ML CUP GTB SCH ×2 (10:26→21:10)
[2017-10-24] MEDS: ASCORBIC ACID 500 MG TAB NGT SCH (10:26)
[2017-10-24] MEDS: ZINC SULFATE 220 MG CAP NGT SCH (10:26)
[2017-10-24] MEDS: traMADol 50 MG TAB GTB SCH ×3 (10:27→21:16)
--- NOTE | 2017-10-24 11:29 | PN ---
DATE: 10/24/2017 SUBJECTIVE: The patient is stable. No events overnight. OBJECTIVE: VITAL SIGNS: Blood pressure is 124/71, temperature 98.1, pulse 80, respirations 16. HEENT: Head is normocephalic. NECK: Supple. HEART: Regular rate. LUNGS: Show diminished breath sounds at the base. ABDOMEN: Soft, nontender to palpation. No rebound or guarding. EXTREMITIES: Negative for clubbing, cyanosis, no edema. DERMATOLOGIC: No rashes. MUSCULOSKELETAL: No joint effusions. NEUROLOGIC: No change in exam. MEDICATIONS: Have been reviewed. LABORATORY DATA: Has been reviewed. ASSESSMENT AND PLAN: 1. Nonoliguric acute kidney injury with previous baseline creatinine of 0.5 mg/dL. Etiology is sec ondary to hemodynamics from sepsis. Renal function is back to baseline. 2. Mineral bone disorder. Monitor calcium and phosphorus levels. 3. Anemia. Monitor hemoglobin and hematocrit levels. 4. Sepsis secondary to urinary tract infection. Continue current antibiotic regimen. 5. Chronic respiratory failure, status post tracheostomy. Continue current treatment plan 6. Dysphagia, status post percutaneous endoscopic gastrostomy. Continue tube feeding. 7. Decubitus wounds. Continue wound care. 8. Diabetes. Continue current insulin regimen. We will follow the patient as needed. Dictated By: REY HOFFMANN DO NR/NTS Conf#: [id number] DID#: [id number] CC: VANCE JOHNSON MD;*EndCC*
--- NOTE | 2017-10-24 12:37 | CONS ---
Date/Time of Note Date/Time of Note DATE: 10/24/17 TIME: 12:31 Consult Date/Type/Reason Admit Date/Time Oct 15, 2017 at 19:43 Initial Consult Date 10/16/17 Type of Consultation: Pulm Subjective s/p trach chnage and PMV trials, improved voice. Objective Vital Signs Date Time Temp Pulse Resp B/P Pulse Ox O2 Delivery O2 Flow Rate FiO2 10/24/17 12:06 98.3 68 17 147/80 100 10/23/17 17:35 Aerosol 28 T Tube 10/23/17 03:08 5.0 Intake and Output 10/23/17 10/23/17 10/24/17 14:59 22:59 06:59 Intake Total 1140 ml 1790 ml Output Total 1000 ml 1200 ml Balance 140 ml 590 ml Exam PHYSICAL EXAMINATION GENERAL: Elderly gentleman, on cool aerosol.Awake alert. VITAL SIGNS: see below. HEENT: Pupils equal, round, and reactive to light. Tracheostomy site clean and intact. CARDIAC: S1, S2, 1/6 systolic ejection murmur CHEST: Diminished air entry bilaterally. ABDOMEN: Mildly distended. Bowel sounds present no guarding or rebound EXTREMITIES: No cyanosis, clubbing edema +1 NEUROLOGIC: Generalized weakness Results/Medications Result Diagram: 10/24/17 0755 10/24/17 0755 Results 24 hrs Laboratory Tests Test 10/23/17 14:09 10/23/17 17:48 10/23/17 20:21 10/24/17 00:21 Bedside Glucose 181 134 148 149 Test 10/24/17 05:01 10/24/17 07:55 10/24/17 10:22 Bedside Glucose 127 134 White Blood Count 13.6 H Red Blood Count 3.83 L Hemoglobin 9.3 L Hematocrit 30.7 L Mean Corpuscular Volume 80.2 L Mean Corpuscular Hemoglobin 24.3 L Mean Corpuscular Hemoglobin Concent 30.3 L Red Cell Distribution Width 18.6 H Platelet Count 380 Mean Platelet Volume 9.4 Neutrophils % 68.6 Lymphocytes % 17.6 Monocytes % 8.6 Eosinophils % 3.3 Basophils % 0.3 Nucleated Red Blood Cells % 0.0 Neutrophils # 9.4 H Lymphocytes # 2.4 Monocytes # 1.2 H Eosinophils # 0.5 Basophils # 0.0 Nucleated Red Blood Cells # 0.0 Sodium Level 135 Potassium Level 3.9 Chloride Level 99 Carbon Dioxide Level 28 Anion Gap 12 Blood Urea Nitrogen 22 H Creatinine 0.53 L Glucose Level 142 Calcium Level 8.4 Phosphorus Level 3.2 Magnesium Level 1.9 Albumin 2.6 L Medications Current Medications Ondansetron HCl (Zofran Inj) 4 mg Q6H PRN IV NAUSEA AND/OR VOMITING Last administered on 10/23/17 15:54; Admin Dose 4 MG; Start 10/15/17 at 20:00 Morphine Sulfate 2 mg 2 mg Q4H PRN IV SEVERE PAIN LEVEL 7-10 Last administered on 10/19/17 05:35; Admin Dose 2 MG; Start 10/15/17 at 20:00 Piperacillin Sod/ Tazobactam Sod (Zosyn 3.375gm/ 50 ml (Pmx)) 50 ml @ 100 mls/ hr Q6 IVPB Last administered on 10/24/17 05:04; Admin Dose 100 MLS/HR; Start 10/16/17 at 00:00 Baclofen (Lioresal) 10 mg TID GTB Last administered on 10/24/17 10:26; Admin Dose 10 MG; Start 10/16/17 at 09:00 Ferrous Sulfate (Feosol Liquid Cup) 300 mg BID GTB Last administered on 10:26; Admin Dose 300 MG; Start 10/16/17 at 09:00 Al Hydrox/Mg Hydrox/Simethicone (Mag-Al Plus) 30 ml Q4H PRN GTB GASTROINTESTINAL UPSET; Start 10/16/17 at 00:00 Sucralfate (Carafate) 1 gm Q6 GTB Last administered on 10/24/17 05:02; Admin Dose 1 GM; Start 10/16/17 at 00:00 Tramadol HCl (Ultram) 50 mg TID GTB Last administered on 10/24/17 10:27; Admin Dose 50 MG; Start 10/16/17 at 09:00 Zolpidem Tartrate (Ambien) 5 mg QHS PRN GTB INSOMNIA Last administered on 22:21; Admin Dose 5 MG; Start 10/16/17 at 00:00 Diagnostic Test (Pha) (Accu-Chek) 1 ea 02 XX ; Start 10/18/17 at 02:00 Insulin Aspart (Novolog Insulin Pen) NOVOLOG *MILD* ALGORI... Q4 SC Last administered on 10/24/17 00:29; Admin Dose 1 UNIT; Start 10/17/17 at 13:00 Miscellaneous Information 1 ea NOTE XX ; Start 10/17/17 at 14:00 Glucose (Glutose) 15 gm Q15M PRN PO DECREASED GLUCOSE; Start 10/17/17 at 14:00 Glucose (Glutose) 22.5 gm Q15M PRN PO DECREASED GLUCOSE; Start 10/17/17 at 14: 00 Dextrose (D50w Syringe) 25 ml Q15M PRN IV DECREASED GLUCOSE; Start 10/17/17 at 14:00 Dextrose (D50w Syringe) 50 ml Q15M PRN IV DECREASED GLUCOSE; Start 10/17/17 at 14:00 Glucagon (Glucagen) 1 mg Q15M PRN IM DECREASED GLUCOSE; Start 10/17/17 at 14:00 Glucose (Glutose) 15 gm Q15M PRN BUCCAL DECREASED GLUCOSE; Start 10/17/17 at 14 :00 Zinc Sulfate (Zinc Sulfate) 220 mg DAILY NGT Last administered on 10/24/17 10 :26; Admin Dose 220 MG; Start 10/18/17 at 09:30 Ascorbic Acid (Vitamin C) 500 mg DAILY NGT Last administered on 10/24/17 10: 26; Admin Dose 500 MG; Start 10/18/17 at 09:30 Lansoprazole 30 mg 30 mg DAILY@06 GTB Last administered on 10/24/17 05:02; Admin Dose 30 MG; Start 10/19/17 at 06:00 Vancomycin HCl/ Sodium Chloride (Vancocin/NS) 250 ml @ 83.333 mls/ hr Q24H IVPB Last administered on 10/24/17 01:07; Admin Dose 83.333 MLS/HR; Start at 02:00 Insulin Glargine (Lantus) 30 unit DAILY@20 SC Last administered on 10/23/17 20:36; Admin Dose 30 UNIT; Start 10/22/17 at 20:00 Assessment/Plan Chief Complaint/Hosp Course IMP: 1. Sepsis from UTI 2. History of quadriplegia--s/p trach 3. Anemia. 4. Diabetes. 5. Acute renal insufficiency with normalization of renal function. 6. Dysphagia status post video swallow evaluation. RECS: dc ok from pulm standpoint po antibiotics. ? Problems: RUSSEL DE LA CRUZ MD, [facility] Oct 24, 2017 12:37
--- NOTE | 2017-10-24 18:00 | PN ---
Date/Time of Note Date/Time of Note DATE: 10/24/17 TIME: 17:56 Assessment/Plan VTE Prophylaxis VTE Prophylaxis Intervention: SCD's Lines/Catheters IV Catheter Type (from Nrsg): Central Line Central line still needed: Yes Urinary Cath still in place: Yes Reason Cath still needed: other (indicate) (quadraplegic) Assessment/Plan Assessment/Plan 1. Severe sepsis versus septic shock- resolving - Patients condition has stabilized - Pneumonia and UTI source - ID on board and recommendations appreciated. Spoke with ID about changing medications so can return to his facility but states would be okay with d/c antibiotics on day of discharge 2. Anemia, microcytic - Currently on iron per GTB and H/H stable - Will continue monitoring - No signs of active bleeding - Likely component of volume resuscitation, and partially secondary to anemia of chronic disease 3. Acute kidney injury- Resolved - Nephrology consult appreciated 4. Electrolyte derangement - Replete as needed 5. 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 Dysphasia - PEG in place - Per Speech therapy, risk of aspiration with thin or pureed diet. Okay for ice chips and small amount of nectar for oral gratification 7. Quadriplegia - Status post fall 8. Sacral decubitus ulcer - Chronic, infectious disease recommended is appreciated - Wound care - patient refused wound care per wound nurse on sacral decubitus - other wound bandaged and cleaned 9. Type 2 diabetes - Glucose well controlled on Lantus 30 - Insulin sliding scale and accucheck. will continue adjusting as needed 10. Disposition - Medically stable for discharge home tomorrow Subjective 24 Hr Interval Summary Free Text/Dictation Patient doing well after trach change and states he is ready to head back to his facility tomorrow. Denies any acute overnight events. Exam/Review of Systems Vital Signs Vitals Vital Signs Date Time Temp Pulse Resp B/P Pulse Ox O2 Delivery O2 Flow Rate FiO2 10/24/17 16:59 67 10/24/17 15:58 97.7 17 127/76 99 10/24/17 14:36 5.0 28 10/23/17 17:35 Aerosol T Tube Intake and Output 10/23/17 10/23/17 10/24/17 14:59 22:59 06:59 Intake Total 1140 ml 1790 ml Output Total 1000 ml 1200 ml Balance 140 ml 590 ml Exam General: Patient is laying in bed and answers questions appropriately. no acute distress. quadraplegic, peg/trach (passy imani valve) Mentation: Patient is alert and oriented 4, Head: Normocephalic atraumatic Eyes: EOMI, pupils reactive to light Neck: Supple, nontender, midline Respiratory: diminished to auscultation bilaterally. no wheezing Cardiovascular: regular rate, no obvious murmurs Gastrointestinal: non-tender to palpation, bowel sounds heard. peg tube Neurological: no sensation or motor in extremities Skin: No new skin lesions, chronic sacral decubitus Results Result Diagram: 10/24/17 0755 10/24/17 0755 Results 24 hrs Laboratory Tests Test 10/23/17 20:21 10/24/17 00:21 10/24/17 05:01 10/24/17 07:55 Bedside Glucose 148 149 127 White Blood Count 13.6 H Red Blood Count 3.83 L Hemoglobin 9.3 L Hematocrit 30.7 L Mean Corpuscular Volume 80.2 L Mean Corpuscular Hemoglobin 24.3 L Mean Corpuscular Hemoglobin Concent 30.3 L Red Cell Distribution Width 18.6 H Platelet Count 380 Mean Platelet Volume 9.4 Neutrophils % 68.6 Lymphocytes % 17.6 Monocytes % 8.6 Eosinophils % 3.3 Basophils % 0.3 Nucleated Red Blood Cells % 0.0 Neutrophils # 9.4 H Lymphocytes # 2.4 Monocytes # 1.2 H Eosinophils # 0.5 Basophils # 0.0 Nucleated Red Blood Cells # 0.0 Sodium Level 135 Potassium Level 3.9 Chloride Level 99 Carbon Dioxide Level 28 Anion Gap 12 Blood Urea Nitrogen 22 H Creatinine 0.53 L Glucose Level 142 Calcium Level 8.4 Phosphorus Level 3.2 Magnesium Level 1.9 Albumin 2.6 L Test 10/24/17 10:22 10/24/17 13:39 Bedside Glucose 134 148 Medications Medications Current Medications Ondansetron HCl (Zofran Inj) 4 mg Q6H PRN IV NAUSEA AND/OR VOMITING Last administered on 10/23/17 15:54; Admin Dose 4 MG; Start 10/15/17 at 20:00 Morphine Sulfate 2 mg 2 mg Q4H PRN IV SEVERE PAIN LEVEL 7-10 Last administered on 10/19/17 05:35; Admin Dose 2 MG; Start 10/15/17 at 20:00 Piperacillin Sod/ Tazobactam Sod (Zosyn 3.375gm/ 50 ml (Pmx)) 50 ml @ 100 mls/ hr Q6 IVPB Last administered on 10/24/17 13:36; Admin Dose 100 MLS/HR; Start 10/16/17 at 00:00 Baclofen (Lioresal) 10 mg TID GTB Last administered on 10/24/17 13:37; Admin Dose 10 MG; Start 10/16/17 at 09:00 Ferrous Sulfate (Feosol Liquid Cup) 300 mg BID GTB Last administered on 10:26; Admin Dose 300 MG; Start 10/16/17 at 09:00 Al Hydrox/Mg Hydrox/Simethicone (Mag-Al Plus) 30 ml Q4H PRN GTB GASTROINTESTINAL UPSET; Start 10/16/17 at 00:00 Sucralfate (Carafate) 1 gm Q6 GTB Last administered on 10/24/17 13:37; Admin Dose 1 GM; Start 10/16/17 at 00:00 Tramadol HCl (Ultram) 50 mg TID GTB Last administered on 10/24/17 14:23; Admin Dose 50 MG; Start 10/16/17 at 09:00 Zolpidem Tartrate (Ambien) 5 mg QHS PRN GTB INSOMNIA Last administered on 22:21; Admin Dose 5 MG; Start 10/16/17 at 00:00 Diagnostic Test (Pha) (Accu-Chek) 1 ea 02 XX ; Start 10/18/17 at 02:00 Insulin Aspart (Novolog Insulin Pen) NOVOLOG *MILD* ALGORI... Q4 SC Last administered on 10/24/17 14:13; Admin Dose 1 UNIT; Start 10/17/17 at 13:00 Miscellaneous Information 1 ea NOTE XX ; Start 10/17/17 at 14:00 Glucose (Glutose) 15 gm Q15M PRN PO DECREASED GLUCOSE; Start 10/17/17 at 14:00 Glucose (Glutose) 22.5 gm Q15M PRN PO DECREASED GLUCOSE; Start 10/17/17 at 14: 00 Dextrose (D50w Syringe) 25 ml Q15M PRN IV DECREASED GLUCOSE; Start 10/17/17 at 14:00 Dextrose (D50w Syringe) 50 ml Q15M PRN IV DECREASED GLUCOSE; Start 10/17/17 at 14:00 Glucagon (Glucagen) 1 mg Q15M PRN IM DECREASED GLUCOSE; Start 10/17/17 at 14:00 Glucose (Glutose) 15 gm Q15M PRN BUCCAL DECREASED GLUCOSE; Start 10/17/17 at 14 :00 Zinc Sulfate (Zinc Sulfate) 220 mg DAILY NGT Last administered on 10/24/17 10 :26; Admin Dose 220 MG; Start 10/18/17 at 09:30 Ascorbic Acid (Vitamin C) 500 mg DAILY NGT Last administered on 10/24/17 10: 26; Admin Dose 500 MG; Start 10/18/17 at 09:30 Lansoprazole 30 mg 30 mg DAILY@06 GTB Last administered on 10/24/17 05:02; Admin Dose 30 MG; Start 10/19/17 at 06:00 Vancomycin HCl/ Sodium Chloride (Vancocin/NS) 250 ml @ 83.333 mls/ hr Q24H IVPB Last administered on 10/24/17 01:07; Admin Dose 83.333 MLS/HR; Start at 02:00 Insulin Glargine (Lantus) 30 unit DAILY@20 SC Last administered on 10/23/17 20:36; Admin Dose 30 UNIT; Start 10/22/17 at 20:00 FLORIDA CATES MD Oct 24, 2017 18:00
[2017-10-24] MEDS: ONDANSETRON 4 MG INJ IV PRN (18:31)
[2017-10-24] MEDS: metFORMIN 500 MG TAB GTB SCH (18:32)
[2017-10-24] MEDS: morphine 2 MG INJ IV PRN (18:39)
--- NOTE | 2017-10-24 19:45 | CONS ---
Date/Time of Note Date/Time of Note DATE: 10/24/17 TIME: 19:45 Assessment/Plan Assessment/Plan Chief Complaint/Hosp Course SUBJECTIVE: Alert, feels good, no fevers, no n/v/d MICROBIOLOGY: Blood cultures negative. Urine culture grew MDR Proteus INDWELLINGS: Trach, PEG, Mondragon, right femoral triple-lumen catheter. DIAGNOSTICS: Chest x-ray on admission revealed slight improvement in the right basilar pneumonia. ANTIMICROBIALS: 1. Vancomycin. 2. Zosyn. ALLERGIES: LEVAQUIN, reaction unknown. PHYSICAL EXAMINATION: GENERAL: Chronically ill-appearing, elderly man who is in no distress. HEENT: Head atraumatic, normocephalic. Sclerae anicteric. Buccal mucosa dry. NECK: Supple. CHEST: Rise symmetrical. Breath sounds diminished to bases. HEART: S1, S2. ABDOMEN: Soft, bowel tones present. EXTREMITIES: Contractured without cyanosis. ASSESSMENT: 1. Resolving sepsis, status post shock. 2. Urinary tract infection. 3. Unstageable sacral decubitus. 4. Quadriplegia. 5. Chronic respiratory failure and dysphagia. 6. Diabetes. 7. Acute on chronic anemia. PLAN: Remains stable, continue antibiotics for couple more days, pending placement. staff Problems: Consultation Date/Type/Reason Admit Date/Time Oct 15, 2017 at 19:43 Initial Consult Date 10/16/17 Type of Consultation: ID Exam/Review of Systems Vital Signs Vitals Vital Signs Date Time Temp Pulse Resp B/P Pulse Ox O2 Delivery O2 Flow Rate FiO2 10/24/17 16:59 67 10/24/17 16:50 5.0 28 10/24/17 15:58 97.7 17 127/76 99 10/23/17 17:35 Aerosol T Tube Intake and Output 10/23/17 10/23/17 10/24/17 15:00 23:00 07:00 Intake Total 1140 ml 1790 ml Output Total 1000 ml 1200 ml Balance 140 ml 590 ml Results Result Diagram: 10/24/17 0755 10/24/17 0755 Results 24 hrs Laboratory Tests Test 10/23/17 20:21 10/24/17 00:21 10/24/17 05:01 10/24/17 07:55 Bedside Glucose 148 149 127 White Blood Count 13.6 H Red Blood Count 3.83 L Hemoglobin 9.3 L Hematocrit 30.7 L Mean Corpuscular Volume 80.2 L Mean Corpuscular Hemoglobin 24.3 L Mean Corpuscular Hemoglobin Concent 30.3 L Red Cell Distribution Width 18.6 H Platelet Count 380 Mean Platelet Volume 9.4 Neutrophils % 68.6 Lymphocytes % 17.6 Monocytes % 8.6 Eosinophils % 3.3 Basophils % 0.3 Nucleated Red Blood Cells % 0.0 Neutrophils # 9.4 H Lymphocytes # 2.4 Monocytes # 1.2 H Eosinophils # 0.5 Basophils # 0.0 Nucleated Red Blood Cells # 0.0 Sodium Level 135 Potassium Level 3.9 Chloride Level 99 Carbon Dioxide Level 28 Anion Gap 12 Blood Urea Nitrogen 22 H Creatinine 0.53 L Glucose Level 142 Calcium Level 8.4 Phosphorus Level 3.2 Magnesium Level 1.9 Albumin 2.6 L Test 10/24/17 10:22 10/24/17 13:39 10/24/17 18:52 Bedside Glucose 134 148 126 Medications Medications Current Medications Ondansetron HCl (Zofran Inj) 4 mg Q6H PRN IV NAUSEA AND/OR VOMITING Last administered on 10/24/17 18:31; Admin Dose 4 MG; Start 10/15/17 at 20:00 Morphine Sulfate 2 mg 2 mg Q4H PRN IV SEVERE PAIN LEVEL 7-10 Last administered on 10/24/17 18:39; Admin Dose 2 MG; Start 10/15/17 at 20:00 Piperacillin Sod/ Tazobactam Sod (Zosyn 3.375gm/ 50 ml (Pmx)) 50 ml @ 100 mls/ hr Q6 IVPB Last administered on 10/24/17 18:32; Admin Dose 100 MLS/HR; Start 10/16/17 at 00:00 Baclofen (Lioresal) 10 mg TID GTB Last administered on 10/24/17 13:37; Admin Dose 10 MG; Start 10/16/17 at 09:00 Ferrous Sulfate (Feosol Liquid Cup) 300 mg BID GTB Last administered on 10:26; Admin Dose 300 MG; Start 10/16/17 at 09:00 Al Hydrox/Mg Hydrox/Simethicone (Mag-Al Plus) 30 ml Q4H PRN GTB GASTROINTESTINAL UPSET; Start 10/16/17 at 00:00 Sucralfate (Carafate) 1 gm Q6 GTB Last administered on 10/24/17 18:31; Admin Dose 1 GM; Start 10/16/17 at 00:00 Tramadol HCl (Ultram) 50 mg TID GTB Last administered on 10/24/17 14:23; Admin Dose 50 MG; Start 10/16/17 at 09:00 Zolpidem Tartrate (Ambien) 5 mg QHS PRN GTB INSOMNIA Last administered on 22:21; Admin Dose 5 MG; Start 10/16/17 at 00:00 Diagnostic Test (Pha) (Accu-Chek) 1 ea 02 XX ; Start 10/18/17 at 02:00 Insulin Aspart (Novolog Insulin Pen) NOVOLOG *MILD* ALGORI... Q4 SC Last administered on 10/24/17 14:13; Admin Dose 1 UNIT; Start 10/17/17 at 13:00 Miscellaneous Information 1 ea NOTE XX ; Start 10/17/17 at 14:00 Glucose (Glutose) 15 gm Q15M PRN PO DECREASED GLUCOSE; Start 10/17/17 at 14:00 Glucose (Glutose) 22.5 gm Q15M PRN PO DECREASED GLUCOSE; Start 10/17/17 at 14: 00 Dextrose (D50w Syringe) 25 ml Q15M PRN IV DECREASED GLUCOSE; Start 10/17/17 at 14:00 Dextrose (D50w Syringe) 50 ml Q15M PRN IV DECREASED GLUCOSE; Start 10/17/17 at 14:00 Glucagon (Glucagen) 1 mg Q15M PRN IM DECREASED GLUCOSE; Start 10/17/17 at 14:00 Glucose (Glutose) 15 gm Q15M PRN BUCCAL DECREASED GLUCOSE; Start 10/17/17 at 14 :00 Zinc Sulfate (Zinc Sulfate) 220 mg DAILY NGT Last administered on 10/24/17 10 :26; Admin Dose 220 MG; Start 10/18/17 at 09:30 Ascorbic Acid (Vitamin C) 500 mg DAILY NGT Last administered on 10/24/17 10: 26; Admin Dose 500 MG; Start 10/18/17 at 09:30 Lansoprazole 30 mg 30 mg DAILY@06 GTB Last administered on 10/24/17 05:02; Admin Dose 30 MG; Start 10/19/17 at 06:00 Vancomycin HCl/ Sodium Chloride (Vancocin/NS) 250 ml @ 83.333 mls/ hr Q24H IVPB Last administered on 10/24/17 01:07; Admin Dose 83.333 MLS/HR; Start at 02:00 Insulin Glargine (Lantus) 30 unit DAILY@20 SC Last administered on 10/23/17 20:36; Admin Dose 30 UNIT; Start 10/22/17 at 20:00 ADI ENNIS NP Oct 24, 2017 19:45
[2017-10-24] MEDS: INSULIN GLARGINE [LANtus] 3 ML PEN SC SCH (21:13)
[2017-10-25] VITALS (12 sets, daily range): BP systolic 104–137; BP diastolic 59–77; PULSE 59–74; RESP 15–18
[2017-10-25] MEDS: INSULIN ASPART [NOVOLOG] 3 ML PEN SC SCH ×6 (01:00→20:54)
[2017-10-25] MEDS: VANCOMYCIN 1.25 GM in SOD CHLORIDE 0.9% 250 ML IVPB SCH (01:36)
[2017-10-25] MEDS: ACCU-CHEK XX SCH (02:00)
[2017-10-25] MEDS: SUCRALFATE 1 GM TAB GTB SCH ×3 (05:10→17:47)
[2017-10-25] MEDS: LANSOPRAZOLE 30 MG CAP GTB SCH (05:10)
[2017-10-25] MEDS: PIPER-TAZO 3.375 GM IV (PMX) 50 ML IVPB SCH ×3 (05:11→17:47)
[2017-10-25 09:24] LABS: BASOPHILS % 0.2 % (0.0-2.0); EOSINOPHILS # 0.2 10^3/ul (0.0-0.5); EOSINOPHILS % 1.4 % (0.0-7.0); HEMATOCRIT 30.3 % (42.0-52.0); HEMOGLOBIN 9.4 g/dl (14.0-18.0); LYMPHOCYTES # 2.6 10^3/ul (0.8-2.9); LYMPHOCYTES % 14.6 % (15.0-51.0); MEAN CORPUSCULAR HEMOGLOBIN 24.6 pg (29.0-33.0); MEAN CORPUSCULAR VOLUME 79.3 fl (82.0-101.0); MEAN PLATELET VOLUME 9.6 fl (7.4-10.4); MONOCYTE # 1.3 10^3/ul (0.3-0.9); MONOCYTES % 7.2 % (0.0-11.0); NEUTROPHIL # 13.2 10^3/ul (1.6-7.5); NEUTROPHILS % 75.2 % (39.0-77.0); PLATELET COUNT 372 10^3/UL (140-415); RED BLOOD COUNT 3.82 10^6/ul (4.70-6.10); WHITE BLOOD COUNT 17.5 10^3/ul (4.8-10.8)
[2017-10-25 09:45] LABS: ALBUMIN 2.6 g/dl (3.3-4.9); CALCIUM 8.3 mg/dl (8.4-10.2); CREATININE 0.53 mg/dl (0.61-1.24); PHOSPHORUS 3.5 mg/dl (2.5-4.9); POTASSIUM 4.1 mmol/L (3.5-5.1)
[2017-10-25] MEDS: ZINC SULFATE 220 MG CAP NGT SCH (09:45)
[2017-10-25] MEDS: FERROUS SULFATE 60 MG/ML 5ML CUP GTB SCH ×2 (09:45→20:53)
[2017-10-25] MEDS: ASCORBIC ACID 500 MG TAB NGT SCH (09:46)
[2017-10-25] MEDS: traMADol 50 MG TAB GTB SCH ×3 (09:46→20:43)
[2017-10-25] MEDS: BACLOFEN 10 MG TAB GTB SCH ×3 (09:46→20:41)
--- NOTE | 2017-10-25 12:09 | PN ---
Date/Time of Note Date/Time of Note DATE: 10/25/17 TIME: 12:09 Assessment/Plan VTE Prophylaxis VTE Prophylaxis Intervention: SCD's Lines/Catheters IV Catheter Type (from Nrs): Central Line Central line still needed: Yes Urinary Cath still in place: Yes Reason Cath still needed: urinary retention Assessment/Plan Assessment/Plan 1. Severe sepsis versus septic shock- resolving - WBC increased today and repeat CXR performed to assess which shows improvement in right basilar area - Pneumonia and UTI source - ID on board and recommendations appreciated. ID plans to stop antibiotics and monitor WBC. When trending down will be safe for discharge 2. Anemia, microcytic - Currently on iron per GTB and H/H stable - Will continue monitoring - No signs of active bleeding - Likely component of volume resuscitation, and partially secondary to anemia of chronic disease 3. Acute kidney injury- Resolved - Nephrology consult appreciated 4. Electrolyte derangement - Replete as needed 5. 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 Dysphasia - PEG in place - Per Speech therapy, risk of aspiration with thin or pureed diet. Okay for ice chips and small amount of nectar for oral gratification 7. Quadriplegia - Status post fall 8. Sacral decubitus ulcer - Chronic, infectious disease recommended is appreciated - patient refused wound care per wound nurse on sacral decubitus - other wound bandaged and cleaned 9. Type 2 diabetes - Glucose well controlled on Lantus 30 - Insulin sliding scale and accucheck. will continue adjusting as needed 10. Disposition - Once WBC trending downward, will be stable for discharge home Subjective 24 Hr Interval Summary Free Text/Dictation Patient states hes doing well but nervous about leaving since has had multiple admissions in the past due to respiratory issues. No acute overnight events and no new complaints. WBC trending up this am. Exam/Review of Systems Vital Signs Vitals Vital Signs Date Time Temp Pulse Resp B/P Pulse Ox O2 Delivery O2 Flow Rate FiO2 10/25/17 11:40 98.2 68 15 116/69 98 10/25/17 09:10 5.0 28 10/23/17 17:35 Aerosol T Tube Intake and Output 10/24/17 10/24/17 10/25/17 15:00 23:00 07:00 Intake Total 1320 ml 1550 ml Output Total 1380 ml 1300 ml Balance -60 ml 250 ml Exam General: Patient is laying in bed and answers questions appropriately. no acute distress. quadraplegic, peg/trach (passy yuni valve) Mentation: Patient is alert and oriented 4, Head: Normocephalic atraumatic Eyes: EOMI, pupils reactive to light Neck: Supple, nontender, midline Respiratory: diminished to auscultation bilaterally. no wheezing Cardiovascular: regular rate, no obvious murmurs Gastrointestinal: non-tender to palpation, bowel sounds heard. peg tube Neurological: no sensation or motor in extremities Skin: No new skin lesions, chronic sacral decubitus Results Result Diagram: 10/25/17 0833 10/25/17 0833 Results 24 hrs Laboratory Tests Test 10/24/17 13:39 10/24/17 18:52 10/24/17 20:28 10/25/17 05:09 Bedside Glucose 148 126 110 128 Test 10/25/17 08:33 10/25/17 09:56 White Blood Count 17.5 #H Red Blood Count 3.82 L Hemoglobin 9.4 L Hematocrit 30.3 L Mean Corpuscular Volume 79.3 L Mean Corpuscular Hemoglobin 24.6 L Mean Corpuscular Hemoglobin Concent 31.0 L Red Cell Distribution Width 19.0 H Platelet Count 372 Mean Platelet Volume 9.6 Neutrophils % 75.2 Lymphocytes % 14.6 L Monocytes % 7.2 Eosinophils % 1.4 Basophils % 0.2 Nucleated Red Blood Cells % 0.0 Neutrophils # 13.2 H Lymphocytes # 2.6 Monocytes # 1.3 H Eosinophils # 0.2 Basophils # 0.0 Nucleated Red Blood Cells # 0.0 Sodium Level 135 Potassium Level 4.1 Chloride Level 100 Carbon Dioxide Level 28 Anion Gap 11 Blood Urea Nitrogen 23 H Creatinine 0.53 L Glucose Level 156 Calcium Level 8.3 L Phosphorus Level 3.5 Magnesium Level 2.0 Albumin 2.6 L Bedside Glucose 151 Medications Medications Current Medications Ondansetron HCl (Zofran Inj) 4 mg Q6H PRN IV NAUSEA AND/OR VOMITING Last administered on 10/24/17 18:31; Admin Dose 4 MG; Start 10/15/17 at 20:00 Morphine Sulfate 2 mg 2 mg Q4H PRN IV SEVERE PAIN LEVEL 7-10 Last administered on 10/24/17 18:39; Admin Dose 2 MG; Start 10/15/17 at 20:00 Piperacillin Sod/ Tazobactam Sod (Zosyn 3.375gm/ 50 ml (Pmx)) 50 ml @ 100 mls/ hr Q6 IVPB Last administered on 10/25/17 05:11; Admin Dose 100 MLS/HR; Start 10/16/17 at 00:00 Baclofen (Lioresal) 10 mg TID GTB Last administered on 10/25/17 09:46; Admin Dose 10 MG; Start 10/16/17 at 09:00 Ferrous Sulfate (Feosol Liquid Cup) 300 mg BID GTB Last administered on 09:45; Admin Dose 300 MG; Start 10/16/17 at 09:00 Al Hydrox/Mg Hydrox/Simethicone (Mag-Al Plus) 30 ml Q4H PRN GTB GASTROINTESTINAL UPSET; Start 10/16/17 at 00:00 Sucralfate (Carafate) 1 gm Q6 GTB Last administered on 10/25/17 05:10; Admin Dose 1 GM; Start 10/16/17 at 00:00 Tramadol HCl (Ultram) 50 mg TID GTB Last administered on 10/25/17 09:46; Admin Dose 50 MG; Start 10/16/17 at 09:00 Zolpidem Tartrate (Ambien) 5 mg QHS PRN GTB INSOMNIA Last administered on 22:21; Admin Dose 5 MG; Start 10/16/17 at 00:00 Diagnostic Test (Pha) (Accu-Chek) 1 ea 02 XX ; Start 10/18/17 at 02:00 Insulin Aspart (Novolog Insulin Pen) NOVOLOG *MILD* ALGORI... Q4 SC Last administered on 10/25/17 10:02; Admin Dose 1 UNIT; Start 10/17/17 at 13:00 Miscellaneous Information 1 ea NOTE XX ; Start 10/17/17 at 14:00 Glucose (Glutose) 15 gm Q15M PRN PO DECREASED GLUCOSE; Start 10/17/17 at 14:00 Glucose (Glutose) 22.5 gm Q15M PRN PO DECREASED GLUCOSE; Start 10/17/17 at 14: 00 Dextrose (D50w Syringe) 25 ml Q15M PRN IV DECREASED GLUCOSE; Start 10/17/17 at 14:00 Dextrose (D50w Syringe) 50 ml Q15M PRN IV DECREASED GLUCOSE; Start 10/17/17 at 14:00 Glucagon (Glucagen) 1 mg Q15M PRN IM DECREASED GLUCOSE; Start 10/17/17 at 14:00 Glucose (Glutose) 15 gm Q15M PRN BUCCAL DECREASED GLUCOSE; Start 10/17/17 at 14 :00 Zinc Sulfate (Zinc Sulfate) 220 mg DAILY NGT Last administered on 10/25/17 09 :45; Admin Dose 220 MG; Start 10/18/17 at 09:30 Ascorbic Acid (Vitamin C) 500 mg DAILY NGT Last administered on 10/25/17 09: 46; Admin Dose 500 MG; Start 10/18/17 at 09:30 Lansoprazole 30 mg 30 mg DAILY@06 GTB Last administered on 10/25/17 05:10; Admin Dose 30 MG; Start 10/19/17 at 06:00 Vancomycin HCl/ Sodium Chloride (Vancocin/NS) 250 ml @ 83.333 mls/ hr Q24H IVPB Last administered on 10/25/17 01:36; Admin Dose 83.333 MLS/HR; Start at 02:00 Insulin Glargine (Lantus) 30 unit DAILY@20 SC Last administered on 10/24/17 21:13; Admin Dose 30 UNIT; Start 10/22/17 at 20:00 FLORIDA CATES MD Oct 25, 2017 12:09
--- NOTE | 2017-10-25 12:46 | CONS ---
Date/Time of Note Date/Time of Note DATE: 10/25/17 TIME: 12:46 Consult Date/Type/Reason Admit Date/Time Oct 15, 2017 at 19:43 Initial Consult Date 10/16/17 Type of Consultation: Pulm Subjective PHYSICAL EXAMINATION GENERAL: Elderly gentleman, on cool aerosol.Awake alert. VITAL SIGNS: see below. HEENT: Pupils equal, round, and reactive to light. Tracheostomy site clean and intact. CARDIAC: S1, S2, 1/6 systolic ejection murmur CHEST: Diminished air entry bilaterally. ABDOMEN: Mildly distended. Bowel sounds present no guarding or rebound EXTREMITIES: No cyanosis, clubbing edema +1 NEUROLOGIC: Generalized weakness Objective Vital Signs Date Time Temp Pulse Resp B/P Pulse Ox O2 Delivery O2 Flow Rate FiO2 10/25/17 12:14 98 5.0 28 10/25/17 11:40 98.2 68 15 116/69 10/23/17 17:35 Aerosol T Tube Intake and Output 10/24/17 10/24/17 10/25/17 15:00 23:00 07:00 Intake Total 1320 ml 1550 ml Output Total 1380 ml 1300 ml Balance -60 ml 250 ml Results/Medications Result Diagram: 10/25/17 0833 10/25/17 0833 Results 24 hrs Laboratory Tests Test 10/24/17 13:39 10/24/17 18:52 10/24/17 20:28 10/25/17 05:09 Bedside Glucose 148 126 110 128 Test 10/25/17 08:33 10/25/17 09:56 White Blood Count 17.5 #H Red Blood Count 3.82 L Hemoglobin 9.4 L Hematocrit 30.3 L Mean Corpuscular Volume 79.3 L Mean Corpuscular Hemoglobin 24.6 L Mean Corpuscular Hemoglobin Concent 31.0 L Red Cell Distribution Width 19.0 H Platelet Count 372 Mean Platelet Volume 9.6 Neutrophils % 75.2 Lymphocytes % 14.6 L Monocytes % 7.2 Eosinophils % 1.4 Basophils % 0.2 Nucleated Red Blood Cells % 0.0 Neutrophils # 13.2 H Lymphocytes # 2.6 Monocytes # 1.3 H Eosinophils # 0.2 Basophils # 0.0 Nucleated Red Blood Cells # 0.0 Sodium Level 135 Potassium Level 4.1 Chloride Level 100 Carbon Dioxide Level 28 Anion Gap 11 Blood Urea Nitrogen 23 H Creatinine 0.53 L Glucose Level 156 Calcium Level 8.3 L Phosphorus Level 3.5 Magnesium Level 2.0 Albumin 2.6 L Bedside Glucose 151 Medications Current Medications Ondansetron HCl (Zofran Inj) 4 mg Q6H PRN IV NAUSEA AND/OR VOMITING Last administered on 10/24/17 18:31; Admin Dose 4 MG; Start 10/15/17 at 20:00 Morphine Sulfate 2 mg 2 mg Q4H PRN IV SEVERE PAIN LEVEL 7-10 Last administered on 10/24/17 18:39; Admin Dose 2 MG; Start 10/15/17 at 20:00 Piperacillin Sod/ Tazobactam Sod (Zosyn 3.375gm/ 50 ml (Pmx)) 50 ml @ 100 mls/ hr Q6 IVPB Last administered on 10/25/17 05:11; Admin Dose 100 MLS/HR; Start 10/16/17 at 00:00 Baclofen (Lioresal) 10 mg TID GTB Last administered on 10/25/17 09:46; Admin Dose 10 MG; Start 10/16/17 at 09:00 Ferrous Sulfate (Feosol Liquid Cup) 300 mg BID GTB Last administered on 09:45; Admin Dose 300 MG; Start 10/16/17 at 09:00 Al Hydrox/Mg Hydrox/Simethicone (Mag-Al Plus) 30 ml Q4H PRN GTB GASTROINTESTINAL UPSET; Start 10/16/17 at 00:00 Sucralfate (Carafate) 1 gm Q6 GTB Last administered on 10/25/17 05:10; Admin Dose 1 GM; Start 10/16/17 at 00:00 Tramadol HCl (Ultram) 50 mg TID GTB Last administered on 10/25/17 09:46; Admin Dose 50 MG; Start 10/16/17 at 09:00 Zolpidem Tartrate (Ambien) 5 mg QHS PRN GTB INSOMNIA Last administered on 22:21; Admin Dose 5 MG; Start 10/16/17 at 00:00 Diagnostic Test (Pha) (Accu-Chek) 1 ea 02 XX ; Start 10/18/17 at 02:00 Insulin Aspart (Novolog Insulin Pen) NOVOLOG *MILD* ALGORI... Q4 SC Last administered on 10/25/17 10:02; Admin Dose 1 UNIT; Start 10/17/17 at 13:00 Miscellaneous Information 1 ea NOTE XX ; Start 10/17/17 at 14:00 Glucose (Glutose) 15 gm Q15M PRN PO DECREASED GLUCOSE; Start 10/17/17 at 14:00 Glucose (Glutose) 22.5 gm Q15M PRN PO DECREASED GLUCOSE; Start 10/17/17 at 14: 00 Dextrose (D50w Syringe) 25 ml Q15M PRN IV DECREASED GLUCOSE; Start 10/17/17 at 14:00 Dextrose (D50w Syringe) 50 ml Q15M PRN IV DECREASED GLUCOSE; Start 10/17/17 at 14:00 Glucagon (Glucagen) 1 mg Q15M PRN IM DECREASED GLUCOSE; Start 10/17/17 at 14:00 Glucose (Glutose) 15 gm Q15M PRN BUCCAL DECREASED GLUCOSE; Start 10/17/17 at 14 :00 Zinc Sulfate (Zinc Sulfate) 220 mg DAILY NGT Last administered on 10/25/17 09 :45; Admin Dose 220 MG; Start 10/18/17 at 09:30 Ascorbic Acid (Vitamin C) 500 mg DAILY NGT Last administered on 10/25/17 09: 46; Admin Dose 500 MG; Start 10/18/17 at 09:30 Lansoprazole 30 mg 30 mg DAILY@06 GTB Last administered on 10/25/17 05:10; Admin Dose 30 MG; Start 10/19/17 at 06:00 Vancomycin HCl/ Sodium Chloride (Vancocin/NS) 250 ml @ 83.333 mls/ hr Q24H IVPB Last administered on 10/25/17 01:36; Admin Dose 83.333 MLS/HR; Start at 02:00 Insulin Glargine (Lantus) 30 unit DAILY@20 SC Last administered on 10/24/17 21:13; Admin Dose 30 UNIT; Start 10/22/17 at 20:00 Assessment/Plan Chief Complaint/Hosp Course IMP: 1. Sepsis from UTI 2. History of quadriplegia--s/p trach 3. Anemia. 4. Diabetes. 5. Acute renal insufficiency with normalization of renal function. 6. Dysphagia status post video swallow evaluation. RECS: dc ok from pulm standpoint po antibiotics. ? Problems: VADGAMA,RUSSEL V. MD, [facility] Oct 25, 2017 12:46
[2017-10-25] MEDS: metFORMIN 500 MG TAB GTB SCH (17:46)
[2017-10-25] MEDS: INSULIN GLARGINE [LANtus] 3 ML PEN SC SCH (20:53)
--- NOTE | 2017-10-25 22:12 | PN ---
DATE: 10/25/2017 INFECTIOUS DISEASE PROGRESS NOTE SUBJECTIVE: No acute events overnight. The patient is alert, feels good, looks comfortable. Denie s pain. No fevers, nausea, vomiting or diarrhea. LABORATORY DATA: WBC today went up to 17.5, no shift, no bands, platelets 372. BUN 23, creatinine 0.53. MICROBIOLOGY: Urine culture on admission grew Proteus mirabilis. Blood cultures have been negative . INDWELLINGS: Trach, PEG, Mondragon. PHYSICAL EXAMINATION: GENERAL: This is a chronically ill-appearing, elderly man who is awake, in no distress. HEENT: Head atraumatic, normocephalic. Sclerae anicteric. Buccal mucosa pink. NECK: Supple. CHEST: Rise symmetrical. Breath sounds clear. HEART: S1, S2. ABDOMEN: Soft. Bowel tones present. EXTREMITIES: Without cyanosis. ASSESSMENT: 1. Systemic inflammatory response syndrome with ongoing leukocytosis, etiology unclear. 2. Status post septic shock. 3. Status post multi-drug resistant urinary tract infection. 4. Chronic respiratory failure and dysphagia. 5. Quadriplegia. 6. Diabetes. PLAN: The patient remains clinically and hemodynamically stable, and completing antibiotics. He martinez s been on antibiotics since 10/16/2017. He does not appear to be septic or toxic. We are going to discontinue antibiotics today. We will order chest x-ray in a.m. Repeat blood and urine cultures. Dictated By: ADI ENNIS SENIOR FOREMAN for DAVID KEMP MD NI/NTS Conf#: [id number] DID#: [id number] CC: VANCE JOHNSON MD;*EndCC*
[2017-10-26] VITALS (12 sets, daily range): BP systolic 112–137; BP diastolic 64–73; PULSE 61–76; RESP 19–21
[2017-10-26] MEDS: SUCRALFATE 1 GM TAB GTB SCH ×4 (01:03→18:07)
[2017-10-26] MEDS: INSULIN ASPART [NOVOLOG] 3 ML PEN SC SCH ×6 (01:14→21:41)
[2017-10-26] MEDS: ACCU-CHEK XX SCH (02:00)
[2017-10-26] MEDS: LANSOPRAZOLE 30 MG CAP GTB SCH (05:45)
[2017-10-26 08:20] LABS: BASOPHILS % 0.3 % (0.0-2.0); EOSINOPHILS # 0.3 10^3/ul (0.0-0.5); EOSINOPHILS % 2.1 % (0.0-7.0); HEMOGLOBIN 9.2 g/dl (14.0-18.0); LYMPHOCYTES # 2.4 10^3/ul (0.8-2.9); LYMPHOCYTES % 17.4 % (15.0-51.0); MEAN CORPUSCULAR HEMOGLOBIN 24.5 pg (29.0-33.0); MEAN CORPUSCULAR HGB CONC 30.7 g/dl (32.0-37.0); MEAN PLATELET VOLUME 9.6 fl (7.4-10.4); MONOCYTE # 1.5 10^3/ul (0.3-0.9); MONOCYTES % 10.8 % (0.0-11.0); NEUTROPHIL # 9.4 10^3/ul (1.6-7.5); NEUTROPHILS % 68.5 % (39.0-77.0); PLATELET COUNT 370 10^3/UL (140-415); RED BLOOD COUNT 3.75 10^6/ul (4.70-6.10); RED CELL DISTRIBUTION WIDTH 19.1 % (11.5-14.5); WHITE BLOOD COUNT 13.7 10^3/ul (4.8-10.8)
[2017-10-26] MEDS: ZINC SULFATE 220 MG CAP NGT SCH (09:03)
[2017-10-26] MEDS: BACLOFEN 10 MG TAB GTB SCH ×3 (09:03→21:40)
[2017-10-26] MEDS: ASCORBIC ACID 500 MG TAB NGT SCH (09:03)
[2017-10-26] MEDS: FERROUS SULFATE 60 MG/ML 5ML CUP GTB SCH ×2 (09:03→21:40)
[2017-10-26] MEDS: traMADol 50 MG TAB GTB SCH ×3 (09:04→21:40)
--- NOTE | 2017-10-26 09:13 | RADRPT ---
PROCEDURE: XR Chest 1 View. CLINICAL INDICATION: Shortness of breath. TECHNIQUE: Single view of the chest was obtained. COMPARISON: DR ARNOLD 10/15/2017 FINDINGS: The heart size is within normal limits. Calcified atherosclerosis is noted in the aorta. Tracheosto my tube is stable and appears in grossly appropriate location. Right basilar atelectasis versus mild infiltrates are identified. Atelectasis is noted in the left lower lobe. The osseous structures liborio ear grossly intact. Partially visualized cervical spine fusion is noted. IMPRESSION: Calcified atherosclerosis in the aorta. Bibasilar atelectasis versus mild infiltrates. Atelectasis in the left lower lobe. Overall appearance is similar to prior exam. RPTAT: AA .Wilfrid Torres MD, MD Date Time Electronically viewed and signed by .Wilfrid Torres MD, on 10/26/2017 09:13 .P/
--- NOTE | 2017-10-26 15:03 | CONS ---
Date/Time of Note Date/Time of Note DATE: 10/26/17 TIME: 15:01 Assessment/Plan Assessment/Plan Chief Complaint/Hosp Course SUBJECTIVE: No acute events overnight. The patient is alert, feels good, looks comfortable.No fevers, nausea, vomiting or diarrhea. MICROBIOLOGY: Urine culture on admission grew Proteus mirabilis. Blood cultures have been negative. INDWELLINGS: Trach, PEG, Mondragon. PHYSICAL EXAMINATION: GENERAL: This is a chronically ill-appearing, elderly man who is awake, in no distress. HEENT: Head atraumatic, normocephalic. Sclerae anicteric. Buccal mucosa pink. NECK: Supple. CHEST: Rise symmetrical. Breath sounds clear. HEART: S1, S2. ABDOMEN: Soft. Bowel tones present. EXTREMITIES: Without cyanosis. ASSESSMENT: 1. Systemic inflammatory response syndrome with ongoing leukocytosis, no evidence of acute infection. 2. Status post septic shock. 3. Status post multi-drug resistant urinary tract infection. 4. Chronic respiratory failure and dysphagia. 5. Quadriplegia. 6. Diabetes. PLAN: The patient remains stable, completed antibiotics, now off, WBC trending down, repeat blood cultures negative, continue present care DW staff/pt Problems: Consultation Date/Type/Reason Admit Date/Time Oct 15, 2017 at 19:43 Initial Consult Date 10/16/17 Type of Consultation: ID Exam/Review of Systems Vital Signs Vitals Vital Signs Date Time Temp Pulse Resp B/P Pulse Ox O2 Delivery O2 Flow Rate FiO2 10/26/17 12:00 69 10/26/17 11:05 98.6 20 121/70 98 10/26/17 09:14 Aerosol Mask 5.0 28 Intake and Output 10/25/17 10/25/17 10/26/17 15:00 23:00 07:00 Intake Total 50 ml 1590 ml 1340 ml Output Total 1100 ml 700 ml Balance 50 ml 490 ml 640 ml Results Result Diagram: 10/26/17 0738 10/25/17 0833 Results 24 hrs Laboratory Tests Test 10/25/17 17:44 10/25/17 20:44 10/26/17 01:09 10/26/17 05:46 Bedside Glucose 111 136 158 142 Test 10/26/17 07:38 10/26/17 08:17 10/26/17 12:14 White Blood Count 13.7 #H Red Blood Count 3.75 L Hemoglobin 9.2 L Hematocrit 30.0 L Mean Corpuscular Volume 80.0 L Mean Corpuscular Hemoglobin 24.5 L Mean Corpuscular Hemoglobin Concent 30.7 L Red Cell Distribution Width 19.1 H Platelet Count 370 Mean Platelet Volume 9.6 Neutrophils % 68.5 Lymphocytes % 17.4 Monocytes % 10.8 Eosinophils % 2.1 Basophils % 0.3 Nucleated Red Blood Cells % 0.0 Neutrophils # 9.4 H Lymphocytes # 2.4 Monocytes # 1.5 H Eosinophils # 0.3 Basophils # 0.0 Nucleated Red Blood Cells # 0.0 Bedside Glucose 110 158 Medications Medications Current Medications Ondansetron HCl (Zofran Inj) 4 mg Q6H PRN IV NAUSEA AND/OR VOMITING Last administered on 10/24/17 18:31; Admin Dose 4 MG; Start 10/15/17 at 20:00 Morphine Sulfate (morphine) 2 mg Q4H PRN IV SEVERE PAIN LEVEL 7-10 Last administered on 10/24/17 18:39; Admin Dose 2 MG; Start 10/15/17 at 20:00 Baclofen (Lioresal) 10 mg TID GTB Last administered on 10/26/17 13:37; Admin Dose 10 MG; Start 10/16/17 at 09:00 Ferrous Sulfate (Feosol Liquid Cup) 300 mg BID GTB Last administered on 09:03; Admin Dose 300 MG; Start 10/16/17 at 09:00 Al Hydrox/Mg Hydrox/Simethicone (Mag-Al Plus) 30 ml Q4H PRN GTB GASTROINTESTINAL UPSET; Start 10/16/17 at 00:00 Sucralfate (Carafate) 1 gm Q6 GTB Last administered on 10/26/17 13:37; Admin Dose 1 GM; Start 10/16/17 at 00:00 Tramadol HCl (Ultram) 50 mg TID GTB Last administered on 10/26/17 13:37; Admin Dose 50 MG; Start 10/16/17 at 09:00 Zolpidem Tartrate (Ambien) 5 mg QHS PRN GTB INSOMNIA Last administered on 22:21; Admin Dose 5 MG; Start 10/16/17 at 00:00 Diagnostic Test (Pha) (Accu-Chek) 1 ea 02 XX ; Start 10/18/17 at 02:00 Insulin Aspart (Novolog Insulin Pen) NOVOLOG *MILD* ALGORI... Q4 SC Last administered on 10/26/17 12:22; Admin Dose 1 UNIT; Start 10/17/17 at 13:00 Miscellaneous Information 1 ea NOTE XX ; Start 10/17/17 at 14:00 Glucose (Glutose) 15 gm Q15M PRN PO DECREASED GLUCOSE; Start 10/17/17 at 14:00 Glucose (Glutose) 22.5 gm Q15M PRN PO DECREASED GLUCOSE; Start 10/17/17 at 14: 00 Dextrose (D50w Syringe) 25 ml Q15M PRN IV DECREASED GLUCOSE; Start 10/17/17 at 14:00 Dextrose (D50w Syringe) 50 ml Q15M PRN IV DECREASED GLUCOSE; Start 10/17/17 at 14:00 Glucagon (Glucagen) 1 mg Q15M PRN IM DECREASED GLUCOSE; Start 10/17/17 at 14:00 Glucose (Glutose) 15 gm Q15M PRN BUCCAL DECREASED GLUCOSE; Start 10/17/17 at 14 :00 Zinc Sulfate (Zinc Sulfate) 220 mg DAILY NGT Last administered on 10/26/17 09 :03; Admin Dose 220 MG; Start 10/18/17 at 09:30 Ascorbic Acid (Vitamin C) 500 mg DAILY NGT Last administered on 10/26/17 09: 03; Admin Dose 500 MG; Start 10/18/17 at 09:30 Lansoprazole (Prevacid) 30 mg DAILY@06 GTB Last administered on 10/26/17 05: 45; Admin Dose 30 MG; Start 10/19/17 at 06:00 Insulin Glargine (Lantus) 30 unit DAILY@20 SC Last administered on 10/25/17 20:53; Admin Dose 30 UNIT; Start 10/22/17 at 20:00 ADI ENNIS NP Oct 26, 2017 15:03
--- NOTE | 2017-10-26 16:10 | CONS ---
Date/Time of Note Date/Time of Note DATE: 10/26/17 TIME: 16:05 Consult Date/Type/Reason Admit Date/Time Oct 15, 2017 at 19:43 Initial Consult Date 10/16/17 Type of Consultation: Pulmonary Subjective No significant changes. Patient remains stable. Objective Vital Signs Date Time Temp Pulse Resp B/P Pulse Ox O2 Delivery O2 Flow Rate FiO2 10/26/17 15:40 98.6 72 20 137/64 99 10/26/17 09:14 Aerosol Mask 5.0 28 Intake and Output 10/25/17 10/25/17 10/26/17 15:00 23:00 07:00 Intake Total 50 ml 1590 ml 1340 ml Output Total 1100 ml 700 ml Balance 50 ml 490 ml 640 ml Results/Medications Result Diagram: 10/26/17 0738 10/25/17 0833 Results 24 hrs Laboratory Tests Test 10/25/17 17:44 10/25/17 20:44 10/26/17 01:09 10/26/17 05:46 Bedside Glucose 111 136 158 142 Test 10/26/17 07:38 10/26/17 08:17 10/26/17 12:14 White Blood Count 13.7 #H Red Blood Count 3.75 L Hemoglobin 9.2 L Hematocrit 30.0 L Mean Corpuscular Volume 80.0 L Mean Corpuscular Hemoglobin 24.5 L Mean Corpuscular Hemoglobin Concent 30.7 L Red Cell Distribution Width 19.1 H Platelet Count 370 Mean Platelet Volume 9.6 Neutrophils % 68.5 Lymphocytes % 17.4 Monocytes % 10.8 Eosinophils % 2.1 Basophils % 0.3 Nucleated Red Blood Cells % 0.0 Neutrophils # 9.4 H Lymphocytes # 2.4 Monocytes # 1.5 H Eosinophils # 0.3 Basophils # 0.0 Nucleated Red Blood Cells # 0.0 Bedside Glucose 110 158 Medications Current Medications Ondansetron HCl (Zofran Inj) 4 mg Q6H PRN IV NAUSEA AND/OR VOMITING Last administered on 10/24/17 18:31; Admin Dose 4 MG; Start 10/15/17 at 20:00 Morphine Sulfate (morphine) 2 mg Q4H PRN IV SEVERE PAIN LEVEL 7-10 Last administered on 10/24/17 18:39; Admin Dose 2 MG; Start 10/15/17 at 20:00 Baclofen (Lioresal) 10 mg TID GTB Last administered on 10/26/17 13:37; Admin Dose 10 MG; Start 10/16/17 at 09:00 Ferrous Sulfate (Feosol Liquid Cup) 300 mg BID GTB Last administered on 09:03; Admin Dose 300 MG; Start 10/16/17 at 09:00 Al Hydrox/Mg Hydrox/Simethicone (Mag-Al Plus) 30 ml Q4H PRN GTB GASTROINTESTINAL UPSET; Start 10/16/17 at 00:00 Sucralfate (Carafate) 1 gm Q6 GTB Last administered on 10/26/17 13:37; Admin Dose 1 GM; Start 10/16/17 at 00:00 Tramadol HCl (Ultram) 50 mg TID GTB Last administered on 10/26/17 13:37; Admin Dose 50 MG; Start 10/16/17 at 09:00 Zolpidem Tartrate (Ambien) 5 mg QHS PRN GTB INSOMNIA Last administered on 22:21; Admin Dose 5 MG; Start 10/16/17 at 00:00 Diagnostic Test (Pha) (Accu-Chek) 1 ea 02 XX ; Start 10/18/17 at 02:00 Insulin Aspart (Novolog Insulin Pen) NOVOLOG *MILD* ALGORI... Q4 SC Last administered on 10/26/17 12:22; Admin Dose 1 UNIT; Start 10/17/17 at 13:00 Miscellaneous Information 1 ea NOTE XX ; Start 10/17/17 at 14:00 Glucose (Glutose) 15 gm Q15M PRN PO DECREASED GLUCOSE; Start 10/17/17 at 14:00 Glucose (Glutose) 22.5 gm Q15M PRN PO DECREASED GLUCOSE; Start 10/17/17 at 14: 00 Dextrose (D50w Syringe) 25 ml Q15M PRN IV DECREASED GLUCOSE; Start 10/17/17 at 14:00 Dextrose (D50w Syringe) 50 ml Q15M PRN IV DECREASED GLUCOSE; Start 10/17/17 at 14:00 Glucagon (Glucagen) 1 mg Q15M PRN IM DECREASED GLUCOSE; Start 10/17/17 at 14:00 Glucose (Glutose) 15 gm Q15M PRN BUCCAL DECREASED GLUCOSE; Start 10/17/17 at 14 :00 Zinc Sulfate (Zinc Sulfate) 220 mg DAILY NGT Last administered on 10/26/17 09 :03; Admin Dose 220 MG; Start 10/18/17 at 09:30 Ascorbic Acid (Vitamin C) 500 mg DAILY NGT Last administered on 10/26/17 09: 03; Admin Dose 500 MG; Start 10/18/17 at 09:30 Lansoprazole (Prevacid) 30 mg DAILY@06 GTB Last administered on 10/26/17 05: 45; Admin Dose 30 MG; Start 10/19/17 at 06:00 Insulin Glargine (Lantus) 30 unit DAILY@20 SC Last administered on 10/25/17 20:53; Admin Dose 30 UNIT; Start 10/22/17 at 20:00 Assessment/Plan Chief Complaint/Hosp Course IMP: 1. Sepsis from UTI 2. History of quadriplegia--s/p trach 3. Anemia. 4. Diabetes. 5. Acute renal insufficiency with normalization of renal function. 6. Dysphagia status post video swallow evaluation. RECS: cece calixto from pulm standpoint po antibiotics. ? Problems: RUSSEL DE LA CRUZ MD, [facility] Oct 26, 2017 16:10
[2017-10-26] MEDS: metFORMIN 500 MG TAB GTB SCH (18:07)
--- NOTE | 2017-10-26 18:55 | PN ---
Date/Time of Note Date/Time of Note DATE: 10/26/17 TIME: 18:51 Assessment/Plan VTE Prophylaxis VTE Prophylaxis Intervention: SCD's Lines/Catheters IV Catheter Type (from Nrsg): Central Line Central line still needed: Yes Urinary Cath still in place: Yes Reason Cath still needed: urinary retention Assessment/Plan Assessment/Plan 1. Severe sepsis versus septic shock- resolved - WBC trending downward and CXR shows no change from previous imaging study. - Pneumonia and UTI source - ID on board and recommendations appreciated. Antibiotics discontinued and will monitor WBC. When trending down will be safe for discharge 2. Anemia, microcytic - Currently on iron per GTB and H/H stable - Will continue monitoring - No signs of active bleeding - Likely component of volume resuscitation, and partially secondary to anemia of chronic disease 3. Acute kidney injury- Resolved - Nephrology consult appreciated 4. Electrolyte derangement - Replete as needed 5. 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 Dysphasia - PEG in place - Will ask speech to reevaluate patient to see if can tolerated more PO intake 7. Quadriplegia - Status post fall 8. Sacral decubitus ulcer - Chronic, infectious disease recommended is appreciated - patient refused wound care per wound nurse on sacral decubitus - other wound bandaged and cleaned 9. Type 2 diabetes - Glucose well controlled on Lantus 30 - Insulin sliding scale and accucheck. will continue adjusting as needed 10. Disposition - Once WBC trending downward, will be stable for discharge home Subjective 24 Hr Interval Summary Free Text/Dictation Patient doing well but states been having a hard time getting used to new trach. Requesting to be reevaluated by speech therapy since admits he plans to eat and drink everything once discharged. No acute overnight events. Exam/Review of Systems Vital Signs Vitals Vital Signs Date Time Temp Pulse Resp B/P Pulse Ox O2 Delivery O2 Flow Rate FiO2 10/26/17 17:30 65 10/26/17 16:15 20 97 Aerosol Mask 5.0 28 10/26/17 15:40 98.6 137/64 Intake and Output 10/25/17 10/25/17 10/26/17 15:00 23:00 07:00 Intake Total 50 ml 1590 ml 1340 ml Output Total 1100 ml 700 ml Balance 50 ml 490 ml 640 ml Exam General: Patient is laying in bed and answers questions appropriately. no acute distress. quadraplegic, peg/trach (passy imani valve) Head: Normocephalic atraumatic Eyes: EOMI, pupils reactive to light Neck: Supple, nontender, midline Respiratory: diminished to auscultation bilaterally. no wheezing Cardiovascular: regular rate, no obvious murmurs Gastrointestinal: non-tender to palpation, bowel sounds heard. peg tube Neurological: no sensation or motor in extremities Skin: No new skin lesions, chronic sacral decubitus Results Result Diagram: 10/26/17 0738 10/25/17 0833 Results 24 hrs Laboratory Tests Test 10/25/17 20:44 10/26/17 01:09 10/26/17 05:46 10/26/17 07:38 Bedside Glucose 136 158 142 White Blood Count 13.7 #H Red Blood Count 3.75 L Hemoglobin 9.2 L Hematocrit 30.0 L Mean Corpuscular Volume 80.0 L Mean Corpuscular Hemoglobin 24.5 L Mean Corpuscular Hemoglobin Concent 30.7 L Red Cell Distribution Width 19.1 H Platelet Count 370 Mean Platelet Volume 9.6 Neutrophils % 68.5 Lymphocytes % 17.4 Monocytes % 10.8 Eosinophils % 2.1 Basophils % 0.3 Nucleated Red Blood Cells % 0.0 Neutrophils # 9.4 H Lymphocytes # 2.4 Monocytes # 1.5 H Eosinophils # 0.3 Basophils # 0.0 Nucleated Red Blood Cells # 0.0 Test 10/26/17 08:17 10/26/17 12:14 10/26/17 18:05 Bedside Glucose 110 158 133 Medications Medications Current Medications Ondansetron HCl (Zofran Inj) 4 mg Q6H PRN IV NAUSEA AND/OR VOMITING Last administered on 10/24/17 18:31; Admin Dose 4 MG; Start 10/15/17 at 20:00 Morphine Sulfate (morphine) 2 mg Q4H PRN IV SEVERE PAIN LEVEL 7-10 Last administered on 10/24/17 18:39; Admin Dose 2 MG; Start 10/15/17 at 20:00 Baclofen (Lioresal) 10 mg TID GTB Last administered on 10/26/17 13:37; Admin Dose 10 MG; Start 10/16/17 at 09:00 Ferrous Sulfate (Feosol Liquid Cup) 300 mg BID GTB Last administered on 09:03; Admin Dose 300 MG; Start 10/16/17 at 09:00 Al Hydrox/Mg Hydrox/Simethicone (Mag-Al Plus) 30 ml Q4H PRN GTB GASTROINTESTINAL UPSET; Start 10/16/17 at 00:00 Sucralfate (Carafate) 1 gm Q6 GTB Last administered on 10/26/17 18:07; Admin Dose 1 GM; Start 10/16/17 at 00:00 Tramadol HCl (Ultram) 50 mg TID GTB Last administered on 10/26/17 13:37; Admin Dose 50 MG; Start 10/16/17 at 09:00 Zolpidem Tartrate (Ambien) 5 mg QHS PRN GTB INSOMNIA Last administered on 22:21; Admin Dose 5 MG; Start 10/16/17 at 00:00 Diagnostic Test (Pha) (Accu-Chek) 1 ea 02 XX ; Start 10/18/17 at 02:00 Insulin Aspart (Novolog Insulin Pen) NOVOLOG *MILD* ALGORI... Q4 SC Last administered on 10/26/17 12:22; Admin Dose 1 UNIT; Start 10/17/17 at 13:00 Miscellaneous Information 1 ea NOTE XX ; Start 10/17/17 at 14:00 Glucose (Glutose) 15 gm Q15M PRN PO DECREASED GLUCOSE; Start 10/17/17 at 14:00 Glucose (Glutose) 22.5 gm Q15M PRN PO DECREASED GLUCOSE; Start 10/17/17 at 14: 00 Dextrose (D50w Syringe) 25 ml Q15M PRN IV DECREASED GLUCOSE; Start 10/17/17 at 14:00 Dextrose (D50w Syringe) 50 ml Q15M PRN IV DECREASED GLUCOSE; Start 10/17/17 at 14:00 Glucagon (Glucagen) 1 mg Q15M PRN IM DECREASED GLUCOSE; Start 10/17/17 at 14:00 Glucose (Glutose) 15 gm Q15M PRN BUCCAL DECREASED GLUCOSE; Start 10/17/17 at 14 :00 Zinc Sulfate (Zinc Sulfate) 220 mg DAILY NGT Last administered on 10/26/17 09 :03; Admin Dose 220 MG; Start 10/18/17 at 09:30 Ascorbic Acid (Vitamin C) 500 mg DAILY NGT Last administered on 10/26/17 09: 03; Admin Dose 500 MG; Start 10/18/17 at 09:30 Lansoprazole (Prevacid) 30 mg DAILY@06 GTB Last administered on 10/26/17 05: 45; Admin Dose 30 MG; Start 10/19/17 at 06:00 Insulin Glargine (Lantus) 30 unit DAILY@20 SC Last administered on 10/25/17 20:53; Admin Dose 30 UNIT; Start 10/22/17 at 20:00 FLORIDA CATES MD Oct 26, 2017 18:55
[2017-10-26] MEDS: INSULIN GLARGINE [LANtus] 3 ML PEN SC SCH (21:50)
[2017-10-27] VITALS (13 sets, daily range): BP systolic 96–140; BP diastolic 59–72; PULSE 62–160; RESP 16–22
[2017-10-27] MEDS: SUCRALFATE 1 GM TAB GTB SCH ×4 (00:38→17:18)
[2017-10-27] MEDS: ZOLPIDEM 5 MG TAB GTB PRN ×2 (00:59→23:09)
[2017-10-27] MEDS: INSULIN ASPART [NOVOLOG] 3 ML PEN SC SCH ×6 (01:00→21:00)
[2017-10-27] MEDS: ACCU-CHEK XX SCH (02:00)
[2017-10-27] MEDS: LANSOPRAZOLE 30 MG CAP GTB SCH (06:18)
[2017-10-27 06:40] LABS: BASOPHILS % 0.2 % (0.0-2.0); EOSINOPHILS # 0.3 10^3/ul (0.0-0.5); EOSINOPHILS % 2.2 % (0.0-7.0); HEMATOCRIT 29.5 % (42.0-52.0); HEMOGLOBIN 9.1 g/dl (14.0-18.0); LYMPHOCYTES # 2.7 10^3/ul (0.8-2.9); LYMPHOCYTES % 19.6 % (15.0-51.0); MEAN CORPUSCULAR HEMOGLOBIN 24.8 pg (29.0-33.0); MEAN CORPUSCULAR HGB CONC 30.8 g/dl (32.0-37.0); MEAN CORPUSCULAR VOLUME 80.4 fl (82.0-101.0); MEAN PLATELET VOLUME 9.5 fl (7.4-10.4); MONOCYTE # 1.4 10^3/ul (0.3-0.9); MONOCYTES % 9.9 % (0.0-11.0); NEUTROPHIL # 9.1 10^3/ul (1.6-7.5); NEUTROPHILS % 67.1 % (39.0-77.0); PLATELET COUNT 354 10^3/UL (140-415); RED BLOOD COUNT 3.67 10^6/ul (4.70-6.10); RED CELL DISTRIBUTION WIDTH 19.3 % (11.5-14.5); WHITE BLOOD COUNT 13.6 10^3/ul (4.8-10.8)
[2017-10-27] MEDS: ASCORBIC ACID 500 MG TAB NGT SCH (09:22)
[2017-10-27] MEDS: traMADol 50 MG TAB GTB SCH ×3 (09:22→21:26)
[2017-10-27] MEDS: BACLOFEN 10 MG TAB GTB SCH ×3 (09:22→21:26)
[2017-10-27] MEDS: ZINC SULFATE 220 MG CAP NGT SCH (09:23)
[2017-10-27] MEDS: FERROUS SULFATE 60 MG/ML 5ML CUP GTB SCH ×2 (09:23→21:25)
--- NOTE | 2017-10-27 09:49 | PN ---
Date/Time of Note Date/Time of Note DATE: 10/27/17 TIME: 09:47 Assessment/Plan VTE Prophylaxis VTE Prophylaxis Intervention: SCD's Lines/Catheters IV Catheter Type (from Nrsg): Central Line Central line still needed: Yes Urinary Cath still in place: Yes Reason Cath still needed: urinary retention Assessment/Plan Assessment/Plan 1. Severe sepsis versus septic shock- resolved - WBC trending downward but still slightly elevated - CXR shows no change from previous imaging study. - Pneumonia and UTI source - ID on board and recommendations appreciated. Antibiotics discontinued and will monitor WBC. When WBC normalized will be safe for discharge 2. Anemia, microcytic - Currently on iron per GTB and H/H stable - Will continue monitoring - No signs of active bleeding - Likely component of volume resuscitation, and partially secondary to anemia of chronic disease 3. Acute kidney injury- Resolved - Nephrology consult appreciated 4. Electrolyte derangement - Replete as needed 5. Chronic trach dependent respiratory failure s/p trach change - Secondary to quadriplegic nature status post fall - Passy-[place] valve - Pulmonary on board and recommendations appreciated 6. Dysphasia - PEG in place - Repeat speech therapy planned for today 7. Quadriplegia - Status post fall 8. Sacral decubitus ulcer - Chronic, infectious disease recommended is appreciated - patient refused wound care per wound nurse on sacral decubitus - other wound bandaged and cleaned 9. Type 2 diabetes - Glucose well controlled on Lantus 30 - Insulin sliding scale and accucheck. will continue adjusting as needed 10. Disposition - Once WBC normalized, will be stable for discharge home Subjective 24 Hr Interval Summary Free Text/Dictation Patient doing well and denies any new complaints. No acute overnight events. Exam/Review of Systems Vital Signs Vitals Vital Signs Date Time Temp Pulse Resp B/P Pulse Ox O2 Delivery O2 Flow Rate FiO2 10/27/17 07:36 98.0 70 16 96/59 94 10/26/17 16:15 Aerosol Mask 5.0 28 Intake and Output 10/26/17 10/26/17 10/27/17 15:00 23:00 07:00 Intake Total 1140 ml 1340 ml Output Total 14 ml 1200 ml Balance 1126 ml 140 ml Exam General: Patient is laying in bed and answers questions appropriately. no acute distress. quadraplegic, peg/trach (passy imani valve) Eyes: EOMI, pupils reactive to light Neck: Supple, nontender, midline Respiratory: diminished to auscultation bilaterally. no wheezing Cardiovascular: regular rate, no obvious murmurs Gastrointestinal: non-tender to palpation, bowel sounds heard. peg tube Neurological: no sensation or motor in extremities Skin: No new skin lesions, chronic sacral decubitus Results Result Diagram: 10/27/17 0551 10/25/17 0833 Results 24 hrs Laboratory Tests Test 10/26/17 12:14 10/26/17 18:05 10/26/17 20:21 10/27/17 05:51 Bedside Glucose 158 133 154 White Blood Count 13.6 H Red Blood Count 3.67 L Hemoglobin 9.1 L Hematocrit 29.5 L Mean Corpuscular Volume 80.4 L Mean Corpuscular Hemoglobin 24.8 L Mean Corpuscular Hemoglobin Concent 30.8 L Red Cell Distribution Width 19.3 H Platelet Count 354 Mean Platelet Volume 9.5 Neutrophils % 67.1 Lymphocytes % 19.6 Monocytes % 9.9 Eosinophils % 2.2 Basophils % 0.2 Nucleated Red Blood Cells % 0.0 Neutrophils # 9.1 H Lymphocytes # 2.7 Monocytes # 1.4 H Eosinophils # 0.3 Basophils # 0.0 Nucleated Red Blood Cells # 0.0 Test 10/27/17 05:58 10/27/17 09:26 Bedside Glucose 101 135 Medications Medications Current Medications Ondansetron HCl (Zofran Inj) 4 mg Q6H PRN IV NAUSEA AND/OR VOMITING Last administered on 10/24/17 18:31; Admin Dose 4 MG; Start 10/15/17 at 20:00 Morphine Sulfate (morphine) 2 mg Q4H PRN IV SEVERE PAIN LEVEL 7-10 Last administered on 10/24/17 18:39; Admin Dose 2 MG; Start 10/15/17 at 20:00 Baclofen (Lioresal) 10 mg TID GTB Last administered on 10/27/17 09:22; Admin Dose 10 MG; Start 10/16/17 at 09:00 Ferrous Sulfate (Feosol Liquid Cup) 300 mg BID GTB Last administered on 09:23; Admin Dose 300 MG; Start 10/16/17 at 09:00 Al Hydrox/Mg Hydrox/Simethicone (Mag-Al Plus) 30 ml Q4H PRN GTB GASTROINTESTINAL UPSET; Start 10/16/17 at 00:00 Sucralfate (Carafate) 1 gm Q6 GTB Last administered on 10/27/17 06:18; Admin Dose 1 GM; Start 10/16/17 at 00:00 Tramadol HCl (Ultram) 50 mg TID GTB Last administered on 10/27/17 09:22; Admin Dose 50 MG; Start 10/16/17 at 09:00 Zolpidem Tartrate (Ambien) 5 mg QHS PRN GTB INSOMNIA Last administered on 10/27 00:59; Admin Dose 5 MG; Start 10/16/17 at 00:00 Diagnostic Test (Pha) (Accu-Chek) 1 ea 02 XX ; Start 10/18/17 at 02:00 Insulin Aspart (Novolog Insulin Pen) NOVOLOG *MILD* ALGORI... Q4 SC Last administered on 10/26/17 21:41; Admin Dose 1 UNIT; Start 10/17/17 at 13:00 Miscellaneous Information 1 ea NOTE XX ; Start 10/17/17 at 14:00 Glucose (Glutose) 15 gm Q15M PRN PO DECREASED GLUCOSE; Start 10/17/17 at 14:00 Glucose (Glutose) 22.5 gm Q15M PRN PO DECREASED GLUCOSE; Start 10/17/17 at 14: 00 Dextrose (D50w Syringe) 25 ml Q15M PRN IV DECREASED GLUCOSE; Start 10/17/17 at 14:00 Dextrose (D50w Syringe) 50 ml Q15M PRN IV DECREASED GLUCOSE; Start 10/17/17 at 14:00 Glucagon (Glucagen) 1 mg Q15M PRN IM DECREASED GLUCOSE; Start 10/17/17 at 14:00 Glucose (Glutose) 15 gm Q15M PRN BUCCAL DECREASED GLUCOSE; Start 10/17/17 at 14 :00 Zinc Sulfate (Zinc Sulfate) 220 mg DAILY NGT Last administered on 10/27/17 09 :23; Admin Dose 220 MG; Start 10/18/17 at 09:30 Ascorbic Acid (Vitamin C) 500 mg DAILY NGT Last administered on 10/27/17 09: 22; Admin Dose 500 MG; Start 10/18/17 at 09:30 Lansoprazole (Prevacid) 30 mg DAILY@06 GTB Last administered on 10/27/17 06: 18; Admin Dose 30 MG; Start 10/19/17 at 06:00 Insulin Glargine (Lantus) 30 unit DAILY@20 SC Last administered on 10/26/17 21:50; Admin Dose 30 UNIT; Start 10/22/17 at 20:00 FLORIDA CATES MD Oct 27, 2017 09:49
--- NOTE | 2017-10-27 12:47 | CONS ---
Date/Time of Note Date/Time of Note DATE: 10/27/17 TIME: 12:47 Consult Date/Type/Reason Admit Date/Time Oct 15, 2017 at 19:43 Initial Consult Date 10/16/17 Type of Consultation: Pulmonary Subjective Remains stable. Leukocytosis resolving. Objective Vital Signs Date Time Temp Pulse Resp B/P Pulse Ox O2 Delivery O2 Flow Rate FiO2 10/27/17 11:16 98.2 72 22 119/70 100 10/27/17 08:10 Aerosol 5.0 28 T Tube Intake and Output 10/26/17 10/26/17 10/27/17 15:00 23:00 07:00 Intake Total 1140 ml 1340 ml Output Total 14 ml 1200 ml Balance 1126 ml 140 ml Exam GENERAL: Well nourished well-developed gentleman CA VITAL SIGNS: per chart NECK: Supple. No JVD or lymphadenopathy. CARDIAC EXAM: S1, S2. No added sounds or murmurs. CHEST: clear bilaterally, No added sounds, rales or wheezes ABDOMEN: Soft, nontender. No guarding or rebound. EXTREMITIES: No cyanosis, clubbing or edema. NEUROLOGIC: unable to assess. Results/Medications Result Diagram: 10/27/17 0551 10/25/17 0833 Results 24 hrs Laboratory Tests Test 10/26/17 18:05 10/26/17 20:21 10/27/17 05:51 10/27/17 05:58 Bedside Glucose 133 154 101 White Blood Count 13.6 H Red Blood Count 3.67 L Hemoglobin 9.1 L Hematocrit 29.5 L Mean Corpuscular Volume 80.4 L Mean Corpuscular Hemoglobin 24.8 L Mean Corpuscular Hemoglobin Concent 30.8 L Red Cell Distribution Width 19.3 H Platelet Count 354 Mean Platelet Volume 9.5 Neutrophils % 67.1 Lymphocytes % 19.6 Monocytes % 9.9 Eosinophils % 2.2 Basophils % 0.2 Nucleated Red Blood Cells % 0.0 Neutrophils # 9.1 H Lymphocytes # 2.7 Monocytes # 1.4 H Eosinophils # 0.3 Basophils # 0.0 Nucleated Red Blood Cells # 0.0 Test 10/27/17 09:26 Bedside Glucose 135 Medications Current Medications Ondansetron HCl (Zofran Inj) 4 mg Q6H PRN IV NAUSEA AND/OR VOMITING Last administered on 10/24/17t 18:31; Admin Dose 4 MG; Start 10/15/17 at 20:00 Morphine Sulfate (morphine) 2 mg Q4H PRN IV SEVERE PAIN LEVEL 7-10 Last administered on 10/24/17 18:39; Admin Dose 2 MG; Start 10/15/17 at 20:00 Baclofen (Lioresal) 10 mg TID GTB Last administered on 10/27/17 09:22; Admin Dose 10 MG; Start 10/16/17 at 09:00 Ferrous Sulfate (Feosol Liquid Cup) 300 mg BID GTB Last administered on 09:23; Admin Dose 300 MG; Start 10/16/17 at 09:00 Al Hydrox/Mg Hydrox/Simethicone (Mag-Al Plus) 30 ml Q4H PRN GTB GASTROINTESTINAL UPSET; Start 10/16/17 at 00:00 Sucralfate (Carafate) 1 gm Q6 GTB Last administered on 10/27/17 06:18; Admin Dose 1 GM; Start 10/16/17 at 00:00 Tramadol HCl (Ultram) 50 mg TID GTB Last administered on 10/27/17 09:22; Admin Dose 50 MG; Start 10/16/17 at 09:00 Zolpidem Tartrate (Ambien) 5 mg QHS PRN GTB INSOMNIA Last administered on 10/27 00:59; Admin Dose 5 MG; Start 10/16/17 at 00:00 Diagnostic Test (Pha) (Accu-Chek) 1 ea 02 XX ; Start 10/18/17 at 02:00 Insulin Aspart (Novolog Insulin Pen) NOVOLOG *MILD* ALGORI... Q4 SC Last administered on 10/26/17 21:41; Admin Dose 1 UNIT; Start 10/17/17 at 13:00 Miscellaneous Information 1 ea NOTE XX ; Start 10/17/17 at 14:00 Glucose (Glutose) 15 gm Q15M PRN PO DECREASED GLUCOSE; Start 10/17/17 at 14:00 Glucose (Glutose) 22.5 gm Q15M PRN PO DECREASED GLUCOSE; Start 10/17/17 at 14: 00 Dextrose (D50w Syringe) 25 ml Q15M PRN IV DECREASED GLUCOSE; Start 10/17/17 at 14:00 Dextrose (D50w Syringe) 50 ml Q15M PRN IV DECREASED GLUCOSE; Start 10/17/17 at 14:00 Glucagon (Glucagen) 1 mg Q15M PRN IM DECREASED GLUCOSE; Start 10/17/17 at 14:00 Glucose (Glutose) 15 gm Q15M PRN BUCCAL DECREASED GLUCOSE; Start 10/17/17 at 14 :00 Zinc Sulfate (Zinc Sulfate) 220 mg DAILY NGT Last administered on 10/27/17 09 :23; Admin Dose 220 MG; Start 10/18/17 at 09:30 Ascorbic Acid (Vitamin C) 500 mg DAILY NGT Last administered on 10/27/17 09: 22; Admin Dose 500 MG; Start 10/18/17 at 09:30 Lansoprazole (Prevacid) 30 mg DAILY@06 GTB Last administered on 10/27/17 06: 18; Admin Dose 30 MG; Start 10/19/17 at 06:00 Insulin Glargine (Lantus) 30 unit DAILY@20 SC Last administered on 10/26/17 21:50; Admin Dose 30 UNIT; Start 10/22/17 at 20:00 Assessment/Plan Chief Complaint/Hosp Course IMP: 1. Sepsis from UTI 2. History of quadriplegia--s/p trach 3. Anemia. 4. Diabetes. 5. Acute renal insufficiency with normalization of renal function. 6. Dysphagia status post video swallow evaluation. RECS: Continue antibiotics DC planning Problems: RUSSEL DE LA CRUZ MD, [facility] Oct 27, 2017 12:47
--- NOTE | 2017-10-27 14:40 | CONS ---
Date/Time of Note Date/Time of Note DATE: 10/27/17 TIME: 14:40 Assessment/Plan Assessment/Plan Chief Complaint/Hosp Course SUBJECTIVE: No acute events overnight. The patient is alert, feels good, looks comfortable.No fevers, nausea, vomiting or diarrhea. MICROBIOLOGY: Urine culture on admission grew Proteus mirabilis. Blood cultures have been negative. INDWELLINGS: Trach, PEG, Mondragon. PHYSICAL EXAMINATION: GENERAL: This is a chronically ill-appearing, elderly man who is awake, in no distress. HEENT: Head atraumatic, normocephalic. Sclerae anicteric. Buccal mucosa pink. NECK: Supple. CHEST: Rise symmetrical. Breath sounds clear. HEART: S1, S2. ABDOMEN: Soft. Bowel tones present. EXTREMITIES: Without cyanosis. ASSESSMENT: 1. Systemic inflammatory response syndrome with ongoing leukocytosis, no evidence of acute infection. 2. Status post septic shock. 3. Status post multi-drug resistant urinary tract infection. 4. Chronic respiratory failure and dysphagia. 5. Quadriplegia. 6. Diabetes. PLAN: The patient remains stable, off antibiotics DW staff Problems: Consultation Date/Type/Reason Admit Date/Time Oct 15, 2017 at 19:43 Initial Consult Date 10/16/17 Type of Consultation: ID Exam/Review of Systems Vital Signs Vitals Vital Signs Date Time Temp Pulse Resp B/P Pulse Ox O2 Delivery O2 Flow Rate FiO2 10/27/17 12:05 76 10/27/17 11:16 98.2 22 119/70 100 10/27/17 08:10 Aerosol 5.0 28 T Tube Intake and Output 10/26/17 10/26/17 10/27/17 15:00 23:00 07:00 Intake Total 1140 ml 1340 ml Output Total 14 ml 1200 ml Balance 1126 ml 140 ml Results Result Diagram: 10/27/17 0551 10/25/17 0833 Results 24 hrs Laboratory Tests Test 10/26/17 18:05 10/26/17 20:21 10/27/17 05:51 10/27/17 05:58 Bedside Glucose 133 154 101 White Blood Count 13.6 H Red Blood Count 3.67 L Hemoglobin 9.1 L Hematocrit 29.5 L Mean Corpuscular Volume 80.4 L Mean Corpuscular Hemoglobin 24.8 L Mean Corpuscular Hemoglobin Concent 30.8 L Red Cell Distribution Width 19.3 H Platelet Count 354 Mean Platelet Volume 9.5 Neutrophils % 67.1 Lymphocytes % 19.6 Monocytes % 9.9 Eosinophils % 2.2 Basophils % 0.2 Nucleated Red Blood Cells % 0.0 Neutrophils # 9.1 H Lymphocytes # 2.7 Monocytes # 1.4 H Eosinophils # 0.3 Basophils # 0.0 Nucleated Red Blood Cells # 0.0 Test 10/27/17 09:26 10/27/17 13:06 Bedside Glucose 135 125 Medications Medications Current Medications Ondansetron HCl (Zofran Inj) 4 mg Q6H PRN IV NAUSEA AND/OR VOMITING Last administered on 10/24/17 18:31; Admin Dose 4 MG; Start 10/15/17 at 20:00 Morphine Sulfate (morphine) 2 mg Q4H PRN IV SEVERE PAIN LEVEL 7-10 Last administered on 10/24/17 18:39; Admin Dose 2 MG; Start 10/15/17 at 20:00 Baclofen (Lioresal) 10 mg TID GTB Last administered on 10/27/17 12:59; Admin Dose 10 MG; Start 10/16/17 at 09:00 Ferrous Sulfate (Feosol Liquid Cup) 300 mg BID GTB Last administered on 09:23; Admin Dose 300 MG; Start 10/16/17 at 09:00 Al Hydrox/Mg Hydrox/Simethicone (Mag-Al Plus) 30 ml Q4H PRN GTB GASTROINTESTINAL UPSET; Start 10/16/17 at 00:00 Sucralfate (Carafate) 1 gm Q6 GTB Last administered on 10/27/17 12:59; Admin Dose 1 GM; Start 10/16/17 at 00:00 Tramadol HCl (Ultram) 50 mg TID GTB Last administered on 10/27/17 13:00; Admin Dose 50 MG; Start 10/16/17 at 09:00 Zolpidem Tartrate (Ambien) 5 mg QHS PRN GTB INSOMNIA Last administered on 10/27 00:59; Admin Dose 5 MG; Start 10/16/17 at 00:00 Diagnostic Test (Pha) (Accu-Chek) 1 ea 02 XX ; Start 10/18/17 at 02:00 Insulin Aspart (Novolog Insulin Pen) NOVOLOG *MILD* ALGORI... Q4 SC Last administered on 10/26/17 21:41; Admin Dose 1 UNIT; Start 10/17/17 at 13:00 Miscellaneous Information 1 ea NOTE XX ; Start 10/17/17 at 14:00 Glucose (Glutose) 15 gm Q15M PRN PO DECREASED GLUCOSE; Start 10/17/17 at 14:00 Glucose (Glutose) 22.5 gm Q15M PRN PO DECREASED GLUCOSE; Start 10/17/17 at 14: 00 Dextrose (D50w Syringe) 25 ml Q15M PRN IV DECREASED GLUCOSE; Start 10/17/17 at 14:00 Dextrose (D50w Syringe) 50 ml Q15M PRN IV DECREASED GLUCOSE; Start 10/17/17 at 14:00 Glucagon (Glucagen) 1 mg Q15M PRN IM DECREASED GLUCOSE; Start 10/17/17 at 14:00 Glucose (Glutose) 15 gm Q15M PRN BUCCAL DECREASED GLUCOSE; Start 10/17/17 at 14 :00 Zinc Sulfate (Zinc Sulfate) 220 mg DAILY NGT Last administered on 10/27/17 09 :23; Admin Dose 220 MG; Start 10/18/17 at 09:30 Ascorbic Acid (Vitamin C) 500 mg DAILY NGT Last administered on 10/27/17 09: 22; Admin Dose 500 MG; Start 10/18/17 at 09:30 Lansoprazole (Prevacid) 30 mg DAILY@06 GTB Last administered on 10/27/17 06: 18; Admin Dose 30 MG; Start 10/19/17 at 06:00 Insulin Glargine (Lantus) 30 unit DAILY@20 SC Last administered on 10/26/17 21:50; Admin Dose 30 UNIT; Start 10/22/17 at 20:00 ADI ENNIS NP Oct 27, 2017 14:40
[2017-10-27] MEDS ORDERED: LORAZEPAM 0.5 MG TAB PO PRN (17:00)
[2017-10-27] MEDS: metFORMIN 500 MG TAB GTB SCH (17:18)
[2017-10-27] MEDS: INSULIN GLARGINE [LANtus] 3 ML PEN SC SCH (21:28)
[2017-10-28] VITALS (13 sets, daily range): BP systolic 103–142; BP diastolic 60–71; PULSE 61–78; RESP 18–21
[2017-10-28] MEDS: SUCRALFATE 1 GM TAB GTB SCH ×4 (00:32→17:19)
[2017-10-28] MEDS: INSULIN ASPART [NOVOLOG] 3 ML PEN SC SCH ×6 (01:00→21:00)
[2017-10-28] MEDS: ACCU-CHEK XX SCH (02:00)
[2017-10-28] MEDS: morphine 2 MG INJ IV PRN (03:10)
[2017-10-28] MEDS: LANSOPRAZOLE 30 MG CAP GTB SCH (06:18)
[2017-10-28 06:54] LABS: BASOPHILS % 0.3 % (0.0-2.0); EOSINOPHILS # 0.3 10^3/ul (0.0-0.5); EOSINOPHILS % 2.4 % (0.0-7.0); HEMATOCRIT 28.8 % (42.0-52.0); HEMOGLOBIN 8.9 g/dl (14.0-18.0); LYMPHOCYTES # 2.7 10^3/ul (0.8-2.9); LYMPHOCYTES % 22.7 % (15.0-51.0); MEAN CORPUSCULAR HEMOGLOBIN 24.6 pg (29.0-33.0); MEAN CORPUSCULAR HGB CONC 30.9 g/dl (32.0-37.0); MEAN CORPUSCULAR VOLUME 79.6 fl (82.0-101.0); MEAN PLATELET VOLUME 9.7 fl (7.4-10.4); MONOCYTE # 1.4 10^3/ul (0.3-0.9); MONOCYTES % 11.8 % (0.0-11.0); NEUTROPHIL # 7.4 10^3/ul (1.6-7.5); NEUTROPHILS % 62.2 % (39.0-77.0); PLATELET COUNT 343 10^3/UL (140-415); RED BLOOD COUNT 3.62 10^6/ul (4.70-6.10); RED CELL DISTRIBUTION WIDTH 19.5 % (11.5-14.5); WHITE BLOOD COUNT 11.9 10^3/ul (4.8-10.8)
[2017-10-28] MEDS: FERROUS SULFATE 60 MG/ML 5ML CUP GTB SCH ×2 (08:43→21:39)
[2017-10-28] MEDS: ASCORBIC ACID 500 MG TAB NGT SCH (08:44)
[2017-10-28] MEDS: traMADol 50 MG TAB GTB SCH ×3 (08:45→21:40)
[2017-10-28] MEDS: ZINC SULFATE 220 MG CAP NGT SCH (08:45)
[2017-10-28] MEDS: BACLOFEN 10 MG TAB GTB SCH ×3 (08:45→21:39)
--- NOTE | 2017-10-28 08:52 | PN ---
Date/Time of Note Date/Time of Note DATE: 10/28/17 TIME: 08:52 Assessment/Plan VTE Prophylaxis VTE Prophylaxis Intervention: SCD's Lines/Catheters IV Catheter Type (from Nrs): Saline Lock Urinary Cath still in place: Yes Reason Cath still needed: urinary retention Assessment/Plan Assessment/Plan 1. Severe sepsis versus septic shock- resolved - WBC trending downward and 11.9 - CXR shows no change from previous imaging study. - Pneumonia and UTI source - ID on board and recommendations appreciated. Antibiotics discontinued and will monitor WBC. 2. Anemia, microcytic - Currently on iron per GTB and H/H stable - Will continue monitoring - No signs of active bleeding - Likely component of volume resuscitation, and partially secondary to anemia of chronic disease 3. Acute kidney injury- Resolved - Nephrology consult appreciated 4. Electrolyte derangement - Replete as needed 5. 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 Dysphasia - PEG in place - Awaiting repeat speech therapy evaluation 7. Quadriplegia - Status post fall 8. Sacral decubitus ulcer - Chronic, infectious disease recommended is appreciated - patient refused wound care per wound nurse on sacral decubitus - other wound bandaged and cleaned 9. Type 2 diabetes - Glucose well controlled on Lantus 30 - Insulin sliding scale and accucheck. will continue adjusting as needed 10. Disposition - WBC continues to trend downward and will be safe to discharge in the am. - Will need speech reevaluation prior to discharge Subjective 24 Hr Interval Summary Free Text/Dictation Patient doing well and has no complaints. Still concerned about not having had speech reevaluation so can advance diet. Would like to be discharge tomorrow if possible. Exam/Review of Systems Vital Signs Vitals Vital Signs Date Time Temp Pulse Resp B/P Pulse Ox O2 Delivery O2 Flow Rate FiO2 10/28/17 08:42 66 10/28/17 08:04 98.0 18 122/66 98 10/28/17 05:40 Aerosol 5.0 28 Intake and Output 10/27/17 10/27/17 10/28/17 15:00 23:00 07:00 Intake Total 1340 ml 1340 ml Output Total 700 ml 800 ml Balance 640 ml 540 ml Exam General: Patient is laying in bed and answers questions appropriately. no acute distress. quadraplegic, peg/trach (passy imani valve) Eyes: EOMI, pupils reactive to light Neck: Supple, nontender, midline Respiratory: diminished to auscultation bilaterally. no wheezing Cardiovascular: regular rate, no obvious murmurs Gastrointestinal: non-tender to palpation, bowel sounds heard. peg tube Neurological: no sensation or motor in extremities Skin: No new skin lesions, chronic sacral decubitus Results Result Diagram: 10/28/1728 10/25/17 0833 Results 24 hrs Laboratory Tests Test 10/27/17 09:26 10/27/17 13:06 10/27/17 17:25 10/27/17 20:58 Bedside Glucose 135 125 107 108 Test 10/28/17 02:02 10/28/17 05:59 10/28/17 06:28 10/28/17 07:55 Bedside Glucose 116 92 100 White Blood Count 11.9 H Red Blood Count 3.62 L Hemoglobin 8.9 L Hematocrit 28.8 L Mean Corpuscular Volume 79.6 L Mean Corpuscular Hemoglobin 24.6 L Mean Corpuscular Hemoglobin Concent 30.9 L Red Cell Distribution Width 19.5 H Platelet Count 343 Mean Platelet Volume 9.7 Neutrophils % 62.2 Lymphocytes % 22.7 Monocytes % 11.8 H Eosinophils % 2.4 Basophils % 0.3 Nucleated Red Blood Cells % 0.0 Neutrophils # 7.4 Lymphocytes # 2.7 Monocytes # 1.4 H Eosinophils # 0.3 Basophils # 0.0 Nucleated Red Blood Cells # 0.0 Medications Medications Current Medications Ondansetron HCl (Zofran Inj) 4 mg Q6H PRN IV NAUSEA AND/OR VOMITING Last administered on 10/24/17 18:31; Admin Dose 4 MG; Start 10/15/17 at 20:00 Morphine Sulfate (morphine) 2 mg Q4H PRN IV SEVERE PAIN LEVEL 7-10 Last administered on 10/28/17 03:10; Admin Dose 2 MG; Start 10/15/17 at 20:00 Baclofen (Lioresal) 10 mg TID GTB Last administered on 10/28/17 08:45; Admin Dose 10 MG; Start 10/16/17 at 09:00 Ferrous Sulfate (Feosol Liquid Cup) 300 mg BID GTB Last administered on 08:43; Admin Dose 300 MG; Start 10/16/17 at 09:00 Al Hydrox/Mg Hydrox/Simethicone (Mag-Al Plus) 30 ml Q4H PRN GTB GASTROINTESTINAL UPSET; Start 10/16/17 at 00:00 Sucralfate (Carafate) 1 gm Q6 GTB Last administered on 10/28/17 06:18; Admin Dose 1 GM; Start 10/16/17 at 00:00 Tramadol HCl (Ultram) 50 mg TID GTB Last administered on 10/28/17 08:45; Admin Dose 50 MG; Start 10/16/17 at 09:00 Zolpidem Tartrate (Ambien) 5 mg QHS PRN GTB INSOMNIA Last administered on 10/27 23:09; Admin Dose 5 MG; Start 10/16/17 at 00:00 Diagnostic Test (Pha) (Accu-Chek) 1 ea 02 XX ; Start 10/18/17 at 02:00 Insulin Aspart (Novolog Insulin Pen) NOVOLOG *MILD* ALGORI... Q4 SC Last administered on 10/26/17 21:41; Admin Dose 1 UNIT; Start 10/17/17 at 13:00 Miscellaneous Information 1 ea NOTE XX ; Start 10/17/17 at 14:00 Glucose (Glutose) 15 gm Q15M PRN PO DECREASED GLUCOSE; Start 10/17/17 at 14:00 Glucose (Glutose) 22.5 gm Q15M PRN PO DECREASED GLUCOSE; Start 10/17/17 at 14: 00 Dextrose (D50w Syringe) 25 ml Q15M PRN IV DECREASED GLUCOSE; Start 10/17/17 at 14:00 Dextrose (D50w Syringe) 50 ml Q15M PRN IV DECREASED GLUCOSE; Start 10/17/17 at 14:00 Glucagon (Glucagen) 1 mg Q15M PRN IM DECREASED GLUCOSE; Start 10/17/17 at 14:00 Glucose (Glutose) 15 gm Q15M PRN BUCCAL DECREASED GLUCOSE; Start 10/17/17 at 14 :00 Zinc Sulfate (Zinc Sulfate) 220 mg DAILY NGT Last administered on 10/28/17 08 :45; Admin Dose 220 MG; Start 10/18/17 at 09:30 Ascorbic Acid (Vitamin C) 500 mg DAILY NGT Last administered on 10/28/17 08: 44; Admin Dose 500 MG; Start 10/18/17 at 09:30 Lansoprazole (Prevacid) 30 mg DAILY@06 GTB Last administered on 10/28/17 06: 18; Admin Dose 30 MG; Start 10/19/17 at 06:00 Insulin Glargine (Lantus) 30 unit DAILY@20 SC Last administered on 10/27/17 21:28; Admin Dose 30 UNIT; Start 10/22/17 at 20:00 Lorazepam (Ativan) 0.5 mg Q6H PRN PO ANXIETY Last administered on 10/27/17 17 :18; Admin Dose 0.5 MG; Start 10/27/17 at 17:00 FLORIDA CATES MD Oct 28, 2017 08:52
--- NOTE | 2017-10-28 11:09 | CONS ---
Date/Time of Note Date/Time of Note DATE: 10/28/17 TIME: 11:02 Consult Date/Type/Reason Admit Date/Time Oct 15, 2017 at 19:43 Initial Consult Date 10/16/17 Type of Consultation: Pulmonary Subjective Patient remains stable no new events. Objective Vital Signs Date Time Temp Pulse Resp B/P Pulse Ox O2 Delivery O2 Flow Rate FiO2 10/28/17 08:42 66 10/28/17 08:04 98.0 18 122/66 98 10/28/17 05:40 Aerosol 5.0 28 Intake and Output 10/27/17 10/27/17 10/28/17 15:00 23:00 07:00 Intake Total 1340 ml 1340 ml Output Total 700 ml 800 ml Balance 640 ml 540 ml Exam GENERAL: Well nourished well-developed gentleman CA VITAL SIGNS: per chart NECK: Supple. No JVD or lymphadenopathy. CARDIAC EXAM: S1, S2. No added sounds or murmurs. CHEST: clear bilaterally, No added sounds, rales or wheezes ABDOMEN: Soft, nontender. No guarding or rebound. EXTREMITIES: No cyanosis, clubbing or edema. NEUROLOGIC: unable to assess. Results/Medications Result Diagram: 10/28/17 0628 10/25/17 0833 Results 24 hrs Laboratory Tests Test 10/27/17 13:06 10/27/17 17:25 10/27/17 20:58 10/28/17 02:02 Bedside Glucose 125 107 108 116 Test 10/28/17 05:59 10/28/17 06:28 10/28/17 07:55 Bedside Glucose 92 100 White Blood Count 11.9 H Red Blood Count 3.62 L Hemoglobin 8.9 L Hematocrit 28.8 L Mean Corpuscular Volume 79.6 L Mean Corpuscular Hemoglobin 24.6 L Mean Corpuscular Hemoglobin Concent 30.9 L Red Cell Distribution Width 19.5 H Platelet Count 343 Mean Platelet Volume 9.7 Neutrophils % 62.2 Lymphocytes % 22.7 Monocytes % 11.8 H Eosinophils % 2.4 Basophils % 0.3 Nucleated Red Blood Cells % 0.0 Neutrophils # 7.4 Lymphocytes # 2.7 Monocytes # 1.4 H Eosinophils # 0.3 Basophils # 0.0 Nucleated Red Blood Cells # 0.0 Medications Current Medications Ondansetron HCl (Zofran Inj) 4 mg Q6H PRN IV NAUSEA AND/OR VOMITING Last administered on 10/24/17 18:31; Admin Dose 4 MG; Start 10/15/17 at 20:00 Morphine Sulfate (morphine) 2 mg Q4H PRN IV SEVERE PAIN LEVEL 7-10 Last administered on 10/28/17 03:10; Admin Dose 2 MG; Start 10/15/17 at 20:00 Baclofen (Lioresal) 10 mg TID GTB Last administered on 10/28/17 08:45; Admin Dose 10 MG; Start 10/16/17 at 09:00 Ferrous Sulfate (Feosol Liquid Cup) 300 mg BID GTB Last administered on 08:43; Admin Dose 300 MG; Start 10/16/17 at 09:00 Al Hydrox/Mg Hydrox/Simethicone (Mag-Al Plus) 30 ml Q4H PRN GTB GASTROINTESTINAL UPSET; Start 10/16/17 at 00:00 Sucralfate (Carafate) 1 gm Q6 GTB Last administered on 10/28/17 06:18; Admin Dose 1 GM; Start 10/16/17 at 00:00 Tramadol HCl (Ultram) 50 mg TID GTB Last administered on 10/28/17 08:45; Admin Dose 50 MG; Start 10/16/17 at 09:00 Zolpidem Tartrate (Ambien) 5 mg QHS PRN GTB INSOMNIA Last administered on 10/27 23:09; Admin Dose 5 MG; Start 10/16/17 at 00:00 Diagnostic Test (Pha) (Accu-Chek) 1 ea 02 XX ; Start 10/18/17 at 02:00 Insulin Aspart (Novolog Insulin Pen) NOVOLOG *MILD* ALGORI... Q4 SC Last administered on 10/26/17 21:41; Admin Dose 1 UNIT; Start 10/17/17 at 13:00 Miscellaneous Information 1 ea NOTE XX ; Start 10/17/17 at 14:00 Glucose (Glutose) 15 gm Q15M PRN PO DECREASED GLUCOSE; Start 10/17/17 at 14:00 Glucose (Glutose) 22.5 gm Q15M PRN PO DECREASED GLUCOSE; Start 10/17/17 at 14: 00 Dextrose (D50w Syringe) 25 ml Q15M PRN IV DECREASED GLUCOSE; Start 10/17/17 at 14:00 Dextrose (D50w Syringe) 50 ml Q15M PRN IV DECREASED GLUCOSE; Start 10/17/17 at 14:00 Glucagon (Glucagen) 1 mg Q15M PRN IM DECREASED GLUCOSE; Start 10/17/17 at 14:00 Glucose (Glutose) 15 gm Q15M PRN BUCCAL DECREASED GLUCOSE; Start 10/17/17 at 14 :00 Zinc Sulfate (Zinc Sulfate) 220 mg DAILY NGT Last administered on 10/28/17 08 :45; Admin Dose 220 MG; Start 10/18/17 at 09:30 Ascorbic Acid (Vitamin C) 500 mg DAILY NGT Last administered on 10/28/17 08: 44; Admin Dose 500 MG; Start 10/18/17 at 09:30 Lansoprazole (Prevacid) 30 mg DAILY@06 GTB Last administered on 10/28/17 06: 18; Admin Dose 30 MG; Start 10/19/17 at 06:00 Insulin Glargine (Lantus) 30 unit DAILY@20 SC Last administered on 10/27/17 21:28; Admin Dose 30 UNIT; Start 10/22/17 at 20:00 Lorazepam (Ativan) 0.5 mg Q6H PRN PO ANXIETY Last administered on 10/27/17 17 :18; Admin Dose 0.5 MG; Start 10/27/17 at 17:00 Assessment/Plan Chief Complaint/Hosp Course IMP: 1. Sepsis from UTI, resolving leukocytosis 2. History of quadriplegia--s/p trach 3. Anemia. 4. Diabetes. 5. Acute renal insufficiency with normalization of renal function. 6. Status post ST evaluation. Tolerating ice chips. RECS: Continue antibiotics DC planning Problems: RUSSEL DE LA CRUZ [facility], [facility] Oct 28, 2017 11:09
--- NOTE | 2017-10-28 15:41 | CONS ---
Date/Time of Note Date/Time of Note DATE: 10/28/17 TIME: 15:38 Consultation Date/Type/Reason Admit Date/Time Oct 15, 2017 at 19:43 Initial Consult Date SUBJECTIVE: 62 y/o male being treated for sepsis, UTI. No acute events over night. Feeling better.Awake, looks comfortable, afebrile. VS: 129/68 P:78 R:18 T: 98.0 SO2: 100% LABS: reviewed. WBC=11.9 MICROBIOLOGY: Blood cultures negative. Urine culture growing MDR Proteus. Repeat blood cultures neg 10/25 x2. INDWELLINGS: Trach, PEG, Mondragon, right femoral triple-lumen catheter. DIAGNOSTICS: Chest x-ray on admission revealed slight improvement in the right basilar pneumonia. ANTIMICROBIALS: none ALLERGIES: LEVAQUIN, reaction unknown. PHYSICAL EXAMINATION: GENERAL: Chronically ill-appearing, elderly man who is in no distress. HEENT: Head atraumatic, normocephalic. Sclerae anicteric. Buccal mucosa dry. NECK: Supple. CHEST: Rise symmetrical. Breath sounds diminished to bases. HEART: S1, S2. ABDOMEN: Soft, bowel tones present. EXTREMITIES: Contractured without cyanosis. ASSESSMENT: 1. Resolving sepsis, status post shock. 2. Urinary tract infection. 3. Unstageable sacral decubitus. 4. Quadriplegia. 5. Chronic respiratory failure and dysphagia. 6. Diabetes. 7. Acute on chronic anemia. PLAN: Pt is stable. Off of antbx. . Local wound care. Follow recommendations of specialists. Type of Consultation: ID Exam/Review of Systems Vital Signs Vitals Vital Signs Date Time Temp Pulse Resp B/P Pulse Ox O2 Delivery O2 Flow Rate FiO2 10/28/17 13:10 78 10/28/17 12:02 98.0 18 129/68 100 10/28/17 05:40 Aerosol 5.0 28 Intake and Output 10/27/17 10/27/17 10/28/17 14:59 22:59 06:59 Intake Total 1340 ml 1340 ml Output Total 700 ml 800 ml Balance 640 ml 540 ml Results Result Diagram: 10/28/17 0628 10/25/17 0833 Results 24 hrs Laboratory Tests Test 10/27/17 17:25 10/27/17 20:58 10/28/17 02:02 10/28/17 05:59 Bedside Glucose 107 108 116 92 Test 10/28/17 06:28 10/28/17 07:55 10/28/17 12:25 White Blood Count 11.9 H Red Blood Count 3.62 L Hemoglobin 8.9 L Hematocrit 28.8 L Mean Corpuscular Volume 79.6 L Mean Corpuscular Hemoglobin 24.6 L Mean Corpuscular Hemoglobin Concent 30.9 L Red Cell Distribution Width 19.5 H Platelet Count 343 Mean Platelet Volume 9.7 Neutrophils % 62.2 Lymphocytes % 22.7 Monocytes % 11.8 H Eosinophils % 2.4 Basophils % 0.3 Nucleated Red Blood Cells % 0.0 Neutrophils # 7.4 Lymphocytes # 2.7 Monocytes # 1.4 H Eosinophils # 0.3 Basophils # 0.0 Nucleated Red Blood Cells # 0.0 Bedside Glucose 100 122 Medications Medications Current Medications Ondansetron HCl (Zofran Inj) 4 mg Q6H PRN IV NAUSEA AND/OR VOMITING Last administered on 10/24/17 18:31; Admin Dose 4 MG; Start 10/15/17 at 20:00 Morphine Sulfate (morphine) 2 mg Q4H PRN IV SEVERE PAIN LEVEL 7-10 Last administered on 10/28/17 03:10; Admin Dose 2 MG; Start 10/15/17 at 20:00 Baclofen (Lioresal) 10 mg TID GTB Last administered on 10/28/17 12:21; Admin Dose 10 MG; Start 10/16/17 at 09:00 Ferrous Sulfate (Feosol Liquid Cup) 300 mg BID GTB Last administered on 08:43; Admin Dose 300 MG; Start 10/16/17 at 09:00 Al Hydrox/Mg Hydrox/Simethicone (Mag-Al Plus) 30 ml Q4H PRN GTB GASTROINTESTINAL UPSET; Start 10/16/17 at 00:00 Sucralfate (Carafate) 1 gm Q6 GTB Last administered on 10/28/17 12:21; Admin Dose 1 GM; Start 10/16/17 at 00:00 Tramadol HCl (Ultram) 50 mg TID GTB Last administered on 10/28/17 12:21; Admin Dose 50 MG; Start 10/16/17 at 09:00 Zolpidem Tartrate (Ambien) 5 mg QHS PRN GTB INSOMNIA Last administered on 10/27 23:09; Admin Dose 5 MG; Start 10/16/17 at 00:00 Diagnostic Test (Pha) (Accu-Chek) 1 ea 02 XX ; Start 10/18/17 at 02:00 Insulin Aspart (Novolog Insulin Pen) NOVOLOG *MILD* ALGORI... Q4 SC Last administered on 10/26/17 21:41; Admin Dose 1 UNIT; Start 10/17/17 at 13:00 Miscellaneous Information 1 ea NOTE XX ; Start 10/17/17 at 14:00 Glucose (Glutose) 15 gm Q15M PRN PO DECREASED GLUCOSE; Start 10/17/17 at 14:00 Glucose (Glutose) 22.5 gm Q15M PRN PO DECREASED GLUCOSE; Start 10/17/17 at 14: 00 Dextrose (D50w Syringe) 25 ml Q15M PRN IV DECREASED GLUCOSE; Start 10/17/17 at 14:00 Dextrose (D50w Syringe) 50 ml Q15M PRN IV DECREASED GLUCOSE; Start 10/17/17 at 14:00 Glucagon (Glucagen) 1 mg Q15M PRN IM DECREASED GLUCOSE; Start 10/17/17 at 14:00 Glucose (Glutose) 15 gm Q15M PRN BUCCAL DECREASED GLUCOSE; Start 10/17/17 at 14 :00 Zinc Sulfate (Zinc Sulfate) 220 mg DAILY NGT Last administered on 10/28/17 08 :45; Admin Dose 220 MG; Start 10/18/17 at 09:30 Ascorbic Acid (Vitamin C) 500 mg DAILY NGT Last administered on 10/28/17 08: 44; Admin Dose 500 MG; Start 10/18/17 at 09:30 Lansoprazole (Prevacid) 30 mg DAILY@06 GTB Last administered on 10/28/17 06: 18; Admin Dose 30 MG; Start 10/19/17 at 06:00 Insulin Glargine (Lantus) 30 unit DAILY@20 SC Last administered on 10/27/17 21:28; Admin Dose 30 UNIT; Start 10/22/17 at 20:00 Lorazepam (Ativan) 0.5 mg Q6H PRN PO ANXIETY Last administered on 10/27/17 17 :18; Admin Dose 0.5 MG; Start 10/27/17 at 17:00 TODD RUEDA 17, 2017 15:41
[2017-10-28] MEDS: metFORMIN 500 MG TAB GTB SCH (17:19)
[2017-10-28] MEDS: INSULIN GLARGINE [LANtus] 3 ML PEN SC SCH (21:42)
[2017-10-28] MEDS: ZOLPIDEM 5 MG TAB GTB PRN (23:29)
[2017-10-29] VITALS (11 sets, daily range): BP systolic 83–131; BP diastolic 50–70; PULSE 57–71; RESP 18–21
[2017-10-29] MEDS: INSULIN ASPART [NOVOLOG] 3 ML PEN SC SCH ×6 (01:00→20:35)
[2017-10-29] MEDS: ACCU-CHEK XX SCH (02:00)
[2017-10-29] MEDS: LANSOPRAZOLE 30 MG CAP GTB SCH (06:03)
[2017-10-29] MEDS: SUCRALFATE 1 GM TAB GTB SCH ×5 (06:03→23:30)
[2017-10-29 07:51] LABS: BASOPHILS % 0.3 % (0.0-2.0); EOSINOPHILS # 0.3 10^3/ul (0.0-0.5); EOSINOPHILS % 2.1 % (0.0-7.0); HEMATOCRIT 30.7 % (42.0-52.0); HEMOGLOBIN 9.3 g/dl (14.0-18.0); LYMPHOCYTES # 2.2 10^3/ul (0.8-2.9); LYMPHOCYTES % 17.6 % (15.0-51.0); MEAN CORPUSCULAR HEMOGLOBIN 24.5 pg (29.0-33.0); MEAN CORPUSCULAR HGB CONC 30.3 g/dl (32.0-37.0); MEAN CORPUSCULAR VOLUME 80.8 fl (82.0-101.0); MEAN PLATELET VOLUME 9.9 fl (7.4-10.4); MONOCYTE # 1.3 10^3/ul (0.3-0.9); MONOCYTES % 10.7 % (0.0-11.0); NEUTROPHIL # 8.6 10^3/ul (1.6-7.5); NEUTROPHILS % 68.6 % (39.0-77.0); PLATELET COUNT 343 10^3/UL (140-415); RED CELL DISTRIBUTION WIDTH 19.1 % (11.5-14.5); WHITE BLOOD COUNT 12.6 10^3/ul (4.8-10.8)
[2017-10-29] MEDS: FERROUS SULFATE 60 MG/ML 5ML CUP GTB SCH ×2 (08:38→20:34)
[2017-10-29] MEDS: traMADol 50 MG TAB GTB SCH ×3 (08:39→20:34)
[2017-10-29] MEDS: ZINC SULFATE 220 MG CAP NGT SCH (08:39)
[2017-10-29] MEDS: ASCORBIC ACID 500 MG TAB NGT SCH (08:39)
[2017-10-29] MEDS: BACLOFEN 10 MG TAB GTB SCH ×3 (08:39→20:34)
--- NOTE | 2017-10-29 11:43 | CONS ---
Date/Time of Note Date/Time of Note DATE: 10/29/17 TIME: 11:41 Assessment/Plan Assessment/Plan Additional Assessment/Plan Assessment and recommendations; 1. Patient admitted with sepsis from UTI and decubitus ulcer status post treatment. 2. Quadriplegia with chronic respiratory failure, however patient doing well on T-piece no with intermittent Passy-Yuni valve. 3. History of stable seizure disorder. 4. History of stable diabetes and anemia. Continue current treatment. Patient awaiting discharge. Consultation Date/Type/Reason Admit Date/Time Oct 15, 2017 at 19:43 Initial Consult Date 10/16/17 Type of Consultation: Pulmonary 24 HR Interval Summary Free Text/Dictation Patient's condition is stable. Remains awake. Has remained hemodynamically stable. General exam; elderly male, awake, currently in no distress. Doing well on Passy-Barrington valve through tracheostomy. Exam/Review of Systems Vital Signs Vitals Vital Signs Date Time Temp Pulse Resp B/P Pulse Ox O2 Delivery O2 Flow Rate FiO2 10/29/17 11:06 97.7 66 18 120/70 99 10/29/17 06:15 Aerosol 5.0 28 Intake and Output 10/28/17 10/28/17 10/29/17 15:00 23:00 07:00 Intake Total 1440 ml 1340 ml Output Total 1500 ml 1300 ml Balance -60 ml 40 ml Exam HEENT exam; supple neck, no JVD. No lymphadenopathy. Midline trachea. No thyromegaly. Tracheostomy in place. Chest exam; clear to auscultation. S1-S2 audible, no murmurs. Regular rhythm. Abdomen exam; soft, G-tube in place. Bowel sounds audible. Extremity exam; no edema. RN LVN exam; patient has stable quadriplegia. Results Result Diagram: 10/29/17 0718 10/25/17 0833 Results 24 hrs Laboratory Tests Test 10/28/17 12:25 10/28/17 17:28 10/28/17 20:52 10/29/17 02:01 Bedside Glucose 122 126 127 100 Test 10/29/17 05:46 10/29/17 07:18 10/29/17 08:32 Bedside Glucose 148 143 White Blood Count 12.6 H Red Blood Count 3.80 L Hemoglobin 9.3 L Hematocrit 30.7 L Mean Corpuscular Volume 80.8 L Mean Corpuscular Hemoglobin 24.5 L Mean Corpuscular Hemoglobin Concent 30.3 L Red Cell Distribution Width 19.1 H Platelet Count 343 Mean Platelet Volume 9.9 Neutrophils % 68.6 Lymphocytes % 17.6 Monocytes % 10.7 Eosinophils % 2.1 Basophils % 0.3 Nucleated Red Blood Cells % 0.0 Neutrophils # 8.6 H Lymphocytes # 2.2 Monocytes # 1.3 H Eosinophils # 0.3 Basophils # 0.0 Nucleated Red Blood Cells # 0.0 Medications Medications Current Medications Ondansetron HCl (Zofran Inj) 4 mg Q6H PRN IV NAUSEA AND/OR VOMITING Last administered on 10/24/17 18:31; Admin Dose 4 MG; Start 10/15/17 at 20:00 Morphine Sulfate (morphine) 2 mg Q4H PRN IV SEVERE PAIN LEVEL 7-10 Last administered on 10/28/17 03:10; Admin Dose 2 MG; Start 10/15/17 at 20:00 Baclofen (Lioresal) 10 mg TID GTB Last administered on 10/29/17 08:39; Admin Dose 10 MG; Start 10/16/17 at 09:00 Ferrous Sulfate (Feosol Liquid Cup) 300 mg BID GTB Last administered on 08:38; Admin Dose 300 MG; Start 10/16/17 at 09:00 Al Hydrox/Mg Hydrox/Simethicone (Mag-Al Plus) 30 ml Q4H PRN GTB GASTROINTESTINAL UPSET; Start 10/16/17 at 00:00 Sucralfate (Carafate) 1 gm Q6 GTB Last administered on 10/29/17 06:03; Admin Dose 1 GM; Start 10/16/17 at 00:00 Tramadol HCl (Ultram) 50 mg TID GTB Last administered on 10/29/17 08:39; Admin Dose 50 MG; Start 10/16/17 at 09:00 Zolpidem Tartrate (Ambien) 5 mg QHS PRN GTB INSOMNIA Last administered on 10/28 23:29; Admin Dose 5 MG; Start 10/16/17 at 00:00 Diagnostic Test (Pha) (Accu-Chek) 1 ea 02 XX ; Start 10/18/17 at 02:00 Insulin Aspart (Novolog Insulin Pen) NOVOLOG *MILD* ALGORI... Q4 SC Last administered on 10/29/17 08:37; Admin Dose 1 UNIT; Start 10/17/17 at 13:00 Miscellaneous Information 1 ea NOTE XX ; Start 10/17/17 at 14:00 Glucose (Glutose) 15 gm Q15M PRN PO DECREASED GLUCOSE; Start 10/17/17 at 14:00 Glucose (Glutose) 22.5 gm Q15M PRN PO DECREASED GLUCOSE; Start 10/17/17 at 14: 00 Dextrose (D50w Syringe) 25 ml Q15M PRN IV DECREASED GLUCOSE; Start 10/17/17 at 14:00 Dextrose (D50w Syringe) 50 ml Q15M PRN IV DECREASED GLUCOSE; Start 10/17/17 at 14:00 Glucagon (Glucagen) 1 mg Q15M PRN IM DECREASED GLUCOSE; Start 10/17/17 at 14:00 Glucose (Glutose) 15 gm Q15M PRN BUCCAL DECREASED GLUCOSE; Start 10/17/17 at 14 :00 Zinc Sulfate (Zinc Sulfate) 220 mg DAILY NGT Last administered on 10/29/17 08 :39; Admin Dose 220 MG; Start 10/18/17 at 09:30 Ascorbic Acid (Vitamin C) 500 mg DAILY NGT Last administered on 10/29/17 08: 39; Admin Dose 500 MG; Start 10/18/17 at 09:30 Lansoprazole (Prevacid) 30 mg DAILY@06 GTB Last administered on 10/29/17 06: 03; Admin Dose 30 MG; Start 10/19/17 at 06:00 Insulin Glargine (Lantus) 30 unit DAILY@20 SC Last administered on 10/28/17 21:42; Admin Dose 30 UNIT; Start 10/22/17 at 20:00 Lorazepam (Ativan) 0.5 mg Q6H PRN PO ANXIETY Last administered on 10/27/17 17 :18; Admin Dose 0.5 MG; Start 10/27/17 at 17:00 ANYA FLOREZ Oct 29, 2017 11:43
--- NOTE | 2017-10-29 14:08 | CONS ---
Date/Time of Note Date/Time of Note DATE: 10/29/17 TIME: 14:07 Assessment/Plan Assessment/Plan Chief Complaint/Hosp Course SUBJECTIVE: No acute events overnight. Alert, feels good, looks comfortable. MICROBIOLOGY: Urine culture on admission grew Proteus mirabilis. Blood cultures have been negative. INDWELLINGS: Trach, PEG, Mondragon. PHYSICAL EXAMINATION: GENERAL: This is a chronically ill-appearing, elderly man who is awake, in no distress. HEENT: Head atraumatic, normocephalic. Sclerae anicteric. Buccal mucosa pink. NECK: Supple. CHEST: Rise symmetrical. Breath sounds clear. HEART: S1, S2. ABDOMEN: Soft. Bowel tones present. EXTREMITIES: Without cyanosis. ASSESSMENT: 1. Systemic inflammatory response syndrome with ongoing leukocytosis, no evidence of acute infection. 2. Status post septic shock. 3. Status post multi-drug resistant urinary tract infection. 4. Chronic respiratory failure and dysphagia. 5. Quadriplegia. 6. Diabetes. PLAN: The patient remains stable, off antibiotics, continue present care DW staff Problems: Consultation Date/Type/Reason Admit Date/Time Oct 15, 2017 at 19:43 Initial Consult Date 10/16/17 Type of Consultation: ID Exam/Review of Systems Vital Signs Vitals Vital Signs Date Time Temp Pulse Resp B/P Pulse Ox O2 Delivery O2 Flow Rate FiO2 10/29/17 12:44 59 10/29/17 11:06 97.7 18 120/70 99 10/29/17 06:15 Aerosol 5.0 28 Intake and Output 10/28/17 10/28/17 10/29/17 15:00 23:00 07:00 Intake Total 1440 ml 1340 ml Output Total 1500 ml 1300 ml Balance -60 ml 40 ml Results Result Diagram: 10/29/17 0718 10/25/17 0833 Results 24 hrs Laboratory Tests Test 10/28/17 17:28 10/28/17 20:52 10/29/17 02:01 10/29/17 05:46 Bedside Glucose 126 127 100 148 Test 10/29/17 07:18 10/29/17 08:32 10/29/17 12:20 White Blood Count 12.6 H Red Blood Count 3.80 L Hemoglobin 9.3 L Hematocrit 30.7 L Mean Corpuscular Volume 80.8 L Mean Corpuscular Hemoglobin 24.5 L Mean Corpuscular Hemoglobin Concent 30.3 L Red Cell Distribution Width 19.1 H Platelet Count 343 Mean Platelet Volume 9.9 Neutrophils % 68.6 Lymphocytes % 17.6 Monocytes % 10.7 Eosinophils % 2.1 Basophils % 0.3 Nucleated Red Blood Cells % 0.0 Neutrophils # 8.6 H Lymphocytes # 2.2 Monocytes # 1.3 H Eosinophils # 0.3 Basophils # 0.0 Nucleated Red Blood Cells # 0.0 Bedside Glucose 143 146 Medications Medications Current Medications Ondansetron HCl (Zofran Inj) 4 mg Q6H PRN IV NAUSEA AND/OR VOMITING Last administered on 10/24/17 18:31; Admin Dose 4 MG; Start 10/15/17 at 20:00 Morphine Sulfate (morphine) 2 mg Q4H PRN IV SEVERE PAIN LEVEL 7-10 Last administered on 10/28/17 03:10; Admin Dose 2 MG; Start 10/15/17 at 20:00 Baclofen (Lioresal) 10 mg TID GTB Last administered on 10/29/17 12:27; Admin Dose 10 MG; Start 10/16/17 at 09:00 Ferrous Sulfate (Feosol Liquid Cup) 300 mg BID GTB Last administered on 08:38; Admin Dose 300 MG; Start 10/16/17 at 09:00 Al Hydrox/Mg Hydrox/Simethicone (Mag-Al Plus) 30 ml Q4H PRN GTB GASTROINTESTINAL UPSET; Start 10/16/17 at 00:00 Sucralfate (Carafate) 1 gm Q6 GTB Last administered on 10/29/17 12:27; Admin Dose 1 GM; Start 10/16/17 at 00:00 Tramadol HCl (Ultram) 50 mg TID GTB Last administered on 10/29/17 12:27; Admin Dose 50 MG; Start 10/16/17 at 09:00 Zolpidem Tartrate (Ambien) 5 mg QHS PRN GTB INSOMNIA Last administered on 10/28 23:29; Admin Dose 5 MG; Start 10/16/17 at 00:00 Diagnostic Test (Pha) (Accu-Chek) 1 ea 02 XX ; Start 10/18/17 at 02:00 Insulin Aspart (Novolog Insulin Pen) NOVOLOG *MILD* ALGORI... Q4 SC Last administered on 10/29/17 12:32; Admin Dose 1 UNIT; Start 10/17/17 at 13:00 Miscellaneous Information 1 ea NOTE XX ; Start 10/17/17 at 14:00 Glucose (Glutose) 15 gm Q15M PRN PO DECREASED GLUCOSE; Start 10/17/17 at 14:00 Glucose (Glutose) 22.5 gm Q15M PRN PO DECREASED GLUCOSE; Start 10/17/17 at 14: 00 Dextrose (D50w Syringe) 25 ml Q15M PRN IV DECREASED GLUCOSE; Start 10/17/17 at 14:00 Dextrose (D50w Syringe) 50 ml Q15M PRN IV DECREASED GLUCOSE; Start 10/17/17 at 14:00 Glucagon (Glucagen) 1 mg Q15M PRN IM DECREASED GLUCOSE; Start 10/17/17 at 14:00 Glucose (Glutose) 15 gm Q15M PRN BUCCAL DECREASED GLUCOSE; Start 10/17/17 at 14 :00 Zinc Sulfate (Zinc Sulfate) 220 mg DAILY NGT Last administered on 10/29/17 08 :39; Admin Dose 220 MG; Start 10/18/17 at 09:30 Ascorbic Acid (Vitamin C) 500 mg DAILY NGT Last administered on 10/29/17 08: 39; Admin Dose 500 MG; Start 10/18/17 at 09:30 Lansoprazole (Prevacid) 30 mg DAILY@06 GTB Last administered on 10/29/17 06: 03; Admin Dose 30 MG; Start 10/19/17 at 06:00 Insulin Glargine (Lantus) 30 unit DAILY@20 SC Last administered on 10/28/17 21:42; Admin Dose 30 UNIT; Start 10/22/17 at 20:00 Lorazepam (Ativan) 0.5 mg Q6H PRN PO ANXIETY Last administered on 10/27/17 17 :18; Admin Dose 0.5 MG; Start 10/27/17 at 17:00 ADI ENNIS NP Oct 29, 2017 14:08
[2017-10-29] MEDS: morphine 2 MG INJ IV PRN ×2 (14:51→22:25)
[2017-10-29] MEDS: metFORMIN 500 MG TAB GTB SCH (17:20)
--- NOTE | 2017-10-29 17:32 | PN ---
Date/Time of Note Date/Time of Note DATE: 10/29/17 TIME: 17:29 Assessment/Plan VTE Prophylaxis VTE Prophylaxis Intervention: ambulation, SCD's Lines/Catheters IV Catheter Type (from Nrsg): Saline Lock Urinary Cath still in place: Yes Reason Cath still needed: urinary retention Assessment/Plan Chief Complaint/Hosp Course Subjective 12.18 difficulty with breathing on the new valve Objective Physical exam General: Patient is laying in bed and answers questions appropriately. quadraplegic, peg/trach(passy yuni valve) Mentation: Patient is alert and oriented 4, Head: Normocephalic atraumatic Eyes: EOMI, pupils reactive to light Neck: Supple, nontender, midline Respiratory: diminished to auscultation bilaterally Cardiovascular: regular rate, no obvious murmurs Gastrointestinal: non-tender to palpation, bowel sounds heard. peg tube Neurological: no sensation or motor in extremities Skin: No new skin lesions, chronic sacral decubitus Assessment and plan Severe sepsis versus septic shock -Patient's blood pressure stable -Pneumonia and UTI source -finished with abx -WBC stable Anemia, microcytic -Likely component of volume resuscitation, and partially secondary to anemia of chronic disease -No signs of bleed -Iron levels extremely low -Blood transfusion for now, start iron per Gtube Acute kidney injury -Resolved -Nephrology consult appreciated Electrolyte derangement -Replete as needed Chronic trach dependent respiratory failure -Secondary to quadriplegic nature status post fall -Passy-Yuni valve, pulmonary Recs appreciated, however patient's new valve is causing discomfort Dysphasia -Has peg tube -Speech therapy performed video swallow today, ice chips okay Quadriplegia -Status post fall Sacral decubitus ulcer -Chronic, infectious disease recommended is appreciated -Wound care -patient refused wound care per wound nurse on sacral decubitus -other wound bandaged and cleaned Type 2 diabetes -Insulin sliding scale and Lantus, adjust as needed, increased today DISPO -pulm asked to put patient back on t-piece as patient is having difficulty breathing -will re-evaluate tomorrow Problems: Exam/Review of Systems Vital Signs Vitals Vital Signs Date Time Temp Pulse Resp B/P Pulse Ox O2 Delivery O2 Flow Rate FiO2 10/29/17 16:50 57 10/29/17 16:20 98.5 20 103/59 99 10/29/17 15:30 5.0 28 10/29/17 06:15 Aerosol Intake and Output 10/28/17 10/28/17 10/29/17 15:00 23:00 07:00 Intake Total 1440 ml 1340 ml Output Total 1500 ml 1300 ml Balance -60 ml 40 ml Results Result Diagram: 10/29/17 0718 10/25/17 0833 Results 24 hrs Laboratory Tests Test 10/28/17 20:52 10/29/17 02:01 10/29/17 05:46 10/29/17 07:18 Bedside Glucose 127 100 148 White Blood Count 12.6 H Red Blood Count 3.80 L Hemoglobin 9.3 L Hematocrit 30.7 L Mean Corpuscular Volume 80.8 L Mean Corpuscular Hemoglobin 24.5 L Mean Corpuscular Hemoglobin Concent 30.3 L Red Cell Distribution Width 19.1 H Platelet Count 343 Mean Platelet Volume 9.9 Neutrophils % 68.6 Lymphocytes % 17.6 Monocytes % 10.7 Eosinophils % 2.1 Basophils % 0.3 Nucleated Red Blood Cells % 0.0 Neutrophils # 8.6 H Lymphocytes # 2.2 Monocytes # 1.3 H Eosinophils # 0.3 Basophils # 0.0 Nucleated Red Blood Cells # 0.0 Test 10/29/17 08:32 10/29/17 12:20 Bedside Glucose 143 146 Medications Medications Current Medications Ondansetron HCl (Zofran Inj) 4 mg Q6H PRN IV NAUSEA AND/OR VOMITING Last administered on 10/24/17 18:31; Admin Dose 4 MG; Start 10/15/17 at 20:00 Morphine Sulfate (morphine) 2 mg Q4H PRN IV SEVERE PAIN LEVEL 7-10 Last administered on 10/29/17 14:51; Admin Dose 2 MG; Start 10/15/17 at 20:00 Baclofen (Lioresal) 10 mg TID GTB Last administered on 10/29/17 12:27; Admin Dose 10 MG; Start 10/16/17 at 09:00 Ferrous Sulfate (Feosol Liquid Cup) 300 mg BID GTB Last administered on 08:38; Admin Dose 300 MG; Start 10/16/17 at 09:00 Al Hydrox/Mg Hydrox/Simethicone (Mag-Al Plus) 30 ml Q4H PRN GTB GASTROINTESTINAL UPSET; Start 10/16/17 at 00:00 Sucralfate (Carafate) 1 gm Q6 GTB Last administered on 10/29/17 17:20; Admin Dose 1 GM; Start 10/16/17 at 00:00 Tramadol HCl (Ultram) 50 mg TID GTB Last administered on 10/29/17 12:27; Admin Dose 50 MG; Start 10/16/17 at 09:00 Zolpidem Tartrate (Ambien) 5 mg QHS PRN GTB INSOMNIA Last administered on 10/28 23:29; Admin Dose 5 MG; Start 10/16/17 at 00:00 Diagnostic Test (Pha) (Accu-Chek) 1 ea 02 XX ; Start 10/18/17 at 02:00 Insulin Aspart (Novolog Insulin Pen) NOVOLOG *MILD* ALGORI... Q4 SC Last administered on 10/29/17 12:32; Admin Dose 1 UNIT; Start 10/17/17 at 13:00 Miscellaneous Information 1 ea NOTE XX ; Start 10/17/17 at 14:00 Glucose (Glutose) 15 gm Q15M PRN PO DECREASED GLUCOSE; Start 10/17/17 at 14:00 Glucose (Glutose) 22.5 gm Q15M PRN PO DECREASED GLUCOSE; Start 10/17/17 at 14: 00 Dextrose (D50w Syringe) 25 ml Q15M PRN IV DECREASED GLUCOSE; Start 10/17/17 at 14:00 Dextrose (D50w Syringe) 50 ml Q15M PRN IV DECREASED GLUCOSE; Start 10/17/17 at 14:00 Glucagon (Glucagen) 1 mg Q15M PRN IM DECREASED GLUCOSE; Start 10/17/17 at 14:00 Glucose (Glutose) 15 gm Q15M PRN BUCCAL DECREASED GLUCOSE; Start 10/17/17 at 14 :00 Zinc Sulfate (Zinc Sulfate) 220 mg DAILY NGT Last administered on 10/29/17 08 :39; Admin Dose 220 MG; Start 10/18/17 at 09:30 Ascorbic Acid (Vitamin C) 500 mg DAILY NGT Last administered on 10/29/17 08: 39; Admin Dose 500 MG; Start 10/18/17 at 09:30 Lansoprazole (Prevacid) 30 mg DAILY@06 GTB Last administered on 10/29/17 06: 03; Admin Dose 30 MG; Start 10/19/17 at 06:00 Insulin Glargine (Lantus) 30 unit DAILY@20 SC Last administered on 10/28/17 21:42; Admin Dose 30 UNIT; Start 10/22/17 at 20:00 Lorazepam (Ativan) 0.5 mg Q6H PRN PO ANXIETY Last administered on 10/27/17 17 :18; Admin Dose 0.5 MG; Start 10/27/17 at 17:00 SARA WILEY Oct 29, 2017 17:31
[2017-10-29] MEDS: INSULIN GLARGINE [LANtus] 3 ML PEN SC SCH (20:37)
[2017-10-30] VITALS (12 sets, daily range): BP systolic 92–136; BP diastolic 54–73; PULSE 62–67; RESP 18–20
[2017-10-30] MEDS: INSULIN ASPART [NOVOLOG] 3 ML PEN SC SCH ×5 (00:35→22:00)
[2017-10-30] MEDS: ACCU-CHEK XX SCH (00:35)
[2017-10-30] MEDS: ZOLPIDEM 5 MG TAB GTB PRN (02:10)
[2017-10-30] MEDS: SUCRALFATE 1 GM TAB GTB SCH ×4 (06:19→23:50)
[2017-10-30] MEDS: morphine 2 MG INJ IV PRN ×4 (06:19→20:07)
[2017-10-30] MEDS: LANSOPRAZOLE 30 MG CAP GTB SCH (06:19)
[2017-10-30] MEDS: ASCORBIC ACID 500 MG TAB NGT SCH (08:33)
[2017-10-30] MEDS: traMADol 50 MG TAB GTB SCH ×3 (08:33→21:02)
[2017-10-30] MEDS: BACLOFEN 10 MG TAB GTB SCH ×3 (08:33→21:02)
[2017-10-30] MEDS: FERROUS SULFATE 60 MG/ML 5ML CUP GTB SCH ×2 (08:33→21:02)
[2017-10-30] MEDS: ZINC SULFATE 220 MG CAP NGT SCH (08:33)
--- NOTE | 2017-10-30 11:09 | CONS ---
Date/Time of Note Date/Time of Note DATE: 10/30/17 TIME: 11:07 Assessment/Plan Assessment/Plan Additional Assessment/Plan Assessment and recommendations; 1. Patient admitted with sepsis from UTI and decubitus ulcer, status post treatment. Patient doing well on T-piece now. Did complain of shortness of breath on Passy-Henderson valve. 2. History of diabetes and stable seizure disorder. Next Continue current treatment. Obtain follow-up chest x-ray. Patient refusing ABG draw. Further recommendations to be made once chest x-ray is done. Consultation Date/Type/Reason Admit Date/Time Oct 15, 2017 at 19:43 Initial Consult Date 10/16/17 Type of Consultation: Pulmonary 24 HR Interval Summary Free Text/Dictation Patient's condition is stable. Patient however did complain of shortness of breath on Passy-Yuni valve yesterday that was relieved by putting the patient back on tracheal T piece. General exam; elderly male, awake, currently in no distress. Exam/Review of Systems Vital Signs Vitals Vital Signs Date Time Temp Pulse Resp B/P Pulse Ox O2 Delivery O2 Flow Rate FiO2 10/30/17 08:26 98.0 61 18 108/60 99 10/30/17 08:03 5.0 28 10/29/17 06:15 Aerosol Intake and Output 10/29/17 10/29/17 10/30/17 15:00 23:00 07:00 Intake Total 1040 ml 1120 ml Output Total 750 ml 900 ml Balance 290 ml 220 ml Exam HEENT exam; supple neck, no JVD. No lymphadenopathy. Midline trachea. No thyromegaly. Tracheostomy in place. Patient has fair dentition. Chest exam; diminished but clear breath sounds. S1-S2 audible, no murmurs. Regular rhythm. Abdomen exam; soft. No organomegaly. Bowel sounds audible. Extremity exam; no edema. JACK SPINNER exam; patient is awake and has stable quadriplegia. Results Result Diagram: 10/29/17 0718 Results 24 hrs Laboratory Tests Test 10/29/17 12:20 10/29/17 17:18 10/29/17 20:32 10/30/17 00:31 Bedside Glucose 146 136 113 115 Test 10/30/17 04:29 10/30/17 08:30 Bedside Glucose 102 112 Medications Medications Current Medications Ondansetron HCl (Zofran Inj) 4 mg Q6H PRN IV NAUSEA AND/OR VOMITING Last administered on 10/24/17 18:31; Admin Dose 4 MG; Start 10/15/17 at 20:00 Morphine Sulfate (morphine) 2 mg Q4H PRN IV SEVERE PAIN LEVEL 7-10 Last administered on 10/30/17 10:25; Admin Dose 2 MG; Start 10/15/17 at 20:00 Baclofen (Lioresal) 10 mg TID GTB Last administered on 10/30/17 08:33; Admin Dose 10 MG; Start 10/16/17 at 09:00 Ferrous Sulfate (Feosol Liquid Cup) 300 mg BID GTB Last administered on 08:33; Admin Dose 300 MG; Start 10/16/17 at 09:00 Al Hydrox/Mg Hydrox/Simethicone (Mag-Al Plus) 30 ml Q4H PRN GTB GASTROINTESTINAL UPSET; Start 10/16/17 at 00:00 Sucralfate (Carafate) 1 gm Q6 GTB Last administered on 10/30/17 06:19; Admin Dose 1 GM; Start 10/16/17 at 00:00 Tramadol HCl (Ultram) 50 mg TID GTB Last administered on 10/30/17 08:33; Admin Dose 50 MG; Start 10/16/17 at 09:00 Zolpidem Tartrate (Ambien) 5 mg QHS PRN GTB INSOMNIA Last administered on 10/30 02:10; Admin Dose 5 MG; Start 10/16/17 at 00:00 Diagnostic Test (Pha) (Accu-Chek) 1 ea 02 XX ; Start 10/18/17 at 02:00 Insulin Aspart (Novolog Insulin Pen) NOVOLOG *MILD* ALGORI... Q4 SC Last administered on 10/29/17 12:32; Admin Dose 1 UNIT; Start 10/17/17 at 13:00 Miscellaneous Information 1 ea NOTE XX ; Start 10/17/17 at 14:00 Glucose (Glutose) 15 gm Q15M PRN PO DECREASED GLUCOSE; Start 10/17/17 at 14:00 Glucose (Glutose) 22.5 gm Q15M PRN PO DECREASED GLUCOSE; Start 10/17/17 at 14: 00 Dextrose (D50w Syringe) 25 ml Q15M PRN IV DECREASED GLUCOSE; Start 10/17/17 at 14:00 Dextrose (D50w Syringe) 50 ml Q15M PRN IV DECREASED GLUCOSE; Start 10/17/17 at 14:00 Glucagon (Glucagen) 1 mg Q15M PRN IM DECREASED GLUCOSE; Start 10/17/17 at 14:00 Glucose (Glutose) 15 gm Q15M PRN BUCCAL DECREASED GLUCOSE; Start 10/17/17 at 14 :00 Zinc Sulfate (Zinc Sulfate) 220 mg DAILY NGT Last administered on 10/30/17 08 :33; Admin Dose 220 MG; Start 10/18/17 at 09:30 Ascorbic Acid (Vitamin C) 500 mg DAILY NGT Last administered on 10/30/17 08: 33; Admin Dose 500 MG; Start 10/18/17 at 09:30 Lansoprazole (Prevacid) 30 mg DAILY@06 GTB Last administered on 10/30/17 06: 19; Admin Dose 30 MG; Start 10/19/17 at 06:00 Insulin Glargine (Lantus) 30 unit DAILY@20 SC Last administered on 10/29/17 20:37; Admin Dose 30 UNIT; Start 10/22/17 at 20:00 Lorazepam (Ativan) 0.5 mg Q6H PRN PO ANXIETY Last administered on 10/27/17 17 :18; Admin Dose 0.5 MG; Start 10/27/17 at 17:00 ANYA FLOREZ Oct 30, 2017 11:09
--- NOTE | 2017-10-30 11:49 | RADRPT ---
PROCEDURE: Chest 1 views. CLINICAL INDICATION: Shortness of breath. Status post tracheostomy tube placement. TECHNIQUE: Single view of the chest was obtained. COMPARISON: DR ARNOLD 10/26/2017 FINDINGS: The heart is large. Tracheostomy tube is stable and appears in grossly appropriate location. Bluntin g of the right costophrenic angle is identified. Atelectasis is noted at the lung bases. No consolid ations are identified. No pneumothorax is seen. The osseous structures appear grossly intact. Par tially visualized cervical spine fusion is noted. IMPRESSION: Cardiomegaly . Blunting of the right costophrenic angle that could reflect small pleural effusion. Atelectasis at the lung bases. RPTAT: AA .Wilfrid Torres MD, MD Date Time Electronically viewed and signed by .Wilfrid Torres MD, on 10/30/2017 11:49 .P/
--- NOTE | 2017-10-30 16:50 | PN ---
Date/Time of Note Date/Time of Note DATE: 10/30/17 TIME: 16:47 Assessment/Plan VTE Prophylaxis VTE Prophylaxis Intervention: SCD's Lines/Catheters IV Catheter Type (from Nrsg): Saline Lock Urinary Cath still in place: Yes Reason Cath still needed: urinary retention Assessment/Plan Chief Complaint/Hosp Course Subjective 12.18 difficulty with breathing on the new valve 12.19 patient has mild R shoulder pain Objective Physical exam General: Patient is laying in bed and answers questions appropriately. quadraplegic, peg/trach(passy yuni valve) Mentation: Patient is alert and oriented 4, Head: Normocephalic atraumatic Eyes: EOMI, pupils reactive to light Neck: Supple, nontender, midline Respiratory: diminished to auscultation bilaterally Cardiovascular: regular rate, no obvious murmurs Gastrointestinal: non-tender to palpation, bowel sounds heard. peg tube Neurological: no sensation or motor in extremities Skin: No new skin lesions, chronic sacral decubitus Assessment and plan Severe sepsis versus septic shock -Patient's blood pressure stable -Pneumonia and UTI source -finished with abx -WBC stable Anemia, microcytic -Likely component of volume resuscitation, and partially secondary to anemia of chronic disease -No signs of bleed -Iron levels extremely low -Blood transfusion for now, start iron per Gtube Acute kidney injury -Resolved -Nephrology consult appreciated Electrolyte derangement -Replete as needed Chronic trach dependent respiratory failure -Secondary to quadriplegic nature status post fall -Passy-Yuni valve, pulmonary Recs appreciated, however patient's new valve is causing discomfort Dysphasia -Has peg tube -Speech therapy performed video swallow today, ice chips okay Quadriplegia -Status post fall Sacral decubitus ulcer -Chronic, infectious disease recommended is appreciated -Wound care -patient refused wound care per wound nurse on sacral decubitus -other wound bandaged and cleaned Type 2 diabetes -Insulin sliding scale and Lantus, adjust as needed, increased today DISPO -pulm asked to put patient back on t-piece as patient is having difficulty breathing -recommendations appreciated to make patient's breathing easier per pulm -will re-evaluate tomorrow after pulm adjustment and send to SNF if stable and bed available Problems: Exam/Review of Systems Vital Signs Vitals Vital Signs Date Time Temp Pulse Resp B/P Pulse Ox O2 Delivery O2 Flow Rate FiO2 10/30/17 16:17 98.0 66 18 136/73 100 10/30/17 08:03 5.0 28 10/29/17 06:15 Aerosol Intake and Output 10/29/17 10/29/17 10/30/17 15:00 23:00 07:00 Intake Total 1040 ml 1120 ml Output Total 750 ml 900 ml Balance 290 ml 220 ml Results Result Diagram: 10/29/17 0718 Results 24 hrs Laboratory Tests Test 10/29/17 17:18 10/29/17 20:32 10/30/17 00:31 10/30/17 04:29 Bedside Glucose 136 113 115 102 Test 10/30/17 08:30 10/30/17 12:44 Bedside Glucose 112 108 Medications Medications Current Medications Ondansetron HCl (Zofran Inj) 4 mg Q6H PRN IV NAUSEA AND/OR VOMITING Last administered on 10/24/17 18:31; Admin Dose 4 MG; Start 10/15/17 at 20:00 Morphine Sulfate (morphine) 2 mg Q4H PRN IV SEVERE PAIN LEVEL 7-10 Last administered on 10/30/17 10:25; Admin Dose 2 MG; Start 10/15/17 at 20:00 Baclofen (Lioresal) 10 mg TID GTB Last administered on 10/30/17 12:36; Admin Dose 10 MG; Start 10/16/17 at 09:00 Ferrous Sulfate (Feosol Liquid Cup) 300 mg BID GTB Last administered on 08:33; Admin Dose 300 MG; Start 10/16/17 at 09:00 Al Hydrox/Mg Hydrox/Simethicone (Mag-Al Plus) 30 ml Q4H PRN GTB GASTROINTESTINAL UPSET; Start 10/16/17 at 00:00 Sucralfate (Carafate) 1 gm Q6 GTB Last administered on 10/30/17 12:36; Admin Dose 1 GM; Start 10/16/17 at 00:00 Tramadol HCl (Ultram) 50 mg TID GTB Last administered on 10/30/17 12:36; Admin Dose 50 MG; Start 10/16/17 at 09:00 Zolpidem Tartrate (Ambien) 5 mg QHS PRN GTB INSOMNIA Last administered on 10/30 02:10; Admin Dose 5 MG; Start 10/16/17 at 00:00 Diagnostic Test (Pha) (Accu-Chek) 1 ea 02 XX ; Start 10/18/17 at 02:00 Insulin Aspart (Novolog Insulin Pen) NOVOLOG *MILD* ALGORI... Q4 SC Last administered on 10/29/17 12:32; Admin Dose 1 UNIT; Start 10/17/17 at 13:00 Miscellaneous Information 1 ea NOTE XX ; Start 10/17/17 at 14:00 Glucose (Glutose) 15 gm Q15M PRN PO DECREASED GLUCOSE; Start 10/17/17 at 14:00 Glucose (Glutose) 22.5 gm Q15M PRN PO DECREASED GLUCOSE; Start 10/17/17 at 14: 00 Dextrose (D50w Syringe) 25 ml Q15M PRN IV DECREASED GLUCOSE; Start 10/17/17 at 14:00 Dextrose (D50w Syringe) 50 ml Q15M PRN IV DECREASED GLUCOSE; Start 10/17/17 at 14:00 Glucagon (Glucagen) 1 mg Q15M PRN IM DECREASED GLUCOSE; Start 10/17/17 at 14:00 Glucose (Glutose) 15 gm Q15M PRN BUCCAL DECREASED GLUCOSE; Start 10/17/17 at 14 :00 Zinc Sulfate (Zinc Sulfate) 220 mg DAILY NGT Last administered on 10/30/17 08 :33; Admin Dose 220 MG; Start 10/18/17 at 09:30 Ascorbic Acid (Vitamin C) 500 mg DAILY NGT Last administered on 10/30/17 08: 33; Admin Dose 500 MG; Start 10/18/17 at 09:30 Lansoprazole (Prevacid) 30 mg DAILY@06 GTB Last administered on 10/30/17 06: 19; Admin Dose 30 MG; Start 10/19/17 at 06:00 Insulin Glargine (Lantus) 30 unit DAILY@20 SC Last administered on 10/29/17 20:37; Admin Dose 30 UNIT; Start 10/22/17 at 20:00 Lorazepam (Ativan) 0.5 mg Q6H PRN PO ANXIETY Last administered on 10/27/17 17 :18; Admin Dose 0.5 MG; Start 10/27/17 at 17:00 SARA WILEY Oct 30, 2017 16:50
[2017-10-30] MEDS: metFORMIN 500 MG TAB GTB SCH (17:05)
--- NOTE | 2017-10-30 20:37 | CONS ---
Date/Time of Note Date/Time of Note DATE: 10/30/17 TIME: 20:37 Assessment/Plan Assessment/Plan Chief Complaint/Hosp Course SUBJECTIVE: No acute events overnight. Alert, feels good, looks comfortable, no fevers. MICROBIOLOGY: Urine culture on admission grew Proteus mirabilis. Blood cultures have been negative. INDWELLINGS: Trach, PEG, Mondragon. PHYSICAL EXAMINATION: GENERAL: This is a chronically ill-appearing, elderly man who is awake, in no distress. HEENT: Head atraumatic, normocephalic. Sclerae anicteric. Buccal mucosa pink. NECK: Supple. CHEST: Rise symmetrical. Breath sounds clear. HEART: S1, S2. ABDOMEN: Soft. Bowel tones present. EXTREMITIES: Without cyanosis. ASSESSMENT: 1. Systemic inflammatory response syndrome with ongoing leukocytosis, no evidence of acute infection. 2. Status post septic shock. 3. Status post multi-drug resistant urinary tract infection. 4. Chronic respiratory failure and dysphagia. 5. Quadriplegia. 6. Diabetes. PLAN: The patient remains stable, off antibiotics, continue present care [facility] staff Problems: Consultation Date/Type/Reason Admit Date/Time Oct 15, 2017 at 19:43 Initial Consult Date 10/16/17 Type of Consultation: ID Exam/Review of Systems Vital Signs Vitals Vital Signs Date Time Temp Pulse Resp B/P Pulse Ox O2 Delivery O2 Flow Rate FiO2 10/30/17 20:21 65 10/30/17 16:17 98.0 18 136/73 100 10/30/17 08:03 5.0 28 10/29/17 06:15 Aerosol Intake and Output 10/29/17 10/29/17 10/30/17 15:00 23:00 07:00 Intake Total 1040 ml 1120 ml Output Total 750 ml 900 ml Balance 290 ml 220 ml Results Result Diagram: 10/29/17 0718 Results 24 hrs Laboratory Tests Test 10/30/17 00:31 10/30/17 04:29 10/30/17 08:30 10/30/17 12:44 Bedside Glucose 115 102 112 108 Medications Medications Current Medications Ondansetron HCl (Zofran Inj) 4 mg Q6H PRN IV NAUSEA AND/OR VOMITING Last administered on 10/24/17t 18:31; Admin Dose 4 MG; Start 10/15/17 at 20:00 Morphine Sulfate (morphine) 2 mg Q4H PRN IV SEVERE PAIN LEVEL 7-10 Last administered on 10/30/17 20:07; Admin Dose 2 MG; Start 10/15/17 at 20:00 Baclofen (Lioresal) 10 mg TID GTB Last administered on 10/30/17 12:36; Admin Dose 10 MG; Start 10/16/17 at 09:00 Ferrous Sulfate (Feosol Liquid Cup) 300 mg BID GTB Last administered on 08:33; Admin Dose 300 MG; Start 10/16/17 at 09:00 Al Hydrox/Mg Hydrox/Simethicone (Mag-Al Plus) 30 ml Q4H PRN GTB GASTROINTESTINAL UPSET; Start 10/16/17 at 00:00 Sucralfate (Carafate) 1 gm Q6 GTB Last administered on 10/30/17 17:05; Admin Dose 1 GM; Start 10/16/17 at 00:00 Tramadol HCl (Ultram) 50 mg TID GTB Last administered on 10/30/17 12:36; Admin Dose 50 MG; Start 10/16/17 at 09:00 Zolpidem Tartrate (Ambien) 5 mg QHS PRN GTB INSOMNIA Last administered on 10/30 02:10; Admin Dose 5 MG; Start 10/16/17 at 00:00 Diagnostic Test (Pha) (Accu-Chek) 1 ea 02 XX ; Start 10/18/17 at 02:00 Miscellaneous Information 1 ea NOTE XX ; Start 10/17/17 at 14:00 Glucose (Glutose) 15 gm Q15M PRN PO DECREASED GLUCOSE; Start 10/17/17 at 14:00 Glucose (Glutose) 22.5 gm Q15M PRN PO DECREASED GLUCOSE; Start 10/17/17 at 14: 00 Dextrose (D50w Syringe) 25 ml Q15M PRN IV DECREASED GLUCOSE; Start 10/17/17 at 14:00 Dextrose (D50w Syringe) 50 ml Q15M PRN IV DECREASED GLUCOSE; Start 10/17/17 at 14:00 Glucagon (Glucagen) 1 mg Q15M PRN IM DECREASED GLUCOSE; Start 10/17/17 at 14:00 Glucose (Glutose) 15 gm Q15M PRN BUCCAL DECREASED GLUCOSE; Start 10/17/17 at 14 :00 Zinc Sulfate (Zinc Sulfate) 220 mg DAILY NGT Last administered on 10/30/17 08 :33; Admin Dose 220 MG; Start 10/18/17 at 09:30 Ascorbic Acid (Vitamin C) 500 mg DAILY NGT Last administered on 10/30/17 08: 33; Admin Dose 500 MG; Start 10/18/17 at 09:30 Lansoprazole (Prevacid) 30 mg DAILY@06 GTB Last administered on 10/30/17 06: 19; Admin Dose 30 MG; Start 10/19/17 at 06:00 Insulin Glargine (Lantus) 30 unit DAILY@20 SC Last administered on 10/29/17 20:37; Admin Dose 30 UNIT; Start 10/22/17 at 20:00 Lorazepam (Ativan) 0.5 mg Q6H PRN PO ANXIETY Last administered on 10/27/17 17 :18; Admin Dose 0.5 MG; Start 10/27/17 at 17:00 Insulin Aspart (Novolog Insulin Pen) NOVOLOG *MILD* ALGORI... Q8 SC ; Start at 22:00 ADI ENNIS NP Oct 30, 2017 20:37
[2017-10-30] MEDS: INSULIN GLARGINE [LANtus] 3 ML PEN SC SCH (20:55)
[2017-10-31] VITALS (12 sets, daily range): BP systolic 77–151; BP diastolic 51–82; PULSE 66–82; RESP 20–21
[2017-10-31] MEDS: ACCU-CHEK XX SCH (02:13)
[2017-10-31] MEDS: LANSOPRAZOLE 30 MG CAP GTB SCH (05:54)
[2017-10-31] MEDS: SUCRALFATE 1 GM TAB GTB SCH ×3 (05:54→18:58)
[2017-10-31] MEDS: INSULIN ASPART [NOVOLOG] 3 ML PEN SC SCH ×3 (06:05→22:00)
[2017-10-31] MEDS: ZINC SULFATE 220 MG CAP NGT SCH (11:13)
[2017-10-31] MEDS: ASCORBIC ACID 500 MG TAB NGT SCH (11:13)
[2017-10-31] MEDS: BACLOFEN 10 MG TAB GTB SCH ×3 (11:13→22:09)
[2017-10-31] MEDS: FERROUS SULFATE 60 MG/ML 5ML CUP GTB SCH ×2 (11:13→22:08)
[2017-10-31] MEDS: traMADol 50 MG TAB GTB SCH ×3 (11:15→22:08)
--- NOTE | 2017-10-31 12:10 | CONS ---
Date/Time of Note Date/Time of Note DATE: 10/31/17 TIME: 12:10 Consult Date/Type/Reason Admit Date/Time Oct 15, 2017 at 19:43 Initial Consult Date 10/16/17 Type of Consultation: Pulmonary Subjective Patient remains comfortable no events. Objective Vital Signs Date Time Temp Pulse Resp B/P Pulse Ox O2 Delivery O2 Flow Rate FiO2 10/31/17 11:40 98.1 66 20 143/72 100 10/31/17 05:05 Aerosol 5.0 28 Intake and Output 10/30/17 10/30/17 10/31/17 15:00 23:00 07:00 Intake Total 750 ml 1020 ml Output Total 1200 ml 800 ml Balance -450 ml 220 ml Exam GENERAL: Well nourished well-developed gentleman CA VITAL SIGNS: per chart NECK: Supple. No JVD or lymphadenopathy. CARDIAC EXAM: S1, S2. No added sounds or murmurs. CHEST: clear bilaterally, No added sounds, rales or wheezes ABDOMEN: Soft, nontender. No guarding or rebound. EXTREMITIES: No cyanosis, clubbing or edema. NEUROLOGIC: unable to assess. Results/Medications Result Diagram: 10/29/17 0718 Results 24 hrs Laboratory Tests Test 10/30/17 12:44 10/30/17 20:47 10/31/17 02:13 10/31/17 06:02 Bedside Glucose 108 102 125 150 Medications Current Medications Ondansetron HCl (Zofran Inj) 4 mg Q6H PRN IV NAUSEA AND/OR VOMITING Last administered on 10/24/17 18:31; Admin Dose 4 MG; Start 10/15/17 at 20:00 Morphine Sulfate (morphine) 2 mg Q4H PRN IV SEVERE PAIN LEVEL 7-10 Last administered on 10/30/17 20:07; Admin Dose 2 MG; Start 10/15/17 at 20:00 Baclofen (Lioresal) 10 mg TID GTB Last administered on 10/31/17 11:13; Admin Dose 10 MG; Start 10/16/17 at 09:00 Ferrous Sulfate (Feosol Liquid Cup) 300 mg BID GTB Last administered on 11:13; Admin Dose 300 MG; Start 10/16/17 at 09:00 Al Hydrox/Mg Hydrox/Simethicone (Mag-Al Plus) 30 ml Q4H PRN GTB GASTROINTESTINAL UPSET; Start 10/16/17 at 00:00 Sucralfate (Carafate) 1 gm Q6 GTB Last administered on 10/31/17 11:13; Admin Dose 1 GM; Start 10/16/17 at 00:00 Tramadol HCl (Ultram) 50 mg TID GTB Last administered on 10/31/17 11:15; Admin Dose 50 MG; Start 10/16/17 at 09:00 Zolpidem Tartrate (Ambien) 5 mg QHS PRN GTB INSOMNIA Last administered on 10/30 02:10; Admin Dose 5 MG; Start 10/16/17 at 00:00 Diagnostic Test (Pha) (Accu-Chek) 1 ea 02 XX Last administered on 10/31/17 02 :13; Admin Dose 1 EA; Start 10/18/17 at 02:00 Miscellaneous Information 1 ea NOTE XX ; Start 10/17/17 at 14:00 Glucose (Glutose) 15 gm Q15M PRN PO DECREASED GLUCOSE; Start 10/17/17 at 14:00 Glucose (Glutose) 22.5 gm Q15M PRN PO DECREASED GLUCOSE; Start 10/17/17 at 14: 00 Dextrose (D50w Syringe) 25 ml Q15M PRN IV DECREASED GLUCOSE; Start 10/17/17 at 14:00 Dextrose (D50w Syringe) 50 ml Q15M PRN IV DECREASED GLUCOSE; Start 10/17/17 at 14:00 Glucagon (Glucagen) 1 mg Q15M PRN IM DECREASED GLUCOSE; Start 10/17/17 at 14:00 Glucose (Glutose) 15 gm Q15M PRN BUCCAL DECREASED GLUCOSE; Start 10/17/17 at 14 :00 Zinc Sulfate (Zinc Sulfate) 220 mg DAILY NGT Last administered on 10/31/17 11 :13; Admin Dose 220 MG; Start 10/18/17 at 09:30 Ascorbic Acid (Vitamin C) 500 mg DAILY NGT Last administered on 10/31/17 11: 13; Admin Dose 500 MG; Start 10/18/17 at 09:30 Lansoprazole (Prevacid) 30 mg DAILY@06 GTB Last administered on 10/31/17 05: 54; Admin Dose 30 MG; Start 10/19/17 at 06:00 Insulin Glargine (Lantus) 30 unit DAILY@20 SC Last administered on 10/30/17 20:55; Admin Dose 30 UNIT; Start 10/22/17 at 20:00 Lorazepam (Ativan) 0.5 mg Q6H PRN PO ANXIETY Last administered on 10/27/17 17 :18; Admin Dose 0.5 MG; Start 10/27/17 at 17:00 Insulin Aspart (Novolog Insulin Pen) NOVOLOG *MILD* ALGORI... Q8 SC Last administered on 10/31/17 06:05; Admin Dose 1 UNIT; Start 10/30/17 at 22:00 Assessment/Plan Chief Complaint/Hosp Course IMP: 1. Sepsis from UTI, resolving leukocytosis 2. History of quadriplegia--s/p trach 3. Anemia. 4. Diabetes. 5. Acute renal insufficiency with normalization of renal function. 6. Status post ST evaluation. Tolerating ice chips. RECS: Continue antibiotics DC planning Problems: RUSSEL DE LA CRUZ MD, [facility] Oct 31, 2017 12:10
--- NOTE | 2017-10-31 14:45 | DS ---
Date/Time of Note Date/Time of Note DATE: 10/31/17 TIME: 14:44 Discharge Summary Admission/Discharge Info Admit Date/Time Oct 15, 2017 at 19:43 Discharge Date/Time Patient Condition: Stable Hospital Course Patient is a gentleman who has a history of quadriplegia secondary to traumatic fall who is chronically on T piece tracheostomy and PEG tube, but okay for ice chips, who originally presented to [facility] with severe sepsis with pneumonia and UTI. Patient was treated appropriately with antibiotics and finished his course of antibiotic while inpatient here at [facility]. Patient was also seen by infectious disease and pulmonology who made adjustments to his antibiotics as well as his tracheostomy tube. A new uncuffed tracheostomy tube was inserted however patient did not tolerate being off wall T piece for very long and it is recommended patient stay on wall T piece for now. Patient's status was monitored and patient is now currently ready to be discharged back to halfway facility. Severe sepsis, resolved Chronic quadriplegia, secondary to trauma, stable Anemia, needs iron supplementation Acute kidney injury, resolved Electrolyte derangement, resolved Chronic trach dependent respiratory failure, stable Dysphasia, stable Sacral decubitus ulcer, chronic, stable Type 2 diabetes, on insulin Home Meds Reported Medications Lactulose* (Lactulose*) 20 Gm/30 Ml Solution, 20 GM GTB TID, ML 07/18/17 Zolpidem Tartrate* (Ambien*) 5 Mg Tablet, 5 MG GTB QHS Y for INSOMNIA, #30 TAB 07/18/17 Tramadol HCl (Tramadol HCl) 50 Mg Tablet, 50 MG GTB TID, #90 TAB 07/18/17 Hydrocodone/Acetaminophen ([place] 10-325 Tablet) 1 Each Tablet, 1 EACH GTB Q6H Y for PRN, TAB AND TAKE 20 MINUTES PRIOR TO WOUND CARE DAILY 07/18/17 Cran/Vitc/Mannose/Inulin/Brom (Uti-Stat Liquid) 3,875 Mg/30 Ml Liquid, 30 ML GTB DAILY 07/18/17 Ferrous Sulfate (Ferrous Sulfate) 300 Mg/5 Ml Liquid, 300 MG GTB BID 07/18/17 Baclofen* (Baclofen*) 10 Mg Tablet, 10 MG GTB TID, TAB 07/18/17 Fluconazole* (Fluconazole*) 200 Mg Tablet, 200 MG GTB DAILY, TAB 07/18/17 Famotidine* (Famotidine*) 20 Mg Tablet, 20 MG GTB Q12H, #60 TAB 07/18/17 Magaldrate/Simethicone* (Mag-Al Plus Suspension*) 30 Ml Oral.susp, 30 ML GTB Q4H Y for GASTROINTESTINAL UPSET, ML 07/18/17 Sucralfate* (Carafate*) 1 Gm Tab, 1 GM GTB Q6, TAB 07/18/17 Dextran/Hypromellose/Glycerin (Artificial Tears Drops) 15 Ml Drops, 1 DROP RIGHT EYE Q4H, EA 07/18/17 Docusate Sodium* (Docusate Sodium* Liq) 50 Mg/5 Ml Liquid, 100 MG GTB BID, ML 07/18/17 Metformin Hcl* (Metformin Hcl*) 500 Mg Tablet, 500 MG GTB WITH BREAKFAST, #30 TAB 07/18/17 Primary Care Provider Nathan Saxena MD Time spent on discharge: > 30 minutes Pending Labs Laboratory Tests Test 10/30/17 20:47 10/31/17 02:13 10/31/17 06:02 10/31/17 13:46 Bedside Glucose 102mg/dL (70-220) 125mg/dL (70-220) 150mg/dL (70-220) 137mg/dL (70-220) SARA WILEY Oct 31, 2017 14:45
--- NOTE | 2017-10-31 15:37 | CONS ---
Date/Time of Note Date/Time of Note DATE: 10/31/17 TIME: 15:37 Assessment/Plan Assessment/Plan Chief Complaint/Hosp Course SUBJECTIVE: No acute events overnight. Looks comfortable, no fevers. MICROBIOLOGY: Urine culture on admission grew Proteus mirabilis. Blood cultures have been negative. INDWELLINGS: Trach, PEG, Mondragon. PHYSICAL EXAMINATION: GENERAL: This is a chronically ill-appearing, elderly man who is awake, in no distress. HEENT: Head atraumatic, normocephalic. Sclerae anicteric. Buccal mucosa pink. NECK: Supple. CHEST: Rise symmetrical. Breath sounds clear. HEART: S1, S2. ABDOMEN: Soft. Bowel tones present. EXTREMITIES: Without cyanosis. ASSESSMENT: 1. Systemic inflammatory response syndrome with ongoing leukocytosis, no evidence of acute infection. 2. Status post septic shock. 3. Status post multi-drug resistant urinary tract infection. 4. Chronic respiratory failure and dysphagia. 5. Quadriplegia. 6. Diabetes. PLAN: The patient remains stable, off antibiotics, pending discharge [facility] staff Problems: Consultation Date/Type/Reason Admit Date/Time Oct 15, 2017 at 19:43 Initial Consult Date 10/16/17 Type of Consultation: id Exam/Review of Systems Vital Signs Vitals Vital Signs Date Time Temp Pulse Resp B/P Pulse Ox O2 Delivery O2 Flow Rate FiO2 10/31/17 12:05 71 10/31/17 12:00 98 5.0 28 10/31/17 11:40 98.1 20 143/72 10/31/17 05:05 Aerosol Intake and Output 10/30/17 10/30/17 10/31/17 15:00 23:00 07:00 Intake Total 750 ml 1020 ml Output Total 1200 ml 800 ml Balance -450 ml 220 ml Results Result Diagram: 10/29/17 0718 Results 24 hrs Laboratory Tests Test 10/30/17 20:47 10/31/17 02:13 10/31/17 06:02 10/31/17 13:46 Bedside Glucose 102 125 150 137 Medications Medications Current Medications Ondansetron HCl (Zofran Inj) 4 mg Q6H PRN IV NAUSEA AND/OR VOMITING Last administered on 10/24/17t 18:31; Admin Dose 4 MG; Start 10/15/17 at 20:00 Morphine Sulfate (morphine) 2 mg Q4H PRN IV SEVERE PAIN LEVEL 7-10 Last administered on 10/30/17 20:07; Admin Dose 2 MG; Start 10/15/17 at 20:00 Baclofen (Lioresal) 10 mg TID GTB Last administered on 10/31/17 13:43; Admin Dose 10 MG; Start 10/16/17 at 09:00 Ferrous Sulfate (Feosol Liquid Cup) 300 mg BID GTB Last administered on 11:13; Admin Dose 300 MG; Start 10/16/17 at 09:00 Al Hydrox/Mg Hydrox/Simethicone (Mag-Al Plus) 30 ml Q4H PRN GTB GASTROINTESTINAL UPSET; Start 10/16/17 at 00:00 Sucralfate (Carafate) 1 gm Q6 GTB Last administered on 10/31/17 11:13; Admin Dose 1 GM; Start 10/16/17 at 00:00 Tramadol HCl (Ultram) 50 mg TID GTB Last administered on 10/31/17 13:00; Admin Dose 50 MG; Start 10/16/17 at 09:00 Zolpidem Tartrate (Ambien) 5 mg QHS PRN GTB INSOMNIA Last administered on 10/30 02:10; Admin Dose 5 MG; Start 10/16/17 at 00:00 Diagnostic Test (Pha) (Accu-Chek) 1 ea 02 XX Last administered on 10/31/17 02 :13; Admin Dose 1 EA; Start 10/18/17 at 02:00 Miscellaneous Information 1 ea NOTE XX ; Start 10/17/17 at 14:00 Glucose (Glutose) 15 gm Q15M PRN PO DECREASED GLUCOSE; Start 10/17/17 at 14:00 Glucose (Glutose) 22.5 gm Q15M PRN PO DECREASED GLUCOSE; Start 10/17/17 at 14: 00 Dextrose (D50w Syringe) 25 ml Q15M PRN IV DECREASED GLUCOSE; Start 10/17/17 at 14:00 Dextrose (D50w Syringe) 50 ml Q15M PRN IV DECREASED GLUCOSE; Start 10/17/17 at 14:00 Glucagon (Glucagen) 1 mg Q15M PRN IM DECREASED GLUCOSE; Start 10/17/17 at 14:00 Glucose (Glutose) 15 gm Q15M PRN BUCCAL DECREASED GLUCOSE; Start 10/17/17 at 14 :00 Zinc Sulfate (Zinc Sulfate) 220 mg DAILY NGT Last administered on 10/31/17 11 :13; Admin Dose 220 MG; Start 10/18/17 at 09:30 Ascorbic Acid (Vitamin C) 500 mg DAILY NGT Last administered on 10/31/17 11: 13; Admin Dose 500 MG; Start 10/18/17 at 09:30 Lansoprazole (Prevacid) 30 mg DAILY@06 GTB Last administered on 10/31/17 05: 54; Admin Dose 30 MG; Start 10/19/17 at 06:00 Insulin Glargine (Lantus) 30 unit DAILY@20 SC Last administered on 10/30/17 20:55; Admin Dose 30 UNIT; Start 10/22/17 at 20:00 Lorazepam (Ativan) 0.5 mg Q6H PRN PO ANXIETY Last administered on 10/27/17 17 :18; Admin Dose 0.5 MG; Start 10/27/17 at 17:00 Insulin Aspart (Novolog Insulin Pen) NOVOLOG *MILD* ALGORI... Q8 SC Last administered on 10/31/17 06:05; Admin Dose 1 UNIT; Start 10/30/17 at 22:00 ADI ENNIS NP Oct 31, 2017 15:37
[2017-10-31] MEDS: metFORMIN 500 MG TAB GTB SCH (17:55)
[2017-10-31] MEDS: INSULIN GLARGINE [LANtus] 3 ML PEN SC SCH (22:13)
[2017-11-01] VITALS (10 sets, daily range): BP systolic 95–146; BP diastolic 53–81; PULSE 64–71; RESP 16–19
[2017-11-01] MEDS: SUCRALFATE 1 GM TAB GTB SCH ×4 (00:20→18:20)
[2017-11-01] MEDS: ACCU-CHEK XX SCH (02:00)
[2017-11-01] MEDS: LANSOPRAZOLE 30 MG CAP GTB SCH (05:01)
[2017-11-01] MEDS: INSULIN ASPART [NOVOLOG] 3 ML PEN SC SCH ×2 (05:01→14:00)
[2017-11-01] MEDS: ASCORBIC ACID 500 MG TAB NGT SCH (08:30)
[2017-11-01] MEDS: FERROUS SULFATE 60 MG/ML 5ML CUP GTB SCH (08:30)
[2017-11-01] MEDS: ZINC SULFATE 220 MG CAP NGT SCH (08:30)
[2017-11-01] MEDS: traMADol 50 MG TAB GTB SCH ×2 (08:30→13:09)
[2017-11-01] MEDS: BACLOFEN 10 MG TAB GTB SCH ×2 (08:30→13:09)
--- NOTE | 2017-11-01 11:12 | RADRPT ---
PROCEDURE: XR Right Shoulder. CLINICAL INDICATION: Right shoulder pain. TECHNIQUE: Two views. Frontal internal rotation and frontal external rotation. COMPARISON: No prior study is available for comparison. FINDINGS: There is no fracture or dislocation. The soft tissues are normal. Articular surfaces are intact. There is no lytic or blastic lesion. There is no radiopaque foreign body. IMPRESSION: 1. Normal images of the right shoulder. RPTAT: QQ .Hung Abel MD, MD Date Time Electronically viewed and signed by .Hung Abel MD, on 11/01/2017 11:12 .R/
--- NOTE | 2017-11-01 12:18 | CONS ---
Date/Time of Note Date/Time of Note DATE: 11/01/17 TIME: :17 Assessment/Plan Assessment/Plan Additional Assessment/Plan Assessment recommendations; 1. Patient with history of chronic respiratory failure due to quadriplegia admitted for UTI and sepsis with interval improvement. Patient doing fairly well on T-piece. Patient had difficulty tolerating Passy-Kirkland valve due to dyspnea. 2. History of diabetes and anemia. 3. Status post acute renal insufficiency with normalization of renal function. Continue current treatment. Consider discharge. Consultation Date/Type/Reason Admit Date/Time Oct 15, 2017 at 19:43 Initial Consult Date 10/16/17 Type of Consultation: Pulmonary 24 HR Interval Summary Free Text/Dictation Patient's condition is stable. Remains awake. Has remained hemodynamically stable. General exam; elderly male, on T piece via tracheostomy, awake, currently in no distress. Exam/Review of Systems Vital Signs Vitals Vital Signs Date Time Temp Pulse Resp B/P Pulse Ox O2 Delivery O2 Flow Rate FiO2 11/01/17 09:40 5.0 11/01/17 08:25 99 28 11/01/17 08:22 71 11/01/17 08:07 98.0 18 136/81 11/01/17 00:00 T Tube Trach Collar Intake and Output 10/31/17 10/31/17 11/01/17 15:00 23:00 07:00 Intake Total 1120 ml 1020 ml Output Total 2000 ml 750 ml Balance -880 ml 270 ml Exam HEENT exam; supple neck, no JVD. No lymphadenopathy. Midline trachea. No thyromegaly. Patient has fair dentition. Tracheostomy in place. Chest exam; clear to auscultation. S1-S2 audible, no murmurs. Regular rhythm. Abdomen exam; soft, G-tube in place. No organomegaly. Bowel sounds audible. Extremity exam; no edema. STORY[employer] ARTIST exam; patient has stable quadriplegia. Results Result Diagram: 10/29/17 0718 Results 24 hrs Laboratory Tests Test 10/31/17 13:46 10/31/17 22:06 11/01/17 04:57 Bedside Glucose 137 116 88 Medications Medications Current Medications Ondansetron HCl (Zofran Inj) 4 mg Q6H PRN IV NAUSEA AND/OR VOMITING Last administered on 10/24/17t 18:31; Admin Dose 4 MG; Start 10/15/17 at 20:00 Morphine Sulfate (morphine) 2 mg Q4H PRN IV SEVERE PAIN LEVEL 7-10 Last administered on 10/30/17 20:07; Admin Dose 2 MG; Start 10/15/17 at 20:00 Baclofen (Lioresal) 10 mg TID GTB Last administered on 11/01/17 08:30; Admin Dose 10 MG; Start 10/16/17 at 09:00 Ferrous Sulfate (Feosol Liquid Cup) 300 mg BID GTB Last administered on 08:30; Admin Dose 300 MG; Start 10/16/17 at 09:00 Al Hydrox/Mg Hydrox/Simethicone (Mag-Al Plus) 30 ml Q4H PRN GTB GASTROINTESTINAL UPSET; Start 10/16/17 at 00:00 Sucralfate (Carafate) 1 gm Q6 GTB Last administered on 11/01/17 05:01; Admin Dose 1 GM; Start 10/16/17 at 00:00 Tramadol HCl (Ultram) 50 mg TID GTB Last administered on 11/01/17 08:30; Admin Dose 50 MG; Start 10/16/17 at 09:00 Zolpidem Tartrate (Ambien) 5 mg QHS PRN GTB INSOMNIA Last administered on 10/30 02:10; Admin Dose 5 MG; Start 10/16/17 at 00:00 Diagnostic Test (Pha) (Accu-Chek) 1 ea 02 XX Last administered on 10/31/17 02 :13; Admin Dose 1 EA; Start 10/18/17 at 02:00 Miscellaneous Information 1 ea NOTE XX ; Start 10/17/17 at 14:00 Glucose (Glutose) 15 gm Q15M PRN PO DECREASED GLUCOSE; Start 10/17/17 at 14:00 Glucose (Glutose) 22.5 gm Q15M PRN PO DECREASED GLUCOSE; Start 10/17/17 at 14: 00 Dextrose (D50w Syringe) 25 ml Q15M PRN IV DECREASED GLUCOSE; Start 10/17/17 at 14:00 Dextrose (D50w Syringe) 50 ml Q15M PRN IV DECREASED GLUCOSE; Start 10/17/17 at 14:00 Glucagon (Glucagen) 1 mg Q15M PRN IM DECREASED GLUCOSE; Start 10/17/17 at 14:00 Glucose (Glutose) 15 gm Q15M PRN BUCCAL DECREASED GLUCOSE; Start 10/17/17 at 14 :00 Zinc Sulfate (Zinc Sulfate) 220 mg DAILY NGT Last administered on 11/01/17 08 :30; Admin Dose 220 MG; Start 10/18/17 at 09:30 Ascorbic Acid (Vitamin C) 500 mg DAILY NGT Last administered on 11/01/17 08: 30; Admin Dose 500 MG; Start 10/18/17 at 09:30 Lansoprazole (Prevacid) 30 mg DAILY@06 GTB Last administered on 11/01/17 05: 01; Admin Dose 30 MG; Start 10/19/17 at 06:00 Insulin Glargine (Lantus) 30 unit DAILY@20 SC Last administered on 10/31/17 22:13; Admin Dose 30 UNIT; Start 10/22/17 at 20:00 Lorazepam (Ativan) 0.5 mg Q6H PRN PO ANXIETY Last administered on 10/27/17 17 :18; Admin Dose 0.5 MG; Start 10/27/17 at 17:00 Insulin Aspart (Novolog Insulin Pen) NOVOLOG *MILD* ALGORI... Q8 SC Last administered on 10/31/17 06:05; Admin Dose 1 UNIT; Start 10/30/17 at 22:00 ANYA FLOREZ Nov 01, 2017 12:18
--- NOTE | 2017-11-01 15:24 | PN ---
Date/Time of Note Date/Time of Note DATE: 11/01/17 TIME: 15:21 Assessment/Plan VTE Prophylaxis VTE Prophylaxis Intervention: SCD's Lines/Catheters IV Catheter Type (from Nrsg): Saline Lock Urinary Cath still in place: Yes Reason Cath still needed: urinary retention Assessment/Plan Chief Complaint/Hosp Course Subjective 12.18 difficulty with breathing on the new valve 12.19 patient has mild R shoulder pain 12.21 still mild R shoulder pain Objective Physical exam General: Patient is laying in bed and answers questions appropriately. quadraplegic, peg/trach(passy yuni valve) Mentation: Patient is alert and oriented 4, Head: Normocephalic atraumatic Eyes: EOMI, pupils reactive to light Neck: Supple, nontender, midline Respiratory: diminished to auscultation bilaterally Cardiovascular: regular rate, no obvious murmurs Gastrointestinal: non-tender to palpation, bowel sounds heard. peg tube Neurological: no sensation or motor in extremities Skin: No new skin lesions, chronic sacral decubitus Assessment and plan Severe sepsis versus septic shock -Patient's blood pressure stable -Pneumonia and UTI source -finished with abx -WBC stable Anemia, microcytic -Likely component of volume resuscitation, and partially secondary to anemia of chronic disease -No signs of bleed -Iron levels extremely low -Blood transfusion for now, start iron per Gtube Acute kidney injury -Resolved -Nephrology consult appreciated Electrolyte derangement -Replete as needed Chronic trach dependent respiratory failure -Secondary to quadriplegic nature status post fall -Passy-Yuni valve, pulmonary Recs appreciated, however patient's new valve is causing discomfort, back to T-piece wall Dysphasia -Has peg tube -Speech therapy performed video swallow, ice chips okay Quadriplegia -Status post fall Sacral decubitus ulcer -Chronic, infectious disease recommended is appreciated -Wound care -patient refused wound care per wound nurse on sacral decubitus -other wound bandaged and cleaned Type 2 diabetes -Insulin sliding scale and Lantus, adjust as needed, increased today DISPO -back on tpiece to wall -pending transfer to snf Problems: Exam/Review of Systems Vital Signs Vitals Vital Signs Date Time Temp Pulse Resp B/P Pulse Ox O2 Delivery O2 Flow Rate FiO2 11/01/17 12:28 69 11/01/17 12:19 98.6 16 116/62 100 11/01/17 09:40 5.0 11/01/17 08:25 28 11/01/17 00:00 T Tube Trach Collar Intake and Output 10/31/17 10/31/17 11/01/17 15:00 23:00 07:00 Intake Total 1120 ml 1020 ml Output Total 2000 ml 750 ml Balance -880 ml 270 ml Results Result Diagram: 10/29/17 0718 Results 24 hrs Laboratory Tests Test 10/31/17 22:06 11/01/17 04:57 11/01/17 14:22 Bedside Glucose 116 88 87 Medications Medications Current Medications Ondansetron HCl (Zofran Inj) 4 mg Q6H PRN IV NAUSEA AND/OR VOMITING Last administered on 10/24/17 18:31; Admin Dose 4 MG; Start 10/15/17 at 20:00 Morphine Sulfate (morphine) 2 mg Q4H PRN IV SEVERE PAIN LEVEL 7-10 Last administered on 10/30/17 20:07; Admin Dose 2 MG; Start 10/15/17 at 20:00 Baclofen (Lioresal) 10 mg TID GTB Last administered on 11/01/17 13:09; Admin Dose 10 MG; Start 10/16/17 at 09:00 Ferrous Sulfate (Feosol Liquid Cup) 300 mg BID GTB Last administered on 08:30; Admin Dose 300 MG; Start 10/16/17 at 09:00 Al Hydrox/Mg Hydrox/Simethicone (Mag-Al Plus) 30 ml Q4H PRN GTB GASTROINTESTINAL UPSET; Start 10/16/17 at 00:00 Sucralfate (Carafate) 1 gm Q6 GTB Last administered on 11/01/17 13:09; Admin Dose 1 GM; Start 10/16/17 at 00:00 Tramadol HCl (Ultram) 50 mg TID GTB Last administered on 11/01/17 13:09; Admin Dose 50 MG; Start 10/16/17 at 09:00 Zolpidem Tartrate (Ambien) 5 mg QHS PRN GTB INSOMNIA Last administered on 10/30 02:10; Admin Dose 5 MG; Start 10/16/17 at 00:00 Diagnostic Test (Pha) (Accu-Chek) 1 ea 02 XX Last administered on 10/31/17 02 :13; Admin Dose 1 EA; Start 10/18/17 at 02:00 Miscellaneous Information 1 ea NOTE XX ; Start 10/17/17 at 14:00 Glucose (Glutose) 15 gm Q15M PRN PO DECREASED GLUCOSE; Start 10/17/17 at 14:00 Glucose (Glutose) 22.5 gm Q15M PRN PO DECREASED GLUCOSE; Start 10/17/17 at 14: 00 Dextrose (D50w Syringe) 25 ml Q15M PRN IV DECREASED GLUCOSE; Start 10/17/17 at 14:00 Dextrose (D50w Syringe) 50 ml Q15M PRN IV DECREASED GLUCOSE; Start 10/17/17 at 14:00 Glucagon (Glucagen) 1 mg Q15M PRN IM DECREASED GLUCOSE; Start 10/17/17 at 14:00 Glucose (Glutose) 15 gm Q15M PRN BUCCAL DECREASED GLUCOSE; Start 10/17/17 at 14 :00 Zinc Sulfate (Zinc Sulfate) 220 mg DAILY NGT Last administered on 11/01/17 08 :30; Admin Dose 220 MG; Start 10/18/17 at 09:30 Ascorbic Acid (Vitamin C) 500 mg DAILY NGT Last administered on 11/01/17 08: 30; Admin Dose 500 MG; Start 10/18/17 at 09:30 Lansoprazole (Prevacid) 30 mg DAILY@06 GTB Last administered on 11/01/17 05: 01; Admin Dose 30 MG; Start 10/19/17 at 06:00 Insulin Glargine (Lantus) 30 unit DAILY@20 SC Last administered on 10/31/17 22:13; Admin Dose 30 UNIT; Start 10/22/17 at 20:00 Lorazepam (Ativan) 0.5 mg Q6H PRN PO ANXIETY Last administered on 10/27/17 17 :18; Admin Dose 0.5 MG; Start 10/27/17 at 17:00 Insulin Aspart (Novolog Insulin Pen) NOVOLOG *MILD* ALGORI... Q8 SC Last administered on 10/31/17 06:05; Admin Dose 1 UNIT; Start 10/30/17 at 22:00 SARA WILEY Nov 01, 2017 15:24
[2017-11-01] MEDS: metFORMIN 500 MG TAB GTB SCH (18:20)
== END 2017-11-01 20:30 | DRG 870 ==
LOC: E/R 14:16 → ICU 19:43 → TEL 10-18 11:20 → MS2 11-01 16:55
PROVIDERS: ADMIT Internal Medicine; ATTEND Internal Medicine
PROC: 5A1955Z Respiratory Ventilation, Greater than 96 Consecutive Hours (ICD-10-PCS; principal; 2017-10-15)
PROC: 30233N1 Transfusion of Nonautologous Red Blood Cells into Peripheral Vein, Percutaneous Approach (ICD-10-PCS; 2017-10-17)
DX: A41.50 Gram-negative sepsis, unspecified (principal); G82.50 Quadriplegia, unspecified; J18.9 Pneumonia, unspecified organism; N17.9 Acute kidney failure, unspecified; L89.154 Pressure ulcer of sacral region, stage 4; J96.10 Chronic respiratory failure, unspecified whether with hypoxia or hypercapnia; N39.0 Urinary tract infection, site not specified; E87.1 Hypo-osmolality and hyponatremia; A41.9 Sepsis, unspecified organism; E11.22 Type 2 diabetes mellitus with diabetic chronic kidney disease; Z93.0 Tracheostomy status; Z93.1 Gastrostomy status; E87.5 Hyperkalemia; E11.65 Type 2 diabetes mellitus with hyperglycemia; N18.9 Chronic kidney disease, unspecified; D64.9 Anemia, unspecified; D69.6 Thrombocytopenia, unspecified; R13.10 Dysphagia, unspecified; N25.0 Renal osteodystrophy; E83.9 Disorder of mineral metabolism, unspecified; G40.909 Epilepsy, unspecified, not intractable, without status epilepticus; Z79.4 Long term (current) use of insulin
CPT/HCPCS: 36430; 71010; 73020; 74230; 76937; 80048; 80053; 80069; 80202; 81001; 81003; 82043; 82962; 83036; 83540; 83605; 83735; 83930; 83935; 84100; 84155; 84300; 84484; 85025; 85610; 85730; 86850; 86900; 86901; 86920; 87040; 87081; 87086; 89220; 92526; 92610; 92611; 93005; 94640; 94644; 94664; 96374; 96375; 96376; C9113; J0692; J1815; J2270; J2405; J2543; J3370; J3480; J7030; J7040; J7050; P9016